=== PATIENT | female | born 1955 | race Caucasian/White ===

== ENCOUNTER → 2017-08-15 08:53 | Outpatient (CLI) | payer MEDICARE, MEDICAID, SELFPAY ==
[2017-08-15 09:27] LABS: Hematocrit 38.6 % (37-47); Hemoglobin 12.8 g/dl (12.0-15.0); Mean Corp Hgb Conc 33.2 g/gl (32-36); Mean Corpuscular Hgb 30.7 pg (27.0-32.0); Mean Corpuscular Volume 92.6 fL (81-99); Mean Platelet Vol. 11.9 fl (6.2-12.0); Platelet Count 80 K/mm3 (150-450); RBC Distribution Width CV 14.9 % (11.6-14.6); RBC Distribution Width SD 48.8 fl (35.1-43.9); Red Blood Count 4.17 M/mm3 (4.2-5.4); Scan Indicated on CBC? Y/N NO; White Blood Count 3.7 K/mm3 (4.4-11.0)
[2017-08-15 09:49] LABS: ALB/GLOB Ratio 0.7 RATIO (0.9-2.4); AST(SGOT) 38 U/L (15-37); Alanine Aminotransfer ALT/SGPT 33 U/L (13-56); Albumin, Serum 2.9 g/dL (3.2-5.0); Alkaline Phosphatase 96 U/L (45-117); Anion Gap 8 (5-15); BUN 15 mg/dL (7-18); BUN/Creat Ratio 18.4 RATIO (10-20); Calcium,Total 8.3 mg/dL (8.5-10.1); Chloride 112 mmol/L (98-107); Creatinine, Serum 0.82 mg/dL (0.55-1.02); EST Glomerular Filtration Rate 76 mL/min (>60); Est Glom Filt Rate - Afr Amer 92 mL/min (>60); Globulin 3.9 g/dL (2.2-4.2); Glucose 173 mg/dL (74-106); Potassium 3.6 mmol/L (3.5-5.1); Protein, Total 6.8 g/dL (6.4-8.2); Sodium Level 142 mmol/L (136-145)
== END ==
PROVIDERS: Family Provider Internal Medicine; PCP Internal Medicine; Visit Provider Internal Medicine
DX: E72.20 Disorder of urea cycle metabolism, unspecified (principal); R53.81 Other malaise; R53.82 Chronic fatigue, unspecified
CPT/HCPCS: 36415; 80053; 82140; 85027

== ENCOUNTER 2017-08-18 12:12 | Inpatient (IN) | payer MEDICARE, MEDICAID, SELFPAY ==
[2017-08-18] VITALS (10 sets, daily range): BP systolic 129–160; BP diastolic 59–91; PULSE 54–87; RESP 12–16; TEMP 36.2–36.8; O2SAT 97–99; BMI 24.7; BMI 25.0
--- NOTE | 2017-08-18 12:24 | CT_ITS ---
STUDY: CT BRAIN WITHOUT CONTRAST REASON FOR EXAM: Female, 62 years old. Confusion. Fall. RADIATION DOSAGE (If Supplied By Facility): CTDIvol = ( 44.99 ) mGy, DLP = ( 745.49 ) mGycm TECHNIQUE: Transaxial CT imaging of the brain was performed without administration of intravenous contrast material. Individualized dose optimization techniques were used for this CT. COMPARISON: Comparison is made with prior study dated 2017. FINDINGS: Normal soft tissue structures. Normal calvarium. There is mild cerebral atrophy with widening of the extra-axial spaces and ventricular dilatation. Normal white matter tracts of the cerebral hemispheres. Normal basal ganglia and thalami. Normal brainstem. Normal cerebellum. There is no intracranial hemorrhage. There are no findings of an acute ischemic infarction. Normal visualized paranasal sinuses. CT/Brain/Head without Contrast IMPRESSION: Chronic involutional changes of the brain. Electronically Signed: Delgado Garcia MD at 13:27 EDT Tel [phone], Service support ,
--- NOTE | 2017-08-18 12:29 | ED.DCSUM_ITS ---
- ER Visit Summary Date of Service: 08/18/17 Chief Complaint: Abnormal labs History of Present Illness: The patient is a 62 F who states that she had blood work drawn on Friday. She was called today and told that she had an elevated ammonia level. Reportedly this was 122. She states that she has been more confused lately. She feels weak and has been falling. She is on Plavix and does note that she hit the back of her head. She notes bruising to the right hip. She has a history of cirrhosis as well as polypharmacy resulting in altered mental status. Noted history of hepatitis C. Physical Examination: Afebrile vital signs are stable Gen: Well-nourished well-developed Head: Normocephalic atraumatic Eyes: Perrl EOMI ENT: TMs clear no rhinorrhea moist mucous membranes Neck: Supple no lymphadenopathy no JVD nontender CVS: Regular rate rhythm no murmurs normal S1-S2 Respiratory: No distress clear to auscultation bilaterally chest nontender Abdomen: Soft nontender nondistended normal bowel sounds no masses Back: Nontender Extremity: Nontender no edema Skin: Normal color no rash Neuro: alert orientated ?3 CN II-XII intact normal strength sensation reflexes gait cerebellar Psych: Flat affect Test Results: Ammonia level came back at 155. Toxicology positive for marijuana. No evidence of infection.CT of the brain was obtained given the fall on Plavix and was negative. Emergency Department Course and Treatment: Patient received oral lactulose. Plan is admission Impression: 1. Hepatic encephalopathy This note was generated with [employer] dictation software. It may contain incorrect words, spelling, and punctuation that were not noted in review of the chart prior to signing ED Disposition - Plan for ED Patient: Disposition: Acute Care Hospital [facility] Chief Complaint: Abn Labs
[2017-08-18 12:38] LABS: Red Blood Cells-Urine 0 SEEN /hpf (0-5)
[2017-08-18 12:42] LABS: Color, Urine Yellow (Yellow); Glucose, Dipstick Normal (Normal); Ketone-Dipstick Negative (Negative); Leukocyte Esterase-Dipstick 100 /ul (Negative); Nitrite-Dipstick Negative (Negative); Occult Blood-Urine Negative /ul (Negative); Protein-Dipstick Negative (Negative); Specific Gravity, Urine 1.015 (1.002-1.030); Urine Bilirubin Dipstick Negative (Negative); Urine Clarity Clear (Clear); Urine Urobilinogen 4 mg/dl (Normal)
[2017-08-18 12:49] LABS: White Blood Cells 0-5 SEEN /hpf (0-5)
[2017-08-18 12:50] LABS: Bacteria 1+ /hpf (None Seen); Mucous, Urine 1+ /hpf (<or=2+); Squamous Epithelial Cells - UA 10-25 SEEN /hpf (5-10)
[2017-08-18 12:54] LABS: Amphetamine Urine VISTA NEGATIVE (<1000 ng/mL); Barbiturate Urine VISTA NEGATIVE (< 200 ng/mL); Benzodiazepine Urine VISTA NEGATIVE (< 200 ng/mL); Cocaine Urine VISTA NEGATIVE (< 300 ng/mL); Ecstacy Urine VISTA NEGATIVE (< 500 ng/mL); Methadone Urine VISTA NEGATIVE (< 300 ng/mL); PCP Urine VISTA NEGATIVE (< 25 ng/mL); THC Urine VISTA POSITIVE (< 50 ng/mL); Vista UDS pH Range 6
[2017-08-18 13:10] LABS: Absolute Lymphocyte Count 1.07 X10^3/ul (0.83-4.51); Absolute Neutrophil Count 1.9 X10^3/uL (2.0-7.7); Basophil# 0.02 X10^3/uL; Basophil% 0.5 % (0-1); Eosinophil# 0.13 X10^3/uL; Eosinophils% 3.4 % (0-5); Hematocrit 38.2 % (37-47); Hemoglobin 12.6 g/dl (12.0-15.0); Lymphocyte # 1.07 X10^3/ul (4.0); Lymphocyte % 28.3 % (19-41); Mean Corpuscular Hgb 30.4 pg (27.0-32.0); Mean Corpuscular Volume 92.3 fL (81-99); Mean Platelet Vol. 12.3 fl (6.2-12.0); Monocyte# 0.65 X10^3/uL; Monocyte% 17.2 % (0-10); Neutrophil % 50.3 % (47-70); Platelet Count 87 K/mm3 (150-450); RBC Distribution Width SD 50.8 fl (35.1-43.9); Red Blood Count 4.14 M/mm3 (4.2-5.4); White Blood Count 3.8 K/mm3 (4.4-11.0)
[2017-08-18 13:11] LABS: POSITIVE COUNT NO; POSITIVE DIFFERENTIAL NO; POSITIVE MORPHOLOGY NO
[2017-08-18 13:20] LABS: International Normalized Ratio 1.3; Prothrombin Time (Protime)PT. 16.4 SECONDS (11.7-14.9)
[2017-08-18 13:21] LABS: Partial Thromboplast Time 34.3 Seconds (24.1-36.2)
[2017-08-18 13:26] LABS: ALB/GLOB Ratio 0.7 RATIO (0.9-2.4); AST(SGOT) 43 U/L (15-37); Alanine Aminotransfer ALT/SGPT 30 U/L (13-56); Alkaline Phosphatase 84 U/L (45-117); Anion Gap 6 (5-15); BUN 16 mg/dL (7-18); BUN/Creat Ratio 22.2 RATIO (10-20); Calcium,Total 8.6 mg/dL (8.5-10.1); Chloride 111 mmol/L (98-107); Creatinine, Serum 0.72 mg/dL (0.55-1.02); EST Glomerular Filtration Rate 87 mL/min (>60); Est Glom Filt Rate - Afr Amer 106 mL/min (>60); Estimated Creatinine Clearance 71.89 ml/min; Globulin 4.1 g/dL (2.2-4.2); Glucose 70 mg/dL (74-106); Lipase 264 U/L (73-393); Potassium 4.1 mmol/L (3.5-5.1); Protein, Total 7.1 g/dL (6.4-8.2); Sodium Level 143 mmol/L (136-145)
[2017-08-18] MEDS: Lactulose 20 GM/30 ML UDC PO ×3 (14:17→23:09)
--- NOTE | 2017-08-18 14:21 | PCM.HP.STD ---
Problem List (1) Cirrhosis Status: Chronic Qualifiers: Hepatic cirrhosis type: unspecified hepatic cirrhosis Ascites presence: without ascites Qualified Code(s): K74.60 - Unspecified cirrhosis of liver (2) Hepatitis C Status: Chronic Qualifiers: Viral hepatitis chronicity: unspecified Hepatic coma status: without hepatic coma Qualified Code(s): B19.20 - Unspecified viral hepatitis C without hepatic coma (3) CAD (coronary artery disease) Status: Chronic Qualifiers: Coronary Disease-Associated Artery/Lesion type: unspecified vessel or lesion type [place] vs. transplanted heart: unspecified whether [place] or transplanted heart Associated angina: angina presence unspecified Qualified Code(s): I25.10 - Atherosclerotic heart disease of [place] coronary artery without angina pectoris (4) History of non-ST elevation myocardial infarction (NSTEMI) Status: Chronic (5) HTN (hypertension) Status: Chronic Qualifiers: Hypertension type: essential hypertension Qualified Code(s): I10 - Essential (primary) hypertension (6) HLD (hyperlipidemia) Status: Chronic Qualifiers: Hyperlipidemia type: unspecified Qualified Code(s): E78.5 - Hyperlipidemia, unspecified (7) Tobacco use Status: Chronic (8) Chronic pain syndrome Status: Chronic (9) Anxiety and depression Status: Chronic (10) Hyperammonemia Status: Acute (11) Encephalopathy acute Status: Acute History of Present Illness Date of Admission: 08/18/17 Chief Complaint: Falls, Confusion, Abnormal Lab The patient is a 62 y/o F w/ PMHx: Hx [place], Chronic Pain Syndrome on chronic narcotic therapy, Anxiety and Depression, Hepatitis C w/ Cirrhosis, Chronic Thrombocytopenia, Tobacco use who presents to the [facility] ED on with history of increased more frequent falls, intermittent confusion, falling asleep easily during daytime hours over the last 4 weeks, progressively worsening w/ PCP evaluation 4 days prior secondary to patient resistant to evaluation per report with noted elevated ammonia level and referral to the ED. In the ED repeat ammonia level obtained more elevated above prior per PCP. Patient does not routinely take lactulose regimen. Patient admitted to recent fall, hitting her head in the past week as well. In the ED work-up included T 97.2, heart rate 66, BP 140/79, respiratory rate 15, 97% on room air, CBC with WBC 3.8, hemoglobin 12.6, platelet 87 with increased mono%, INR 1.3, PTT 34.3, PT 16.4, CMP w/ Chl 111, Glucose 70, AST/ALT 43/30, Ammonia 155, lipase 264, UA poor sample, UDS w/ + cannabis, CT head with chronic changes only. In the ED patient administered lactulose. Past Medical History Past Medical History (Chronic Problems): Chronic Problems (Last Reviewed 04/02/17 @ 11:17 by Navin Argueta MD) Cirrhosis (Chronic) Hepatitis C (Chronic) CAD (coronary artery disease) (Chronic) History of non-ST elevation myocardial infarction (NSTEMI) (Chronic) HTN (hypertension) (Chronic) HLD (hyperlipidemia) (Chronic) Tobacco use (Chronic) Chronic pain syndrome (Chronic) Anxiety and depression (Chronic) Abnormal electrocardiogram [ECG] [EKG] (Chronic) Non-ST elevation (NSTEMI) myocardial infarction (Chronic ~01/27/17) Allergies No Known Allergies Allergy (Verified 08/18/17 12:15) Home Medications: Ambulatory Orders Medication Instructions Recorded Aripiprazole [Abilify] 5 mg PO DAILY 02/05/13 Clonazepam [Klonopin] 0.5 mg PO QHS #0 02/05/13 Rifaximin [Xifaxan] 550 mg PO DAILY 01/24/17 Naproxen [Naprosyn] 500 mg PO BID PRN #20 tab 04/02/17 Atenolol [Atenolol] 50 mg PO DAILY 08/18/17 Atorvastatin Calcium [Lipitor] 20 mg PO QHS 08/18/17 Buprenorphine [Buprenorphine] 1 each TOPICAL DOWLING 08/18/17 Clopidogrel Bisulfate [Plavix] 75 mg PO DAILY 08/18/17 Fluoxetine [Prozac] 40 mg PO DAILY 08/18/17 Tizanidine HCl [Tizanidine HCl] 4 mg PO Q8H PRN 08/18/17 Topiramate [Topamax] 25 mg PO DAILY 08/18/17 Surgical History: - - Cervical neck surgery, oral surgery, tonsillectomy, cholecystectomy, hysterectomy, right salpingectomy secondary to tubal . 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 Tobacco Use: Non-smoker Alcohol: None Drugs: Marijuana, - - History of prior polysubstance abuse but notes only item currently used is occasional marijuana. - *Family History Maternal History Items: Heart Disease, Hypertension Paternal History Items: Heart Disease, Hypertension Review of Systems Constitutional: Reports: Malaise, Weakness, Fatigue. Denies: Chills, Fever, Weight Change HEENT: Denies: Head Aches, Sinus Congestion, Sinus Drainage Cardiovascular: Denies: Chest Pain, Palpitations Respiratory: Denies: Cough, Shortness of breath at rest, Sputum production Gastrointestinal: Denies: Abdominal Pain, Nausea, Vomiting Genitourinary: Denies: Dysuria Musculoskeletal: Reports: Back Pain, Neck Pain. Denies: Joint Pain, Joint Tenderness Skin: Denies: Rash, Wounds Neurological: Reports: Balance problems. Denies: Focal weakness, Numbness, Tingling Psychiatric: Reports: Anxiety, Depression. Denies: Homicidal Ideations, Suicidal Ideations Hematologic/ Lymphatic: Reports: Anemia, Easy Bruising, Easy Bleeding VTE Information - Inpt Only VTE Present on Admission: No VTE Mechan Device Prophylaxis: SCD's VTE Pharm Prophylaxis ordered?: Yes Patient Problems: Active and Suspected Problems (Last Reviewed 04/02/17 @ 11:17 by Navin Argueta MD) Hyperammonemia (Acute) Encephalopathy acute (Acute) Subjective: Seated upright in the ED bed, fatigued appearance, occasionally slurring her words. Objective: Physical Examination: General: awake, alert, oriented to self, place and recent events but per spouse has been intermittently confused, cooperative, seated upright in the ED bed in no apparent distress. Skin: normal color, turgor, no icterus, cyanosis. HEENT: AT/NC, EOMI, PERRLA, mildly dry MM, no carotid bruits or JVD noted. Lungs: CTA bilaterally, moderate effort, mild decrease BL bases, no rales, ronchi or wheezing. Heart: Regular rate and rhythm; no gallop, rub audible. Abdomen: soft, NTTP, ND, normal BS, + HM. Extremities: no cyanosis, clubbing, or edema. Neurological: patient awake, alert, oriented as noted; cognitive function not baseline intact; pupils equally reactive to light and accomodation; cranial nerves II-XII grossly normal, moving all 4 extremities, no focal deficits, strength mildly to moderately globally decreased, gait instability. Psychiatric: affect appears fatigued, no acute evidence of depressive or anxiety feelings. - Physical Exam Vital Signs Temp Pulse Resp BP Pulse Ox 97.2 F L 87 12 129/59 H 97 08/18/17 12:12 08/18/17 14:18 08/18/17 14:18 08/18/17 14:18 08/18/17 14:18 Oxygen Delivery Method Room Air Weight: 122 lb 5.705 oz Body Mass Index (BMI) 24.7 Finger Stick Blood Glucose 123 Laboratory Tests Past 24 Hrs 08/18/17 08/18/17 08/18/17 12:30 12:30 12:50 WBC 3.8 L RBC 4.14 L Hgb 12.6 Hct 38.2 MCV 92.3 MCH 30.4 MCHC 33.0 RDW 15.0 H RDW Differential 50.8 H Plt Count 87 L MPV 12.3 H Immature Gran % (Auto) 0.300 Neut % (Auto) 50.3 Lymph % (Auto) 28.3 Fisher % (Auto) 17.2 H Eos % (Auto) 3.4 Baso % (Auto) 0.5 Absolute Neuts (auto) 1.9 L Absolute Lymphs (auto) 1.07 Total Counted Not Reportable PT INR APTT Sodium Potassium Chloride Carbon Dioxide Anion Gap BUN Creatinine Estim Creat Clear Calc Est GFR (MDRD) Af Amer Est GFR (MDRD) Non-Af BUN/Creatinine Ratio Glucose Calcium Total Bilirubin AST ALT Alkaline Phosphatase Ammonia Total Protein Albumin Globulin Albumin/Globulin Ratio Lipase Urine Color Yellow Urine Clarity Clear Urine pH 6.0 Ur Specific [place] 1.015 Urine Protein Negative Urine Glucose (UA) Normal Urine Ketones Negative Urine Occult Blood Negative Urine Nitrite Negative Urine Bilirubin Negative Urine Urobilinogen 4 H Ur Leukocyte Esterase 100 H Urine RBC 0 SEEN Urine WBC 0-5 SEEN Ur Squamous Epith Cells 10-25 SEEN Urine Bacteria 1+ Urine Mucus 1+ Urine Opiates Screen NEGATIVE Urine Methadone Screen NEGATIVE Ur Barbiturates Screen NEGATIVE Ur Phencyclidine Scrn NEGATIVE Ur Amphetamines Screen NEGATIVE U Methamphetamin-MDMA NEGATIVE U Benzodiazepines Scrn NEGATIVE Urine Cocaine Screen NEGATIVE U Cannabinoids Screen POSITIVE H Ur Drug Screen Comment Ethyl Alcohol 08/18/17 08/18/17 08/18/17 12:50 12:50 12:50 WBC RBC Hgb Hct MCV MCH MCHC RDW RDW Differential Plt Count MPV Immature Gran % (Auto) Neut % (Auto) Lymph % (Auto) Fisher % (Auto) Eos % (Auto) Baso % (Auto) Absolute Neuts (auto) Absolute Lymphs (auto) Total Counted PT 16.4 H INR 1.3 APTT 34.3 Sodium 143 Potassium 4.1 Chloride 111 H Carbon Dioxide 26.0 Anion Gap 6 BUN 16 Creatinine 0.72 Estim Creat Clear Calc 71.89 Est GFR (MDRD) Af Amer 106 Est GFR (MDRD) Non-Af 87 BUN/Creatinine Ratio 22.2 H Glucose 70 L Calcium 8.6 Total Bilirubin 0.60 AST 43 H ALT 30 Alkaline Phosphatase 84 Ammonia Total Protein 7.1 Albumin 3.0 L Globulin 4.1 Albumin/Globulin Ratio 0.7 L Lipase 264 Urine Color Urine Clarity Urine pH Ur Specific [place] Urine Protein Urine Glucose (UA) Urine Ketones Urine Occult Blood Urine Nitrite Urine Bilirubin Urine Urobilinogen Ur Leukocyte Esterase Urine RBC Urine WBC Ur Squamous Epith Cells Urine Bacteria Urine Mucus Urine Opiates Screen Urine Methadone Screen Ur Barbiturates Screen Ur Phencyclidine Scrn Ur Amphetamines Screen U Methamphetamin-MDMA U Benzodiazepines Scrn Urine Cocaine Screen U Cannabinoids Screen Ur Drug Screen Comment Ethyl Alcohol 10.0 08/18/17 12:50 WBC RBC Hgb Hct MCV MCH MCHC RDW RDW Differential Plt Count MPV Immature Gran % (Auto) Neut % (Auto) Lymph % (Auto) Fisher % (Auto) Eos % (Auto) Baso % (Auto) Absolute Neuts (auto) Absolute Lymphs (auto) Total Counted PT INR APTT Sodium Potassium Chloride Carbon Dioxide Anion Gap BUN Creatinine Estim Creat Clear Calc Est GFR (MDRD) Af Amer Est GFR (MDRD) Non-Af BUN/Creatinine Ratio Glucose Calcium Total Bilirubin AST ALT Alkaline Phosphatase Ammonia 155.0 H Total Protein Albumin Globulin Albumin/Globulin Ratio Lipase Urine Color Urine Clarity Urine pH Ur Specific [place] Urine Protein Urine Glucose (UA) Urine Ketones Urine Occult Blood Urine Nitrite Urine Bilirubin Urine Urobilinogen Ur Leukocyte Esterase Urine RBC Urine WBC Ur Squamous Epith Cells Urine Bacteria Urine Mucus Urine Opiates Screen Urine Methadone Screen Ur Barbiturates Screen Ur Phencyclidine Scrn Ur Amphetamines Screen U Methamphetamin-MDMA U Benzodiazepines Scrn Urine Cocaine Screen U Cannabinoids Screen Ur Drug Screen Comment Ethyl Alcohol Assessment/Plan Active and Suspected Problems (Last Reviewed 04/02/17 @ 11:17 by Navin Argueta MD) Hyperammonemia (Acute) Encephalopathy acute (Acute) The patient is a 62 y/o F w/ PMHx: Hx [place], Chronic Pain Syndrome on chronic narcotic therapy, Anxiety and Depression, Hepatitis C w/ Cirrhosis, Chronic Thrombocytopenia, Tobacco use who presents to the [facility] ED on with history of increased more frequent falls, intermittent confusion, falling asleep easily during daytime hours w/ PCP evaluation 4 days prior with noted elevated ammonia level and referral to the ED. (1) Acute Encephalopathy secondary to Hyperammonia w/ Cirrhosis w/ Hepatitis C with chronic thrombocytopenia: CT head without acute findings given fall on plavix. Will admit to [facility] w/ telemetry, maintain on low Na diet, defer water restriction unless intake notable, given no marked ascites defer IV lasix diuresis, initiate aggressive lactulose regimen and will likely need to be maintained upon discharge, continue home regimen atenolol, rifaximin, consider addition of spironolactone if appropriate, repeat ammonia and CMP in AM. Nutrition consulted for education and teaching. Repeat CBC in a.m., closely monitor platelets and if further decreased to discontinue chemoprophylaxis. (2) CAD: Hx NSTEMI, maintain on asa, plavix, statin, BB. NSTEMI 12/2016 w/ cardiac catheterization w/ normal left main, normal LAD, normal left circumflex, dominant RCA with small vessel with thrombus filled vessel in the side branch of the PDA, normal EF, medical recommendation at that time with continuation of aspirin, Plavix therapy. (3) Hypertension: Continue home regimen including metoprolol, PRN hydralazine. (4) Hyperlipidemia: Continue home statin regimen. (5) Anxiety and Depression: Maintain on home regimen abilify, prozac and klonopin. UDS upon ED presentation with negative BZD. (6) Chronic Pain Syndrome: Maintained on home buprenorphine and tizanidine regimen. UDS with noted cannabis in addition to lack of benzodiazepines with history of polysubstance abuse in the past. (7) History of former tobacco Abuse: Encouraged continued cessation, inpatient consultation per RT. (8) History of polysubstance abuse: Encouraged continued clean status, encouraged avoidance of cannabis usage with noted UDS positive for cannabis and also lacking benzodiazepine with usage of chronic Klonopin on chronic therapy with pain management. (9) DVT Prophylaxis: SCDs, lovenox with close monitoring of platelet count and hold if appropriate. Code Visit Inpatient E&M: 79306 Init Hosp L3
--- NOTE | 2017-08-18 14:32 | HP.PCM_ITS ---
Problem List (1) Cirrhosis Status: Chronic Qualifiers: Hepatic cirrhosis type: unspecified hepatic cirrhosis Ascites presence: without ascites Qualified Code(s): K74.60 - Unspecified cirrhosis of liver (2) Hepatitis C Status: Chronic Qualifiers: Viral hepatitis chronicity: unspecified Hepatic coma status: without hepatic coma Qualified Code(s): B19.20 - Unspecified viral hepatitis C without hepatic coma (3) CAD (coronary artery disease) Status: Chronic Qualifiers: Coronary Disease-Associated Artery/Lesion type: unspecified vessel or lesion type [place] vs. transplanted heart: unspecified whether [place] or transplanted heart Associated angina: angina presence unspecified Qualified Code(s): I25.10 - Atherosclerotic heart disease of [place] coronary artery without angina pectoris (4) History of non-ST elevation myocardial infarction (NSTEMI) Status: Chronic (5) HTN (hypertension) Status: Chronic Qualifiers: Hypertension type: essential hypertension Qualified Code(s): I10 - Essential (primary) hypertension (6) HLD (hyperlipidemia) Status: Chronic Qualifiers: Hyperlipidemia type: unspecified Qualified Code(s): E78.5 - Hyperlipidemia , unspecified (7) Tobacco use Status: Chronic (8) Chronic pain syndrome Status: Chronic (9) Anxiety and depression Status: Chronic (10) Hyperammonemia Status: Acute (11) Encephalopathy acute Status: Acute History of Present Illness Date of Admission: 08/18/17 Chief Complaint: Falls, Confusion, Abnormal Lab The patient is a 62 y/o F w/ PMHx: Hx UT, Chronic Pain Syndrome on chronic narcotic therapy, Anxiety and Depression, Hepatitis C w/ Cirrhosis, Chronic Thrombocytopenia, Tobacco use who presents to the [facility] ED on with history of increased more frequent falls, intermittent confusion, falling asleep easily during daytime hours over the last 4 weeks, progressively worsening w/ PCP evaluation 4 days prior secondary to patient resistant to evaluation per report with noted elevated ammonia level and referral to the ED. In the ED repeat ammonia level obtained more elevated above prior per PCP. Patient does not routinely take lactulose regimen. Patient admitted to recent fall, hitting her head in the past week as well. In the ED work-up included T 97.2, heart rate 66, BP 140/79, respiratory rate 15, 97% on room air , CBC with WBC 3.8, hemoglobin 12.6, platelet 87 with increased mono%, INR 1.3, PTT 34.3, PT 16.4, CMP w/ Chl 111, Glucose 70, AST/ALT 43/30, Ammonia 155, lipase 264, UA poor sample, UDS w/ + cannabis, CT head with chronic changes only. In the ED patient administered lactulose. Past Medical History Past Medical History (Chronic Problems): Chronic Problems (Last Reviewed 04/02/17 @ 11:17 by Navin Argueta MD) Cirrhosis (Chronic) Hepatitis C (Chronic) CAD (coronary artery disease) (Chronic) History of non-ST elevation myocardial infarction (NSTEMI) (Chronic) HTN (hypertension) (Chronic) HLD (hyperlipidemia) (Chronic) Tobacco use (Chronic) Chronic pain syndrome (Chronic) Anxiety and depression (Chronic) Abnormal electrocardiogram [ECG] [EKG] (Chronic) Non-ST elevation (NSTEMI) myocardial infarction (Chronic ~01/27/17) Allergies No Known Allergies Allergy (Verified 08/18/17 12:15) Home Medications: Ambulatory Orders Medication Instructions Recorded Aripiprazole [Abilify] 5 mg PO DAILY 02/05/13 Clonazepam [Klonopin] 0.5 mg PO QHS #0 02/05/13 Rifaximin [Xifaxan] 550 mg PO DAILY 01/24/17 Naproxen [Naprosyn] 500 mg PO BID PRN #20 tab 04/02/17 Atenolol [Atenolol] 50 mg PO DAILY 08/18/17 Atorvastatin Calcium [Lipitor] 20 mg PO QHS 08/18/17 Buprenorphine [Buprenorphine] 1 each TOPICAL DOWLING 08/18/17 Clopidogrel Bisulfate [Plavix] 75 mg PO DAILY 08/18/17 Fluoxetine [Prozac] 40 mg PO DAILY 08/18/17 Tizanidine HCl [Tizanidine HCl] 4 mg PO Q8H PRN 08/18/17 Topiramate [Topamax] 25 mg PO DAILY 08/18/17 Surgical History: - - Cervical neck surgery, oral surgery, tonsillectomy, cholecystectomy, hysterectomy, right salpingectomy secondary to tubal . Psychiatric History: Anxiety, Depression COMPUTER SUPPORT SPECIALIST History: No pertinent COMPUTER SUPPORT SPECIALIST history Lives: Spouse/ Significant Other Smoking Status: Former smoker - Patient notes quitting tobacco usage approximately 5 years prior, smoked 1 pack per day prior to this since youth. Tobacco Use: Non-smoker Alcohol: None Drugs: Marijuana, - - History of prior polysubstance abuse but notes only item currently used is occasional marijuana. - *Family History Maternal History Items: Heart Disease, Hypertension Paternal History Items: Heart Disease, Hypertension Review of Systems Constitutional: Reports: Malaise, Weakness, Fatigue. Denies: Chills, Fever, Weight Change HEENT: Denies: Head Aches, Sinus Congestion, Sinus Drainage Cardiovascular: Denies: Chest Pain, Palpitations Respiratory: Denies: Cough, Shortness of breath at rest, Sputum production Gastrointestinal: Denies: Abdominal Pain, Nausea, Vomiting Genitourinary: Denies: Dysuria Musculoskeletal: Reports: Back Pain, Neck Pain. Denies: Joint Pain, Joint Tenderness Skin: Denies: Rash, Wounds Neurological: Reports: Balance problems. Denies: Focal weakness, Numbness, Tingling Psychiatric: Reports: Anxiety, Depression. Denies: Homicidal Ideations, Suicidal Ideations Hematologic/ Lymphatic: Reports: Anemia, Easy Bruising, Easy Bleeding VTE Information - Inpt Only VTE Present on Admission: No VTE Mechan Device Prophylaxis: SCD's VTE Pharm Prophylaxis ordered?: Yes Patient Problems: Active and Suspected Problems (Last Reviewed 04/02/17 @ 11:17 by Navin Argueta MD ) Hyperammonemia (Acute) Encephalopathy acute (Acute) Subjective: Seated upright in the ED bed, fatigued appearance, occasionally slurring her words. Objective: Physical Examination: General: awake, alert, oriented to self, place and recent events but per spouse has been intermittently confused, cooperative, seated upright in the ED bed in no apparent distress. Skin: normal color, turgor, no icterus, cyanosis. HEENT: AT/NC, EOMI, PERRLA, mildly dry MM, no carotid bruits or JVD noted. Lungs: CTA bilaterally, moderate effort, mild decrease BL bases, no rales, ronchi or wheezing. Heart: Regular rate and rhythm; no gallop, rub audible. Abdomen: soft, NTTP, ND, normal BS, + HM. Extremities: no cyanosis, clubbing, or edema. Neurological: patient awake, alert, oriented as noted; cognitive function not baseline intact; pupils equally reactive to light and accomodation; cranial nerves II-XII grossly normal, moving all 4 extremities, no focal deficits, strength mildly to moderately globally decreased, gait instability. Psychiatric: affect appears fatigued, no acute evidence of depressive or anxiety feelings. - Physical Exam Vital Signs Temp Pulse Resp BP Pulse Ox 97.2 F L 87 12 129/59 H 97 08/18/17 12:12 08/18/17 14:18 08/18/17 14:18 08/18/17 14:18 08/18/17 14:18 Oxygen Delivery Method Room Air Weight: 122 lb 5.705 oz Body Mass Index (BMI) 24.7 Finger Stick Blood Glucose 123 Laboratory Tests Past 24 Hrs 08/18/17 08/18/17 08/18/17 12:30 12:30 12:50 WBC 3.8 L RBC 4.14 L Hgb 12.6 Hct 38.2 MCV 92.3 MCH 30.4 MCHC 33.0 RDW 15.0 H RDW Differential 50.8 H Plt Count 87 L MPV 12.3 H Immature Gran % (Auto) 0.300 Neut % (Auto) 50.3 Lymph % (Auto) 28.3 [place] % (Auto) 17.2 H Eos % (Auto) 3.4 Baso % (Auto) 0.5 Absolute Neuts (auto) 1.9 L Absolute Lymphs (auto) 1.07 Total Counted Not Reportable PT INR APTT Sodium Potassium Chloride Carbon Dioxide Anion Gap BUN Creatinine Estim Creat Clear Calc Est GFR (MDRD) Af Amer Est GFR (MDRD) Non-Af BUN/Creatinine Ratio Glucose Calcium Total Bilirubin AST ALT Alkaline Phosphatase Ammonia Total Protein Albumin Globulin Albumin/Globulin Ratio Lipase Urine Color Yellow Urine Clarity Clear Urine pH 6.0 Ur Specific [place] 1.015 Urine Protein Negative Urine Glucose (UA) Normal Urine Ketones Negative Urine Occult Blood Negative Urine Nitrite Negative Urine Bilirubin Negative Urine Urobilinogen 4 H Ur Leukocyte Esterase 100 H Urine RBC 0 SEEN Urine WBC 0-5 SEEN Ur Squamous Epith Cells 10-25 SEEN Urine Bacteria 1+ Urine Mucus 1+ Urine Opiates Screen NEGATIVE Urine Methadone Screen NEGATIVE Ur Barbiturates Screen NEGATIVE Ur Phencyclidine Scrn NEGATIVE Ur Amphetamines Screen NEGATIVE U Methamphetamin-MDMA NEGATIVE U Benzodiazepines Scrn NEGATIVE Urine Cocaine Screen NEGATIVE U Cannabinoids Screen POSITIVE H Ur Drug Screen Comment Ethyl Alcohol 08/18/17 08/18/17 08/18/17 12:50 12:50 12:50 WBC RBC Hgb Hct MCV MCH MCHC RDW RDW Differential Plt Count MPV Immature Gran % (Auto) Neut % (Auto) Lymph % (Auto) [place] % (Auto) Eos % (Auto) Baso % (Auto) Absolute Neuts (auto) Absolute Lymphs (auto) Total Counted PT 16.4 H INR 1.3 APTT 34.3 Sodium 143 Potassium 4.1 Chloride 111 H Carbon Dioxide 26.0 Anion Gap 6 BUN 16 Creatinine 0.72 Estim Creat Clear Calc 71.89 Est GFR (MDRD) Af Amer 106 Est GFR (MDRD) Non-Af 87 BUN/Creatinine Ratio 22.2 H Glucose 70 L Calcium 8.6 Total Bilirubin 0.60 AST 43 H ALT 30 Alkaline Phosphatase 84 Ammonia Total Protein 7.1 Albumin 3.0 L Globulin 4.1 Albumin/Globulin Ratio 0.7 L Lipase 264 Urine Color Urine Clarity Urine pH Ur Specific [place] Urine Protein Urine Glucose (UA) Urine Ketones Urine Occult Blood Urine Nitrite Urine Bilirubin Urine Urobilinogen Ur Leukocyte Esterase Urine RBC Urine WBC Ur Squamous Epith Cells Urine Bacteria Urine Mucus Urine Opiates Screen Urine Methadone Screen Ur Barbiturates Screen Ur Phencyclidine Scrn Ur Amphetamines Screen U Methamphetamin-MDMA U Benzodiazepines Scrn Urine Cocaine Screen U Cannabinoids Screen Ur Drug Screen Comment Ethyl Alcohol 10.0 08/18/17 12:50 WBC RBC Hgb Hct MCV MCH MCHC RDW RDW Differential Plt Count MPV Immature Gran % (Auto) Neut % (Auto) Lymph % (Auto) [place] % (Auto) Eos % (Auto) Baso % (Auto) Absolute Neuts (auto) Absolute Lymphs (auto) Total Counted PT INR APTT Sodium Potassium Chloride Carbon Dioxide Anion Gap BUN Creatinine Estim Creat Clear Calc Est GFR (MDRD) Af Amer Est GFR (MDRD) Non-Af BUN/Creatinine Ratio Glucose Calcium Total Bilirubin AST ALT Alkaline Phosphatase Ammonia 155.0 H Total Protein Albumin Globulin Albumin/Globulin Ratio Lipase Urine Color Urine Clarity Urine pH Ur Specific [place] Urine Protein Urine Glucose (UA) Urine Ketones Urine Occult Blood Urine Nitrite Urine Bilirubin Urine Urobilinogen Ur Leukocyte Esterase Urine RBC Urine WBC Ur Squamous Epith Cells Urine Bacteria Urine Mucus Urine Opiates Screen Urine Methadone Screen Ur Barbiturates Screen Ur Phencyclidine Scrn Ur Amphetamines Screen U Methamphetamin-MDMA U Benzodiazepines Scrn Urine Cocaine Screen U Cannabinoids Screen Ur Drug Screen Comment Ethyl Alcohol Assessment/Plan Active and Suspected Problems (Last Reviewed 04/02/17 @ 11:17 by Navin Argueta MD ) Hyperammonemia (Acute) Encephalopathy acute (Acute) The patient is a 62 y/o F w/ PMHx: Hx UT, Chronic Pain Syndrome on chronic narcotic therapy, Anxiety and Depression, Hepatitis C w/ Cirrhosis, Chronic Thrombocytopenia, Tobacco use who presents to the [facility] ED on with history of increased more frequent falls, intermittent confusion, falling asleep easily during daytime hours w/ PCP evaluation 4 days prior with noted elevated ammonia level and referral to the ED. (1) Acute Encephalopathy secondary to Hyperammonia w/ Cirrhosis w/ Hepatitis C with chronic thrombocytopenia: CT head without acute findings given fall on plavix. Will admit to [facility] w/ telemetry, maintain on low Na diet, defer water restriction unless intake notable, given no marked ascites defer IV lasix diuresis, initiate aggressive lactulose regimen and will likely need to be maintained upon discharge, continue home regimen atenolol, rifaximin, consider addition of spironolactone if appropriate, repeat ammonia and CMP in AM. Nutrition consulted for education and teaching. Repeat CBC in a.m., closely monitor platelets and if further decreased to discontinue chemoprophylaxis. (2) CAD: Hx NSTEMI, maintain on asa, plavix, statin, BB. NSTEMI 12/2016 w/ cardiac catheterization w/ normal left main, normal LAD, normal left circumflex , dominant RCA with small vessel with thrombus filled vessel in the side branch of the PDA, normal EF, medical recommendation at that time with continuation of aspirin, Plavix therapy. (3) Hypertension: Continue home regimen including metoprolol, PRN hydralazine. (4) Hyperlipidemia: Continue home statin regimen. (5) Anxiety and Depression: Maintain on home regimen abilify, prozac and klonopin. UDS upon ED presentation with negative BZD. (6) Chronic Pain Syndrome: Maintained on home buprenorphine and tizanidine regimen. UDS with noted cannabis in addition to lack of benzodiazepines with history of polysubstance abuse in the past. (7) History of former tobacco Abuse: Encouraged continued cessation, inpatient consultation per RT. (8) History of polysubstance abuse: Encouraged continued clean status, encouraged avoidance of cannabis usage with noted UDS positive for cannabis and also lacking benzodiazepine with usage of chronic Klonopin on chronic therapy with pain management. (9) DVT Prophylaxis: SCDs, lovenox with close monitoring of platelet count and hold if appropriate. Code Visit Inpatient E&M: 02525 Init Hosp L3
[2017-08-18 16:11] LABS: Magnesium 1.6 mg/dL (1.6-2.6)
[2017-08-18 17:05] LABS: Bedside Glucose 102 mg/dL (70-110)
[2017-08-18] MEDS: Atorvastatin Calcium 20 MG Tablet PO (21:11)
[2017-08-18] MEDS: rifAXIMin 550 MG Tablet PO (21:11)
[2017-08-18] MEDS: Famotidine 20 MG Tablet PO (21:11)
[2017-08-19 02:29] VITALS: PULSE 76
[2017-08-19] MEDS: tiZANidine HCl 2 MG Tablet 4 MG PO (04:29)
[2017-08-19 04:35] VITALS: BP 166/75; PULSE 58; RESP 16; TEMP 36.3; O2SAT 98
[2017-08-19 05:57] LABS: Absolute Lymphocyte Count 0.73 X10^3/ul (0.83-4.51); Absolute Neutrophil Count 1.7 X10^3/uL (2.0-7.7); Basophil# 0.02 X10^3/uL; Basophil% 0.7 % (0-1); Eosinophil# 0.09 X10^3/uL; Eosinophils% 3.1 % (0-5); Hematocrit 34.7 % (37-47); Hemoglobin 11.4 g/dl (12.0-15.0); Lymphocyte # 0.73 X10^3/ul (4.0); Lymphocyte % 25.3 % (19-41); Mean Corp Hgb Conc 32.9 g/gl (32-36); Mean Corpuscular Hgb 30.1 pg (27.0-32.0); Mean Corpuscular Volume 91.6 fL (81-99); Mean Platelet Vol. 12.2 fl (6.2-12.0); Monocyte# 0.39 X10^3/uL; Monocyte% 13.5 % (0-10); Neutrophil # 1.65 X10^3/uL (2.7-7.7); Neutrophil % 57.4 % (47-70); Platelet Count 62 K/mm3 (150-450); RBC Distribution Width CV 14.8 % (11.6-14.6); RBC Distribution Width SD 49.8 fl (35.1-43.9); Red Blood Count 3.79 M/mm3 (4.2-5.4); White Blood Count 2.9 K/mm3 (4.4-11.0)
[2017-08-19] MEDS: Lactulose 20 GM/30 ML UDC PO (06:00)
[2017-08-19 06:01] LABS: POSITIVE COUNT NO; POSITIVE DIFFERENTIAL NO; POSITIVE MORPHOLOGY NO
[2017-08-19 06:16] LABS: ALB/GLOB Ratio 0.7 RATIO (0.9-2.4); AST(SGOT) 42 U/L (15-37); Alanine Aminotransfer ALT/SGPT 28 U/L (13-56); Albumin, Serum 2.6 g/dL (3.2-5.0); Alkaline Phosphatase 73 U/L (45-117); Anion Gap 8 (5-15); BUN 14 mg/dL (7-18); BUN/Creat Ratio 21.3 RATIO (10-20); Calcium,Total 8.1 mg/dL (8.5-10.1); Chloride 114 mmol/L (98-107); Creatinine, Serum 0.66 mg/dL (0.55-1.02); EST Glomerular Filtration Rate 97 mL/min (>60); Est Glom Filt Rate - Afr Amer 117 mL/min (>60); Estimated Creatinine Clearance 79.42 ml/min; Globulin 3.6 g/dL (2.2-4.2); Glucose 115 mg/dL (74-106); Potassium 3.5 mmol/L (3.5-5.1); Protein, Total 6.2 g/dL (6.4-8.2); Sodium Level 144 mmol/L (136-145)
[2017-08-19 08:00] VITALS: RESP 18
[2017-08-19 08:46] VITALS: BP 113/62; PULSE 62; RESP 18; TEMP 36.7; O2SAT 98
[2017-08-19] MEDS: Enoxaparin 40 MG/0.4 ML Syringe SC (09:41)
[2017-08-19] MEDS: Clopidogrel Bisulfate 75 MG Tablet PO (09:41)
[2017-08-19] MEDS: FLUoxetine 20 MG Capsule 40 MG PO (09:41)
[2017-08-19] MEDS: Atenolol 50 MG Tablet PO (09:41)
[2017-08-19] MEDS: Topiramate 25 MG Tablet PO (09:42)
[2017-08-19] MEDS: rifAXIMin 550 MG Tablet PO (09:42)
[2017-08-19] MEDS: Famotidine 20 MG Tablet PO (09:42)
[2017-08-19] MEDS: ARIPiprazole 5 MG Tablet PO (09:43)
[2017-08-19 10:00] VITALS: PULSE 55
--- NOTE | 2017-08-19 10:54 | PCM.DC ---
- Discharge Diagnoses Current Active Problems: Current Active and Chronic Problems (Last Reviewed 04/02/17 @ 11:17 by Navin Argueta MD) Cirrhosis (Chronic) Hepatitis C (Chronic) CAD (coronary artery disease) (Chronic) History of non-ST elevation myocardial infarction (NSTEMI) (Chronic) HTN (hypertension) (Chronic) HLD (hyperlipidemia) (Chronic) Tobacco use (Chronic) Chronic pain syndrome (Chronic) Anxiety and depression (Chronic) Hyperammonemia (Acute) Encephalopathy acute (Acute) You will use the following diet at home:: No restrictions Your food should be the consistency of: Regular Your liquids should be the consistency of: Regular/Thin Discharge Activity: Return to Normal Activity Additional Instructions: do not fail to take your Lactulose and Xifaxan Allergies/Adverse Reactions: Allergies No Known Allergies Allergy (Verified 08/18/17 12:15) Medications to take at Discharge Aripiprazole [Abilify] 5 mg PO DAILY 02/05/13 Clonazepam [Klonopin] 0.5 mg PO DAILY PRN PRN #0 02/05/13 Rifaximin [Xifaxan] 550 mg PO BID 01/24/17 Atenolol 50 mg PO DAILY 08/18/17 Atorvastatin Calcium [Lipitor] 20 mg PO QHS 08/18/17 Buprenorphine 1 each TOPICAL DOWLING 08/18/17 Clopidogrel Bisulfate [Plavix] 75 mg PO DAILY 08/18/17 Fluoxetine [Prozac] 40 mg PO DAILY 08/18/17 Topiramate [Topamax] 25 mg PO DAILY 08/18/17 Lactulose [Chronulac] 20 gm PO BID #32 oz 08/19/17 The following prescriptions were given: Lactulose [Chronulac] 20 gm PO BID #32 oz Primary Care Physician: Kwabena Bach Jr., MD [Primary Care Provider] - Please follow up with your Primary Care Physician in: next week
--- NOTE | 2017-08-19 11:07 | CASEMGMT ---
LUX CLAY NOTE: pt is to be dc'd today. No dc needs identified @ this time. Per Dr. Curtis, he discussed @ length re: pt's medication regimen. LUX CLAY discussed CCN with pt. She states she is not interested. Pt will f/u with PCP. Pt is calling to secure ride home at this time. Johnna AUSTIN RN ACM
[2017-08-19 11:44] VITALS: BP 114/70; PULSE 55; RESP 18; TEMP 36.9; O2SAT 98
--- NOTE | 2017-08-19 19:46 | PCM.DC.SUM ---
Discharge Date and Diagnosis Date of Admission: 08/18/17 Date of Discharge: 08/19/17 - Primary Discharge Diagnosis #1 recurrent hepatic encephalopathy secondary to liver cirrhosis and noncompliance with medications #2 liver cirrhosis secondary to hepatitis C #3 chronic pain syndrome #4 coronary artery disease #5 hyperlipidemia #6 history of polysubstance abuse #7 anxiety and depression - Secondary Discharge Diagnosis Chronic Problems (Last Reviewed 04/02/17 @ 11:17 by Navin Argueta MD) Cirrhosis (Chronic) Hepatitis C (Chronic) CAD (coronary artery disease) (Chronic) History of non-ST elevation myocardial infarction (NSTEMI) (Chronic) HTN (hypertension) (Chronic) HLD (hyperlipidemia) (Chronic) Tobacco use (Chronic) Chronic pain syndrome (Chronic) Anxiety and depression (Chronic) Abnormal electrocardiogram [ECG] [EKG] (Chronic) Non-ST elevation (NSTEMI) myocardial infarction (Chronic ~01/27/17) Hospital Course and Treatment Operations: None Procedures: None Summary of Care Provided: The patient is a 62 year old F seen in the emergency room at [facility] with a history of increased frequent falls, increased confusion, and an outpatient serum ammonia level that was elevated. This ammonia level was done several days prior to her being seen in the emergency room, according to her PCP, they tried to reach the patient by telephone several times without success. Lab obtained in the emergency room was remarkable for a slightly low white blood cell count of 3.8, and an ammonia level of 155. Patient's tox screen was positive for cannabinoids. Urinalysis showed small amounts of bacteria but no significant red cells or white cells. Patient was admitted to [facility], placed on lactulose, her home medications were continued, and her ammonia level was repeated and found to have decreased to 85. I called the patient's pharmacy to discover the patient had not been taking her Xifaxan for approximately 10 days. She had also been refilling it intermittently late several times. On 08/19/17, patient was seen and examined, she was oriented ?3 and alert, it was felt she was safe for discharge home, it was emphasized that the patient should take her medications as directed and she was placed on lactulose in addition to her other medications at the time of discharge. I also talked with her PCP who confirmed that the patient was taken off Zanaflex, it had been noted that the patient was taking it at home but this may have been an error on her admission paperwork. Patient was instructed to stop this medication anyway. I called the patient's PCP and made him aware that the patient was not compliant with medical advice. Discharge Activity: Return to Normal Activity Home Medications: Medications to take at Discharge Aripiprazole [Abilify] 5 mg PO DAILY 02/05/13 Clonazepam [Klonopin] 0.5 mg PO DAILY PRN PRN #0 02/05/13 Rifaximin [Xifaxan] 550 mg PO BID 01/24/17 Atenolol 50 mg PO DAILY 08/18/17 Atorvastatin Calcium [Lipitor] 20 mg PO QHS 08/18/17 Buprenorphine 1 each TOPICAL DOWLING 08/18/17 Clopidogrel Bisulfate [Plavix] 75 mg PO DAILY 08/18/17 Fluoxetine [Prozac] 40 mg PO DAILY 08/18/17 Topiramate [Topamax] 25 mg PO DAILY 08/18/17 Lactulose [Chronulac] 20 gm PO BID #32 oz 08/19/17 Following Prescrptions Were Given to Patient: Lactulose [Chronulac] 20 gm PO BID #32 oz Primary Care Physician: Kwabena Bach Jr., MD [Primary Care Provider] - Please follow up with your Primary Care Physician in: next week Disposition: Home Minutes spent on discharge:: 31 Patient Condition:: Stable Medical Necessity - Tobacco Use Smoking Status: Former smoker Tobacco Use: Non-smoker Meaningful Use Info Meaningful Use Diagnoses (Choose all that apply): None applicable Code Visit Inpatient E&M: 73783 Disch Hosp
--- NOTE | 2017-08-20 12:52 | CASEMGMT ---
RN CM DC call. Message left with pt's phone stating purpose of call and call back information if pt has questions re: dc instructions, medications or needs assist with f/u appointments. Johnna TODDN RN ACM
== END 2017-08-19 11:50 | disposition home or self-care (01) | DRG 432 ==
LOC: ED 12:37 → MS2 14:59
PROVIDERS: Admitting Provider Family Medicine; Emergency Provider Emergency Medicine; Family Provider Internal Medicine; PCP Internal Medicine; Visit Provider Internal Medicine
DX: K74.60 Unspecified cirrhosis of liver (principal); K72.00 Acute and subacute hepatic failure without coma; E72.20 Disorder of urea cycle metabolism, unspecified; B18.2 Chronic viral hepatitis C; G89.4 Chronic pain syndrome; I25.10 Atherosclerotic heart disease of native coronary artery without angina pectoris; I25.2 Old myocardial infarction; I10 Essential (primary) hypertension; E78.5 Hyperlipidemia, unspecified; F32.9 Major depressive disorder, single episode, unspecified; F41.9 Anxiety disorder, unspecified; R29.6 Repeated falls; D69.6 Thrombocytopenia, unspecified; F12.10 Cannabis abuse, uncomplicated; R94.31 Abnormal electrocardiogram [ECG] [EKG]; Z87.891 Personal history of nicotine dependence; Z79.01 Long term (current) use of anticoagulants; Z79.891 Long term (current) use of opiate analgesic; Z79.899 Other long term (current) drug therapy; Z91.14 Patient's other noncompliance with medication regimen
CPT/HCPCS: 36415; 70450; 80053; 80307; 80320; 81001; 82140; 82962; 83690; 83735; 85025; 85027; 85610; 85730; 99285; G0480

== ENCOUNTER → 2017-10-07 13:40 | Outpatient (CLI) | payer MEDICARE, MEDICAID, SELFPAY | PROVIDERS: Family Provider Internal Medicine; PCP Internal Medicine; Visit Provider Internal Medicine | DX: E72.20 Disorder of urea cycle metabolism, unspecified (principal) | CPT/HCPCS: 36415; 82140 ==

== ENCOUNTER 2017-10-07 17:36 | Inpatient (IN) | payer MEDICARE, MEDICAID, SELFPAY ==
[2017-10-07] VITALS (7 sets, daily range): BP systolic 134–146; BP diastolic 67–85; PULSE 66–72; RESP 12–18; TEMP 36.6; O2SAT 97–99; BMI 24.6; BMI 25.4
[2017-10-07] MEDS: 0.9% Normal Saline 1,000 ML 1000 ML IV (19:37)
[2017-10-07 19:53] LABS: Absolute Lymphocyte Count 1.03 X10^3/ul (0.83-4.51); Absolute Neutrophil Count 1.9 X10^3/uL (2.0-7.7); Basophil# 0.02 X10^3/uL; Basophil% 0.6 % (0-1); Eosinophil# 0.12 X10^3/uL; Eosinophils% 3.3 % (0-5); Hematocrit 40.8 % (37-47); Hemoglobin 13.1 g/dl (12.0-15.0); Lymphocyte # 1.03 X10^3/ul (4.0); Lymphocyte % 28.7 % (19-41); Mean Corp Hgb Conc 32.1 g/gl (32-36); Mean Corpuscular Hgb 29.8 pg (27.0-32.0); Mean Corpuscular Volume 92.9 fL (81-99); Mean Platelet Vol. 11.9 fl (6.2-12.0); Monocyte# 0.49 X10^3/uL; Monocyte% 13.6 % (0-10); Neutrophil # 1.93 X10^3/uL (2.7-7.7); Neutrophil % 53.8 % (47-70); POSITIVE COUNT NO; POSITIVE DIFFERENTIAL NO; POSITIVE MORPHOLOGY NO; Platelet Count 90 K/mm3 (150-450); RBC Distribution Width SD 47.5 fl (35.1-43.9); Red Blood Count 4.39 M/mm3 (4.2-5.4); White Blood Count 3.6 K/mm3 (4.4-11.0)
[2017-10-07] MEDS: Lactulose 20 GM/30 ML UDC 30 GM PO (19:57)
[2017-10-07 20:05] LABS: ALB/GLOB Ratio 0.7 RATIO (0.9-2.4); AST(SGOT) 51 U/L (15-37); Alanine Aminotransfer ALT/SGPT 35 U/L (13-56); Albumin, Serum 3.2 g/dL (3.2-5.0); Alkaline Phosphatase 107 U/L (45-117); Anion Gap 7 (5-15); BUN 15 mg/dL (7-18); BUN/Creat Ratio 14.7 RATIO (10-20); Calcium,Total 8.8 mg/dL (8.5-10.1); Chloride 109 mmol/L (98-107); Creatinine, Serum 1.02 mg/dL (0.55-1.02); EST Glomerular Filtration Rate 58 mL/min (>60); Est Glom Filt Rate - Afr Amer 71 mL/min (>60); Globulin 4.4 g/dL (2.2-4.2); Glucose 89 mg/dL (74-106); Protein, Total 7.6 g/dL (6.4-8.2); Sodium Level 143 mmol/L (136-145)
[2017-10-07] MEDS: Morphine 4 MG/ML Syringe IV (20:30)
[2017-10-07] MEDS: Ondansetron 4 MG/2 ML Vial IV (20:30)
[2017-10-07] MEDS: 0.9% Normal Saline 1,000 ML 150 ML IV (20:33)
--- NOTE | 2017-10-07 22:24 | ED.DCSUM_ITS ---
- ER Visit Summary Date of Service: 10/07/17 Chief Complaint: [Abnormal labs] History of Present Illness: The patient is a 62 F [presents the emergency department complaint of abnormal labs. Patient has a history of cirrhosis of the liver. Patient has had elevated ammonia levels. Over the last 3 days or so patient's been having more trouble walking and has had increased confusion and trouble concentrating. Patient denies any fevers. She denies any vomiting. Patient has been taking her medications regularly.] Physical Examination: [HEENT-PERRLA, EOMI. Cranial nerves II through XII grossly intact. TMs clear. Mucous membranes moist. No adenopathy. Speech slightly slurred and thick. Cardiovascular-regular rate and rhythm without murmur or ectopy Lungs-clear to auscultation, chest wall stable without crepitus or subcu emphysema Abdomen-normoactive bowel sounds, soft, nontender, no rebound or rigidity, no peritoneal signs. Neuro exam-patient with slight ataxia with finger to nose and heel hernandez testing bilaterally. Patient a and O ?3. Answers questions appropriately. No focal weakness. Extremities-intact ?4, normal range of motion, normal pulses, atraumatic] Test Results: [CBC with differential obtained showed a white count of 3.6, hemoglobin 13, hematocrit 41, platelets 90. Chemistries unremarkable. Liver enzymes unremarkable. Ammonia level earlier in the day was 143 and on repeat today it is 96.] Emergency Department Course and Treatment: [Patient was given lactulose 30 g p.o.] Treatment Plan: [Admit] Disposition: [Admit] Impression: [Hepatic encephalopathy] This note was generated with [employer] dictation software. It may contain incorrect words, spelling, and punctuation that were not noted in review of the chart prior to signing ED Disposition - Plan for ED Patient: Chief Complaint: Abn Labs Referrals: Kwabena Bach Jr., MD [Primary Care Provider] -
--- NOTE | 2017-10-07 22:44 | PCM.HP.STD ---
Problem List (1) Cirrhosis Status: Chronic Qualifiers: (2) Hepatitis C Status: Chronic Qualifiers: (3) CAD (coronary artery disease) Status: Chronic Qualifiers: (4) HTN (hypertension) Status: Chronic Qualifiers: (5) HLD (hyperlipidemia) Status: Chronic Qualifiers: (6) Chronic pain syndrome Status: Chronic (7) Anxiety and depression Status: Chronic (8) Encephalopathy acute Status: Acute History of Present Illness Date of Admission: 10/07/17 Chief Complaint: Abnormal labs. The patient is a 62 year old F with past medical history as mentioned above was referred to the emergency room by her PCP because of elevated ammonia level. At this time, patient is sleepy and lethargic but she is oriented ?3. She mentioned that she has been having trouble walking and difficulty staying alert and awake over the last 3 days as well as trouble concentrating. She is to take that she takes lactulose twice a day and she has been taking it every day. She denied fever or chills. She denies cough or sputum production. She denies urinary symptoms. She denied abdominal pain, nausea vomiting. She has history of liver cirrhosis and hepatitis C with recurrent admissions for hepatic encephalopathy been on rifaximin and lactulose. She has history of CAD and she has been on aspirin, Plavix, statin and beta blockers. She has history of hypertension and she has been on metoprolol and her blood pressure has been under control. 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 In the emergency department, her vital signs were stable. Her routine blood work was remarkable for leukopenia, thrombocytopenia and absolute neutrophil count of 1900 which is chronic and at his baseline. Her LFT was normal. Her ammonia level was 143 earlier today and it was 96 after she came to the emergency room. She is being admitted for acute hepatic encephalopathy due to hyperammonemia. Past Medical History Past Medical History (Chronic Problems): Chronic Problems (Last Reviewed 04/02/17 @ 11:17 by Navin Argueta MD) Cirrhosis (Chronic) Hepatitis C (Chronic) CAD (coronary artery disease) (Chronic) History of non-ST elevation myocardial infarction (NSTEMI) (Chronic) HTN (hypertension) (Chronic) HLD (hyperlipidemia) (Chronic) Tobacco use (Chronic) Chronic pain syndrome (Chronic) Anxiety and depression (Chronic) Abnormal electrocardiogram [ECG] [EKG] (Chronic) Non-ST elevation (NSTEMI) myocardial infarction (Chronic ~01/27/17) Medical History: Medical History (Last Reviewed 04/02/17 @ 11:17 by Navin Argueta MD) Non-ST elevation (NSTEMI) myocardial infarction (Chronic) Onset Date: ~01/27/17 I21.4 Cervical neck surgery Chronic back pain M54.9, G89.29 Chronic narcotic use F11.90 Depression F32.9 Toxic encephalopathy Onset Date: ~01/27/17 G92 Allergies No Known Allergies Allergy (Verified 10/07/17 17:39) Home Medications: Ambulatory Orders Medication Instructions Recorded Aripiprazole [Abilify] 5 mg PO DAILY 02/05/13 Clonazepam [Klonopin] 0.5 mg PO DAILY PRN PRN #0 02/05/13 Rifaximin [Xifaxan] 550 mg PO BID 01/24/17 Atenolol 50 mg PO DAILY 08/18/17 Atorvastatin Calcium [Lipitor] 20 mg PO QHS 08/18/17 Buprenorphine 1 each TOPICAL TU 08/18/17 Clopidogrel Bisulfate [Plavix] 75 mg PO DAILY 08/18/17 Fluoxetine [Prozac] 40 mg PO DAILY 08/18/17 Topiramate [Topamax] 25 mg PO DAILY 08/18/17 Lactulose [Chronulac] 30 ml PO BID 10/07/17 Melatonin/Pyridoxine HCl (B6) 1 tablet PO PRN PRN 10/07/17 [Melatonin 10 mg Tablet] Surgical History: Surgical History (Last Reviewed 04/02/17 @ 11:17 by Navin Argueta MD) History of left heart catheterization Z98.890 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 Denies: Chills, Fever Eyes: Denies: Blurred vision, Double vision, Drainage, Redness HEENT: Denies: Difficulty Hearing, Ear Pain, Eye Pain, Nasal Congestion, Sore Throat Cardiovascular: Denies: Chest Pain, Chest Pressure, Heaviness, Palpitations, Syncope Respiratory: Denies: Cough, Pleuritic Pain, Shortness of Breath, Sputum production, Wheezing Gastrointestinal: Denies: Abdominal Pain, Constipation, Diarrhea, Nausea, Vomiting Genitourinary: Denies: Dysuria, Frequency, Hematuria Musculoskeletal: Reports: Back Pain. Denies: Arm Pain Skin: Denies: Dryness, Rash Neurological: Denies: Balance problems, Double vision, Change in Speech, Slurred speech, Focal weakness, Headaches, Incoordination Psychiatric: Denies: Anxiety, Depression Endocrine: Denies: Change in Body Habitus, Polydipsia VTE Information - Inpt Only VTE Present on Admission: No VTE Mechan Device Prophylaxis: SCD's VTE Pharm Prophylaxis ordered?: No - Physical Exam General: Alert, Oriented x3, Cooperative, Lethargic - Sleepy, easily arousable., - - Positive asterixis, flapping tremor. HEENT: Atraumatic, PERRLA, EOMI Oral: No Gingival or Mucosal Lesions/ Ulcerations, Dry Mucosa Neck: Supple, No JVD, Negative Carotid Bruits, Trachea Midline, Thyroid Normal Size and Texture Lungs: Clear to auscultation, No rhonchi, No wheeze, No rales, Diminished Cardiovascular: Regular rate, Regular Rhythm, Normal S1, Normal S2, PMI Normal Abdomen: Bowel Sounds Present, Soft, Non Tender, Non-Distended, No Hepato-splenomegaly Extremities: No clubbing, No cyanosis, No edema Skin: No rashes, No breakdown Lymphatic: No Cervical, Supraclavicular, or Inguinal Adenopathy Neurological: Cranial nerves II-XII grossly intact, Motor Exam 5/5 strength throughout, - - Global weakness. Psych/Mental Status: Normal Affect, Appropriate, Alert and oriented to time, place, person, mood and affect Vital Signs Temp Pulse Resp BP Pulse Ox 98 F 66 14 134/67 H 97 10/07/17 17:37 10/07/17 21:05 10/07/17 21:05 10/07/17 21:05 10/07/17 21:05 Oxygen Delivery Method Room Air Weight: 122 lb Body Mass Index (BMI) 24.6 Finger Stick Blood Glucose 123 Laboratory Tests Past 24 Hrs 10/07/17 10/07/17 10/07/17 19:25 19:25 19:37 WBC 3.6 L RBC 4.39 Hgb 13.1 Hct 40.8 MCV 92.9 MCH 29.8 MCHC 32.1 RDW 14.0 RDW Differential 47.5 H Plt Count 90 L MPV 11.9 Immature Gran % (Auto) 0.000 Neut % (Auto) 53.8 Lymph % (Auto) 28.7 [place] % (Auto) 13.6 H Eos % (Auto) 3.3 Baso % (Auto) 0.6 Absolute Neuts (auto) 1.9 L Absolute Lymphs (auto) 1.03 Total Counted Not Reportable Sodium 143 Potassium 4.0 Chloride 109 H Carbon Dioxide 27.0 Anion Gap 7 BUN 15 Creatinine 1.02 Estim Creat Clear Calc 50.60 Est GFR (MDRD) Af Amer 71 Est GFR (MDRD) Non-Af 58 L BUN/Creatinine Ratio 14.7 Glucose 89 Calcium 8.8 Total Bilirubin 0.50 AST 51 H ALT 35 Alkaline Phosphatase 107 Ammonia 96.0 H Total Protein 7.6 Albumin 3.2 Globulin 4.4 H Albumin/Globulin Ratio 0.7 L Assessment/Plan All Active Problems (Last Reviewed 04/02/17 @ 11:17 by Navin Argueta MD) Hyperammonemia (Acute) Encephalopathy acute (Acute) This is a 62 years old female patient was referred to the ER by her PCP because of elevated ammonia level as well as sleepiness and lethargy, difficulty concentrating and she was found to have acute hepatic encephalopathy. #1 acute hepatic encephalopathy/hyperammonemia: In context of history of liver cirrhosis secondary to hepatitis C. Patient states that she takes her lactulose every day as well as rifaximin. Today, her ammonia level was 142 today morning and in the ER later, it was 96. She does have asterixis, flapping tremor. She is sleepy and lethargic but arousable, oriented ?3. She denied any symptoms suggestive of infection. Her vital signs are stable. Routine blood work reviewed and was stable at his baseline. Plan: Admit to [facility] floor, cardiac monitoring, fall precautions, aspiration precautions, IV fluids, IV antiemetics, increase lactulose to 30 mL 3 times daily, continue rifaximin, urinalysis, PT OT evaluation and treatment, repeat ammonia level tomorrow morning. #2 liver cirrhosis/hepatitis C: Patient has been on rifaximin and lactulose. Ammonia level is elevated as above. Plan as above. #3 CAD: Denies chest pain or shortness of breath. Continue Lipitor and atenolol as well as Plavix. #4 hypertension: Blood pressure stable, continue atenolol. #5 hyperlipidemia: Continue statins. #6 anxiety/depression: Continue Abilify and Prozac. #7 chronic leukopenia/thrombocytopenia: Secondary to chronic liver disease. No evidence of infection or bleeding. #8 DVT prophylaxis: SCDs. This note was generated with [employer] dictation software. It may contain incorrect words, spelling, and punctuation that were not noted in checking the note before signing. Code Visit Inpatient E&M: 00244 Init Hosp L3
--- NOTE | 2017-10-07 22:47 | HP.PCM_ITS ---
Problem List (1) Cirrhosis Status: Chronic Qualifiers: (2) Hepatitis C Status: Chronic Qualifiers: (3) CAD (coronary artery disease) Status: Chronic Qualifiers: (4) HTN (hypertension) Status: Chronic Qualifiers: (5) HLD (hyperlipidemia) Status: Chronic Qualifiers: (6) Chronic pain syndrome Status: Chronic (7) Anxiety and depression Status: Chronic (8) Encephalopathy acute Status: Acute History of Present Illness Date of Admission: 10/07/17 Chief Complaint: Abnormal labs. The patient is a 62 year old F with past medical history as mentioned above was referred to the emergency room by her PCP because of elevated ammonia level. At this time, patient is sleepy and lethargic but she is oriented ?3. She mentioned that she has been having trouble walking and difficulty staying alert and awake over the last 3 days as well as trouble concentrating. She is to take that she takes lactulose twice a day and she has been taking it every day. She denied fever or chills. She denies cough or sputum production. She denies urinary symptoms. She denied abdominal pain, nausea vomiting. She has history of liver cirrhosis and hepatitis C with recurrent admissions for hepatic encephalopathy been on rifaximin and lactulose. She has history of CAD and she has been on aspirin, Plavix, statin and beta blockers. She has history of hypertension and she has been on metoprolol and her blood pressure has been under control. 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 In the emergency department, her vital signs were stable. Her routine blood work was remarkable for leukopenia, thrombocytopenia and absolute neutrophil count of 1900 which is chronic and at his baseline. Her LFT was normal. Her ammonia level was 143 earlier today and it was 96 after she came to the emergency room. She is being admitted for acute hepatic encephalopathy due to hyperammonemia. Past Medical History Past Medical History (Chronic Problems): Chronic Problems (Last Reviewed 04/02/17 @ 11:17 by Navin Argueta MD) Cirrhosis (Chronic) Hepatitis C (Chronic) CAD (coronary artery disease) (Chronic) History of non-ST elevation myocardial infarction (NSTEMI) (Chronic) HTN (hypertension) (Chronic) HLD (hyperlipidemia) (Chronic) Tobacco use (Chronic) Chronic pain syndrome (Chronic) Anxiety and depression (Chronic) Abnormal electrocardiogram [ECG] [EKG] (Chronic) Non-ST elevation (NSTEMI) myocardial infarction (Chronic ~01/27/17) Medical History: Medical History (Last Reviewed 04/02/17 @ 11:17 by Navin Argueta MD) Non-ST elevation (NSTEMI) myocardial infarction (Chronic) Onset Date: ~ I21.4 Cervical neck surgery Chronic back pain M54.9, G89.29 Chronic narcotic use F11.90 Depression F32.9 Toxic encephalopathy Onset Date: ~01/27/17 G92 Allergies No Known Allergies Allergy (Verified 10/07/17 17:39) Home Medications: Ambulatory Orders Medication Instructions Recorded Aripiprazole [Abilify] 5 mg PO DAILY 02/05/13 Clonazepam [Klonopin] 0.5 mg PO DAILY PRN PRN #0 02/05/13 Rifaximin [Xifaxan] 550 mg PO BID 01/24/17 Atenolol 50 mg PO DAILY 08/18/17 Atorvastatin Calcium [Lipitor] 20 mg PO QHS 08/18/17 Buprenorphine 1 each TOPICAL TU 08/18/17 Clopidogrel Bisulfate [Plavix] 75 mg PO DAILY 08/18/17 Fluoxetine [Prozac] 40 mg PO DAILY 08/18/17 Topiramate [Topamax] 25 mg PO DAILY 08/18/17 Lactulose [Chronulac] 30 ml PO BID 10/07/17 Melatonin/Pyridoxine HCl (B6) 1 tablet PO PRN PRN 10/07/17 [Melatonin 10 mg Tablet] Surgical History: Surgical History (Last Reviewed 04/02/17 @ 11:17 by Navin Argueta MD) History of left heart catheterization Z98.890 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 Denies: Chills, Fever Eyes: Denies: Blurred vision, Double vision, Drainage, Redness HEENT: Denies: Difficulty Hearing, Ear Pain, Eye Pain, Nasal Congestion, Sore Throat Cardiovascular: Denies: Chest Pain, Chest Pressure, Heaviness, Palpitations, Syncope Respiratory: Denies: Cough, Pleuritic Pain, Shortness of Breath, Sputum production, Wheezing Gastrointestinal: Denies: Abdominal Pain, Constipation, Diarrhea, Nausea, Vomiting Genitourinary: Denies: Dysuria, Frequency, Hematuria Musculoskeletal: Reports: Back Pain. Denies: Arm Pain Skin: Denies: Dryness, Rash Neurological: Denies: Balance problems, Double vision, Change in Speech, Slurred speech, Focal weakness, Headaches, Incoordination Psychiatric: Denies: Anxiety, Depression Endocrine: Denies: Change in Body Habitus, Polydipsia VTE Information - Inpt Only VTE Present on Admission: No VTE Mechan Device Prophylaxis: SCD's VTE Pharm Prophylaxis ordered?: No - Physical Exam General: Alert, Oriented x3, Cooperative, Lethargic - Sleepy, easily arousable. , - - Positive asterixis, flapping tremor. HEENT: Atraumatic, PERRLA, EOMI Oral: No Gingival or Mucosal Lesions/ Ulcerations, Dry Mucosa Neck: Supple, No JVD, Negative Carotid Bruits, Trachea Midline, Thyroid Normal Size and Texture Lungs: Clear to auscultation, No rhonchi, No wheeze, No rales, Diminished Cardiovascular: Regular rate, Regular Rhythm, Normal S1, Normal S2, PMI Normal Abdomen: Bowel Sounds Present, Soft, Non Tender, Non-Distended, No Hepato- splenomegaly Extremities: No clubbing, No cyanosis, No edema Skin: No rashes, No breakdown Lymphatic: No Cervical, Supraclavicular, or Inguinal Adenopathy Neurological: Cranial nerves II-XII grossly intact, Motor Exam 5/5 strength throughout, - - Global weakness. Psych/Mental Status: Normal Affect, Appropriate, Alert and oriented to time, place, person, mood and affect Vital Signs Temp Pulse Resp BP Pulse Ox 98 F 66 14 134/67 H 97 10/07/17 17:37 10/07/17 21:05 10/07/17 21:05 10/07/17 21:05 10/07/17 21:05 Oxygen Delivery Method Room Air Weight: 122 lb Body Mass Index (BMI) 24.6 Finger Stick Blood Glucose 123 Laboratory Tests Past 24 Hrs 10/07/17 10/07/17 10/07/17 19:25 19:25 19:37 WBC 3.6 L RBC 4.39 Hgb 13.1 Hct 40.8 MCV 92.9 MCH 29.8 MCHC 32.1 RDW 14.0 RDW Differential 47.5 H Plt Count 90 L MPV 11.9 Immature Gran % (Auto) 0.000 Neut % (Auto) 53.8 Lymph % (Auto) 28.7 [place] % (Auto) 13.6 H Eos % (Auto) 3.3 Baso % (Auto) 0.6 Absolute Neuts (auto) 1.9 L Absolute Lymphs (auto) 1.03 Total Counted Not Reportable Sodium 143 Potassium 4.0 Chloride 109 H Carbon Dioxide 27.0 Anion Gap 7 BUN 15 Creatinine 1.02 Estim Creat Clear Calc 50.60 Est GFR (MDRD) Af Amer 71 Est GFR (MDRD) Non-Af 58 L BUN/Creatinine Ratio 14.7 Glucose 89 Calcium 8.8 Total Bilirubin 0.50 AST 51 H ALT 35 Alkaline Phosphatase 107 Ammonia 96.0 H Total Protein 7.6 Albumin 3.2 Globulin 4.4 H Albumin/Globulin Ratio 0.7 L Assessment/Plan All Active Problems (Last Reviewed 04/02/17 @ 11:17 by Navin Argueta MD) Hyperammonemia (Acute) Encephalopathy acute (Acute) This is a 62 years old female patient was referred to the ER by her PCP because of elevated ammonia level as well as sleepiness and lethargy, difficulty concentrating and she was found to have acute hepatic encephalopathy. #1 acute hepatic encephalopathy/hyperammonemia: In context of history of liver cirrhosis secondary to hepatitis C. Patient states that she takes her lactulose every day as well as rifaximin. Today, her ammonia level was 142 today morning and in the ER later, it was 96. She does have asterixis, flapping tremor. She is sleepy and lethargic but arousable, oriented ?3. She denied any symptoms suggestive of infection. Her vital signs are stable. Routine blood work reviewed and was stable at his baseline. Plan: Admit to [facility] floor, cardiac monitoring, fall precautions, aspiration precautions, IV fluids, IV antiemetics, increase lactulose to 30 mL 3 times daily, continue rifaximin, urinalysis, PT OT evaluation and treatment, repeat ammonia level tomorrow morning. #2 liver cirrhosis/hepatitis C: Patient has been on rifaximin and lactulose. Ammonia level is elevated as above. Plan as above. #3 CAD: Denies chest pain or shortness of breath. Continue Lipitor and atenolol as well as Plavix. #4 hypertension: Blood pressure stable, continue atenolol. #5 hyperlipidemia: Continue statins. #6 anxiety/depression: Continue Abilify and Prozac. #7 chronic leukopenia/thrombocytopenia: Secondary to chronic liver disease. No evidence of infection or bleeding. #8 DVT prophylaxis: SCDs. This note was generated with [employer] dictation software. It may contain incorrect words, spelling, and punctuation that were not noted in checking the note before signing. Code Visit Inpatient E&M: 17756 Init Hosp L3
[2017-10-08] VITALS (11 sets, daily range): BP systolic 125–151; BP diastolic 64–83; PULSE 59–103; RESP 16–18; TEMP 36.6–37.2; O2SAT 98–100
[2017-10-08] MEDS: 0.9% Normal Saline 1,000 ML 75 ML IV ×2 (00:13→12:40)
[2017-10-08 01:23] LABS: Bacteria 0 SEEN /hpf (None Seen); Mucous, Urine 0 SEEN /hpf (<or=2+); Red Blood Cells-Urine 0 SEEN /hpf (0-5); White Blood Cells 0 SEEN /hpf (0-5)
[2017-10-08 01:29] LABS: Color, Urine Straw (Yellow); Glucose, Dipstick Normal (Normal); Ketone-Dipstick Negative (Negative); Protein-Dipstick Negative (Negative); Urine Bilirubin Dipstick Negative (Negative); Urine Clarity Clear (Clear)
[2017-10-08 01:30] LABS: Leukocyte Esterase-Dipstick Negative /ul (Negative); Nitrite-Dipstick Negative (Negative); Occult Blood-Urine Negative /ul (Negative); Urine Urobilinogen Normal (Normal)
[2017-10-08 01:34] LABS: Squamous Epithelial Cells - UA 0-5 SEEN /hpf (5-10)
[2017-10-08] MEDS: Lactulose 20 GM/30 ML UDC 30 GM PO ×3 (06:29→21:27)
[2017-10-08 07:58] LABS: Absolute Lymphocyte Count 0.69 X10^3/ul (0.83-4.51); Absolute Neutrophil Count 1.5 X10^3/uL (2.0-7.7); Basophil# 0.03 X10^3/uL; Basophil% 1.1 % (0-1); Eosinophil# 0.07 X10^3/uL; Eosinophils% 2.6 % (0-5); Hematocrit 36.4 % (37-47); Hemoglobin 11.5 g/dl (12.0-15.0); Lymphocyte # 0.69 X10^3/ul (4.0); Lymphocyte % 25.9 % (19-41); Mean Corp Hgb Conc 31.6 g/gl (32-36); Mean Corpuscular Hgb 29.5 pg (27.0-32.0); Mean Corpuscular Volume 93.3 fL (81-99); Monocyte# 0.41 X10^3/uL; Monocyte% 15.4 % (0-10); Neutrophil # 1.46 X10^3/uL (2.7-7.7); Platelet Count 70 K/mm3 (150-450); RBC Distribution Width CV 14.4 % (11.6-14.6); RBC Distribution Width SD 48.6 fl (35.1-43.9); White Blood Count 2.7 K/mm3 (4.4-11.0)
[2017-10-08 08:00] LABS: POSITIVE COUNT NO; POSITIVE DIFFERENTIAL NO; POSITIVE MORPHOLOGY NO
[2017-10-08 08:04] LABS: ALB/GLOB Ratio 0.7 RATIO (0.9-2.4); AST(SGOT) 118 U/L (15-37); Alanine Aminotransfer ALT/SGPT 54 U/L (13-56); Albumin, Serum 2.6 g/dL (3.2-5.0); Alkaline Phosphatase 117 U/L (45-117); Anion Gap 6 (5-15); BUN 12 mg/dL (7-18); BUN/Creat Ratio 15.3 RATIO (10-20); Calcium,Total 7.9 mg/dL (8.5-10.1); Chloride 117 mmol/L (98-107); Creatinine, Serum 0.78 mg/dL (0.55-1.02); EST Glomerular Filtration Rate 79 mL/min (>60); Est Glom Filt Rate - Afr Amer 96 mL/min (>60); Estimated Creatinine Clearance 68.27 ml/min; Globulin 3.8 g/dL (2.2-4.2); Glucose 106 mg/dL (74-106); Potassium 3.7 mmol/L (3.5-5.1); Protein, Total 6.4 g/dL (6.4-8.2); Sodium Level 145 mmol/L (136-145)
[2017-10-08] MEDS: ARIPiprazole 5 MG Tablet PO (09:52)
[2017-10-08] MEDS: Topiramate 25 MG Tablet PO (09:52)
[2017-10-08] MEDS: rifAXIMin 550 MG Tablet PO ×2 (09:52→21:27)
[2017-10-08] MEDS: Atenolol 50 MG Tablet PO (09:52)
[2017-10-08] MEDS: Clopidogrel Bisulfate 75 MG Tablet PO (09:52)
[2017-10-08] MEDS: FLUoxetine 20 MG Capsule 40 MG PO (09:52)
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
[2017-10-08] MEDS: Ibuprofen 400 MG Tablet PO (11:38)
--- NOTE | 2017-10-08 14:27 | CASEMGMT ---
RN DANNA Face to Face with patient for initial transition planning/care coordination assessment. RN CM introduced self and role at [facility]. Patient lying in bed, alert and oriented. Patient willing to participate in assessment and is able to answer all questions appropriately. Care providers, pharmacy, and demographics verified. See link attached. Patient wishes to discharge home, denies need for home health at this time. Patient states she has no further needs or concerns at this time. CM to follow for discharge planning needs that may arise. Disposition Plan: Patient to discharge home with family support and follow-up plans in place.
[2017-10-08] MEDS: Atorvastatin Calcium 20 MG Tablet PO (21:27)
[2017-10-09] MEDS: 0.9% Normal Saline 1,000 ML 75 ML IV (01:43)
[2017-10-09 02:00] VITALS: BP 127/49; PULSE 59; RESP 16; TEMP 36.6; O2SAT 98
[2017-10-09 04:29] VITALS: PULSE 64
[2017-10-09] MEDS: Lactulose 20 GM/30 ML UDC 30 GM PO ×2 (05:15→10:27)
[2017-10-09 05:20] VITALS: BP 131/73; PULSE 61; RESP 15; TEMP 36.6; O2SAT 97
[2017-10-09 06:55] LABS: Absolute Lymphocyte Count 1.04 X10^3/ul (0.83-4.51); Basophil# 0.02 X10^3/uL; Basophil% 0.5 % (0-1); Eosinophil# 0.14 X10^3/uL; Eosinophils% 3.8 % (0-5); Hematocrit 36.5 % (37-47); Hemoglobin 11.6 g/dl (12.0-15.0); Lymphocyte # 1.04 X10^3/ul (4.0); Mean Corp Hgb Conc 31.8 g/gl (32-36); Mean Corpuscular Hgb 29.6 pg (27.0-32.0); Mean Corpuscular Volume 93.1 fL (81-99); Monocyte# 0.48 X10^3/uL; Monocyte% 12.9 % (0-10); Neutrophil # 2.04 X10^3/uL (2.7-7.7); Neutrophil % 54.8 % (47-70); Platelet Count 71 K/mm3 (150-450); RBC Distribution Width CV 14.1 % (11.6-14.6); Red Blood Count 3.92 M/mm3 (4.2-5.4); White Blood Count 3.7 K/mm3 (4.4-11.0)
[2017-10-09 07:12] LABS: POSITIVE COUNT NO; POSITIVE DIFFERENTIAL NO; POSITIVE MORPHOLOGY NO
[2017-10-09 07:32] LABS: ALB/GLOB Ratio 0.6 RATIO (0.9-2.4); AST(SGOT) 79 U/L (15-37); Alanine Aminotransfer ALT/SGPT 48 U/L (13-56); Albumin, Serum 2.3 g/dL (3.2-5.0); Alkaline Phosphatase 96 U/L (45-117); Anion Gap 9 (5-15); BUN 11 mg/dL (7-18); BUN/Creat Ratio 15.4 RATIO (10-20); Calcium,Total 7.3 mg/dL (8.5-10.1); Chloride 117 mmol/L (98-107); Creatinine, Serum 0.72 mg/dL (0.55-1.02); EST Glomerular Filtration Rate 88 mL/min (>60); Est Glom Filt Rate - Afr Amer 107 mL/min (>60); Estimated Creatinine Clearance 73.96 ml/min; Globulin 3.8 g/dL (2.2-4.2); Glucose 90 mg/dL (74-106); Potassium 3.3 mmol/L (3.5-5.1); Protein, Total 6.1 g/dL (6.4-8.2); Sodium Level 145 mmol/L (136-145)
[2017-10-09 07:36] VITALS: O2SAT 94
[2017-10-09 08:00] VITALS: PULSE 59
[2017-10-09] MEDS: Topiramate 25 MG Tablet PO (09:07)
[2017-10-09] MEDS: FLUoxetine 20 MG Capsule 40 MG PO (09:07)
[2017-10-09] MEDS: ARIPiprazole 5 MG Tablet PO (09:08)
[2017-10-09] MEDS: Clopidogrel Bisulfate 75 MG Tablet PO (09:08)
[2017-10-09] MEDS: rifAXIMin 550 MG Tablet PO (09:08)
[2017-10-09] MEDS: Atenolol 50 MG Tablet PO (09:08)
[2017-10-09 09:49] VITALS: BP 121/70; PULSE 58; RESP 16; TEMP 36.7; O2SAT 95
--- NOTE | 2017-10-09 09:52 | PCM.DC ---
- Discharge Diagnoses Current Active Problems: hepatic encephalopathy You will use the following diet at home:: Other - 2000mg low sodium diet Your food should be the consistency of: Regular Your liquids should be the consistency of: Regular/Thin Discharge Activity: Return to Normal Activity May resume sexual activity in: No Restrictions Weight Bearing Status: Weight bearing as tolerated Call your doctor if you observe: Inability to have a bowel movement, - - confusion, alterations in sleep-wake cycle Instructions: Lactulose Oral solution [Encephalopathy] Allergies/Adverse Reactions: Allergies No Known Allergies Allergy (Verified 10/07/17 17:39) Medications to take at Discharge Aripiprazole [Abilify] 5 mg PO DAILY 02/05/13 Clonazepam [Klonopin] 0.5 mg PO DAILY PRN PRN #0 02/05/13 Rifaximin [Xifaxan] 550 mg PO BID 01/24/17 Atenolol 50 mg PO DAILY 08/18/17 Atorvastatin Calcium [Lipitor] 20 mg PO QHS 08/18/17 Buprenorphine 1 each TOPICAL TU 08/18/17 Clopidogrel Bisulfate [Plavix] 75 mg PO DAILY 08/18/17 Fluoxetine [Prozac] 40 mg PO DAILY 08/18/17 Topiramate [Topamax] 25 mg PO DAILY 08/18/17 Melatonin/Pyridoxine HCl (B6) [Melatonin 10 mg Tablet] 1 tablet PO PRN PRN 10/07/17 Lactulose [Chronulac] 30 ml PO TID #90 udc 10/09/17 The following prescriptions were given: Lactulose [Chronulac] 30 ml PO TID #90 udc Primary Care Physician: Kwabena Bach Jr., MD [Primary Care Provider] - Please follow up with your Primary Care Physician in: one week Test Results: Test results from this visit will be discussed in further detail at your follow-up appointment, if applicable. Proposed Discharge Date: 10/09/17
--- NOTE | 2017-10-09 09:54 | PCM.DC.SUM ---
Discharge Date and Diagnosis Date of Admission: 10/07/17 Date of Discharge: 10/09/17 - Secondary Discharge Diagnosis Chronic Problems (Last Reviewed 04/02/17 @ 11:17 by Navin Argueta MD) Cirrhosis (Chronic) Hepatitis C (Chronic) CAD (coronary artery disease) (Chronic) History of non-ST elevation myocardial infarction (NSTEMI) (Chronic) HTN (hypertension) (Chronic) HLD (hyperlipidemia) (Chronic) Tobacco use (Chronic) Chronic pain syndrome (Chronic) Anxiety and depression (Chronic) Abnormal electrocardiogram [ECG] [EKG] (Chronic) Non-ST elevation (NSTEMI) myocardial infarction (Chronic ~01/27/17) Hospital Course and Treatment Imaging Results: Laboratory Tests 10/07/17 10/07/17 10/07/17 19:25 19:25 19:37 WBC 3.6 L RBC 4.39 Hgb 13.1 Hct 40.8 MCV 92.9 MCH 29.8 MCHC 32.1 RDW 14.0 RDW Differential 47.5 H Plt Count 90 L MPV 11.9 Immature Gran % (Auto) 0.000 Neut % (Auto) 53.8 Lymph % (Auto) 28.7 [place] % (Auto) 13.6 H Eos % (Auto) 3.3 Baso % (Auto) 0.6 Absolute Neuts (auto) 1.9 L Absolute Lymphs (auto) 1.03 Total Counted Not Reportable Sodium 143 Potassium 4.0 Chloride 109 H Carbon Dioxide 27.0 Anion Gap 7 BUN 15 Creatinine 1.02 Estim Creat Clear Calc 50.60 Est GFR (MDRD) Af Amer 71 Est GFR (MDRD) Non-Af 58 L BUN/Creatinine Ratio 14.7 Glucose 89 Calcium 8.8 Total Bilirubin 0.50 AST 51 H ALT 35 Alkaline Phosphatase 107 Ammonia 96.0 H Total Protein 7.6 Albumin 3.2 Globulin 4.4 H Albumin/Globulin Ratio 0.7 L Urine Color Urine Clarity Urine pH Ur Specific [place] Urine Protein Urine Glucose (UA) Urine Ketones Urine Occult Blood Urine Nitrite Urine Bilirubin Urine Urobilinogen Ur Leukocyte Esterase Urine RBC Urine WBC Ur Squamous Epith Cells Urine Bacteria Urine Mucus 10/08/17 10/08/17 10/08/17 01:15 07:08 07:08 WBC 2.7 L RBC 3.90 L Hgb 11.5 L Hct 36.4 L MCV 93.3 MCH 29.5 MCHC 31.6 L RDW 14.4 RDW Differential 48.6 H Plt Count 70 L MPV 11.0 Immature Gran % (Auto) 0.000 Neut % (Auto) 55.0 Lymph % (Auto) 25.9 [place] % (Auto) 15.4 H Eos % (Auto) 2.6 Baso % (Auto) 1.1 H Absolute Neuts (auto) 1.5 L Absolute Lymphs (auto) 0.69 L Total Counted Not Reportable Sodium Potassium Chloride Carbon Dioxide Anion Gap BUN Creatinine Estim Creat Clear Calc Est GFR (MDRD) Af Amer Est GFR (MDRD) Non-Af BUN/Creatinine Ratio Glucose Calcium Total Bilirubin AST ALT Alkaline Phosphatase Ammonia 81.0 H Total Protein Albumin Globulin Albumin/Globulin Ratio Urine Color Straw Urine Clarity Clear Urine pH 7.0 Ur Specific [place] 1.010 Urine Protein Negative Urine Glucose (UA) Normal Urine Ketones Negative Urine Occult Blood Negative Urine Nitrite Negative Urine Bilirubin Negative Urine Urobilinogen Normal Ur Leukocyte Esterase Negative Urine RBC 0 SEEN Urine WBC 0 SEEN Ur Squamous Epith Cells 0-5 SEEN Urine Bacteria 0 SEEN Urine Mucus 0 SEEN 10/08/17 10/09/17 10/09/17 07:08 06:44 06:44 WBC 3.7 L RBC 3.92 L Hgb 11.6 L Hct 36.5 L MCV 93.1 MCH 29.6 MCHC 31.8 L RDW 14.1 RDW Differential 48.0 H Plt Count 71 L MPV 11.0 Immature Gran % (Auto) 0.000 Neut % (Auto) 54.8 Lymph % (Auto) 28.0 [place] % (Auto) 12.9 H Eos % (Auto) 3.8 Baso % (Auto) 0.5 Absolute Neuts (auto) 2.0 Absolute Lymphs (auto) 1.04 Total Counted Not Reportable Sodium 145 145 Potassium 3.7 3.3 L Chloride 117 H 117 H Carbon Dioxide 22.0 19.0 L Anion Gap 6 9 BUN 12 11 Creatinine 0.78 0.72 Estim Creat Clear Calc 68.27 73.96 Est GFR (MDRD) Af Amer 96 107 Est GFR (MDRD) Non-Af 79 88 BUN/Creatinine Ratio 15.3 15.4 Glucose 106 90 Calcium 7.9 L 7.3 L Total Bilirubin 0.50 0.90 AST 118 H 79 H ALT 54 48 Alkaline Phosphatase 117 96 Ammonia Total Protein 6.4 6.1 L Albumin 2.6 L 2.3 L Globulin 3.8 3.8 Albumin/Globulin Ratio 0.7 L 0.6 L Urine Color Urine Clarity Urine pH Ur Specific [place] Urine Protein Urine Glucose (UA) Urine Ketones Urine Occult Blood Urine Nitrite Urine Bilirubin Urine Urobilinogen Ur Leukocyte Esterase Urine RBC Urine WBC Ur Squamous Epith Cells Urine Bacteria Urine Mucus 10/09/17 06:44 WBC RBC Hgb Hct MCV MCH MCHC RDW RDW Differential Plt Count MPV Immature Gran % (Auto) Neut % (Auto) Lymph % (Auto) [place] % (Auto) Eos % (Auto) Baso % (Auto) Absolute Neuts (auto) Absolute Lymphs (auto) Total Counted Sodium Potassium Chloride Carbon Dioxide Anion Gap BUN Creatinine Estim Creat Clear Calc Est GFR (MDRD) Af Amer Est GFR (MDRD) Non-Af BUN/Creatinine Ratio Glucose Calcium Total Bilirubin AST ALT Alkaline Phosphatase Ammonia 82.0 H Total Protein Albumin Globulin Albumin/Globulin Ratio Urine Color Urine Clarity Urine pH Ur Specific [place] Urine Protein Urine Glucose (UA) Urine Ketones Urine Occult Blood Urine Nitrite Urine Bilirubin Urine Urobilinogen Ur Leukocyte Esterase Urine RBC Urine WBC Ur Squamous Epith Cells Urine Bacteria Urine Mucus Operations: None Procedures: None Summary of Care Provided: 62-year-old female with past history of hypertension, hyperlipidemia, chronic liver disease and hepatitis C as well as history of hepatic encephalopathy. She was admitted on 10/07/2017 after being referred by her PCP because of elevated ammonia level. She also complained of sleepiness and lethargy. She was on rifaximin and lactulose and claimed compliance with medications. 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 Ammonia level was 143 prior to admission was 9 6 after she was seen in the ED. She was admitted and managed for acute hepatic encephalopathy due to hyperammonemia. On admission, she had a asterixis, which resolved with administration of lactulose. She was started on lactulose 30mls tid, to titrate to 2-3 loose bowel movements daily. Patient's confusion resolved and she remained stable. She was discharged on 10/09/17 on PO lactulose 30mls tid, to titrate to 2-3 loose stools daily. She is to follow up with her PCP in one week. Patient seen and examined prior to discharge. She had no complaints and felt well. Denies any fever or chills, any cough or chest pain, any shortness of breath, any abdominal pain, any diarrhea vomiting. Review of systems otherwise negative. o/e: General: Alert, Oriented x3, Cooperative, No apparent distress HEENT: Atraumatic, PERRLA, EOMI, Normocephalic Oral: Moist Mucosa Neck: Supple, No JVD, Negative Carotid Bruits, No Nodes Lungs: Clear to auscultation, Normal air movement, No rhonchi, No wheeze, No rales Cardiovascular: Regular rate, Regular Rhythm, Normal S1, Normal S2, No murmurs Abdomen: Bowel Sounds Present, Soft, Non Tender, Non-Distended, No Hepato-splenomegaly Extremities: No clubbing, No cyanosis, No edema, Capillary Refill Less than 3 Seconds Skin: No rashes, No breakdown Musculoskeletal: No Tenderness to Palpation of Joints or Extremities, No Muscle Wasting Lymphatic: No Cervical, Supraclavicular, or Inguinal Adenopathy Neurological: Cranial nerves II-XII grossly intact, Deep Tendon Reflexes 2+/4 and Symmetrical, Neuro grossly intact, asterixis of UEs has resolved. Psych/Mental Status: Normal Affect, Appropriate, Alert and oriented to time, place, person, mood and affect Plan as stated above. Ammonia level was 82 at time of discharge; review of past records shows this is the lower limit she has been at in the past year. SHe is to follow up with her PCP in one week. [] Discharge Diet: 2000 mg Sodium Diet Discharge Activity: Return to Normal Activity May resume sexual activity in: No Restrictions Weight Bearing Status: Weight bearing as tolerated Call your doctor if you observe: Inability to have a bowel movement, - - confusion, alterations in sleep-wake cycle Home Medications: Medications to take at Discharge Aripiprazole [Abilify] 5 mg PO DAILY 02/05/13 Clonazepam [Klonopin] 0.5 mg PO DAILY PRN PRN #0 02/05/13 Rifaximin [Xifaxan] 550 mg PO BID 01/24/17 Atenolol 50 mg PO DAILY 08/18/17 Atorvastatin Calcium [Lipitor] 20 mg PO QHS 08/18/17 Buprenorphine 1 each TOPICAL TU 08/18/17 Clopidogrel Bisulfate [Plavix] 75 mg PO DAILY 08/18/17 Fluoxetine [Prozac] 40 mg PO DAILY 08/18/17 Topiramate [Topamax] 25 mg PO DAILY 08/18/17 Melatonin/Pyridoxine HCl (B6) [Melatonin 10 mg Tablet] 1 tablet PO PRN PRN 10/07/17 Lactulose [Chronulac] 30 ml PO TID #90 udc 10/09/17 Following Prescrptions Were Given to Patient: Lactulose [Chronulac] 30 ml PO TID #90 udc Primary Care Physician: Kwabena Bach Jr., MD [Primary Care Provider] - Please follow up with your Primary Care Physician in: one week Patient Instructions: Lactulose Oral solution [Encephalopathy] Disposition: Home Minutes spent on discharge:: 40 Patient Condition:: Stable Medical Necessity - Tobacco Use Smoking Status: Former smoker Tobacco Use: Cigarettes, - Meaningful Use Info Meaningful Use Diagnoses (Choose all that apply): None applicable Code Visit Inpatient E&M: 67728 Disch Hosp
--- NOTE | 2017-10-10 14:30 | CASEMGMT ---
LUX CLAY DC Phone Call. Intro role of CM to patient via phone. Reviewed dc instructions, pt did not have questions at this time. Pt states she is able to make f/u appointment. Pt expressed gratitude for excellent care of the nurses and physicians. No further questions. LUX CLAY thanked her for using [facility]. Johnna TODDN LUX ACM
== END 2017-10-09 10:33 | disposition home or self-care (01) | DRG 442 ==
LOC: ED 19:40 → MS2 23:04
PROVIDERS: Admitting Provider Hospitalist; Emergency Provider Emergency Medicine; Family Provider Internal Medicine; PCP Internal Medicine; Visit Provider Student in an Organized Health Care Education/Training Program
DX: K72.10 Chronic hepatic failure without coma (principal); E72.20 Disorder of urea cycle metabolism, unspecified; K74.69 Other cirrhosis of liver; B19.20 Unspecified viral hepatitis C without hepatic coma; I25.10 Atherosclerotic heart disease of native coronary artery without angina pectoris; I10 Essential (primary) hypertension; E78.5 Hyperlipidemia, unspecified; D69.59 Other secondary thrombocytopenia; F41.9 Anxiety disorder, unspecified; F32.9 Major depressive disorder, single episode, unspecified; I25.2 Old myocardial infarction; G89.4 Chronic pain syndrome; Z87.891 Personal history of nicotine dependence
CPT/HCPCS: 36415; 80053; 81001; 82140; 85025; 99284; J7030; A4216; J2405

== ENCOUNTER → 2018-02-23 13:50 | Outpatient (CLI) | payer MEDICARE, MEDICAID, SELFPAY ==
[2017-10-07 23:53] VITALS: BMI 25.4
--- OUTSIDE RECORDS SUMMARY | 2018-04-07 11:11 | XMS RPT_ITS ---
:1955 Author Organization [place] Support Name Relationship Address Phone D Unavailable Unavailable Unavailable LETIZIO, NEFTALY Unavailable [address] + [place] [address] D Unavailable Unavailable Unavailable LETIZIO, NEFTALY Unavailable [address] + [place] [address] D Unavailable Unavailable Unavailable LETIZIO, NEFTALY Unavailable [address] + [place] [address] D Unavailable Unavailable Unavailable LETIZIO, NEFTALY Unavailable [address] + [place] [address] D Unavailable Unavailable Unavailable LETIZIO, NEFTALY Unavailable [address] + [place] [address] D Unavailable Unavailable Unavailable LETIZIO, NEFTALY Unavailable [address] + [place] [address] D Unavailable Unavailable Unavailable LETIZIO, NEFTALY Unavailable [address] + [place] [address] D Unavailable Unavailable Unavailable LETIZIO, NEFTALY Unavailable [address] + [place] [address] D Unavailable Unavailable Unavailable LETIZIO, NEFTALY Unavailable [address] + [place] [address] D Unavailable Unavailable Unavailable LETIZIO, NEFTALY Unavailable [address] + [place] [address] D Unavailable Unavailable Unavailable LETIZIO, NEFTALY Unavailable [address] + [place] [address] D Unavailable Unavailable Unavailable LETIZIO, NEFTALY Unavailable [address] + [place] [address] D Unavailable Unavailable Unavailable LETIZIO, NEFTALY Unavailable [address] + [place] [address] D Unavailable Unavailable Unavailable LETIZIO, NEFTALY Unavailable [address] + [place] [address] D Unavailable Unavailable Unavailable D Unavailable Unavailable Unavailable LETIZIO, NEFTALY Unavailable [address] + [place] [address] D Unavailable Unavailable Unavailable LETIZIO, NEFTALY Unavailable [address] + [place] [address] ISAURA AU Unavailable * +NO NUMBER *, [place] * Care Team Providers Name Role Phone Navin Argueta Attending Unavailable DOCTOR, OUT OF TOWN Referring Unavailable SEVEN TIM Primary Care Unavailable Isreal JrJun, Kwabena Attending Unavailable Isreal Jr., Kwabena Referring Unavailable Isreal Jr., Kwabena Primary Care Unavailable Isreal Jr., Kwabena Primary Care Unavailable Amira Kapadia Admitting Unavailable Roc Curtis Attending Unavailable Isreal Weathers, Kwabena Attending Unavailable SEVEN TIM Referring Unavailable Isreal Jr., Kwabena Primary Care Unavailable Kotsonis, Sancho F Admitting Unavailable Kotsonis, Sancho F Attending Unavailable Isreal Weathers, Kwabena Primary Care Unavailable Kotsonis, Sancho F Consulting Unavailable Kotsonis, Sancho F Admitting Unavailable Kotsonis, Sancho F Attending Unavailable Isreal Jr., Kwabena Primary Care Unavailable Kotsonis, Sancho F Consulting Unavailable Kotsonis, Snacho F Admitting Unavailable Kotsonis, Sancho F Attending Unavailable Isreal Jr., Kwabena Primary Care Unavailable Kotsonis, Sancho F Consulting Unavailable Isreal Jr., Kwabena Primary Care Unavailable Kotsonis, Sancho F Admitting Unavailable Kotsonis, Sancho F Attending Unavailable Ashelfah, Ghasem Admitting Unavailable Koram, Teresa Angeli Attending Unavailable Isreal Jr., Kwabena Primary Care Unavailable Koram, Teresa Angeli Consulting Unavailable Ashelfah, Ghasem Admitting Unavailable Ashelfah, Ghasem Attending Unavailable Isreal Ceja., Kwabena Primary Care Unavailable Ashelfah, Ghasem Consulting Unavailable Isreal Jr., Kwabena Primary Care Unavailable Ashelfah, Ghasem Admitting Unavailable Koram, Teresa Angeli Attending Unavailable Isreal Jr., Kwabena Attending Unavailable Isreal Ceja., Kwabena Primary Care Unavailable Isreal Weathers, Kwabena Referring Unavailable White, Amira Admitting Unavailable Roc Curtis Attending Unavailable Isreal Ceja., Kwabena Primary Care Unavailable Roc Curtis Consulting Unavailable White, Amira Admitting Unavailable White, Amira Attending Unavailable Kwabena Bach Jr. 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, Active [place] 8 cycle metabolism, [facility] unspecified / Hospital E72.20(ICD-10) Repository Unknown K72.10 - Chronic hepatic Koram, Teresa Active [place] 8 failure without coma / [facility] K72.10(ICD-10) Hospital Repository Unknown S09.90XA - Unspecified Ok Bergeron Active [place] 8 injury of head, initial Community encounter / Hospital S09.90XA(ICD-10) Repository Unknown I21.4 - Non-ST elevation Ell[place], [place] Active [place] 8 (NSTEMI) myocardial Community infarction / Hospital I21.4(ICD-10) Repository Unknown E78.00 - Pure Ellie, Navin Active [facility] 8 hypercholesterolemia, Community unspecified / Hospital E78.00(ICD-10) Repository Unknown E78.0 - Pure Ellie, [place] Active [place] [facility] hypercholesterolemia / Community E78.0(ICD-10) Hospital Repository PROCEDURES PROCEDURES No Procedure Records FoundRESULTS RESULTS DISCHARGE SUMMARY Observed: 02/26/2018 Status: F Source: [facility] 12:24 PM [facility] Medical Records Department [address] [place] [address] Discharge Summary 02/26/18 1216 MR#: [id number] Acct: [id number] Name: ANISHA SCHULTZ Rep #: [id number] : 1955 62 From: Sancho Arana MD PCP: Kwabena Bach Jr., MD Status: DIS IN Y Location: [facility] MC038-4 Discharge Date and Diagnosis Date of Admission: 02/24/18 Date of Discharge: 02/26/18 - Secondary Discharge Diagnosis Chronic Problems (Last Reviewed 04/02/17 @ 11:17 by Navin Argueta MD) Cirrhosis (Chronic) Hepatitis C (Chronic) CAD (coronary artery disease) (Chronic) History of non-ST elevation myocardial infarction (NSTEMI) (Chronic) HTN (hypertension) (Chronic) HLD (hyperlipidemia) (Chronic) Tobacco use (Chronic) Chronic pain syndrome (Chronic) Anxiety and depression (Chronic) Abnormal electrocardiogram [ECG] [EKG] (Chronic) Non-ST elevation (NSTEMI) myocardial infarction (Chronic 01/27/17) Hospital Course and Treatment Imaging Results: None Consults: None Operations: None Procedures: None Summary of Care Provided: HPI: The patient is a 62 year old F with a pmh as below who presents from home with confusion for the last 24 hours. She had called her PCP yesterday who ordered an ammonia level which was 94. She continued to be confused this morning, so her dropped her of at the hospital. Her ammonia was elevated to the 120's, her baseline is around 80. She states that she took her lactulose this morning per the ED record but then tells me that she is unsure of her medications. In the ED she was given lactulose and the rest of her labs were unremarkable. Vital Signs - 24 hr 02/26/18 10:12 97.7 F L 64 18 144/68 H 98 02/26/18 09:31 64 02/26/18 08:00 97.7 F L 64 18 145/68 H 97 General: Alert, Cooperative, No apparent distress, Confused HEENT: Atraumatic, PERRLA, EOMI, Normocephalic Oral: Dry Mucosa Neck: Supple, No JVD Lungs: Clear to auscultation, Normal air movement, No rhonchi, No wheeze, No rales Cardiovascular: Regular rate, Regular Rhythm, Normal S1, Normal S2, No murmurs Abdomen: Soft, Non Tender, Non-Distended, No Hepato-splenomegaly Extremities: No edema, Capillary Refill Less than 3 Seconds Skin: No rashes, No breakdown Neurological: Neuro grossly intact, Sensory exam intact to light touch and pain Psych/Mental Status: Normal Affect, Appropriate Hospital Course: 1. Acute hepatic encephalopathy/Cirrhosis/H/o hep C - She presented with worsening confusion and on admission her ammonia level was elevated to 124. The rest of her labs were normal. She takes lactuloas and xifaxan at home which were continued here. She had multiple subsequent bowel movement and on the day of discharge she appeared to be at her baseline. She was not confused or lethargic and she was adamant about going home. We discussed the necessity of continuing her lactulose and xifaxan as prescribed. She will need to follow-up with her PCP in 3-5 days 2. Her other medical diagnoses were evaluated and she was continued on her home medications where appropriate. Pharmacy discovered that her PCP had changed her to Metoprolol from atenolol but she was taking both. Her Atenolol was discontinued on discharge. - Physical Exam Vital Signs Temp Pulse Resp BP Pulse Ox 97.7 F L 64 18 144/68 H 98 02/26/18 10:12 02/26/18 10:12 02/26/18 10:12 02/26/18 10:12 02/26/18 10:12 Oxygen Delivery Method Room Air Weight: 129 lb 3.054 oz Body Mass Index (BMI) 26.1 Finger Stick Blood Glucose 123 Intake and Output for Last 24 Hours Intake Total 775 / 775 4226 / 4226 598 / 598 Output Total 300 / 300 500 / 500 Balance 475 / 475 3726 / 3726 598 / 598 Laboratory Tests Past 24 Hrs Discharge Activity: No Restrictions Call your doctor if you observe: Fever of 101 or Higher, Dizziness, Fainting spells, - - Increased congusion Home Medications: Medications to take at Discharge Aripiprazole [Abilify] 5 mg PO DAILY 02/05/13 Rifaximin [Xifaxan] 550 mg PO BID 01/24/17 Atorvastatin Calcium [Lipitor] 20 mg PO QHS 08/18/17 Buprenorphine 1 each TOPICAL TU 08/18/17 Clopidogrel Bisulfate [Plavix] 75 mg PO DAILY 08/18/17 Fluoxetine [Prozac] 40 mg PO DAILY 08/18/17 Topiramate [Topamax] 25 mg PO DAILY 08/18/17 Melatonin/Pyridoxine HCl (B6) [Melatonin 10 mg Tablet] 1 tablet PO PRN PRN 10/07/17 Lactulose [Chronulac] 30 ml PO TID #90 udc 10/09/17 Metoprolol Tartrate [Lopressor (beta marielle)] 50 mg PO DAILY 02/24/18 Primary Care Physician: Kwabena Bach Jr., MD [Primary Care Provider] - Please follow up with your Primary Care Physician in: In 3- 5 days Disposition: Home Minutes spent on discharge:: 35 Patient Condition:: Good Medical Necessity - Tobacco Use Smoking Status: Former smoker Meaningful Use Info Meaningful Use Diagnoses (Choose all that apply): None applicable Code Visit Inpatient Jazzy CARDOZA M: [id number] Disch Hosp 02/26/18 1224 <Electronically signed by Sancho Arana MD> Date Sancho Arana MD Cosigner Signature (if applicable): Date CC: Kwabena Bach Jr., MD; Sancho Arana MD Signed DISCHARGE INSTRUCTION Observed: 02/26/2018 Status: F Source: [place] 10:13 AM [facility] REPOSITORY [facility] Medical Records Department [address] [place] [address] Instructions for Home/Discharge Instructions 02/26/18 1012 MR#: [id number] Acct: [id number] Name: ANISHA SCHULTZ Rep #: [id number] : 1955 62 From: Sancho Arana MD PCP: Kwabena Bach Jr., MD Status: ADM IN You will use the following diet at home:: Regular Your food should be the consistency of: Regular Your liquids should be the consistency of: Regular/Thin Discharge Activity: No Restrictions Call your doctor if you observe: Fever of 101 or Higher, Dizziness, Fainting spells, - - Increased congusion Allergies/Adverse Reactions: Allergies No Known Allergies Allergy (Verified 02/24/18 09:49) Medications to take at Discharge Aripiprazole [Abilify] 5 mg PO DAILY 02/05/13 Rifaximin [Xifaxan] 550 mg PO BID 01/24/17 Atorvastatin Calcium [Lipitor] 20 mg PO QHS 08/18/17 Buprenorphine 1 each TOPICAL TU 08/18/17 Clopidogrel Bisulfate [Plavix] 75 mg PO DAILY 08/18/17 Fluoxetine [Prozac] 40 mg PO DAILY 08/18/17 Topiramate [Topamax] 25 mg PO DAILY 08/18/17 Melatonin/Pyridoxine HCl (B6) [Melatonin 10 mg Tablet] 1 tablet PO PRN PRN 10/07/17 Lactulose [Chronulac] 30 ml PO TID #90 udc 10/09/17 Metoprolol Tartrate [Lopressor (beta marielle)] 50 mg PO DAILY 02/24/18 Primary Care Physician: Kwabena Bach Jr., MD [Primary Care Provider] - Please follow up with your Primary Care Physician in: In 3- 5 days Test Results: Test results from this visit will be discussed in further detail at your follow-up appointment, if applicable. 02/26/18 1013 <Electronically signed by Sancho Arana MD> Date Sancho Arana MD CC: Kwabena Bach Jr., MD AMMONIA Collected: 02/26/2018 Status: F Source: [place] 5:45 AM [facility] REPOSITORY TYPE CODE TESTS RESULT OUT OF REFERENCE UNITS RANGE LAB L503.5510 11-32 umol/L High AMMONIA 92.0 Performed By: #### L503.5510 #### [facility] [address] [place], [address] BASIC METABOLIC Collected: 02/26/2018 Status: F Source: [place] PROFILE (BMP) 5:45 AM [facility] REPOSITORY TYPE CODE TESTS RESULT OUT OF RANGE REFERENCE UNITS LAB L501.0100 74-106 mg/dL Normal GLU 89 Result Comment: Please note revised GLUCOSE reference range effective 2017. LAB L501.1000 7-18 mg/dL Normal BUN 16 LAB L501.1100 0.55-1.02 mg/dL Normal CREAT,SERUM 0.58 Result Comment: The validity of the calculated GFR AND GFRAA in patients over 70 years has not been determined. Clinical correlation is essential. LAB L501.1110 >60 mL/min Normal EST GFR 111 Result Comment: Non- GFR Calc LAB L501.1115 >60 mL/min Normal EST GFR - AA 134 Result Comment: GFR Calc LAB L501.1255 ml/min Normal Estimated CRCL 94.23 LAB L501.1300 10-20 RATIO High BUN/CRE 27.4 LAB L501.2200 8.5-10 mg/dL Low .1 CA 7.6 LAB L501.5300 136-14 mmol/L Normal 5 NA 144 LAB L501.5600 3.5-5. mmol/L Normal 1 K 3.6 LAB L501.5900 98-107 mmol/L High CL 117 LAB L501.6100 21.0-3 mmol/L Normal 2.0 CO2 22.0 LAB L501.6200 5-15 Normal GAP 5 Performed By: #### L500.2500 #### [facility] [address], [address] CBC W/DIFF, AUTOMATED Collected: 02/26/2018 Status: F Source: [place] 5:45 AM [facility] REPOSITORY TYPE CODE TESTS RESULT OUT OF RANGE REFERENCE UNITS LAB L100.1000 4.4-11.0 K/mm3 Low WBC 2.0 LAB L100.1200 4.2-5.4 M/mm3 Low RBC 3.85 LAB L100.1300 12.0-15.0 g/dl Low HGB 11.4 LAB L100.1400 37-47 % Low HCT 35.1 LAB L100.1500 81-99 fL Normal MCV 91.2 LAB L100.1600 27.0-32.0 pg Normal MCH 29.6 LAB L100.1700 32-36 g/gl Normal MCHC 32.5 LAB L100.1810 11.6-14.6 % Normal RDW CV 13.7 LAB L100.1820 35.1-43.9 fl High RDW SD 44.9 LAB L100.1900 150-450 K/mm3 Low PLT 52 LAB L100.2000 6.2-12.0 fl High MPV 12.2 LAB L100.2100 47-70 % Low NEUT% 45.1 LAB L100.2200 19-41 % Normal LY% 31.9 LAB L100.2300 0-10 % High MONO% 18.6 LAB L100.2400 0-5 % Normal EO% 3.9 LAB L100.2500 0-1 % Normal BASO% 0.5 LAB L100.2550 0.0-0.9 % Normal IM GRAN % 0.000 Result Comment: IG% - Immature Granulocytes (promyelocytes, myelocytes and metamyelocytes) > 1% indicates that a LEFT SHIFT is Present. LAB L100.2620 2.0-7.7 X10 3/uL Low Absolute Neut 0.9 LAB L100.2720 0.83-4.51 X10 3/ul Low Absolute Lymph 0.65 Performed By: #### L100.0100 #### [facility] [place], [address] CBC W/DIFF, AUTOMATED Collected: 02/25/2018 Status: F Source: [place] 5:46 AM [facility] REPOSITORY TYPE CODE TESTS RESULT OUT OF RANGE REFERENCE UNITS LAB L100.1000 4.4-11.0 K/mm3 Low WBC 2.8 LAB L100.1200 4.2-5.4 M/mm3 Low RBC 3.96 LAB L100.1300 12.0-15.0 g/dl Low HGB 11.8 LAB L100.1400 37-47 % Low HCT 36.4 LAB L100.1500 81-99 fL Normal MCV 91.9 LAB L100.1600 27.0-32.0 pg Normal MCH 29.8 LAB L100.1700 32-36 g/gl Normal MCHC 32.4 LAB L100.1810 11.6-14.6 % Normal RDW CV 14.1 LAB L100.1820 35.1-43.9 fl High RDW SD 46.5 LAB L100.1900 150-450 K/mm3 Low PLT 73 LAB L100.2000 6.2-12.0 fl High MPV 12.8 LAB L100.2100 47-70 % Low NEUT% 42.8 LAB L100.2200 19-41 % Normal LY% 34.8 LAB L100.2300 0-10 % High MONO% 18.8 LAB L100.2400 0-5 % Normal EO% 2.5 LAB L100.2500 0-1 % Normal BASO% 0.7 LAB L100.2550 0.0-0.9 % Normal IM GRAN % 0.400 Result Comment: IG% - Immature Granulocytes (promyelocytes, myelocytes and metamyelocytes) > 1% indicates that a LEFT SHIFT is Present. LAB L100.2620 2.0-7.7 X10 3/uL Low Absolute Neut 1.2 LAB L100.2720 0.83-4.51 X10 3/ul Normal Absolute Lymph 0.98 Performed By: #### L100.0100 #### [facility] [place], [address] COMPREHENSIVE METABOLIC Collected: 02/25/2018 Status: F Source: [place] [facility] 5:46 AM [facility] REPOSITORY TYPE CODE TESTS RESULT OUT OF RANGE REFERENCE UNITS LAB L501.0100 74-106 mg/dL Normal GLU 90 Result Comment: Please note revised GLUCOSE reference range effective 2017. LAB L501.1000 7-18 mg/dL High BUN 19 LAB L501.1100 0.55-1.02 mg/dL Normal CREAT,SERUM 0.79 Result Comment: The validity of the calculated GFR AND GFRAA in patients over 70 years has not been determined. Clinical correlation is essential. LAB L501.1110 >60 mL/min Normal EST GFR 78 Result Comment: Non- GFR Calc LAB L501.1115 >60 mL/min Normal EST GFR - AA 94 Result Comment: GFR Calc LAB L501.1255 ml/min Normal Estimated CRCL 69.18 LAB L501.1300 10-20 RATIO High BUN/CRE 24.0 LAB L501.1500 6.4-8. g/dL Low 2 T PROT 6.0 LAB L501.1800 3.2-5. g/dL Low 0 ALB 2.5 LAB L501.1950 2.2-4. g/dL Normal 2 GLOB 3.5 LAB L501.2000 0.9-2. RATIO Low 4 A/G 0.7 LAB L501.2200 8.5-10 mg/dL Low .1 CA 7.7 LAB L501.4100 15-37 U/L High AST 50 LAB L501.4305 45-117 U/L Normal ALK P 78 LAB L501.4405 13-56 U/L Normal ALT 34 LAB L501.4600 0.20-1 mg/dL Normal .00 T BILI 0.50 LAB L501.5300 136-14 mmol/L Normal 5 NA 145 LAB L501.5600 3.5-5. mmol/L Normal 1 K 3.9 LAB L501.5900 98-107 mmol/L High CL 116 LAB L501.6100 21.0-3 mmol/L Normal 2.0 CO2 22.0 LAB L501.6200 5-15 Normal GAP 7 Performed By: #### L500.4050 #### [facility] [address] [facility] [address] [place], [address] HISTORY AND PHYSICAL Observed: 02/24/2018 Status: F Source: [place] EXAM 4:16 PM [facility] REPOSITORY [facility] Medical Records Department [address] [facility] [place] [address] History and Physical 02/24/18 1603 MR#: [id number] Acct: [id number] Name: ANISHA SCHULTZ Rep #: [id number] : 1955 62 From: Sancho Arana MD PCP: Kwabena Bach Jr., MD Status: ADM IN Location: [facility] [id number] Problem List (1) Cirrhosis Status: Chronic Qualifiers: (2) HTN (hypertension) Status: Chronic Qualifiers: (3) HLD (hyperlipidemia) Status: Chronic Qualifiers: (4) Anxiety and depression Status: Chronic (5) Encephalopathy acute Status: Acute (6) Non-ST elevation (NSTEMI) myocardial infarction Status: Chronic History of Present Illness Date of Admission: 02/24/18 Chief Complaint: Confusion The patient is a 62 year old F with a pmh as below who presents from home with confusion for the last 24 hours. She had called her PCP yesterday who ordered an ammonia level which was 94. She continued to be confused this morning, so her dropped her of at the hospital. Her ammonia was elevated to the 120's, her baseline is around 80. She states that she took her lactulose this morning per the ED record but then tells me that she is unsure of her medications. In the ED she was given lactulose and the rest of her labs were unremarkable. Past Medical History Past Medical History (Chronic Problems): Chronic Problems (Last Reviewed 04/02/17 @ 11:17 by Navin Argueta MD) Cirrhosis (Chronic) Hepatitis C (Chronic) CAD (coronary artery disease) (Chronic) History of non-ST elevation myocardial infarction (NSTEMI) (Chronic) HTN (hypertension) (Chronic) HLD (hyperlipidemia) (Chronic) Tobacco use (Chronic) Chronic pain syndrome (Chronic) Anxiety and depression (Chronic) Abnormal electrocardiogram [ECG] [EKG] (Chronic) Non-ST elevation (NSTEMI) myocardial infarction (Chronic 01/27/17) Medical History: Medical History (Last Reviewed 04/02/17 @ 11:17 by Navin Argueta MD) Non-ST elevation (NSTEMI) myocardial infarction (Chronic) Onset Date: 01/27/17 I21.4 Cervical neck surgery Chronic back pain M54.9, G89.29 Chronic narcotic use F11.90 Depression F32.9 Toxic encephalopathy Onset Date: 01/27/17 G92 Allergies No Known Allergies Allergy (Verified 02/24/18 09:49) Home Medications: Ambulatory Orders Medication Instructions Recorded Surgical History: Surgical History (Last Reviewed 04/02/17 @ 11:17 by Navin Argueta MD) History of left heart catheterization Z98.890 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 Smoking Status: Former smoker - *Family History Maternal Family History: Family History (Last Reviewed 04/02/17 @ 11:17 by Navin Argueta MD) Father Heart disease History Items: Heart Disease, Hypertension Paternal Family History: Family History (Last Reviewed 04/02/17 @ 11:17 by Navin Argueta MD) Father Heart disease History Items: Heart Disease, Hypertension Review of Systems Constitutional: Denies: Chills, Fever, Weight Change HEENT: Denies: Head Aches, Sinus Congestion, Sinus Drainage Cardiovascular: Denies: Chest Pain, Palpitations Respiratory: Denies: Cough, Shortness of breath at rest, Sputum production Gastrointestinal: Denies: Abdominal Pain, Nausea, Vomiting Genitourinary: Denies: Dysuria Musculoskeletal: Denies: Joint Pain, Joint Tenderness Skin: Denies: Rash, Wounds Neurological: Reports: Confusion. Denies: Focal weakness, Numbness, Tingling Psychiatric: Denies: Anxiety, Depression Hematologic/ Lymphatic: Denies: Easy Bruising, Easy Bleeding VTE Information - Inpt Only VTE Present on Admission: No - Physical Exam General: Alert, Cooperative, No apparent distress, Confused HEENT: Atraumatic, PERRLA, EOMI, Normocephalic Oral: Dry Mucosa Neck: Supple, No JVD Lungs: Clear to auscultation, Normal air movement, No rhonchi, No wheeze, No rales Cardiovascular: Regular rate, Regular Rhythm, Normal S1, Normal S2, No murmurs Abdomen: Soft, Non Tender, Non-Distended, No Hepato-splenomegaly Extremities: No edema, Capillary Refill Less than 3 Seconds Skin: No rashes, No breakdown Neurological: Neuro grossly intact, Sensory exam intact to light touch and pain Psych/Mental Status: Normal Affect, Appropriate Vital Signs Temp Pulse Resp BP Pulse Ox 97.6 F L 52 L 16 136/81 H 99 02/24/18 13:02 02/24/18 13:02 02/24/18 13:02 02/24/18 13:02 02/24/18 13:02 Oxygen Delivery Method Room Air Weight: 129 lb 3.054 oz Body Mass Index (BMI) 26.1 Finger Stick Blood Glucose 123 Laboratory Tests Past 24 Hrs WBC 3.4 L RBC 4.27 Hgb 12.6 Hct 38.2 MCV 89.5 MCH 29.5 MCHC 33.0 RDW 13.9 WBC RBC Hgb Hct MCV MCH MCHC RDW RDW Differential Plt Count MPV Immature Gran % (Auto) Neut % (Auto) Assessment/Plan All Active Problems (Last Reviewed 04/02/17 @ 11:17 by Navin Argueta MD) Hyperammonemia (Acute) Encephalopathy acute (Acute) 1. Acute hepatic encephalopathy/Cirrhosis/H/o hep C - she is on lactulose and xifaxan at home, will continue here - IVF - States that she was treated and cured for the hep C - Ammonia is 124 2. CAD s/p cath/HLD/HTN - stable at the moment - Follow with cardiology - C/w lipitor, plavix, and metoprolol - Echo in 2017 was normal with PA pressure of 33 3. Anxiety/Depression/Chronic pain - C/w abilify and prozac - Topamax for chronic pain DVT: Lovenox Diet: Regular Code Visit Inpatient E AND M: 20004 Init Hosp L3 02/24/18 1616 <Electronically signed by Sancho Arana MD> Date Sancho Arana MD Cosigner Signature: Date (if applicable) CC: Kwabena Bach Jr., MD; Sancho Arana MD Signed EMERGENCY DEPARTMENT Observed: 02/24/2018 Status: F Source: [place] SUMMARY 11:[address] [facility] Medical Records Department [address] [place] [address] Emergency Department Summary 02/24/18 1121 MR#: [id number] Acct: [id number] Name: ANISHA SCHULTZ Rep #: [id number] : 1955 62 From: Camden Rodriguez MD PCP: Kwabena Bach Jr., MD Status: REG ER - ER Visit Summary Date of Service: 02/24/18 Chief Complaint: Abnormal lab History of Present Illness: The patient is a 62 F with history of hep C, cirrhosis and hepatic encephalopathy was sent to the emergency room because of elevated ammonia level. She was seen by her primary care physician yesterday for change in mental status. She is not alert but is oriented. Her only complaint is that her thinking is slow and she feels as if she is in a fog. She denies headache. She denies ocular, visual auditory symptoms. She denies neck pain. She denies cardiac respiratory symptoms. She denies nausea, vomiting or diarrhea. She denies black or maroon stool. She denies hematemesis. She denies dysuria, frequency, urgency or hematuria. She denies paresthesia, anesthesia motor weakness. Physical Examination: Vital signs noted and unremarkable. Head is atraumatic normocephalic. Pupils are equal round reactive. Extraocular muscles are intact. TMs are pearly white with landmarks noted. Nares patent with no drainage. Posterior pharynx without erythema or exudate. Uvula is midline. There is no dysphonia or dysphasia. Trachea is midline. There is no stridor with auscultation of the neck. Heart is regular without murmur, gallop or rub. S1 and S2 are normal. Lungs are clear to auscultation with good movement of air bilaterally. Abdomen soft nontender well-healed right upper quadrant scar noted secondary to cholecystectomy at the age of 19. Lower extremity exam is remarkable for stigmata of peripheral arterial disease. Pulses are diminished. She is not alert but is oriented x3. Motor sensory intact. DTRs are symmetric with no clonus or Babinski sign. She has asterixis. Test Results: White count is 3.4 thousand with 62 segs no bands. Hepatic profile is unremarkable. INR is 1.4. Urine is positive for leukoesterase 25. Ammonia is 125. Emergency Department Course and Treatment: Patient was treated with lactulose. She will need admission for hepatic encephalopathy Treatment Plan: Admission for hepatic encephalopathy Disposition: Medical surgical floor Impression: 1. Hepatic encephalopathy 2. History of hep C 3. History of cirrhosis This note was generated with Mem[employer] dictation software. It may contain incorrect words, spelling, and punctuation that were not noted in review of the chart prior to signing ED Disposition - Plan for ED Patient: Chief Complaint: Abn Labs Referrals: Kwabena Bach Jr., MD [Primary Care Provider] - What to do if you have Problems For any increased pain, shortness of breath, bleeding, nausea or vomiting, chest pain, or any unexpected problems, contact your Primary Care Provider. Call [employer] ([phone]) or report to the closest Emergency Room. Call 911 if necessary. 02/24/18 1124 <Electronically signed by Camden Rodriguez MD> Date Camden Rodriguez MD Cosigner Signature (If Indicated): Date CC: Kwabena Bach Jr., MD URINALYSIS, COMPLETE Collected: 02/24/2018 Status: F Source: [place] 10:50 AM [facility] REPOSITORY Order Comment: Order Date: 02/24/18 How was Urine Obtained? CLEAN CATCH TYPE CODE TESTS RESULT OUT OF RANGE REFERENCE UNITS LAB L400.3000 Yellow COLOR Normal Yellow LAB L400.3050 Clear Normal CLARITY Sl. Cloudy LAB L400.3200 Normal mg/dl Normal GLUCOSE, UR Normal LAB L400.3300 Negative mg/dL Normal BILIRUBIN URINE Negative LAB L400.3400 Negative mg/dl Normal KETONE UR Negative LAB L400.3465 1.002-1.030 Normal SP.GR. DIPSTX 1.010 LAB L400.3550 5.0 - 8.0 pH UR Normal 8.0 LAB L400.3600 Negative mg/dl PROT Normal DIPSTX Negative LAB L400.3700 Normal mg/dl High 4 UROBILI LAB L400.3750 Negative Normal NITRITE UR Negative LAB L400.3780 Negative /ul Normal OCCULT BLOOD-UR Negative LAB L400.3800 Negative /ul High LEUK 25 ESTERASE LAB L400.4050 0-5 /hpf WBC Normal 0-5 SEEN LAB L400.4100 0-5 /hpf 0 Normal RBC-UA SEEN LAB L400.4150 5-10 /hpf SQUAM Normal EPI 0-5 SEEN LAB L400.4300 None Seen /hpf 1+ Normal BACTERIA LAB L400.4350 <or=2+ /hpf 0 Normal MUCUS, URINE SEEN Performed By: #### L400.0001 #### [facility] [address] [place], [place], [address] CBC W/DIFF, AUTOMATED Collected: 02/24/2018 Status: F Source: [place] 10:28 AM [facility] REPOSITORY TYPE CODE TESTS RESULT OUT OF RANGE REFERENCE UNITS LAB L100.1000 4.4-11.0 K/mm3 Low WBC 3.4 LAB L100.1200 4.2-5.4 M/mm3 Normal RBC 4.27 LAB L100.1300 12.0-15.0 g/dl Normal HGB 12.6 LAB L100.1400 37-47 % Normal HCT 38.2 LAB L100.1500 81-99 fL Normal MCV 89.5 LAB L100.1600 27.0-32.0 pg Normal MCH 29.5 LAB L100.1700 32-36 g/gl Normal MCHC 33.0 LAB L100.1810 11.6-14.6 % Normal RDW CV 13.9 LAB L100.1820 35.1-43.9 fl High RDW SD 45.4 LAB L100.1900 150-450 K/mm3 Low PLT 80 LAB L100.2000 6.2-12.0 fl Normal MPV 11.4 LAB L100.2100 47-70 % Normal NEUT% 62.6 LAB L100.2200 19-41 % Low LY% 18.7 LAB L100.2300 0-10 % High MONO% 14.6 LAB L100.2400 0-5 % Normal EO% 2.9 LAB L100.2500 0-1 % Normal BASO% 0.9 LAB L100.2550 0.0-0.9 % Normal IM GRAN % 0.300 Result Comment: IG% - Immature Granulocytes (promyelocytes, myelocytes and metamyelocytes) > 1% indicates that a LEFT SHIFT is Present. LAB L100.2620 2.0-7.7 X10 3/uL Normal Absolute Neut 2.2 LAB L100.2720 0.83-4.51 X10 3/ul Low Absolute Lymph 0.64 Performed By: #### L100.0100 #### [facility] [address] [place], [place], [address] AMMONIA Collected: 02/24/2018 Status: F Source: [place] 10:28 AM [facility] REPOSITORY TYPE CODE TESTS RESULT OUT OF REFERENCE UNITS RANGE LAB L503.5510 11-32 umol/L High AMMONIA 124.0 Performed By: #### L503.5510 #### [facility] [address] [place], [address] COMPREHENSIVE METABOLIC Collected: 02/24/2018 Status: F Source: [facility] 10:28 AM [facility] REPOSITORY TYPE CODE TESTS RESULT OUT OF RANGE REFERENCE UNITS LAB L501.0100 74-106 mg/dL Normal GLU 96 Result Comment: Please note revised GLUCOSE reference range effective 2017. LAB L501.1000 7-18 mg/dL Normal BUN 15 LAB L501.1100 0.55-1.02 mg/dL Normal CREAT,SERUM 0.77 Result Comment: The validity of the calculated GFR AND GFRAA in patients over 70 years has not been determined. Clinical correlation is essential. LAB L501.1110 >60 mL/min Normal EST GFR 81 Result Comment: Non- GFR Calc LAB L501.1115 >60 mL/min Normal EST GFR - AA 98 Result Comment: GFR Calc LAB L501.1255 ml/min Normal Estimated CRCL 55.11 LAB L501.1300 10-20 RATIO Normal BUN/CRE 19.5 LAB L501.1500 6.4-8. g/dL Normal 2 T PROT 7.3 LAB L501.1800 3.2-5. g/dL Low 0 ALB 3.0 LAB L501.1950 2.2-4. g/dL High 2 GLOB 4.3 LAB L501.2000 0.9-2. RATIO Low 4 A/G 0.7 LAB L501.2200 8.5-10 mg/dL Low .1 CA 8.4 LAB L501.4100 15-37 U/L High AST 67 LAB L501.4305 45-117 U/L Normal ALK P 88 LAB L501.4405 13-56 U/L Normal ALT 42 LAB L501.4600 0.20-1 mg/dL High .00 T BILI 1.10 LAB L501.5300 136-14 mmol/L Normal 5 NA 139 LAB L501.5600 3.5-5. mmol/L Normal 1 K 4.0 LAB L501.5900 98-107 mmol/L High CL 109 LAB L501.6100 21.0-3 mmol/L Normal 2.0 CO2 24.0 LAB L501.6200 5-15 Normal GAP 6 Performed By: #### L500.4050, L501.2450 #### [facility] [address] [place], [address] LIPASE Collected: 02/24/2018 Status: F Source: [place] 10:28 AM [facility] REPOSITORY TYPE CODE TESTS RESULT OUT OF RANGE REFERENCE UNITS LAB L501.2450 73-393 U/L Normal LIPASE 175 Performed By: #### L500.4050, L501.2450 #### [facility] [address] [place], [address] PROTHROMBIN TIME W/INR Collected: 02/24/2018 Status: F Source: [place] 10:28 AM [facility] REPOSITORY TYPE CODE TESTS RESULT OUT OF RANGE REFERENCE UNITS LAB L300.4150 11.7-14.9 SECONDS High PROTIME 17.1 LAB L300.4200 Normal INR 1.4 Performed By: #### L300.3900 #### [facility] [address] [place], [address] AMMONIA Collected: 02/23/2018 Status: F Source: [place] 1:55 PM [facility] REPOSITORY TYPE CODE TESTS RESULT OUT OF REFERENCE UNITS RANGE LAB L503.5510 11-32 umol/L High AMMONIA 94.0 Performed By: #### L503.5510 #### [facility] [address] [place], [address] DISCHARGE SUMMARY Observed: 10/09/2017 Status: F Source: [place] 4:13 PM [facility] REPOSITORY [facility] Medical Records Department [address] [place] [address] Discharge Summary 10/09/17 0954 MR#: [id number] Acct: [id number] Name: ANISHA SCHULTZ Rep #: [id number] : 1955 62 From: Teresa Forde MD PCP: Kwabena Bach Jr., MD Status: DIS IN Y Location[place] [facility] [place] [facility] [place] TW400-0 Discharge Date and Diagnosis Date of Admission: 10/07/17 Date of Discharge: 10/09/17 - Secondary Discharge Diagnosis Chronic Problems (Last Reviewed 04/02/17 @ 11:17 by Navin Argueta MD) Cirrhosis (Chronic) Hepatitis C (Chronic) CAD (coronary artery disease) (Chronic) History of non-ST elevation myocardial infarction (NSTEMI) (Chronic) HTN (hypertension) (Chronic) HLD (hyperlipidemia) (Chronic) Tobacco use (Chronic) Chronic pain syndrome (Chronic) Anxiety and depression (Chronic) Abnormal electrocardiogram [ECG] [EKG] (Chronic) Non-ST elevation (NSTEMI) myocardial infarction (Chronic 01/27/17) Hospital Course and Treatment Imaging Results: Laboratory Tests WBC 3.6 L RBC 4.39 Hgb 13.1 Hct 40.8 MCV 92.9 WBC 2.7 L RBC 3.90 L Hgb 11.5 L Hct 36.4 L MCV 93.3 MCH 29.5 MCHC 31.6 L RDW 14.4 WBC RBC Hgb Hct MCV MCH MCHC RDW RDW Differential Plt Count MPV Immature Gran % (Auto) Neut % (Auto) Lymph % (Auto) Operations: None Procedures: None Summary of Care Provided: 62-year-old female with past history of hypertension, hyperlipidemia, chronic liver disease and hepatitis C as well as history of hepatic encephalopathy. She was admitted on 10/07/2017 after being referred by her PCP because of elevated ammonia level. She also complained of sleepiness and lethargy. She was on rifaximin and lactulose and claimed compliance with medications. 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 Ammonia level was 143 prior to admission was 9 6 after she was seen in the ED. She was admitted and managed for acute hepatic encephalopathy due to hyperammonemia. On admission, she had a asterixis, which resolved with administration of lactulose. She was started on lactulose 30mls tid, to titrate to 2-3 loose bowel movements daily. Patient's confusion resolved and she remained stable. She was discharged on 10/09/17 on PO lactulose 30mls tid, to titrate to 2-3 loose stools daily. She is to follow up with her PCP in one week. Patient seen and examined prior to discharge. She had no complaints and felt well. Denies any fever or chills, any cough or chest pain, any shortness of breath, any abdominal pain, any diarrhea vomiting. Review of systems otherwise negative. o/e: General: Alert, Oriented x3, Cooperative, No apparent distress HEENT: Atraumatic, PERRLA, EOMI, Normocephalic Oral: Moist Mucosa Neck: Supple, No JVD, Negative Carotid Bruits, No Nodes Lungs: Clear to auscultation, Normal air movement, No rhonchi, No wheeze, No rales Cardiovascular: Regular rate, Regular Rhythm, Normal S1, Normal S2, No murmurs Abdomen: Bowel Sounds Present, Soft, Non Tender, Non-Distended, No Hepato-splenomegaly Extremities: No clubbing, No cyanosis, No edema, Capillary Refill Less than 3 Seconds Skin: No rashes, No breakdown Musculoskeletal: No Tenderness to Palpation of Joints or Extremities, No Muscle Wasting Lymphatic: No Cervical, Supraclavicular, or Inguinal Adenopathy Neurological: Cranial nerves II-XII grossly intact, Deep Tendon Reflexes 2+/4 and Symmetrical, Neuro grossly intact, asterixis of UEs has resolved. Psych/Mental Status: Normal Affect, Appropriate, Alert and oriented to time, place, person, mood and affect Plan as stated above. Ammonia level was 82 at time of discharge; review of past records shows this is the lower limit she has been at in the past year. SHe is to follow up with her PCP in one week. [] Discharge Diet: 2000 mg Sodium Diet Discharge Activity: Return to Normal Activity May resume sexual activity in: No Restrictions Weight Bearing Status: Weight bearing as tolerated Call your doctor if you observe: Inability to have a bowel movement, - - confusion, alterations in sleep-wake cycle Home Medications: Medications to take at Discharge Aripiprazole [Abilify] 5 mg PO DAILY 02/05/13 Clonazepam [Klonopin] 0.5 mg PO DAILY PRN PRN #0 02/05/13 Rifaximin [Xifaxan] 550 mg PO BID 01/24/17 Atenolol 50 mg PO DAILY 08/18/17 Atorvastatin Calcium [Lipitor] 20 mg PO QHS 08/18/17 Buprenorphine 1 each TOPICAL TU 08/18/17 Clopidogrel Bisulfate [Plavix] 75 mg PO DAILY 08/18/17 Fluoxetine [Prozac] 40 mg PO DAILY 08/18/17 Topiramate [Topamax] 25 mg PO DAILY 08/18/17 Melatonin/Pyridoxine HCl (B6) [Melatonin 10 mg Tablet] 1 tablet PO PRN PRN 10/07/17 Lactulose [Chronulac] 30 ml PO TID #90 udc 10/09/17 Following Prescrptions Were Given to Patient: Lactulose [Chronulac] 30 ml PO TID #90 udc Primary Care Physician: Kwabena Bach Jr., MD [Primary Care Provider] - Please follow up with your Primary Care Physician in: one week Patient Instructions: Lactulose Oral solution [Encephalopathy] Disposition: Home Minutes spent on discharge:: 40 Patient Condition:: Stable Medical Necessity - Tobacco Use Smoking Status: Former smoker Tobacco Use: Cigarettes, - Meaningful Use Info Meaningful Use Diagnoses (Choose all that apply): None applicable Code Visit Inpatient E AND M: 34198 Disch Hosp 10/09/17 1613 <Electronically signed by Teresa Forde MD> Date Teresa Forde MD Cosigner Signature (if applicable): Date CC: Kwabena Bach Jr., MD; Teresa Forde MD Signed DISCHARGE INSTRUCTION Observed: 10/09/2017 Status: F Source: [place] 9:54 AM [facility] REPOSITORY [facility] Medical Records Department [address] [place] [address] Instructions for Home/Discharge Instructions 10/09/17 0952 MR#: [id number] Acct: [id number] Name: ANISHA SCHULTZ Rep #: [id number] : 1955 62 From: Teresa Forde MD PCP: Kwabena Bach Jr., MD Status: ADM IN - Discharge Diagnoses Current Active Problems: hepatic encephalopathy You will use the following diet at home:: Other - 2000mg low sodium diet Your food should be the consistency of: Regular Your liquids should be the consistency of: Regular/Thin Discharge Activity: Return to Normal Activity May resume sexual activity in: No Restrictions Weight Bearing Status: Weight bearing as tolerated Call your doctor if you observe: Inability to have a bowel movement, - - confusion, alterations in sleep-wake cycle Instructions: Lactulose Oral solution [Encephalopathy] Allergies/Adverse Reactions: Allergies No Known Allergies Allergy (Verified 10/07/17 17:39) Medications to take at Discharge Aripiprazole [Abilify] 5 mg PO DAILY 02/05/13 Clonazepam [Klonopin] 0.5 mg PO DAILY PRN PRN #0 02/05/13 Rifaximin [Xifaxan] 550 mg PO BID 01/24/17 Atenolol 50 mg PO DAILY 08/18/17 Atorvastatin Calcium [Lipitor] 20 mg PO QHS 08/18/17 Buprenorphine 1 each TOPICAL TU 08/18/17 Clopidogrel Bisulfate [Plavix] 75 mg PO DAILY 08/18/17 Fluoxetine [Prozac] 40 mg PO DAILY 08/18/17 Topiramate [Topamax] 25 mg PO DAILY 08/18/17 Melatonin/Pyridoxine HCl (B6) [Melatonin 10 mg Tablet] 1 tablet PO PRN PRN 10/07/17 Lactulose [Chronulac] 30 ml PO TID #90 udc 10/09/17 The following prescriptions were given: Lactulose [Chronulac] 30 ml PO TID #90 udc Primary Care Physician: Kwabena Bach Jr., MD [Primary Care Provider] - Please follow up with your Primary Care Physician in: one week Test Results: Test results from this visit will be discussed in further detail at your follow-up appointment, if applicable. Proposed Discharge Date: 10/09/17 10/09/17 0954 <Electronically signed by Teresa Forde MD> Date Teresa Forde MD CC: Kwabena Bach Jr., MD CBC W/DIFF, AUTOMATED Collected: 10/09/2017 Status: F Source: [place] 6:44 AM [facility] REPOSITORY TYPE CODE TESTS RESULT OUT OF RANGE REFERENCE UNITS LAB L100.1000 4.4-11.0 K/mm3 Low WBC 3.7 LAB L100.1200 4.2-5.4 M/mm3 Low RBC 3.92 LAB L100.1300 12.0-15.0 g/dl Low HGB 11.6 LAB L100.1400 37-47 % Low HCT 36.5 LAB L100.1500 81-99 fL Normal MCV 93.1 LAB L100.1600 27.0-32.0 pg Normal MCH 29.6 LAB L100.1700 32-36 g/gl Low MCHC 31.8 LAB L100.1810 11.6-14.6 % Normal RDW CV 14.1 LAB L100.1820 35.1-43.9 fl High RDW SD 48.0 LAB L100.1900 150-450 K/mm3 Low PLT 71 LAB L100.2000 6.2-12.0 fl Normal MPV 11.0 LAB L100.2100 47-70 % Normal NEUT% 54.8 LAB L100.2200 19-41 % Normal LY% 28.0 LAB L100.2300 0-10 % High MONO% 12.9 LAB L100.2400 0-5 % Normal EO% 3.8 LAB L100.2500 0-1 % Normal BASO% 0.5 LAB L100.2550 0.0-0.9 % Normal IM GRAN % 0.000 Result Comment: IG% - Immature Granulocytes (promyelocytes, myelocytes and metamyelocytes) > 1% indicates that a LEFT SHIFT is Present. LAB L100.2620 2.0-7.7 X10 3/uL Normal Absolute Neut 2.0 LAB L100.2720 0.83-4.51 X10 3/ul Normal Absolute Lymph 1.04 Performed By: #### L100.0100 #### [facility] [address] [place], [address] AMMONIA Collected: 10/09/2017 Status: F Source: [place] 6:44 AM [facility] REPOSITORY TYPE CODE TESTS RESULT OUT OF REFERENCE UNITS RANGE LAB L503.5510 11-32 umol/L High AMMONIA 82.0 Performed By: #### L503.5510 #### [facility] [address] [place], [address] COMPREHENSIVE METABOLIC Collected: 10/09/2017 Status: F Source: [facility] 6:44 AM [facility] REPOSITORY TYPE CODE TESTS RESULT OUT OF RANGE REFERENCE UNITS LAB L501.0100 74-106 mg/dL Normal GLU 90 Result Comment: Please note revised GLUCOSE reference range effective 2017. LAB L501.1000 7-18 mg/dL Normal BUN 11 LAB L501.1100 0.55-1.02 mg/dL Normal CREAT,SERUM 0.72 Result Comment: The validity of the calculated GFR AND GFRAA in patients over 70 years has not been determined. Clinical correlation is essential. LAB L501.1110 >60 mL/min Normal EST GFR 88 Result Comment: Non- GFR Calc LAB L501.1115 >60 mL/min Normal EST GFR - AA 107 Result Comment: GFR Calc LAB L501.1255 ml/min Normal Estimated CRCL 73.96 LAB L501.1300 10-20 RATIO Normal BUN/CRE 15.4 LAB L501.1500 6.4-8. g/dL Low 2 T PROT 6.1 LAB L501.1800 3.2-5. g/dL Low 0 ALB 2.3 LAB L501.1950 2.2-4. g/dL Normal 2 GLOB 3.8 LAB L501.2000 0.9-2. RATIO Low 4 A/G 0.6 LAB L501.2200 8.5-10 mg/dL Low .1 CA 7.3 LAB L501.4100 15-37 U/L High AST 79 LAB L501.4305 45-117 U/L Normal ALK P 96 LAB L501.4405 13-56 U/L Normal ALT 48 LAB L501.4600 0.20-1 mg/dL Normal .00 T BILI 0.90 LAB L501.5300 136-14 mmol/L Normal 5 NA 145 LAB L501.5600 3.5-5. mmol/L Low 1 K 3.3 LAB L501.5900 98-107 mmol/L High CL 117 LAB L501.6100 21.0-3 mmol/L Low 2.0 CO2 19.0 LAB L501.6200 5-15 Normal GAP 9 Performed By: #### L500.4050 #### [facility] [address] [place], [address] CBC W/DIFF, AUTOMATED Collected: 10/08/2017 Status: F Source: [place] 7:08 AM [facility] REPOSITORY TYPE CODE TESTS RESULT OUT OF RANGE REFERENCE UNITS LAB L100.1000 4.4-11.0 K/mm3 Low WBC 2.7 LAB L100.1200 4.2-5.4 M/mm3 Low RBC 3.90 LAB L100.1300 12.0-15.0 g/dl Low HGB 11.5 LAB L100.1400 37-47 % Low HCT 36.4 LAB L100.1500 81-99 fL Normal MCV 93.3 LAB L100.1600 27.0-32.0 pg Normal MCH 29.5 LAB L100.1700 32-36 g/gl Low MCHC 31.6 LAB L100.1810 11.6-14.6 % Normal RDW CV 14.4 LAB L100.1820 35.1-43.9 fl High RDW SD 48.6 LAB L100.1900 150-450 K/mm3 Low PLT 70 LAB L100.2000 6.2-12.0 fl Normal MPV 11.0 LAB L100.2100 47-70 % Normal NEUT% 55.0 LAB L100.2200 19-41 % Normal LY% 25.9 LAB L100.2300 0-10 % High MONO% 15.4 LAB L100.2400 0-5 % Normal EO% 2.6 LAB L100.2500 0-1 % High BASO% 1.1 LAB L100.2550 0.0-0.9 % Normal IM GRAN % 0.000 Result Comment: IG% - Immature Granulocytes (promyelocytes, myelocytes and metamyelocytes) > 1% indicates that a LEFT SHIFT is Present. LAB L100.2620 2.0-7.7 X10 3/uL Low Absolute Neut 1.5 LAB L100.2720 0.83-4.51 X10 3/ul Low Absolute Lymph 0.69 Performed By: #### L100.0100 #### [facility] [address] [place], [address] AMMONIA Collected: 10/08/2017 Status: F Source: [place] 7:08 AM [facility] REPOSITORY TYPE CODE TESTS RESULT OUT OF REFERENCE UNITS RANGE LAB L503.5510 11-32 umol/L High AMMONIA 81.0 Performed By: #### L503.5510 #### [facility] [address] [place], [address] COMPREHENSIVE METABOLIC Collected: 10/08/2017 Status: F Source: [facility] 7:08 AM [facility] REPOSITORY TYPE CODE TESTS RESULT OUT OF RANGE REFERENCE UNITS LAB L501.0100 74-106 mg/dL Normal GLU 106 Result Comment: Fasting Glucose result from 100 to 125 mg/dL suggests IMPAIRED HOMEOSTASIS per A.D.A. criteria. Please note revised GLUCOSE reference range effective 2017. LAB L501.1000 7-18 mg/dL Normal BUN 12 LAB L501.1100 0.55-1.02 mg/dL Normal CREAT,SERUM 0.78 Result Comment: The validity of the calculated GFR AND GFRAA in patients over 70 years has not been determined. Clinical correlation is essential. LAB L501.1110 >60 mL/min Normal EST GFR 79 Result Comment: Non- GFR Calc LAB L501.1115 >60 mL/min Normal EST GFR - AA 96 Result Comment: GFR Calc LAB L501.1255 ml/min Normal Estimated CRCL 68.27 LAB L501.1300 10-20 RATIO Normal BUN/CRE 15.3 LAB L501.1500 6.4-8. g/dL Normal 2 T PROT 6.4 LAB L501.1800 3.2-5. g/dL Low 0 ALB 2.6 LAB L501.1950 2.2-4. g/dL Normal 2 GLOB 3.8 LAB L501.2000 0.9-2. RATIO Low 4 A/G 0.7 LAB L501.2200 8.5-10 mg/dL Low .1 CA 7.9 LAB L501.4100 15-37 U/L High AST 118 LAB L501.4305 45-117 U/L Normal ALK P 117 LAB L501.4405 13-56 U/L Normal ALT 54 LAB L501.4600 0.20-1 mg/dL Normal .00 T BILI 0.50 LAB L501.5300 136-14 mmol/L Normal 5 NA 145 LAB L501.5600 3.5-5. mmol/L Normal 1 K 3.7 LAB L501.5900 98-107 mmol/L High CL 117 LAB L501.6100 21.0-3 mmol/L Normal 2.0 CO2 22.0 LAB L501.6200 5-15 Normal GAP 6 Performed By: #### L500.4050 #### [facility] [address], [address] URINALYSIS, COMPLETE Collected: 10/08/2017 Status: F Source: [place] 1:15 AM [facility] REPOSITORY Order Comment: How was Urine Obtained? INTERNAL AUDIT DIRECTOR TO SPECIFY TYPE CODE TESTS RESULT OUT OF RANGE REFERENCE UNITS LAB L400.3000 Yellow COLOR Normal Straw LAB L400.3050 Clear Normal CLARITY Clear LAB L400.3200 Normal mg/dl Normal GLUCOSE, UR Normal LAB L400.3300 Negative mg/dL Normal BILIRUBIN URINE Negative LAB L400.3400 Negative mg/dl Normal KETONE UR Negative LAB L400.3465 1.002-1.030 Normal SP.GR. DIPSTX 1.010 LAB L400.3550 5.0 - 8.0 pH UR Normal 7.0 LAB L400.3600 Negative mg/dl PROT Normal DIPSTX Negative LAB L400.3700 Normal mg/dl Normal UROBILI Normal LAB L400.3750 Negative Normal NITRITE UR Negative LAB L400.3780 Negative /ul Normal OCCULT BLOOD-UR Negative LAB L400.3800 Negative /ul LEUK Normal ESTERASE Negative LAB L400.4050 0-5 /hpf WBC 0 Normal SEEN LAB L400.4100 0-5 /hpf 0 Normal RBC-UA SEEN LAB L400.4150 5-10 /hpf SQUAM Normal EPI 0-5 SEEN LAB L400.4300 None Seen /hpf 0 Normal BACTERIA SEEN LAB L400.4350 <or=2+ /hpf 0 Normal MUCUS, URINE SEEN Performed By: #### L400.0001 #### [facility] [address] [place], [address] HISTORY AND PHYSICAL Observed: 10/07/2017 Status: F Source: [place] EXAM 11:46 PM [facility] REPOSITORY [facility] Medical Records Department [address] [place] [address] History and Physical 10/07/17 2244 MR#: [id number] Acct: [id number] Name: ANISHA SCHULTZ Nazia Rep #: [id number] : 1955 62 From: Uzma Mccarthy MD PCP: Kwabena Bach Jr., MD Status: ADM IN Location[place] [facility] [place] [facility] [place] HW155-8 Problem List (1) Cirrhosis Status: Chronic Qualifiers: (2) Hepatitis C Status: Chronic Qualifiers: (3) CAD (coronary artery disease) Status: Chronic Qualifiers: (4) HTN (hypertension) Status: Chronic Qualifiers: (5) HLD (hyperlipidemia) Status: Chronic Qualifiers: (6) Chronic pain syndrome Status: Chronic (7) Anxiety and depression Status: Chronic (8) Encephalopathy acute Status: Acute History of Present Illness Date of Admission: 10/07/17 Chief Complaint: Abnormal labs. The patient is a 62 year old F with past medical history as mentioned above was referred to the emergency room by her PCP because of elevated ammonia level. At this time, patient is sleepy and lethargic but she is oriented 3. She mentioned that she has been having trouble walking and difficulty staying alert and awake over the last 3 days as well as trouble concentrating. She is to take that she takes lactulose twice a day and she has been taking it every day. She denied fever or chills. She denies cough or sputum production. She denies urinary symptoms. She denied abdominal pain, nausea vomiting. She has history of liver cirrhosis and hepatitis C with recurrent admissions for hepatic encephalopathy been on rifaximin and lactulose. She has history of CAD and she has been on aspirin, Plavix, statin and beta blockers. She has history of hypertension and she has been on metoprolol and her blood pressure has been under control. 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 In the emergency department, her vital signs were stable. Her routine blood work was remarkable for leukopenia, thrombocytopenia and absolute neutrophil count of 1900 which is chronic and at his baseline. Her LFT was normal. Her ammonia level was 143 earlier today and it was 96 after she came to the emergency room. She is being admitted for acute hepatic encephalopathy due to hyperammonemia. Past Medical History Past Medical History (Chronic Problems): Chronic Problems (Last Reviewed 04/02/17 @ 11:17 by Navin Argueta MD) Cirrhosis (Chronic) Hepatitis C (Chronic) CAD (coronary artery disease) (Chronic) History of non-ST elevation myocardial infarction (NSTEMI) (Chronic) HTN (hypertension) (Chronic) HLD (hyperlipidemia) (Chronic) Tobacco use (Chronic) Chronic pain syndrome (Chronic) Anxiety and depression (Chronic) Abnormal electrocardiogram [ECG] [EKG] (Chronic) Non-ST elevation (NSTEMI) myocardial infarction (Chronic 01/27/17) Medical History: Medical History (Last Reviewed 04/02/17 @ 11:17 by Navin Argueta MD) Non-ST elevation (NSTEMI) myocardial infarction (Chronic) Onset Date: 01/27/17 I21.4 Cervical neck surgery Chronic back pain M54.9, G89.29 Chronic narcotic use F11.90 Depression F32.9 Toxic encephalopathy Onset Date: 01/27/17 G92 Allergies No Known Allergies Allergy (Verified 10/07/17 17:39) Home Medications: Ambulatory Orders Medication Instructions Recorded Surgical History: Surgical History (Last Reviewed 04/02/17 @ 11:17 by Navin Argueta MD) History of left heart catheterization Z98.890 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 Denies: Chills, Fever Eyes: Denies: Blurred vision, Double vision, Drainage, Redness HEENT: Denies: Difficulty Hearing, Ear Pain, Eye Pain, Nasal Congestion, Sore Throat Cardiovascular: Denies: Chest Pain, Chest Pressure, Heaviness, Palpitations, Syncope Respiratory: Denies: Cough, Pleuritic Pain, Shortness of Breath, Sputum production, Wheezing Gastrointestinal: Denies: Abdominal Pain, Constipation, Diarrhea, Nausea, Vomiting Genitourinary: Denies: Dysuria, Frequency, Hematuria Musculoskeletal: Reports: Back Pain. Denies: Arm Pain Skin: Denies: Dryness, Rash Neurological: Denies: Balance problems, Double vision, Change in Speech, Slurred speech, Focal weakness, Headaches, Incoordination Psychiatric: Denies: Anxiety, Depression Endocrine: Denies: Change in Body Habitus, Polydipsia VTE Information - Inpt Only VTE Present on Admission: No VTE Mechan Device Prophylaxis: SCD's VTE Pharm Prophylaxis ordered?: No - Physical Exam General: Alert, Oriented x3, Cooperative, Lethargic - Sleepy, easily arousable., - - Positive asterixis, flapping tremor. HEENT: Atraumatic, PERRLA, EOMI Oral: No Gingival or Mucosal Lesions/ Ulcerations, Dry Mucosa Neck: Supple, No JVD, Negative Carotid Bruits, Trachea Midline, Thyroid Normal Size and Texture Lungs: Clear to auscultation, No rhonchi, No wheeze, No rales, Diminished Cardiovascular: Regular rate, Regular Rhythm, Normal S1, Normal S2, PMI Normal Abdomen: Bowel Sounds Present, Soft, Non Tender, Non-Distended, No Hepato-splenomegaly Extremities: No clubbing, No cyanosis, No edema Skin: No rashes, No breakdown Lymphatic: No Cervical, Supraclavicular, or Inguinal Adenopathy Neurological: Cranial nerves II-XII grossly intact, Motor Exam 5/5 strength throughout, - - Global weakness. Psych/Mental Status: Normal Affect, Appropriate, Alert and oriented to time, place, person, mood and affect Vital Signs Temp Pulse Resp BP Pulse Ox 98 F 66 14 134/67 H 97 10/07/17 17:37 10/07/17 21:05 10/07/17 21:05 10/07/17 21:05 10/07/17 21:05 Oxygen Delivery Method Room Air Weight: 122 lb Body Mass Index (BMI) 24.6 Finger Stick Blood Glucose 123 Laboratory Tests Past 24 Hrs WBC 3.6 L RBC 4.39 Hgb 13.1 Hct 40.8 MCV 92.9 MCH 29.8 MCHC 32.1 RDW 14.0 RDW Differential 47.5 H Assessment/Plan All Active Problems (Last Reviewed 04/02/17 @ 11:17 by Navin Argueta MD) Hyperammonemia (Acute) Encephalopathy acute (Acute) This is a 62 years old female patient was referred to the ER by her PCP because of elevated ammonia level as well as sleepiness and lethargy, difficulty concentrating and she was found to have acute hepatic encephalopathy. #1 acute hepatic encephalopathy/hyperammonemia: In context of history of liver cirrhosis secondary to hepatitis C. Patient states that she takes her lactulose every day as well as rifaximin. Today, her ammonia level was 142 today morning and in the ER later, it was 96. She does have asterixis, flapping tremor. She is sleepy and lethargic but arousable, oriented 3. She denied any symptoms suggestive of infection. Her vital signs are stable. Routine blood work reviewed and was stable at his baseline. Plan: Admit to [facility] floor, cardiac monitoring, fall precautions, aspiration precautions, IV fluids, IV antiemetics, increase lactulose to 30 mL 3 times daily, continue rifaximin, urinalysis, PT OT evaluation and treatment, repeat ammonia level tomorrow morning. #2 liver cirrhosis/hepatitis C: Patient has been on rifaximin and lactulose. Ammonia level is elevated as above. Plan as above. #3 CAD: Denies chest pain or shortness of breath. Continue Lipitor and atenolol as well as Plavix. #4 hypertension: Blood pressure stable, continue atenolol. #5 hyperlipidemia: Continue statins. #6 anxiety/depression: Continue Abilify and Prozac. #7 chronic leukopenia/thrombocytopenia: Secondary to chronic liver disease. No evidence of infection or bleeding. #8 DVT prophylaxis: SCDs. This note was generated with MemSQL dictation software. It may contain incorrect words, spelling, and punctuation that were not noted in checking the note before signing. Code Visit Inpatient E AND M: 68121 Init Hosp L3 10/07/17 2346 <Electronically signed by Uzam Mccarthy MD> Date Uzma Mccarthy MD Cosigner Signature: Date (if applicable) CC: Kwabena Bach Jr., MD; Uzma Mccarthy Signed EMERGENCY DEPARTMENT Observed: 10/07/2017 Status: F Source: [place] SUMMARY 10:24 PM [facility] REPOSITORY [facility] Medical Records Department [address] [place] [address] Emergency Department Summary 10/07/17 2221 MR#: [id number] Acct: [id number] Name: ANISHA SCHULTZ Rep #: [id number] : 1955 62 From: Ky Herrera DO PCP: Kwabena Bach Jr., MD Status: REG ER - ER Visit Summary Date of Service: 10/07/17 Chief Complaint: [Abnormal labs] History of Present Illness: The patient is a 62 F [presents the emergency department complaint of abnormal labs. Patient has a history of cirrhosis of the liver. Patient has had elevated ammonia levels. Over the last 3 days or so patient's been having more trouble walking and has had increased confusion and trouble concentrating. Patient denies any fevers. She denies any vomiting. Patient has been taking her medications regularly.] Physical Examination: [HEENT-PERRLA, EOMI. Cranial nerves II through XII grossly intact. TMs clear. Mucous membranes moist. No adenopathy. Speech slightly slurred and thick. Cardiovascular-regular rate and rhythm without murmur or ectopy Lungs-clear to auscultation, chest wall stable without crepitus or subcu emphysema Abdomen-normoactive bowel sounds, soft, nontender, no rebound or rigidity, no peritoneal signs. Neuro exam-patient with slight ataxia with finger to nose and heel hernandez testing bilaterally. Patient a and O 3. Answers questions appropriately. No focal weakness. Extremities-intact 4, normal range of motion, normal pulses, atraumatic] Test Results: [CBC with differential obtained showed a white count of 3.6, hemoglobin 13, hematocrit 41, platelets 90. Chemistries unremarkable. Liver enzymes unremarkable. Ammonia level earlier in the day was 143 and on repeat today it is 96.] Emergency Department Course and Treatment: [Patient was given lactulose 30 g p.o.] Treatment Plan: [Admit] Disposition: [Admit] Impression: [Hepatic encephalopathy] This note was generated with Jackrabbitation software. It may contain incorrect words, spelling, and punctuation that were not noted in review of the chart prior to signing ED Disposition - Plan for ED Patient: Chief Complaint: Abn Labs Referrals: Kwabena Bach Jr., MD [Primary Care Provider] - What to do if you have Problems For any increased pain, shortness of breath, bleeding, nausea or vomiting, chest pain, or any unexpected problems, contact your Primary Care Provider. Call [facility] ([phone]) or report to the closest Emergency Room. Call 911 if necessary. 10/07/174 <Electronically signed by Ky Herrera DO> Date Ky Herrera DO Cosigner Signature (If Indicated): Date CC: Kwabena Bach Jr., MD AMMONIA Collected: 10/07/2017 Status: F Source: [place] 7:37 PM [facility] REPOSITORY TYPE CODE TESTS RESULT OUT OF REFERENCE UNITS RANGE LAB L503.5510 11-32 umol/L High AMMONIA 96.0 Performed By: #### L503.5510 #### [facility] [address] [place], [place], [address] CBC W/DIFF, AUTOMATED Collected: 10/07/2017 Status: F Source: [place] 7:25 PM [facility] REPOSITORY TYPE CODE TESTS RESULT OUT OF RANGE REFERENCE UNITS LAB L100.1000 4.4-11.0 K/mm3 Low WBC 3.6 LAB L100.1200 4.2-5.4 M/mm3 Normal RBC 4.39 LAB L100.1300 12.0-15.0 g/dl Normal HGB 13.1 LAB L100.1400 37-47 % Normal HCT 40.8 LAB L100.1500 81-99 fL Normal MCV 92.9 LAB L100.1600 27.0-32.0 pg Normal MCH 29.8 LAB L100.1700 32-36 g/gl Normal MCHC 32.1 LAB L100.1810 11.6-14.6 % Normal RDW CV 14.0 LAB L100.1820 35.1-43.9 fl High RDW SD 47.5 LAB L100.1900 150-450 K/mm3 Low PLT 90 LAB L100.2000 6.2-12.0 fl Normal MPV 11.9 LAB L100.2100 47-70 % Normal NEUT% 53.8 LAB L100.2200 19-41 % Normal LY% 28.7 LAB L100.2300 0-10 % High MONO% 13.6 LAB L100.2400 0-5 % Normal EO% 3.3 LAB L100.2500 0-1 % Normal BASO% 0.6 LAB L100.2550 0.0-0.9 % Normal IM GRAN % 0.000 Result Comment: IG% - Immature Granulocytes (promyelocytes, myelocytes and metamyelocytes) > 1% indicates that a LEFT SHIFT is Present. LAB L100.2620 2.0-7.7 X10 3/uL Low Absolute Neut 1.9 LAB L100.2720 0.83-4.51 X10 3/ul Normal Absolute Lymph 1.03 Performed By: #### L100.0100 #### [facility] [address] [place], [address] COMPREHENSIVE METABOLIC Collected: 10/07/2017 Status: F Source: [facility] 7:25 PM [facility] REPOSITORY TYPE CODE TESTS RESULT OUT OF RANGE REFERENCE UNITS LAB L501.0100 74-106 mg/dL Normal GLU 89 Result Comment: Please note revised GLUCOSE reference range effective 2017. LAB L501.1000 7-18 mg/dL Normal BUN 15 LAB L501.1100 0.55-1.02 mg/dL Normal CREAT,SERUM 1.02 Result Comment: The validity of the calculated GFR AND GFRAA in patients over 70 years has not been determined. Clinical correlation is essential. LAB L501.1110 >60 mL/min Low EST GFR 58 Result Comment: Non- GFR Calc LAB L501.1115 >60 mL/min Normal EST GFR - AA 71 Result Comment: GFR Calc LAB L501.1255 ml/min Normal Estimated CRCL 50.60 LAB L501.1300 10-20 RATIO Normal BUN/CRE 14.7 LAB L501.1500 6.4-8. g/dL Normal 2 T PROT 7.6 LAB L501.1800 3.2-5. g/dL Normal 0 ALB 3.2 LAB L501.1950 2.2-4. g/dL High 2 GLOB 4.4 LAB L501.2000 0.9-2. RATIO Low 4 A/G 0.7 LAB L501.2200 8.5-10 mg/dL Normal .1 CA 8.8 LAB L501.4100 15-37 U/L High AST 51 Result Comment: Moderate Hemolysis, Result may be falsely increased. LAB L501.4305 45-117 U/L Normal ALK P 107 LAB L501.4405 13-56 U/L Normal ALT 35 LAB L501.4600 0.20-1.00 mg/dL Normal T BILI 0.50 LAB L501.5300 136-145 mmol/L Normal NA 143 LAB L501.5600 3.5-5.1 mmol/L Normal K 4.0 Result Comment: Moderate Hemolysis, Result may be falsely increased. LAB L501.5900 98-107 mmol/L High CL 109 LAB L501.6100 21.0-32.0 mmol/L Normal CO2 27.0 LAB L501.6200 5-15 Normal 7 GAP Performed By: #### L500.4050 #### [facility] [address] [place], [address] AMMONIA Collected: 10/07/2017 Status: F Source: [place] 1:44 PM [facility] REPOSITORY TYPE CODE TESTS RESULT OUT OF REFERENCE UNITS RANGE LAB L503.5510 11-32 umol/L High AMMONIA 143.0 Performed By: #### L503.5510 #### [facility] [address] [place], [address] EMERGENCY DEPARTMENT Observed: 08/20/2017 Status: F Source: [place] SUMMARY 8:27 AM [facility] REPOSITORY [facility] Medical Records Department [address] [place] [address] Emergency Department Summary 08/18/17 1227 MR#: [id number] Acct: [id number] Name: ANISHA SCHULTZ Rep #: [id number] : 1955 62 From: Ziggy Eng DO PCP: Kwabena Bach Jr., MD Status: DIS IN - ER Visit Summary Date of Service: 08/18/17 Chief Complaint: Abnormal labs History of Present Illness: The patient is a 62 F who states that she had blood work drawn on Friday. She was called today and told that she had an elevated ammonia level. Reportedly this was 122. She states that she has been more confused lately. She feels weak and has been falling. She is on Plavix and does note that she hit the back of her head. She notes bruising to the right hip. She has a history of cirrhosis as well as polypharmacy resulting in altered mental status. Noted history of hepatitis C. Physical Examination: Afebrile vital signs are stable Gen: Well-nourished well-developed Head: Normocephalic atraumatic Eyes: Perrl EOMI ENT: TMs clear no rhinorrhea moist mucous membranes Neck: Supple no lymphadenopathy no JVD nontender CVS: Regular rate rhythm no murmurs normal S1-S2 Respiratory: No distress clear to auscultation bilaterally chest nontender Abdomen: Soft nontender nondistended normal bowel sounds no masses Back: Nontender Extremity: Nontender no edema Skin: Normal color no rash Neuro: alert orientated 3 CN II-XII intact normal strength sensation reflexes gait cerebellar Psych: Flat affect Test Results: Ammonia level came back at 155. Toxicology positive for marijuana. No evidence of infection.CT of the brain was obtained given the fall on Plavix and was negative. Emergency Department Course and Treatment: Patient received oral lactulose. Plan is admission Impression: 1. Hepatic encephalopathy This note was generated with MemSQL dictation software. It may contain incorrect words, spelling, and punctuation that were not noted in review of the chart prior to signing ED Disposition - Plan for ED Patient: Disposition: Acute Care Hospital [facility] Chief Complaint: Abn Labs What to do if you have Problems For any increased pain, shortness of breath, bleeding, nausea or vomiting, chest pain, or any unexpected problems, contact your Primary Care Provider. Call [facility] ([phone]) or report to the closest Emergency Room. Call 911 if necessary. 08/20/17 0827 <Electronically signed by Ziggy Eng DO> Date Ziggy Eng DO Cosigner Signature (If Indicated): Date CC: Kwabena Bach Jr., MD DISCHARGE SUMMARY Observed: 08/19/2017 Status: F Source: [place] 7:52 PM [facility] REPOSITORY [facility] Medical Records Department [address] [place] [address] Discharge Summary 08/19/171945 MR#: [id number] Acct: [id number] Name: ANISHA SCHULTZ Rep #: [id number] : 1955 62 From: Roc Curtis DO PCP: Kwabena Bach Jr., MD Status: DIS IN Y Location: [facility] [place] PD241-0 Discharge Date and Diagnosis Date of Admission: 08/18/17 Date of Discharge: 08/19/17 - Primary Discharge Diagnosis #1 recurrent hepatic encephalopathy secondary to liver cirrhosis and noncompliance with medications #2 liver cirrhosis secondary to hepatitis C #3 chronic pain syndrome #4 coronary artery disease #5 hyperlipidemia #6 history of polysubstance abuse #7 anxiety and depression - Secondary Discharge Diagnosis Chronic Problems (Last Reviewed 04/02/17 @ 11:17 by Navin Argueta MD) Cirrhosis (Chronic) Hepatitis C (Chronic) CAD (coronary artery disease) (Chronic) History of non-ST elevation myocardial infarction (NSTEMI) (Chronic) HTN (hypertension) (Chronic) HLD (hyperlipidemia) (Chronic) Tobacco use (Chronic) Chronic pain syndrome (Chronic) Anxiety and depression (Chronic) Abnormal electrocardiogram [ECG] [EKG] (Chronic) Non-ST elevation (NSTEMI) myocardial infarction (Chronic 01/27/17) Hospital Course and Treatment Operations: None Procedures: None Summary of Care Provided: The patient is a 62 year old F seen in the emergency room at [facility] with a history of increased frequent falls, increased confusion, and an outpatient serum ammonia level that was elevated. This ammonia level was done several days prior to her being seen in the emergency room, according to her PCP, they tried to reach the patient by telephone several times without success. Lab obtained in the emergency room was remarkable for a slightly low white blood cell count of 3.8, and an ammonia level of 155. Patient's tox screen was positive for cannabinoids. Urinalysis showed small amounts of bacteria but no significant red cells or white cells. Patient was admitted to [facility] 2, placed on lactulose, her home medications were continued, and her ammonia level was repeated and found to have decreased to 85. I called the patient's pharmacy to discover the patient had not been taking her Xifaxan for approximately 10 days. She had also been refilling it intermittently late several times. On 08/19/17, patient was seen and examined, she was oriented 3 and alert, it was felt she was safe for discharge home, it was emphasized that the patient should take her medications as directed and she was placed on lactulose in addition to her other medications at the time of discharge. I also talked with her PCP who confirmed that the patient was taken off Zanaflex, it had been noted that the patient was taking it at home but this may have been an error on her admission paperwork. Patient was instructed to stop this medication anyway. I called the patient's PCP and made him aware that the patient was not compliant with medical advice. Discharge Activity: Return to Normal Activity Home Medications: Medications to take at Discharge Aripiprazole [Abilify] 5 mg PO DAILY 02/05/13 Clonazepam [Klonopin] 0.5 mg PO DAILY PRN PRN #0 02/05/13 Rifaximin [Xifaxan] 550 mg PO BID 01/24/17 Atenolol 50 mg PO DAILY 08/18/17 Atorvastatin Calcium [Lipitor] 20 mg PO QHS 08/18/17 Buprenorphine 1 each TOPICAL DOWLING 08/18/17 Clopidogrel Bisulfate [Plavix] 75 mg PO DAILY 08/18/17 Fluoxetine [Prozac] 40 mg PO DAILY 08/18/17 Topiramate [Topamax] 25 mg PO DAILY 08/18/17 Lactulose [Chronulac] 20 gm PO BID #32 oz 08/19/17 Following Prescrptions Were Given to Patient: Lactulose [Chronulac] 20 gm PO BID #32 oz Primary Care Physician: Kwabena Bach Jr., MD [Primary Care Provider] - Please follow up with your Primary Care Physician in: next week Disposition: Home Minutes spent on discharge:: 31 Patient Condition:: Stable Medical Necessity - Tobacco Use Smoking Status: Former smoker Tobacco Use: Non-smoker Meaningful Use Info Meaningful Use Diagnoses (Choose all that apply): None applicable Code Visit Inpatient E AND M: 98495 Disch Hosp 08/19/171951 <Electronically signed by Roc Curtis DO> Date Roc Curtis DO Cosigner Signature (if applicable): Date CC: Kwabena Bach Jr., MD; Roc Curtis DO Signed DISCHARGE INSTRUCTION Observed: 08/19/2017 Status: F Source: [place] 10:56 AM [facility] REPOSITORY [facility] Medical Records Department [address] [place] [address] Instructions for Home/Discharge Instructions 08/19/17 1054 MR#: [id number] Acct: [id number] Name: ANISHA SCHULTZ Rep #: [id number] : 1955 62 From: Roc Curtis DO PCP: Kwabena Bach Jr., MD Status: ADM IN - Discharge Diagnoses Current Active Problems: Current Active and Chronic Problems (Last Reviewed 04/02/17 @ 11:17 by Navin Argueta MD) Cirrhosis (Chronic) Hepatitis C (Chronic) CAD (coronary artery disease) (Chronic) History of non-ST elevation myocardial infarction (NSTEMI) (Chronic) HTN (hypertension) (Chronic) HLD (hyperlipidemia) (Chronic) Tobacco use (Chronic) Chronic pain syndrome (Chronic) Anxiety and depression (Chronic) Hyperammonemia (Acute) Encephalopathy acute (Acute) You will use the following diet at home:: No restrictions Your food should be the consistency of: Regular Your liquids should be the consistency of: Regular/Thin Discharge Activity: Return to Normal Activity Additional Instructions: do not fail to take your Lactulose and Xifaxan Allergies/Adverse Reactions: Allergies No Known Allergies Allergy (Verified 08/18/17 12:15) Medications to take at Discharge Aripiprazole [Abilify] 5 mg PO DAILY 02/05/13 Clonazepam [Klonopin] 0.5 mg PO DAILY PRN PRN #0 02/05/13 Rifaximin [Xifaxan] 550 mg PO BID 01/24/17 Atenolol 50 mg PO DAILY 08/18/17 Atorvastatin Calcium [Lipitor] 20 mg PO QHS 08/18/17 Buprenorphine 1 each TOPICAL DOWLING 08/18/17 Clopidogrel Bisulfate [Plavix] 75 mg PO DAILY 08/18/17 Fluoxetine [Prozac] 40 mg PO DAILY 08/18/17 Topiramate [Topamax] 25 mg PO DAILY 08/18/17 Lactulose [Chronulac] 20 gm PO BID #32 oz 08/19/17 The following prescriptions were given: Lactulose [Chronulac] 20 gm PO BID #32 oz Primary Care Physician: Kwabena Bach Jr., MD [Primary Care Provider] - Please follow up with your Primary Care Physician in: next week 08/19/17 1056 <Electronically signed by Roc Curtis DO> Date Roc Curtis DO CC: Kwabena Bach Jr., MD CBC W/DIFF, AUTOMATED Collected: 08/19/2017 Status: F Source: [place] 5:35 AM [facility] REPOSITORY TYPE CODE TESTS RESULT OUT OF RANGE REFERENCE UNITS LAB L100.1000 4.4-11.0 K/mm3 Low WBC 2.9 LAB L100.1200 4.2-5.4 M/mm3 Low RBC 3.79 LAB L100.1300 12.0-15.0 g/dl Low HGB 11.4 LAB L100.1400 37-47 % Low HCT 34.7 LAB L100.1500 81-99 fL Normal MCV 91.6 LAB L100.1600 27.0-32.0 pg Normal MCH 30.1 LAB L100.1700 32-36 g/gl Normal MCHC 32.9 LAB L100.1810 11.6-14.6 % High RDW CV 14.8 LAB L100.1820 35.1-43.9 fl High RDW SD 49.8 LAB L100.1900 150-450 K/mm3 Low PLT 62 LAB L100.2000 6.2-12.0 fl High MPV 12.2 LAB L100.2100 47-70 % Normal NEUT% 57.4 LAB L100.2200 19-41 % Normal LY% 25.3 LAB L100.2300 0-10 % High MONO% 13.5 LAB L100.2400 0-5 % Normal EO% 3.1 LAB L100.2500 0-1 % Normal BASO% 0.7 LAB L100.2550 0.0-0.9 % Normal IM GRAN % 0.000 Result Comment: IG% - Immature Granulocytes (promyelocytes, myelocytes and metamyelocytes) > 1% indicates that a LEFT SHIFT is Present. LAB L100.2620 2.0-7.7 X10 3/uL Low Absolute Neut 1.7 LAB L100.2720 0.83-4.51 X10 3/ul Low Absolute Lymph 0.73 Performed By: #### L100.0100 #### [facility] [address] [place], [address] AMMONIA Collected: 08/19/2017 Status: F Source: [place] 5:35 AM [facility] REPOSITORY TYPE CODE TESTS RESULT OUT OF REFERENCE UNITS RANGE LAB L503.5510 11-32 umol/L High AMMONIA 85.0 Performed By: #### L503.5510 #### [facility] [address] [place], [address] COMPREHENSIVE METABOLIC Collected: 08/19/2017 Status: F Source: [facility] 5:35 AM [facility] REPOSITORY TYPE CODE TESTS RESULT OUT OF RANGE REFERENCE UNITS LAB L501.0100 74-106 mg/dL High GLU 115 Result Comment: Fasting Glucose result from 100 to 125 mg/dL suggests IMPAIRED HOMEOSTASIS per A.D.A. criteria. Please note revised GLUCOSE reference range effective 2017. LAB L501.1000 7-18 mg/dL Normal BUN 14 LAB L501.1100 0.55-1.02 mg/dL Normal CREAT,SERUM 0.66 Result Comment: The validity of the calculated GFR AND GFRAA in patients over 70 years has not been determined. Clinical correlation is essential. LAB L501.1110 >60 mL/min Normal EST GFR 97 Result Comment: Non- GFR Calc LAB L501.1115 >60 mL/min Normal EST GFR - AA 117 Result Comment: GFR Calc LAB L501.1255 ml/min Normal Estimated CRCL 79.42 LAB L501.1300 10-20 RATIO High BUN/CRE 21.3 LAB L501.1500 6.4-8. g/dL Low 2 T PROT 6.2 LAB L501.1800 3.2-5. g/dL Low 0 ALB 2.6 LAB L501.1950 2.2-4. g/dL Normal 2 GLOB 3.6 LAB L501.2000 0.9-2. RATIO Low 4 A/G 0.7 LAB L501.2200 8.5-10 mg/dL Low .1 CA 8.1 LAB L501.4100 15-37 U/L High AST 42 LAB L501.4305 45-117 U/L Normal ALK P 73 LAB L501.4405 13-56 U/L Normal ALT 28 LAB L501.4600 0.20-1 mg/dL Normal .00 T BILI 0.90 LAB L501.5300 136-14 mmol/L Normal 5 NA 144 LAB L501.5600 3.5-5. mmol/L Normal 1 K 3.5 LAB L501.5900 98-107 mmol/L High CL 114 LAB L501.6100 21.0-3 mmol/L Normal 2.0 CO2 22.0 LAB L501.6200 5-15 Normal GAP 8 Performed By: #### L500.4050 #### [facility] [address] [place], [address] BEDSIDE GLUCOSE Collected: 08/18/2017 Status: F Source: [place] 5:00 PM [facility] REPOSITORY TYPE CODE TESTS RESULT OUT OF RANGE REFERENCE UNITS LAB L501.080 70-110 mg/dL Normal BEDSIDE GLU 102 Result Comment: MANAGEMENT OF PATIENT CARE PER NURSING PROTOCOL Performed By: #### L501.080 #### [facility] Point of Care [address] [place] [address] HISTORY AND PHYSICAL Observed: 08/18/2017 Status: F Source: [place] EXAM 2:59 PM [facility] REPOSITORY [facility] Medical Records Department [address] [place] [address] History and Physical 08/18/17 1421 MR#: [id number] Acct: [id number] Name: ANISHA SCHULTZ Rep #: [id number] : 1955 62 From: Amira Kapadia PCP: Kwabena Bach Jr., MD Status: ADM IN Y Location: [place] [address] Problem List (1) Cirrhosis Status: Chronic Qualifiers: Hepatic cirrhosis type: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
== END ==
PROVIDERS: Family Provider Internal Medicine; PCP Internal Medicine; Visit Provider Internal Medicine
DX: E72.20 Disorder of urea cycle metabolism, unspecified (principal)
CPT/HCPCS: 36415; 82140

== ENCOUNTER 2018-02-24 09:47 | Inpatient (IN) | payer MEDICARE, MEDICAID, SELFPAY ==
[2018-02-24 09:48] VITALS: BP 122/89; PULSE 60; RESP 16; TEMP 37.1; O2SAT 95; BMI 24.4
[2018-02-24 10:40] LABS: Absolute Lymphocyte Count 0.64 X10^3/ul (0.83-4.51); Absolute Neutrophil Count 2.2 X10^3/uL (2.0-7.7); Basophil# 0.03 X10^3/uL; Basophil% 0.9 % (0-1); Eosinophils% 2.9 % (0-5); Hematocrit 38.2 % (37-47); Hemoglobin 12.6 g/dl (12.0-15.0); Lymphocyte # 0.64 X10^3/ul (4.0); Lymphocyte % 18.7 % (19-41); Mean Corpuscular Hgb 29.5 pg (27.0-32.0); Mean Corpuscular Volume 89.5 fL (81-99); Mean Platelet Vol. 11.4 fl (6.2-12.0); Monocyte% 14.6 % (0-10); Neutrophil # 2.15 X10^3/uL (2.7-7.7); Neutrophil % 62.6 % (47-70); Platelet Count 80 K/mm3 (150-450); RBC Distribution Width CV 13.9 % (11.6-14.6); RBC Distribution Width SD 45.4 fl (35.1-43.9); Red Blood Count 4.27 M/mm3 (4.2-5.4); White Blood Count 3.4 K/mm3 (4.4-11.0)
[2018-02-24 10:43] LABS: POSITIVE COUNT NO; POSITIVE DIFFERENTIAL NO; POSITIVE MORPHOLOGY NO
[2018-02-24] MEDS: 0.9% Normal Saline 1,000 ML 250 ML IV (10:50)
[2018-02-24 10:51] VITALS: BP 145/65; PULSE 58; RESP 16; TEMP 36.3; O2SAT 98
[2018-02-24 10:51] LABS: International Normalized Ratio 1.4; Prothrombin Time (Protime)PT. 17.1 SECONDS (11.7-14.9)
[2018-02-24] MEDS: Lactulose 20 GM/30 ML UDC PO ×2 (10:51→22:04)
[2018-02-24 10:55] LABS: ALB/GLOB Ratio 0.7 RATIO (0.9-2.4); AST(SGOT) 67 U/L (15-37); Alanine Aminotransfer ALT/SGPT 42 U/L (13-56); Alkaline Phosphatase 88 U/L (45-117); Anion Gap 6 (5-15); BUN 15 mg/dL (7-18); BUN/Creat Ratio 19.5 RATIO (10-20); Calcium,Total 8.4 mg/dL (8.5-10.1); Chloride 109 mmol/L (98-107); Creatinine, Serum 0.77 mg/dL (0.55-1.02); EST Glomerular Filtration Rate 81 mL/min (>60); Est Glom Filt Rate - Afr Amer 98 mL/min (>60); Estimated Creatinine Clearance 55.11 ml/min; Globulin 4.3 g/dL (2.2-4.2); Glucose 96 mg/dL (74-106); Lipase 175 U/L (73-393); Protein, Total 7.3 g/dL (6.4-8.2); Sodium Level 139 mmol/L (136-145)
[2018-02-24 11:07] LABS: Mucous, Urine 0 SEEN /hpf (<or=2+); Red Blood Cells-Urine 0 SEEN /hpf (0-5)
[2018-02-24 11:13] LABS: Color, Urine Yellow (Yellow); Glucose, Dipstick Normal (Normal); Ketone-Dipstick Negative (Negative); Leukocyte Esterase-Dipstick 25 /ul (Negative); Nitrite-Dipstick Negative (Negative); Occult Blood-Urine Negative /ul (Negative); Protein-Dipstick Negative (Negative); Urine Bilirubin Dipstick Negative (Negative); Urine Clarity Sl. Cloudy (Clear); Urine Urobilinogen 4 mg/dl (Normal)
[2018-02-24 11:21] LABS: Bacteria 1+ /hpf (None Seen); Squamous Epithelial Cells - UA 0-5 SEEN /hpf (5-10); White Blood Cells 0-5 SEEN /hpf (0-5)
--- NOTE | 2018-02-24 11:24 | ED.DCSUM_ITS ---
- ER Visit Summary Date of Service: 02/24/18 Chief Complaint: Abnormal lab History of Present Illness: The patient is a 62 F with history of hep C, cirrhosis and hepatic encephalopathy was sent to the emergency room because of elevated ammonia level. She was seen by her primary care physician yesterday for change in mental status. She is not alert but is oriented. Her only complaint is that her thinking is slow and she feels as if she is in a fog. She denies headache. She denies ocular, visual auditory symptoms. She denies neck pain. She denies cardiac respiratory symptoms. She denies nausea, vomiting or diarrhea. She denies black or maroon stool. She denies hematemesis. She denies dysuria, frequency, urgency or hematuria. She denies paresthesia, anesthesia motor weakness. Physical Examination: Vital signs noted and unremarkable. Head is atraumatic normocephalic. Pupils are equal round reactive. Extraocular muscles are intact. TMs are pearly white with landmarks noted. Nares patent with no drainage. Posterior pharynx without erythema or exudate. Uvula is midline. There is no dysphonia or dysphasia. Trachea is midline. There is no stridor with auscultation of the neck. Heart is regular without murmur, gallop or rub. S1 and S2 are normal. Lungs are clear to auscultation with good movement of air bilaterally. Abdomen soft nontender well-healed right upper quadrant scar noted secondary to cholecystectomy at the age of 19. Lower extremity exam is remarkable for stigmata of peripheral arterial disease. Pulses are diminished. She is not alert but is oriented x3. Motor sensory intact. DTRs are symmetric with no clonus or Babinski sign. She has asterixis. Test Results: White count is 3.4 thousand with 62 segs no bands. Hepatic profile is unremarkable. INR is 1.4. Urine is positive for leukoesterase 25. Ammonia is 125. Emergency Department Course and Treatment: Patient was treated with lactulose. She will need admission for hepatic encephalopathy Treatment Plan: Admission for hepatic encephalopathy Disposition: Medical surgical floor Impression: 1. Hepatic encephalopathy 2. History of hep C 3. History of cirrhosis This note was generated with [employer] software. It may contain incorrect words, spelling, and punctuation that were not noted in review of the chart prior to signing ED Disposition - Plan for ED Patient: Chief Complaint: Abn Labs Referrals: Kwabena Bach Jr., MD [Primary Care Provider] -
[2018-02-24 12:18] VITALS: BP 144/81; PULSE 53; RESP 16; O2SAT 98
[2018-02-24 12:46] VITALS: BMI 26.1
[2018-02-24 13:02] VITALS: BP 136/81; PULSE 52; RESP 16; TEMP 36.4; O2SAT 99
[2018-02-24] MEDS: 0.9% Normal Saline 1,000 ML 100 ML IV (14:59)
--- NOTE | 2018-02-24 16:09 | HP.PCM_ITS ---
Problem List (1) Cirrhosis Status: Chronic Qualifiers: (2) HTN (hypertension) Status: Chronic Qualifiers: (3) HLD (hyperlipidemia) Status: Chronic Qualifiers: (4) Anxiety and depression Status: Chronic (5) Encephalopathy acute Status: Acute (6) Non-ST elevation (NSTEMI) myocardial infarction Status: Chronic History of Present Illness Date of Admission: 02/24/18 Chief Complaint: Confusion The patient is a 62 year old F with a pmh as below who presents from home with confusion for the last 24 hours. She had called her PCP yesterday who ordered an ammonia level which was 94. She continued to be confused this morning, so her dropped her of at the hospital. Her ammonia was elevated to the 120's, her baseline is around 80. She states that she took her lactulose this morning per the ED record but then tells me that she is unsure of her medications. In the ED she was given lactulose and the rest of her labs were unremarkable. Past Medical History Past Medical History (Chronic Problems): Chronic Problems (Last Reviewed 04/02/17 @ 11:17 by Navin Argueta MD) Cirrhosis (Chronic) Hepatitis C (Chronic) CAD (coronary artery disease) (Chronic) History of non-ST elevation myocardial infarction (NSTEMI) (Chronic) HTN (hypertension) (Chronic) HLD (hyperlipidemia) (Chronic) Tobacco use (Chronic) Chronic pain syndrome (Chronic) Anxiety and depression (Chronic) Abnormal electrocardiogram [ECG] [EKG] (Chronic) Non-ST elevation (NSTEMI) myocardial infarction (Chronic ~01/27/17) Medical History: Medical History (Last Reviewed 04/02/17 @ 11:17 by Navin Argueta MD) Non-ST elevation (NSTEMI) myocardial infarction (Chronic) Onset Date: ~01/27/17 I21.4 Cervical neck surgery Chronic back pain M54.9, G89.29 Chronic narcotic use F11.90 Depression F32.9 Toxic encephalopathy Onset Date: ~01/27/17 G92 Allergies No Known Allergies Allergy (Verified 02/24/18 09:49) Home Medications: Ambulatory Orders Medication Instructions Recorded Aripiprazole [Abilify] 5 mg PO DAILY 02/05/13 Rifaximin [Xifaxan] 550 mg PO BID 01/24/17 Atenolol 50 mg PO DAILY 08/18/17 Atorvastatin Calcium [Lipitor] 20 mg PO QHS 08/18/17 Buprenorphine 1 each TOPICAL TU 08/18/17 Clopidogrel Bisulfate [Plavix] 75 mg PO DAILY 08/18/17 Fluoxetine [Prozac] 40 mg PO DAILY 08/18/17 Topiramate [Topamax] 25 mg PO DAILY 08/18/17 Melatonin/Pyridoxine HCl (B6) 1 tablet PO PRN PRN 10/07/17 [Melatonin 10 mg Tablet] Lactulose [Chronulac] 30 ml PO TID #90 udc 10/09/17 Metoprolol Tartrate [Lopressor 50 mg PO DAILY 02/24/18 (beta marielle)] Surgical History: Surgical History (Last Reviewed 04/02/17 @ 11:17 by Navin Argueta MD) History of left heart catheterization Z98.890 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 Psychiatric History: Anxiety, Depression [employer]IV[employer] History: No pertinent [employer]SP[employer]ER [employer]IVERY [employer] history Smoking Status: Former smoker - *Family History Maternal Family History: Family History (Last Reviewed 04/02/17 @ 11:17 by Navin Argueta MD) Father Heart disease History Items: Heart Disease, Hypertension Paternal Family History: Family History (Last Reviewed 04/02/17 @ 11:17 by Navin Argueta MD) Father Heart disease History Items: Heart Disease, Hypertension Review of Systems Constitutional: Denies: Chills, Fever, Weight Change HEENT: Denies: Head Aches, Sinus Congestion, Sinus Drainage Cardiovascular: Denies: Chest Pain, Palpitations Respiratory: Denies: Cough, Shortness of breath at rest, Sputum production Gastrointestinal: Denies: Abdominal Pain, Nausea, Vomiting Genitourinary: Denies: Dysuria Musculoskeletal: Denies: Joint Pain, Joint Tenderness Skin: Denies: Rash, Wounds Neurological: Reports: Confusion. Denies: Focal weakness, Numbness, Tingling Psychiatric: Denies: Anxiety, Depression Hematologic/ Lymphatic: Denies: Easy Bruising, Easy Bleeding VTE Information - Inpt Only VTE Present on Admission: No - Physical Exam General: Alert, Cooperative, No apparent distress, Confused HEENT: Atraumatic, PERRLA, EOMI, Normocephalic Oral: Dry Mucosa Neck: Supple, No JVD Lungs: Clear to auscultation, Normal air movement, No rhonchi, No wheeze, No rales Cardiovascular: Regular rate, Regular Rhythm, Normal S1, Normal S2, No murmurs Abdomen: Soft, Non Tender, Non-Distended, No Hepato-splenomegaly Extremities: No edema, Capillary Refill Less than 3 Seconds Skin: No rashes, No breakdown Neurological: Neuro grossly intact, Sensory exam intact to light touch and pain Psych/Mental Status: Normal Affect, Appropriate Vital Signs Temp Pulse Resp BP Pulse Ox 97.6 F L 52 L 16 136/81 H 99 02/24/18 13:02 02/24/18 13:02 02/24/18 13:02 02/24/18 13:02 02/24/18 13:02 Oxygen Delivery Method Room Air Weight: 129 lb 3.054 oz Body Mass Index (BMI) 26.1 Finger Stick Blood Glucose 123 Laboratory Tests Past 24 Hrs 02/24/18 02/24/18 02/24/18 10:28 10:28 10:28 WBC 3.4 L RBC 4.27 Hgb 12.6 Hct 38.2 MCV 89.5 MCH 29.5 MCHC 33.0 RDW 13.9 RDW Differential 45.4 H Plt Count 80 L MPV 11.4 Immature Gran % (Auto) 0.300 Neut % (Auto) 62.6 Lymph % (Auto) 18.7 L [place] % (Auto) 14.6 H Eos % (Auto) 2.9 Baso % (Auto) 0.9 Absolute Neuts (auto) 2.2 Absolute Lymphs (auto) 0.64 L Total Counted Not Reportable PT 17.1 H INR 1.4 Sodium 139 Potassium 4.0 Chloride 109 H Carbon Dioxide 24.0 Anion Gap 6 BUN 15 Creatinine 0.77 Estim Creat Clear Calc 55.11 Est GFR (MDRD) Af Amer 98 Est GFR (MDRD) Non-Af 81 BUN/Creatinine Ratio 19.5 Glucose 96 Calcium 8.4 L Total Bilirubin 1.10 H AST 67 H ALT 42 Alkaline Phosphatase 88 Ammonia Total Protein 7.3 Albumin 3.0 L Globulin 4.3 H Albumin/Globulin Ratio 0.7 L Lipase 175 Urine Color Urine Clarity Urine pH Ur Specific [place] Urine Protein Urine Glucose (UA) Urine Ketones Urine Occult Blood Urine Nitrite Urine Bilirubin Urine Urobilinogen Ur Leukocyte Esterase Urine RBC Urine WBC Ur Squamous Epith Cells Urine Bacteria Urine Mucus 02/24/18 02/24/18 10:28 10:50 WBC RBC Hgb Hct MCV MCH MCHC RDW RDW Differential Plt Count MPV Immature Gran % (Auto) Neut % (Auto) Lymph % (Auto) [place] % (Auto) Eos % (Auto) Baso % (Auto) Absolute Neuts (auto) Absolute Lymphs (auto) Total Counted PT INR Sodium Potassium Chloride Carbon Dioxide Anion Gap BUN Creatinine Estim Creat Clear Calc Est GFR (MDRD) Af Amer Est GFR (MDRD) Non-Af BUN/Creatinine Ratio Glucose Calcium Total Bilirubin AST ALT Alkaline Phosphatase Ammonia 124.0 H Total Protein Albumin Globulin Albumin/Globulin Ratio Lipase Urine Color Yellow Urine Clarity Sl. Cloudy Urine pH 8.0 Ur Specific [place] 1.010 Urine Protein Negative Urine Glucose (UA) Normal Urine Ketones Negative Urine Occult Blood Negative Urine Nitrite Negative Urine Bilirubin Negative Urine Urobilinogen 4 H Ur Leukocyte Esterase 25 H Urine RBC 0 SEEN Urine WBC 0-5 SEEN Ur Squamous Epith Cells 0-5 SEEN Urine Bacteria 1+ Urine Mucus 0 SEEN Assessment/Plan All Active Problems (Last Reviewed 04/02/17 @ 11:17 by Navin Argueta MD) Hyperammonemia (Acute) Encephalopathy acute (Acute) 1. Acute hepatic encephalopathy/Cirrhosis/H/o hep C - she is on lactulose and xifaxan at home, will continue here - IVF - States that she was treated and cured for the hep C - Ammonia is 124 2. CAD s/p cath/HLD/HTN - stable at the moment - Follow with cardiology - C/w lipitor, plavix, and metoprolol - Echo in 2017 was normal with PA pressure of 33 3. Anxiety/Depression/Chronic pain - C/w abilify and prozac - Topamax for chronic pain DVT: Lovenox Diet: Regular Code Visit Inpatient E&M: 84499 Init Hosp L3
[2018-02-24 18:40] VITALS: BP 106/57; PULSE 60; RESP 16; TEMP 37.1; O2SAT 95
[2018-02-24 19:51] VITALS: BP 103/52; PULSE 58; RESP 18; TEMP 36.7; O2SAT 95
[2018-02-24] MEDS: Atorvastatin Calcium 20 MG Tablet PO (22:04)
[2018-02-24] MEDS: Topiramate 25 MG Tablet PO (22:04)
[2018-02-24] MEDS: rifAXIMin 550 MG Tablet PO (22:14)
[2018-02-25] VITALS (8 sets, daily range): BP systolic 106–137; BP diastolic 58–82; PULSE 57–80; RESP 16–18; TEMP 36.6–37.1; O2SAT 95–96
[2018-02-25] MEDS: 0.9% Normal Saline 1,000 ML 100 ML IV ×3 (00:27→21:51)
[2018-02-25 06:30] LABS: Absolute Lymphocyte Count 0.98 X10^3/ul (0.83-4.51); Absolute Neutrophil Count 1.2 X10^3/uL (2.0-7.7); Basophil# 0.02 X10^3/uL; Basophil% 0.7 % (0-1); Eosinophil# 0.07 X10^3/uL; Eosinophils% 2.5 % (0-5); Hematocrit 36.4 % (37-47); Hemoglobin 11.8 g/dl (12.0-15.0); Lymphocyte # 0.98 X10^3/ul (4.0); Lymphocyte % 34.8 % (19-41); Mean Corp Hgb Conc 32.4 g/gl (32-36); Mean Corpuscular Hgb 29.8 pg (27.0-32.0); Mean Corpuscular Volume 91.9 fL (81-99); Mean Platelet Vol. 12.8 fl (6.2-12.0); Monocyte# 0.53 X10^3/uL; Monocyte% 18.8 % (0-10); Neutrophil # 1.21 X10^3/uL (2.7-7.7); Neutrophil % 42.8 % (47-70); Platelet Count 73 K/mm3 (150-450); RBC Distribution Width CV 14.1 % (11.6-14.6); RBC Distribution Width SD 46.5 fl (35.1-43.9); Red Blood Count 3.96 M/mm3 (4.2-5.4); White Blood Count 2.8 K/mm3 (4.4-11.0)
[2018-02-25 06:35] LABS: POSITIVE COUNT NO; POSITIVE DIFFERENTIAL NO; POSITIVE MORPHOLOGY NO
[2018-02-25 06:38] LABS: ALB/GLOB Ratio 0.7 RATIO (0.9-2.4); AST(SGOT) 50 U/L (15-37); Alanine Aminotransfer ALT/SGPT 34 U/L (13-56); Albumin, Serum 2.5 g/dL (3.2-5.0); Alkaline Phosphatase 78 U/L (45-117); Anion Gap 7 (5-15); BUN 19 mg/dL (7-18); Calcium,Total 7.7 mg/dL (8.5-10.1); Chloride 116 mmol/L (98-107); Creatinine, Serum 0.79 mg/dL (0.55-1.02); EST Glomerular Filtration Rate 78 mL/min (>60); Est Glom Filt Rate - Afr Amer 94 mL/min (>60); Estimated Creatinine Clearance 69.18 ml/min; Globulin 3.5 g/dL (2.2-4.2); Glucose 90 mg/dL (74-106); Potassium 3.9 mmol/L (3.5-5.1); Sodium Level 145 mmol/L (136-145)
[2018-02-25] MEDS: Lactulose 20 GM/30 ML UDC PO (08:00)
--- NOTE | 2018-02-25 08:54 | PCM.PN.HOSP ---
Subjective: Still appropriate responses to questions but seems a little slow. She has had 1 BM with the lactulose. She states that she is not confused any more Vitals/I&O's: Vital Signs Temp Pulse Resp BP Pulse Ox 97.9 F 57 L 16 137/82 H 95 02/25/18 07:56 02/25/18 07:56 02/25/18 07:56 02/25/18 07:56 02/25/18 07:56 Oxygen Delivery Method Room Air Weight: 129 lb 3.054 oz Body Mass Index (BMI) 26.1 Finger Stick Blood Glucose 123 Intake and Output for Last 24 Hours 02/23/18 02/24/18 02/25/18 23:59 23:59 23:59 Intake Total 775 / 775 1653 / 1653 Output Total 300 / 300 150 / 150 Balance 475 / 475 1503 / 1503 General: Alert, Cooperative, No apparent distress, Confused HEENT: Atraumatic, PERRLA, EOMI, Normocephalic Oral: Dry Mucosa Neck: Supple, No JVD Lungs: Clear to auscultation, Normal air movement, No rhonchi, No wheeze, No rales Cardiovascular: Regular rate, Regular Rhythm, Normal S1, Normal S2, No murmurs Abdomen: Soft, Non Tender, Non-Distended, No Hepato-splenomegaly Extremities: No edema, Capillary Refill Less than 3 Seconds Skin: No rashes, No breakdown Neurological: Neuro grossly intact, Sensory exam intact to light touch and pain Psych/Mental Status: Normal Affect, Appropriate Laboratory Results 02/24/18 10:28: WBC 3.4 L, RBC 4.27, Hgb 12.6, Hct 38.2, MCV 89.5, MCH 29.5, MCHC 33.0, RDW 13.9, RDW Differential 45.4 H, Plt Count 80 L, MPV 11.4, Immature Gran % (Auto) 0.300, Neut % (Auto) 62.6, Lymph % (Auto) 18.7 L, [place] % (Auto) 14.6 H, Eos % (Auto) 2.9, Baso % (Auto) 0.9, Absolute Neuts (auto) 2.2, Absolute Lymphs (auto) 0.64 L, Total Counted Not Reportable 02/24/18 10:28: PT 17.1 H, INR 1.4 02/24/18 10:28: Sodium 139, Potassium 4.0, Chloride 109 H, Carbon Dioxide 24.0, Anion Gap 6, BUN 15, Creatinine 0.77, Estim Creat Clear Calc 55.11, Est GFR (MDRD) Af Amer 98, Est GFR (MDRD) Non-Af 81, BUN/Creatinine Ratio 19.5, Glucose 96, Calcium 8.4 L, Total Bilirubin 1.10 H, AST 67 H, ALT 42, Alkaline Phosphatase 88, Total Protein 7.3, Albumin 3.0 L, Globulin 4.3 H, Albumin/Globulin Ratio 0.7 L, Lipase 175 02/24/18 10:28: Ammonia 124.0 H 02/24/18 10:50: Urine Color Yellow, Urine Clarity Sl. Cloudy, Urine pH 8.0, Ur Specific [place] 1.010, Urine Protein Negative, Urine Glucose (UA) Normal, Urine Ketones Negative, Urine Occult Blood Negative, Urine Nitrite Negative, Urine Bilirubin Negative, Urine Urobilinogen 4 H, Ur Leukocyte Esterase 25 H, Urine RBC 0 SEEN, Urine WBC 0-5 SEEN, Ur Squamous Epith Cells 0-5 SEEN, Urine Bacteria 1+, Urine Mucus 0 SEEN 02/25/18 05:46: WBC 2.8 L, RBC 3.96 L, Hgb 11.8 L, Hct 36.4 L, MCV 91.9, MCH 29.8, MCHC 32.4, RDW 14.1, RDW Differential 46.5 H, Plt Count 73 L, MPV 12.8 H, Immature Gran % (Auto) 0.400, Neut % (Auto) 42.8 L, Lymph % (Auto) 34.8, [place] % (Auto) 18.8 H, Eos % (Auto) 2.5, Baso % (Auto) 0.7, Absolute Neuts (auto) 1.2 L, Absolute Lymphs (auto) 0.98, Total Counted Not Reportable 02/25/18 05:46: Sodium 145, Potassium 3.9, Chloride 116 H, Carbon Dioxide 22.0, Anion Gap 7, BUN 19 H, Creatinine 0.79, Estim Creat Clear Calc 69.18, Est GFR (MDRD) Af Amer 94, Est GFR (MDRD) Non-Af 78, BUN/Creatinine Ratio 24.0 H, Glucose 90, Calcium 7.7 L, Total Bilirubin 0.50, AST 50 H, ALT 34, Alkaline Phosphatase 78, Total Protein 6.0 L, Albumin 2.5 L, Globulin 3.5, Albumin/Globulin Ratio 0.7 L Current Medications Aripiprazole (Abilify) 5 mg PO DAILY [facility] Atorvastatin Calcium (Lipitor) 20 mg PO QHS [facility] Last Admin: 02/24/18 22:04 Dose: 20 mg Clopidogrel Bisulfate (Plavix) 75 mg PO DAILY [facility] Enoxaparin Sodium (Lovenox) 40 mg SC DAILY@1000 [facility] Fluoxetine HCl (Prozac) 40 mg PO DAILY [facility] Sodium Chloride () 1,000 mls @ 100 mls/hr IV .Q10H [facility] Last Admin: 02/25/18 00:27 Dose: 100 mls/hr Ibuprofen (Motrin) 600 mg PO Q6H PRN PRN PRN Reason: MILD PAIN (-06/07) Influenza Virus Vaccine Quadrival (Fluarix/Fluzone) 0.5 ml IM .ONCE ONE Stop: 02/25/18 10:01 Lactulose (Chronulac, Cephulac) 20 gm PO BID [facility] Last Admin: 02/25/18 08:00 Dose: 20 gm Magnesium Hydroxide (Milk Of Magnesia) 30 ml PO DAILY PRN PRN PRN Reason: Constipation Melatonin (Melatonin) 10 mg PO QHS PRN PRN PRN Reason: SLEEP Metoprolol Tartrate (Lopressor (Beta Drea)) 50 mg PO DAILY [facility] Rifaximin (Xifaxan) 550 mg PO BID [facility] Last Admin: 02/24/18 22:14 Dose: 550 mg Sodium Chloride () 5 - 30 ml IV UD PRN PRN Reason: SALINE FLUSH Topiramate (Topamax) 25 mg PO DAILY@2200 [facility] Last Admin: 02/24/18 22:04 Dose: 25 mg Medical Necessity - Tobacco Use Smoking Status: Former smoker Assessment/Plan All Active Problems (Last Reviewed 04/02/17 @ 11:17 by Navin Argueta MD) Hyperammonemia (Acute) Encephalopathy acute (Acute) 1. Acute hepatic encephalopathy/Cirrhosis/H/o hep C - she is on lactulose and xifaxan at home, will continue here - Titrate the lactulose to 3 BM's per day, will give extra doses if necessary - IVF - States that she was treated and cured for the hep C - Ammonia is 124 on admission 2. CAD s/p cath/HLD/HTN - stable at the moment - Follow with cardiology - C/w lipitor, plavix, and metoprolol - Echo in 2017 was normal with PA pressure of 33 3. Anxiety/Depression/Chronic pain - C/w abilify and prozac - Topamax for chronic pain DVT: Lovenox Diet: Regular Code Visit Inpatient E&M: 47587 Subs Hosp L2
--- NOTE | 2018-02-25 08:57 | PN_ITS ---
Subjective: Still appropriate responses to questions but seems a little slow. She has had 1 BM with the lactulose. She states that she is not confused any more Vitals/I&O's: Vital Signs Temp Pulse Resp BP Pulse Ox 97.9 F 57 L 16 137/82 H 95 02/25/18 07:56 02/25/18 07:56 02/25/18 07:56 02/25/18 07:56 02/25/18 07:56 Oxygen Delivery Method Room Air Weight: 129 lb 3.054 oz Body Mass Index (BMI) 26.1 Finger Stick Blood Glucose 123 Intake and Output for Last 24 Hours 02/23/18 02/24/18 02/25/18 23:59 23:59 23:59 Intake Total 775 / 775 1653 / 1653 Output Total 300 / 300 150 / 150 Balance 475 / 475 1503 / 1503 General: Alert, Cooperative, No apparent distress, Confused HEENT: Atraumatic, PERRLA, EOMI, Normocephalic Oral: Dry Mucosa Neck: Supple, No JVD Lungs: Clear to auscultation, Normal air movement, No rhonchi, No wheeze, No rales Cardiovascular: Regular rate, Regular Rhythm, Normal S1, Normal S2, No murmurs Abdomen: Soft, Non Tender, Non-Distended, No Hepato-splenomegaly Extremities: No edema, Capillary Refill Less than 3 Seconds Skin: No rashes, No breakdown Neurological: Neuro grossly intact, Sensory exam intact to light touch and pain Psych/Mental Status: Normal Affect, Appropriate Laboratory Results 02/24/18 10:28: WBC 3.4 L, RBC 4.27, Hgb 12.6, Hct 38.2, MCV 89.5, MCH 29.5, MCHC 33.0, RDW 13.9, RDW Differential 45.4 H, Plt Count 80 L, MPV 11.4, Immature Gran % (Auto) 0.300, Neut % (Auto) 62.6, Lymph % (Auto) 18.7 L, [place] % (Auto) 14.6 H, Eos % (Auto) 2.9, Baso % (Auto) 0.9, Absolute Neuts (auto) 2.2, Absolute Lymphs (auto) 0.64 L, Total Counted Not Reportable 02/24/18 10:28: PT 17.1 H, INR 1.4 02/24/18 10:28: Sodium 139, Potassium 4.0, Chloride 109 H, Carbon Dioxide 24.0, Anion Gap 6, BUN 15, Creatinine 0.77, Estim Creat Clear Calc 55.11, Est GFR (MDRD) Af Amer 98, Est GFR (MDRD) Non-Af 81, BUN/Creatinine Ratio 19.5, Glucose 96, Calcium 8.4 L, Total Bilirubin 1.10 H, AST 67 H, ALT 42, Alkaline Phosphatase 88, Total Protein 7.3, Albumin 3.0 L, Globulin 4.3 H, Albumin/Globulin Ratio 0.7 L, Lipase 175 02/24/18 10:28: Ammonia 124.0 H 02/24/18 10:50: Urine Color Yellow, Urine Clarity Sl. Cloudy, Urine pH 8.0, Ur Specific [place] 1.010, Urine Protein Negative, Urine Glucose (UA) Normal, Urine Ketones Negative, Urine Occult Blood Negative, Urine Nitrite Negative, Urine Bilirubin Negative, Urine Urobilinogen 4 H, Ur Leukocyte Esterase 25 H, Urine RBC 0 SEEN, Urine WBC 0-5 SEEN, Ur Squamous Epith Cells 0-5 SEEN, Urine Bacteria 1+, Urine Mucus 0 SEEN 02/25/18 05:46: WBC 2.8 L, RBC 3.96 L, Hgb 11.8 L, Hct 36.4 L, MCV 91.9, MCH 29.8, MCHC 32.4, RDW 14.1, RDW Differential 46.5 H, Plt Count 73 L, MPV 12.8 H, Immature Gran % (Auto) 0.400, Neut % (Auto) 42.8 L, Lymph % (Auto) 34.8, [place] % (Auto) 18.8 H, Eos % (Auto) 2.5, Baso % (Auto) 0.7, Absolute Neuts (auto) 1.2 L, Absolute Lymphs (auto) 0.98, Total Counted Not Reportable 02/25/18 05:46: Sodium 145, Potassium 3.9, Chloride 116 H, Carbon Dioxide 22.0, Anion Gap 7, BUN 19 H, Creatinine 0.79, Estim Creat Clear Calc 69.18, Est GFR (MDRD) Af Amer 94, Est GFR (MDRD) Non-Af 78, BUN/Creatinine Ratio 24.0 H, Glucose 90, Calcium 7.7 L, Total Bilirubin 0.50, AST 50 H, ALT 34, Alkaline Phosphatase 78, Total Protein 6.0 L, Albumin 2.5 L, Globulin 3.5, Albumin/Globulin Ratio 0.7 L Current Medications Aripiprazole (Abilify) 5 mg PO DAILY [facility] Atorvastatin Calcium (Lipitor) 20 mg PO QHS [facility] Last Admin: 02/24/18 22:04 Dose: 20 mg Clopidogrel Bisulfate (Plavix) 75 mg PO DAILY [facility] Enoxaparin Sodium (Lovenox) 40 mg SC DAILY@1000 [facility] Fluoxetine HCl (Prozac) 40 mg PO DAILY [facility] Sodium Chloride () 1,000 mls @ 100 mls/hr IV .Q10H [facility] Last Admin: 02/25/18 00:27 Dose: 100 mls/hr Ibuprofen (Motrin) 600 mg PO Q6H PRN PRN PRN Reason: MILD PAIN (-06/07) Influenza Virus Vaccine Quadrival (Fluarix/Fluzone) 0.5 ml IM .ONCE ONE Stop: 02/25/18 10:01 Lactulose (Chronulac, Cephulac) 20 gm PO BID [facility] Last Admin: 02/25/18 08:00 Dose: 20 gm Magnesium Hydroxide (Milk Of Magnesia) 30 ml PO DAILY PRN PRN PRN Reason: Constipation Melatonin (Melatonin) 10 mg PO QHS PRN PRN PRN Reason: SLEEP Metoprolol Tartrate (Lopressor (Beta Drea)) 50 mg PO DAILY [facility] Rifaximin (Xifaxan) 550 mg PO BID [facility] Last Admin: 02/24/18 22:14 Dose: 550 mg Sodium Chloride () 5 - 30 ml IV UD PRN PRN Reason: SALINE FLUSH Topiramate (Topamax) 25 mg PO DAILY@2200 [facility] Last Admin: 02/24/18 22:04 Dose: 25 mg Medical Necessity - Tobacco Use Smoking Status: Former smoker Assessment/Plan All Active Problems (Last Reviewed 04/02/17 @ 11:17 by Navin Argueta MD) Hyperammonemia (Acute) Encephalopathy acute (Acute) 1. Acute hepatic encephalopathy/Cirrhosis/H/o hep C - she is on lactulose and xifaxan at home, will continue here - Titrate the lactulose to 3 BM's per day, will give extra doses if necessary - IVF - States that she was treated and cured for the hep C - Ammonia is 124 on admission 2. CAD s/p cath/HLD/HTN - stable at the moment - Follow with cardiology - C/w lipitor, plavix, and metoprolol - Echo in 2017 was normal with PA pressure of 33 3. Anxiety/Depression/Chronic pain - C/w abilify and prozac - Topamax for chronic pain DVT: Lovenox Diet: Regular Code Visit Inpatient E&M: 16992 Subs Hosp L2
[2018-02-25] MEDS: FLUoxetine 20 MG Capsule 40 MG PO (10:21)
[2018-02-25] MEDS: Ibuprofen 600 MG Tablet PO ×2 (10:21→18:08)
[2018-02-25] MEDS: Clopidogrel Bisulfate 75 MG Tablet PO (10:21)
[2018-02-25] MEDS: Enoxaparin 40 MG/0.4 ML Syringe SC (10:21)
[2018-02-25] MEDS: ARIPiprazole 5 MG Tablet PO (10:29)
[2018-02-25] MEDS: rifAXIMin 550 MG Tablet PO ×2 (10:30→21:52)
--- NOTE | 2018-02-25 12:55 | CASEMGMT ---
RN DANNA Face to Face with patient for initial transition planning/care coordination assessment. RN CM introduced self and role at [facility]. Patient lying in bed, alert and oriented. Patient willing to participate in assessment and is able to answer all questions appropriately. Care providers, pharmacy, and demographics verified. Patient wishes to discharge home, denies need for home health at this time. Patient states she has no further needs or concerns at this time. CM to follow for discharge planning needs that may arise. PCP: Kwabena Bach Specialists: None Preferred Pharmacy: [facility] Insurance: [facility], [facility] community plan Prescription Benefit: [facility] Living Will/HPOA: None LNOK: Brother Living Arrangements: Patient lives with brother in 1 story house with no steps to enter home. Patient independent at home. Transportation: self/brother DME/HHC: Patient has shower chair, BSC, cane, and walker at home. Disposition Plan: Patient to discharge home with family support and follow-up plans in place. Yvette AUSTIN, RN, CM
[2018-02-25] MEDS: MELATONIN 10 MG TABLET PO (21:51)
[2018-02-25] MEDS: Atorvastatin Calcium 20 MG Tablet PO (21:51)
[2018-02-25] MEDS: Topiramate 25 MG Tablet PO (21:52)
[2018-02-26 02:00] VITALS: BP 129/58; PULSE 63; RESP 18; TEMP 36.7; O2SAT 95
[2018-02-26] MEDS: 0.9% Normal Saline 1,000 ML 100 ML IV (05:57)
[2018-02-26 06:42] LABS: Absolute Lymphocyte Count 0.65 X10^3/ul (0.83-4.51); Absolute Neutrophil Count 0.9 X10^3/uL (2.0-7.7); Basophil# 0.01 X10^3/uL; Basophil% 0.5 % (0-1); Eosinophil# 0.08 X10^3/uL; Eosinophils% 3.9 % (0-5); Hematocrit 35.1 % (37-47); Hemoglobin 11.4 g/dl (12.0-15.0); Lymphocyte # 0.65 X10^3/ul (4.0); Lymphocyte % 31.9 % (19-41); Mean Corp Hgb Conc 32.5 g/gl (32-36); Mean Corpuscular Hgb 29.6 pg (27.0-32.0); Mean Corpuscular Volume 91.2 fL (81-99); Mean Platelet Vol. 12.2 fl (6.2-12.0); Monocyte# 0.38 X10^3/uL; Monocyte% 18.6 % (0-10); Neutrophil # 0.92 X10^3/uL (2.7-7.7); Neutrophil % 45.1 % (47-70); Platelet Count 52 K/mm3 (150-450); RBC Distribution Width CV 13.7 % (11.6-14.6); RBC Distribution Width SD 44.9 fl (35.1-43.9); Red Blood Count 3.85 M/mm3 (4.2-5.4)
[2018-02-26 06:43] LABS: Anion Gap 5 (5-15); BUN 16 mg/dL (7-18); BUN/Creat Ratio 27.4 RATIO (10-20); Calcium,Total 7.6 mg/dL (8.5-10.1); Chloride 117 mmol/L (98-107); Creatinine, Serum 0.58 mg/dL (0.55-1.02); EST Glomerular Filtration Rate 111 mL/min (>60); Est Glom Filt Rate - Afr Amer 134 mL/min (>60); Estimated Creatinine Clearance 94.23 ml/min; Glucose 89 mg/dL (74-106); Potassium 3.6 mmol/L (3.5-5.1); Sodium Level 144 mmol/L (136-145)
[2018-02-26 06:45] LABS: Differential Indicated SCAN CRITERIA MET; POSITIVE COUNT NO; POSITIVE DIFFERENTIAL YES; POSITIVE MORPHOLOGY NO
[2018-02-26 08:00] VITALS: BP 145/68; PULSE 64; RESP 18; TEMP 36.5; O2SAT 97
[2018-02-26 09:31] VITALS: PULSE 64
[2018-02-26] MEDS: Clopidogrel Bisulfate 75 MG Tablet PO (09:31)
[2018-02-26] MEDS: Metoprolol Tartrate 50 MG Tablet PO (09:31)
[2018-02-26] MEDS: FLUoxetine 20 MG Capsule 40 MG PO (09:31)
[2018-02-26] MEDS: ARIPiprazole 5 MG Tablet PO (09:31)
[2018-02-26] MEDS: rifAXIMin 550 MG Tablet PO (09:32)
[2018-02-26 10:12] VITALS: BP 144/68; PULSE 64; RESP 18; TEMP 36.5; O2SAT 98
--- NOTE | 2018-02-26 10:13 | DCINST_ITS ---
You will use the following diet at home:: Regular Your food should be the consistency of: Regular Your liquids should be the consistency of: Regular/Thin Discharge Activity: No Restrictions Call your doctor if you observe: Fever of 101 or Higher, Dizziness, Fainting spells, - - Increased congusion Allergies/Adverse Reactions: Allergies No Known Allergies Allergy (Verified 02/24/18 09:49) Medications to take at Discharge Aripiprazole [Abilify] 5 mg PO DAILY 02/05/13 Rifaximin [Xifaxan] 550 mg PO BID 01/24/17 Atorvastatin Calcium [Lipitor] 20 mg PO QHS 08/18/17 Buprenorphine 1 each TOPICAL TU 08/18/17 Clopidogrel Bisulfate [Plavix] 75 mg PO DAILY 08/18/17 Fluoxetine [Prozac] 40 mg PO DAILY 08/18/17 Topiramate [Topamax] 25 mg PO DAILY 08/18/17 Melatonin/Pyridoxine HCl (B6) [Melatonin 10 mg Tablet] 1 tablet PO PRN PRN 10/07/17 Lactulose [Chronulac] 30 ml PO TID #90 udc 10/09/17 Metoprolol Tartrate [Lopressor (beta marielle)] 50 mg PO DAILY 02/24/18 Primary Care Physician: Kwabena Bach Jr., MD [Primary Care Provider] - Please follow up with your Primary Care Physician in: In 3-5 days Test Results: Test results from this visit will be discussed in further detail at your follow- up appointment, if applicable.
--- NOTE | 2018-02-26 12:23 | DS.PCM_ITS ---
Discharge Date and Diagnosis Date of Admission: 02/24/18 Date of Discharge: 02/26/18 - Secondary Discharge Diagnosis Chronic Problems (Last Reviewed 04/02/17 @ 11:17 by Navin Argueta MD) Cirrhosis (Chronic) Hepatitis C (Chronic) CAD (coronary artery disease) (Chronic) History of non-ST elevation myocardial infarction (NSTEMI) (Chronic) HTN (hypertension) (Chronic) HLD (hyperlipidemia) (Chronic) Tobacco use (Chronic) Chronic pain syndrome (Chronic) Anxiety and depression (Chronic) Abnormal electrocardiogram [ECG] [EKG] (Chronic) Non-ST elevation (NSTEMI) myocardial infarction (Chronic ~01/27/17) Hospital Course and Treatment Imaging Results: None Consults: None Operations: None Procedures: None Summary of Care Provided: HPI: The patient is a 62 year old F with a pmh as below who presents from home with confusion for the last 24 hours. She had called her PCP yesterday who ordered an ammonia level which was 94. She continued to be confused this morning, so her dropped her of at the hospital. Her ammonia was elevated to the 120's, her baseline is around 80. She states that she took her lactulose this morning per the ED record but then tells me that she is unsure of her medications. In the ED she was given lactulose and the rest of her labs were unremarkable. Vital Signs - 24 hr Temp Pulse Resp BP Pulse Ox 02/26/18 10:12 97.7 F L 64 18 144/68 H 98 02/26/18 09:31 64 02/26/18 08:00 97.7 F L 64 18 145/68 H 97 02/26/18 02:00 98.0 F 63 18 129/58 H 95 02/25/18 20:00 98.8 F 64 18 128/71 H 95 02/25/18 15:42 80 02/25/18 13:49 58 L 02/25/18 13:48 97.8 F 58 L 16 136/76 H 96 General: Alert, Cooperative, No apparent distress, Confused HEENT: Atraumatic, PERRLA, EOMI, Normocephalic Oral: Dry Mucosa Neck: Supple, No JVD Lungs: Clear to auscultation, Normal air movement, No rhonchi, No wheeze, No rales Cardiovascular: Regular rate, Regular Rhythm, Normal S1, Normal S2, No murmurs Abdomen: Soft, Non Tender, Non-Distended, No Hepato-splenomegaly Extremities: No edema, Capillary Refill Less than 3 Seconds Skin: No rashes, No breakdown Neurological: Neuro grossly intact, Sensory exam intact to light touch and pain Psych/Mental Status: Normal Affect, Appropriate Hospital Course: 1. Acute hepatic encephalopathy/Cirrhosis/H/o hep C - She presented with worsening confusion and on admission her ammonia level was elevated to 124. The rest of her labs were normal. She takes lactuloas and xifaxan at home which were continued here. She had multiple subsequent bowel movement and on the day of discharge she appeared to be at her baseline. She was not confused or lethargic and she was adamant about going home. We discussed the necessity of continuing her lactulose and xifaxan as prescribed. She will need to follow-up with her PCP in 3-5 days 2. Her other medical diagnoses were evaluated and she was continued on her home medications where appropriate. Pharmacy discovered that her PCP had changed her to Metoprolol from atenolol but she was taking both. Her Atenolol was discontinued on discharge. - Physical Exam Vital Signs Temp Pulse Resp BP Pulse Ox 97.7 F L 64 18 144/68 H 98 02/26/18 10:12 02/26/18 10:12 02/26/18 10:12 02/26/18 10:12 02/26/18 10:12 Oxygen Delivery Method Room Air Weight: 129 lb 3.054 oz Body Mass Index (BMI) 26.1 Finger Stick Blood Glucose 123 Intake and Output for Last 24 Hours 02/24/18 02/25/18 02/26/18 23:59 23:59 23:59 Intake Total 775 / 775 4226 / 4226 598 / 598 Output Total 300 / 300 500 / 500 Balance 475 / 475 3726 / 3726 598 / 598 Laboratory Tests Past 24 Hrs 02/26/18 02/26/18 02/26/18 05:45 05:45 05:45 WBC 2.0 L RBC 3.85 L Hgb 11.4 L Hct 35.1 L MCV 91.2 MCH 29.6 MCHC 32.5 RDW 13.7 RDW Differential 44.9 H Plt Count 52 L MPV 12.2 H Immature Gran % (Auto) 0.000 Neut % (Auto) 45.1 L Lymph % (Auto) 31.9 [place] % (Auto) 18.6 H Eos % (Auto) 3.9 Baso % (Auto) 0.5 Absolute Neuts (auto) 0.9 L Absolute Lymphs (auto) 0.65 L Total Counted Not Reportable Sodium 144 Potassium 3.6 Chloride 117 H Carbon Dioxide 22.0 Anion Gap 5 BUN 16 Creatinine 0.58 Estim Creat Clear Calc 94.23 Est GFR (MDRD) Af Amer 134 Est GFR (MDRD) Non-Af 111 BUN/Creatinine Ratio 27.4 H Glucose 89 Calcium 7.6 L Ammonia 92.0 H Discharge Activity: No Restrictions Call your doctor if you observe: Fever of 101 or Higher, Dizziness, Fainting spells, - - Increased congusion Home Medications: Medications to take at Discharge Aripiprazole [Abilify] 5 mg PO DAILY 02/05/13 Rifaximin [Xifaxan] 550 mg PO BID 01/24/17 Atorvastatin Calcium [Lipitor] 20 mg PO QHS 08/18/17 Buprenorphine 1 each TOPICAL TU 08/18/17 Clopidogrel Bisulfate [Plavix] 75 mg PO DAILY 08/18/17 Fluoxetine [Prozac] 40 mg PO DAILY 08/18/17 Topiramate [Topamax] 25 mg PO DAILY 08/18/17 Melatonin/Pyridoxine HCl (B6) [Melatonin 10 mg Tablet] 1 tablet PO PRN PRN 10/07/17 Lactulose [Chronulac] 30 ml PO TID #90 udc 10/09/17 Metoprolol Tartrate [Lopressor (beta marilele)] 50 mg PO DAILY 02/24/18 Primary Care Physician: Kwabena Bach Jr., MD [Primary Care Provider] - Please follow up with your Primary Care Physician in: In 3-5 days Disposition: Home Minutes spent on discharge:: 35 Patient Condition:: Good Medical Necessity - Tobacco Use Smoking Status: Former smoker Meaningful Use Info Meaningful Use Diagnoses (Choose all that apply): None applicable Code Visit Inpatient E&M: 83258 Disch Hosp
--- NOTE | 2018-02-27 16:58 | CASEMGMT ---
[facility] Discharge Follow-up Phone Call: TADEO: Rodri Strata: 3 Call Date: 02/27/18 Discharge Date: 02/26/18 Time of Call: 1700 Duration:2 minutes ? Admitting Diagnosis: Hepatic encephalopathy This [facility] contacted pt via telephone for discharge follow-up. Pt states she has been doing well since discharge. Pt states she has been taking her medications and that she has a follow-up appointment with her PCP. Pt denied any question or concerns. Shani Kelly RN
--- OUTSIDE RECORDS SUMMARY | 2018-04-08 01:25 | XMS RPT_ITS ---
:1955 Author Organization [place] Support Name Relationship Address Phone D Unavailable Unavailable Unavailable LETIZIO, NEFTALY Unavailable [address] + [place] [address] D Unavailable Unavailable Unavailable LETIZIO, NEFTALY Unavailable [address] + [place] [address] D Unavailable Unavailable Unavailable LETIZIO, NEFTALY Unavailable [address] + [place] [address] D Unavailable Unavailable Unavailable LETIZIO, NEFTALY Unavailable [address] + [place] [address] D Unavailable Unavailable Unavailable LETIZIO, NEFTALY Unavailable [address] + [place] [address] D Unavailable Unavailable Unavailable LETIZIO, NEFTALY Unavailable [address] + [place] [address] D Unavailable Unavailable Unavailable LETIZIO, NEFTALY Unavailable [address] + [place] [address] D Unavailable Unavailable Unavailable LETIZIO, NEFTALY Unavailable [address] + [place] [address] D Unavailable Unavailable Unavailable LETIZIO, NEFTALY Unavailable [address] + [place] [address] D Unavailable Unavailable Unavailable LETIZIO, NEFTALY Unavailable [address] + [place] [address] D Unavailable Unavailable Unavailable LETIZIO, NEFTALY Unavailable [address] + [place] [address] D Unavailable Unavailable Unavailable LETIZIO, NEFTALY Unavailable [address] + [place] [address] D Unavailable Unavailable Unavailable LETIZIO, NEFTALY Unavailable [address] + [place] [address] D Unavailable Unavailable Unavailable LETIZIO, NEFTALY Unavailable [address] + [place] [address] D Unavailable Unavailable Unavailable D Unavailable Unavailable Unavailable LETIZIO, NEFTALY Unavailable [address] + [place] [address] D Unavailable Unavailable Unavailable LETIZIO, NEFTALY Unavailable [address] + [place] [address] ISAURA AU Unavailable * +NO NUMBER *, [place] * Care Team Providers Name Role Phone Johana Jenkins Attending Unavailable Navin Argueta Attending Unavailable DOCTOR, OUT OF TOWN Referring Unavailable SEVEN TIM Primary Care Unavailable SEVEN TIM Primary Care Unavailable Ok Bergeron Attending Unavailable Isreal Ceja., Kwabena Attending Unavailable Isreal Ceja., Kwabena Referring Unavailable Isreal Jr., Kwabena Primary Care Unavailable Isreal Jr., Kwabena Primary Care Unavailable White, Amira Admitting Unavailable Roc Curtis Attending Unavailable White, Amira Admitting Unavailable White, Amira Attending Unavailable Bach Jr., Kwabena Primary Care Unavailable White, Amira Consulting Unavailable White, Amira Admitting Unavailable Kirsten Roc Attending Unavailable Isreal Jr., Kwabena Primary Care Unavailable Cleoky, Roc Consulting Unavailable Isreal Jr., Kwabena Attending Unavailable Isreal Jr., Kwabena Primary Care Unavailable Isreal Jr., Kwabena Referring Unavailable Bach Jr., Kwabena Primary Care Unavailable Ashelfah, Ghasem Admitting Unavailable Koram, Teresa Angeli Attending Unavailable Ashelfah, Ghasem Admitting Unavailable Ashelfah, Ghasem Attending Unavailable Isreal Jr., Kwabena Primary Care Unavailable Ashelfah, Ghasem Consulting Unavailable Ashelfah, Ghasem Admitting Unavailable Koram, Teresa Angeli Attending Unavailable Isreal Jr., Kwabena Primary Care Unavailable Koram, Teresa Angeli Consulting Unavailable Isreal Ceja., Kwabena Attending Unavailable SEVEN TIM Referring Unavailable Isreal Jr., Kwabena Primary Care Unavailable Isreal Jr., Kwabena Primary Care Unavailable ArthuronisOluSancho F Admitting Unavailable Olu Aranaolas F Attending Unavailable Olu Aranaolas F Admitting Unavailable Sancho Arana F Attending Unavailable Isreal Jr., Kwabena Primary Care Unavailable Olu Aranaolas F Consulting Unavailable Kenneytsonis, Sancho F Admitting Unavailable Olu Aranaolas F Attending Unavailable Isreal Jr., Kwabena Primary Care Unavailable Olu Aranaolas F Consulting Unavailable Sancho Arana Admitting Unavailable Sancho Arana Attending Unavailable Kwabena Bach Jr. 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, Kwabena [facility] unspecified / Hospital E72.20(ICD-10) Repository Unknown K72.10 - Chronic hepatic Koram, Teresa Active [place] 8 failure without coma / [facility] K72.10(ICD-10) Hospital Repository Unknown S09.90XA - Unspecified LowOk purcell Active [place] 8 injury of head, initial Community encounter / Hospital S09.90XA(ICD-10) Repository Unknown I21.4 - Non-ST elevation Ellie, [place] Active [place] 8 (NSTEMI) myocardial Community infarction / Hospital I21.4(ICD-10) Repository Unknown E78.00 - Pure Ellie, Navin Active [place] 8 hypercholesterolemia, Community unspecified / Hospital E78.00(ICD-10) Repository Unknown E78.0 - Pure Ellie, [place] Active [place] 8 hypercholesterolemia / Community E78.0(ICD-10) Hospital Repository PROCEDURES PROCEDURES No Procedure Records FoundRESULTS RESULTS DISCHARGE SUMMARY Observed: 02/26/2018 Status: F Source: [place] 12:24 PM [facility] REPOSITORY [facility] Medical Records Department [address] [place] [address] Discharge Summary 02/26/18 1216 MR#: [id number] Acct: [id number] Name: ANISHA SCHULTZ Rep #: [id number] : 1955 62 From: Sancho Arana MD PCP: Kwabena Bach Jr., MD Status: DIS IN Y Location: [facility] [id number] Discharge Date and Diagnosis Date of Admission: [...] applicable Code Visit Inpatient Jazzy CARDOZA M: 75583 Disch Hosp 02/26/18 1224 <Electronically signed by Sancho Arana MD> Date Sancho Arana MD Cosigner Signature (if applicable): Date CC: Kwabena Bach Jr., MD; Sancho Arana MD Signed DISCHARGE INSTRUCTION Observed: 02/26/2018 Status: F Source: [place] 10:13 AM [facility] REPOSITORY [facility] Medical Records Department [address] [place] [address] Instructions for Home/Discharge Instructions 02/26/18 1012 MR#: [id number] Acct: [id number] Name: ANISHA SCHULTZ Rep #: [id number] : 1955 62 From: Sancho Arana MD [...] MD AMMONIA Collected: 02/26/2018 Status: F Source: [place] 5:45 AM [facility] REPOSITORY TYPE CODE TESTS RESULT OUT OF REFERENCE UNITS RANGE LAB L503.5510 11-32 umol/L High AMMONIA 92.0 Performed By: #### L503.5510 #### [facility] [address] [place], [address] BASIC METABOLIC Collected: 02/26/2018 Status: F Source: [place] PROFILE (BMP) 5:45 AM [facility] REPOSITORY TYPE CODE TESTS RESULT OUT OF [...] GAP 5 Performed By: #### L500.2500 #### [facility] [address] [place], [address] CBC W/DIFF, AUTOMATED Collected: 02/26/2018 Status: F Source: [place] 5:45 AM [facility] REPOSITORY TYPE CODE TESTS RESULT OUT OF [...] Lymph 0.65 Performed By: #### L100.0100 #### [facility] [place], [address] CBC W/DIFF, AUTOMATED Collected: 02/25/2018 Status: F Source: [place] 5:46 AM [facility] REPOSITORY TYPE CODE TESTS RESULT OUT OF [...] Lymph 0.98 Performed By: #### L100.0100 #### [facility] [place], [address] COMPREHENSIVE METABOLIC Collected: 02/25/2018 Status: F Source: [place] [facility] 5:46 AM [facility] REPOSITORY TYPE CODE TESTS RESULT OUT OF [...] GAP 7 Performed By: #### L500.4050 #### [facility] [address] [facility], [address] HISTORY AND PHYSICAL Observed: 02/24/2018 Status: F Source: [place] EXAM 4:16 PM [facility] REPOSITORY [facility] Medical Records Department [address] [facility] [place] [address] History and Physical 02/24/18 1603 MR#: [id number] Acct: [id number] Name: ANISHA SCHULTZ Rep #: [id number] : 1955 62 From: Sancho Arana MD PCP: Kwabena Bach Jr., MD Status: ADM IN Location: [facility] [id number] Problem List (1) Cirrhosis Status: Chronic Qualifiers: [...] to tubal . Psychiatric History: Anxiety, Depression MARINA PORTER History: No pertinent MARINA PORTER history Smoking Status: Former smoker - *Family [...] Regular Code Visit Inpatient E AND M: 98413 Init Hosp L3 02/24/18 1616 <Electronically signed by Sancho Arana MD> Date Sancho Arana MD Cosigner Signature: Date (if applicable) CC: Kwabena Bach Jr., MD; Sancho Arana MD Signed EMERGENCY DEPARTMENT Observed: 02/24/2018 Status: F Source: [place] SUMMARY 11:24 AM [facility] Medical Records Department [address] [place] [address] Emergency Department Summary 02/24/18 1121 MR#: [id number] Acct: [id number] Name: ANISHA SCHULTZ Rep #: [id number] : 1955 62 From: Camden Rodriguez MD [...] of cirrhosis This note was generated with [employer] dictation software. It may contain incorrect words, [...] problems, contact your Primary Care Provider. Call [facility] ([phone]) or report to the closest Emergency Room. Call 911 if necessary. 02/24/18 1124 <Electronically signed by Camden Rodriguez MD> Date Camden Rodriguez MD Cosigner Signature (If Indicated): Date CC: Kwabena Bach Jr., MD URINALYSIS, COMPLETE Collected: 02/24/2018 Status: F Source: [place] 10:50 AM [facility] REPOSITORY Order Comment: Order Date: 02/24/18 How [...] URINE SEEN Performed By: #### L400.0001 #### [facility] [address] [place], [place], [address] CBC W/DIFF, AUTOMATED Collected: 02/24/2018 Status: F Source: [place] 10:28 AM [facility] REPOSITORY TYPE CODE TESTS RESULT OUT OF [...] Lymph 0.64 Performed By: #### L100.0100 #### [facility] [address] [place], [place], [address] AMMONIA Collected: 02/24/2018 Status: F Source: [place] 10:28 AM [facility] REPOSITORY TYPE CODE TESTS RESULT OUT OF REFERENCE UNITS RANGE LAB L503.5510 11-32 umol/L High AMMONIA 124.0 Performed By: #### L503.5510 #### [facility] [address] [place], [address] COMPREHENSIVE METABOLIC Collected: 02/24/2018 Status: F Source: [facility] 10:28 AM [facility] REPOSITORY TYPE CODE TESTS RESULT OUT OF [...] 6 Performed By: #### L500.4050, L501.2450 #### [facility] [address] [place], [address] LIPASE Collected: 02/24/2018 Status: F Source: [place] 10:28 AM [facility] REPOSITORY TYPE CODE TESTS RESULT OUT OF RANGE REFERENCE UNITS LAB L501.2450 73-393 U/L Normal LIPASE 175 Performed By: #### L500.4050, L501.2450 #### [facility] [address] [place], [address] PROTHROMBIN TIME W/INR Collected: 02/24/2018 Status: F Source: [place] 10:28 AM [facility] REPOSITORY TYPE CODE TESTS RESULT OUT OF RANGE REFERENCE UNITS LAB L300.4150 11.7-14.9 SECONDS High PROTIME 17.1 LAB L300.4200 Normal INR 1.4 Performed By: #### L300.3900 #### [facility] [address] [place], [address] AMMONIA Collected: 02/23/2018 Status: F Source: [place] 1:55 PM [facility] REPOSITORY TYPE CODE TESTS RESULT OUT OF REFERENCE UNITS RANGE LAB L503.5510 11-32 umol/L High AMMONIA 94.0 Performed By: #### L503.5510 #### [facility] [address] [place], [address] DISCHARGE SUMMARY Observed: 10/09/2017 Status: F Source: [place] 4:13 PM [facility] REPOSITORY [facility] Medical Records Department [address] [place] [address] Discharge Summary 10/09/17 0954 MR#: [id number] Acct: [id number] Name: ANISHA SCHULTZ Rep #: [id number] : 1955 62 From: Teresa Forde MD PCP: Kwabena Bach Jr., MD Status: DIS IN Y Location: [facility] [id number] Discharge Date and Diagnosis Date of Admission: [...] applicable Code Visit Inpatient E AND M: 03640 Disch Hosp 10/09/17 1613 <Electronically signed by Teresa Forde MD> Date Teresa Forde MD Cosigner Signature (if applicable): Date CC: Kwabena Bach Jr., MD; Teresa Forde MD Signed DISCHARGE INSTRUCTION Observed: 10/09/2017 Status: F Source: [place] 9:54 AM [facility] REPOSITORY [facility] Medical Records Department [address] [place] [address] Instructions for Home/Discharge Instructions 10/09/17 0952 MR#: [id number] Acct: [id number] Name: ANISHA SCHULTZ Rep #: [id number] : 1955 62 From: Teresa Forde MD [...] 10/09/2017 Status: F Source: [place] 6:44 AM [facility] REPOSITORY TYPE CODE TESTS RESULT OUT OF [...] Lymph 1.04 Performed By: #### L100.0100 #### [facility] [address] [facility] [place], [address] AMMONIA Collected: 10/09/2017 Status: F Source: [place] 6:44 AM [facility] REPOSITORY TYPE CODE TESTS RESULT OUT OF REFERENCE UNITS RANGE LAB L503.5510 11-32 umol/L High AMMONIA 82.0 Performed By: #### L503.5510 #### [facility] [address] [facility] [place], [address] COMPREHENSIVE METABOLIC Collected: 10/09/2017 Status: F Source: [facility] 6:44 AM [facility] REPOSITORY TYPE CODE TESTS RESULT OUT OF [...] GAP 9 Performed By: #### L500.4050 #### [facility] [address] [place], [address] CBC W/DIFF, AUTOMATED Collected: 10/08/2017 Status: F Source: [place] 7:08 AM [facility] REPOSITORY TYPE CODE TESTS RESULT OUT OF [...] Lymph 0.69 Performed By: #### L100.0100 #### [facility] [address] [place], [address] AMMONIA Collected: 10/08/2017 Status: F Source: [place] 7:08 AM [facility] REPOSITORY TYPE CODE TESTS RESULT OUT OF REFERENCE UNITS RANGE LAB L503.5510 11-32 umol/L High AMMONIA 81.0 Performed By: #### L503.5510 #### [facility] [address] [place], [address] COMPREHENSIVE METABOLIC Collected: 10/08/2017 Status: F Source: [facility] 7:08 AM [facility] REPOSITORY TYPE CODE TESTS RESULT OUT OF [...] GAP 6 Performed By: #### L500.4050 #### [facility] [address] [place], [address] URINALYSIS, COMPLETE Collected: 10/08/2017 Status: F Source: [place] 1:15 AM [facility] REPOSITORY Order Comment: How was Urine Obtained? CARTRIDGE BELT PUNCHER TO SPECIFY TYPE CODE TESTS RESULT OUT [...] URINE SEEN Performed By: #### L400.0001 #### [facility] [address] [facility] [place], [address] HISTORY AND PHYSICAL Observed: 10/07/2017 Status: F Source: [place] EXAM 11:46 PM [facility] REPOSITORY [facility] Medical Records Department [address] [place] [address] History and Physical 10/07/17 2244 MR#: [id number] Acct: [id number] Name: ANISHA SCHULTZ Nazia Rep #: [id number] : 1955 62 From: Uzma Mccarthy MD PCP: Kwabena Bach Jr., MD Status: ADM IN Location: [facility] [id number] Problem List (1) Cirrhosis Status: Chronic Qualifiers: [...] to tubal . Psychiatric History: Anxiety, Depression MARINA PORTER History: No pertinent MARINA PORTER history Smoking Status: Former smoker Alcohol: None [...] stable at his baseline. Plan: Admit to [facility] floor, cardiac monitoring, fall precautions, aspiration precautions, [...] prophylaxis: SCDs. This note was generated with [employer] dictation software. It may contain incorrect words, spelling, and punctuation that were not noted in checking the note before signing. Code Visit Inpatient E AND M: 74749 Init Hosp L3 10/07/17 2346 <Electronically signed by Uzma Mccarthy MD> Date Uzma Mccarthy MD Cosigner Signature: Date (if applicable) CC: Kwabena Bach Jr., MD; Uzma Mccarthy Signed EMERGENCY DEPARTMENT Observed: 10/07/2017 Status: F Source: [place] SUMMARY 10:24 PM [facility] REPOSITORY [facility] Medical Records Department [address] [place] [address] Emergency Department Summary 10/07/17 2221 MR#: [id number] Acct: [id number] Name: ANISHA SCHULTZ Rep #: [id number] : 1955 62 From: Ky Herrera DO [...] [Hepatic encephalopathy] This note was generated with [employer] software. It may contain incorrect words, spelling, [...] your Primary Care Provider. Call [facility] ([phone]) or report to the closest Emergency Room. Call 911 if necessary. 10/07/174 <Electronically signed by Ky Herrera DO> Date Ky Herrera DO Cosigner Signature (If Indicated): Date CC: Kwabena Bach Jr., MD AMMONIA Collected: 10/07/2017 Status: F Source: [place] 7:37 PM [facility] REPOSITORY TYPE CODE TESTS RESULT OUT OF REFERENCE UNITS RANGE LAB L503.5510 11-32 umol/L High AMMONIA 96.0 Performed By: #### L503.5510 #### [facility] [address] [place], [place], [address] CBC W/DIFF, AUTOMATED Collected: 10/07/2017 Status: F Source: [place] 7:25 PM [facility] REPOSITORY TYPE CODE TESTS RESULT OUT OF [...] Lymph 1.03 Performed By: #### L100.0100 #### [facility] [address] [place], [address] COMPREHENSIVE METABOLIC Collected: 10/07/2017 Status: F Source: [facility] 7:25 PM [facility] REPOSITORY TYPE CODE TESTS RESULT OUT OF [...] 7 GAP Performed By: #### L500.4050 #### [facility] [address] [place], [address] AMMONIA Collected: 10/07/2017 Status: F Source: [place] 1:44 PM [facility] REPOSITORY TYPE CODE TESTS RESULT OUT OF REFERENCE UNITS RANGE LAB L503.5510 11-32 umol/L High AMMONIA 143.0 Performed By: #### L503.5510 #### [facility] [address] [place], [address] EMERGENCY DEPARTMENT Observed: 08/20/2017 Status: F Source: [place] SUMMARY 8:27 AM [facility] REPOSITORY [facility] Medical Records Department [address] [place] [address] Emergency Department Summary 08/18/17 1227 MR#: [id number] Acct: [id number] Name: ANISHA SCHULTZ Rep #: [id number] : 1955 62 From: Ziggy Eng DO [...] Hepatic encephalopathy This note was generated with [employer] dictation software. It may contain incorrect words, spelling, and punctuation that were not noted in review of the chart prior to signing ED Disposition - Plan for ED Patient: Disposition: Acute Care Hospital [facility] Chief Complaint: Abn Labs What to do if you have Problems For any increased pain, shortness of breath, bleeding, nausea or vomiting, chest pain, or any unexpected problems, contact your Primary Care Provider. Call [facility] ([phone]) or report to the closest Emergency Room. Call 911 if necessary. 08/20/17 0827 <Electronically signed by Ziggy Eng DO> Date Ziggy Eng DO Cosigner Signature (If Indicated): Date CC: Kwabena Bach Jr., MD DISCHARGE SUMMARY Observed: 08/19/2017 Status: F Source: [place] 7:52 PM [facility] REPOSITORY [facility] Medical Records Department [address] [place] [address] Discharge Summary 08/19/171945 MR#: [id number] Acct: [id number] Name: ANISHA SCHULTZ Rep #: [id number] : 1955 62 From: Roc Curtis DO PCP: Kwabena Bach Jr., MD Status: DIS IN Y Location: [facility] [id number] Discharge Date and Diagnosis Date of Admission: [...] F seen in the emergency room at [facility] with a history of increased frequent [...] or white cells. Patient was admitted to [facility] 2, placed on lactulose, her home medications [...] applicable Code Visit Inpatient E AND M: 91221 Disch Hosp 08/19/171951 <Electronically signed by Roc Curtis DO> Date Roc Curtis DO Cosigner Signature (if applicable): Date CC: Kwabena Bach Jr., MD; Roc Curtis DO Signed DISCHARGE INSTRUCTION Observed: 08/19/2017 Status: F Source: [place] 10:56 AM [facility] REPOSITORY [facility] Medical Records Department [address] [place] [address] Instructions for Home/Discharge Instructions 08/19/17 1054 MR#: [id number] Acct: [id number] Name: ANISHA SCHULTZ Rep #: [id number] : 1955 62 From: Roc Curtis DO [...] 08/19/2017 Status: F Source: [place] 5:35 AM [facility] REPOSITORY TYPE CODE TESTS RESULT OUT OF [...] Lymph 0.73 Performed By: #### L100.0100 #### [facility] [address] [facility] [place], [address] AMMONIA Collected: 08/19/2017 Status: F Source: [place] 5:35 AM [facility] REPOSITORY TYPE CODE TESTS RESULT OUT OF REFERENCE UNITS RANGE LAB L503.5510 11-32 umol/L High AMMONIA 85.0 Performed By: #### L503.5510 #### [facility] [address] [facility] [place], [address] COMPREHENSIVE METABOLIC Collected: 08/19/2017 Status: F Source: [facility] 5:35 AM [facility] REPOSITORY TYPE CODE TESTS RESULT OUT OF [...] GAP 8 Performed By: #### L500.4050 #### [facility] [address] [place], [address] BEDSIDE GLUCOSE Collected: 08/18/2017 Status: F Source: [place] 5:00 PM [facility] REPOSITORY TYPE CODE TESTS RESULT OUT OF RANGE REFERENCE UNITS LAB L501.080 70-110 mg/dL Normal BEDSIDE GLU 102 Result Comment: MANAGEMENT OF PATIENT CARE PER NURSING PROTOCOL Performed By: #### L501.080 #### [facility] Point of Care [address] [place] [address] HISTORY AND PHYSICAL Observed: 08/18/2017 Status: F Source: [place] EXAM 2:59 PM [facility] REPOSITORY [facility] Medical Records Department [address] [place] [address] History and Physical 08/18/17 1421 MR#: [id number] Acct: [id number] Name: ANISHA SCHULTZ Rep #: [id number] : 1955 62 From: Amira Kapadia PCP: Kwabena Bach Jr., MD Status: ADM IN Y Location: [place] [address] Problem List (1) Cirrhosis Status: Chronic Qualifiers: [...] Artery/Lesion type: unspecified vessel or lesion type [place] vs. 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 Psychiatric History: Anxiety, Depression MARINA PORTER History: No pertinent MARINA PORTER history Lives: Spouse/ Significant Other Smoking Status: [...] a 62 y/o F w/ PMHx: Hx AL, Chronic Pain Syndrome on chronic narcotic therapy, Anxiety and Depression, Hepatitis C w/ Cirrhosis, Chronic Thrombocytopenia, Tobacco use who presents to the [facility] ED on with history of increased more [...] appropriate. Code Visit Inpatient E AND M: 75431 Init Hosp L3 08/18/17 1459 <Electronically signed by Amira Kapadia > Date Amira Kapadia Cosigner Signature: Date (if applicable) CC: Kwabena Bach Jr., MD; Amira Kapadia Signed CBC W/DIFF, AUTOMATED Collected: 08/18/2017 Status: F Source: [place] 12:50 PM [facility] REPOSITORY TYPE CODE TESTS RESULT OUT OF [...] Lymph 1.07 Performed By: #### L100.0100 #### [facility] [address] [facility] [place], [place], [address] PROTHROMBIN TIME W/INR Collected: 08/18/2017 Status: F Source: [place] 12:50 PM [facility] REPOSITORY TYPE CODE TESTS RESULT OUT OF RANGE REFERENCE UNITS LAB L300.4150 11.7-14.9 SECONDS High PROTIME 16.4 LAB L300.4200 Normal INR 1.3 Performed By: #### L300.3900, L300.4310 #### [facility] [address] [place], [place], [address] PARTIAL THROMBOPLAST Collected: 08/18/2017 Status: F Source: LORETTO TIME 12:50 PM [facility] REPOSITORY TYPE CODE TESTS RESULT OUT OF RANGE REFERENCE UNITS LAB L300.4310 24.1-36.2 Seconds Normal PTT 34.3 Performed By: #### L300.3900, L300.4310 #### [facility] [address] [place], [place], [address] COMPREHENSIVE METABOLIC Collected: 08/18/2017 Status: F Source: LORETTO PROFIL 12:50 PM [facility] REPOSITORY TYPE CODE TESTS RESULT OUT OF [...] 6 Performed By: #### L500.4050, L501.2450 #### [facility] [address] [place], [address] LIPASE Collected: 08/18/2017 Status: F Source: BEBA 12:50 PM [facility] REPOSITORY TYPE CODE TESTS RESULT OUT OF RANGE REFERENCE UNITS LAB L501.2450 73-393 U/L Normal LIPASE 264 Performed By: #### L500.4050, L501.2450 #### [facility] [address] [place], [address] ALCOHOL, BLOOD Collected: 08/18/2017 Status: F Source: BEBA (MEDICAL)-SERUM 12:50 PM [facility] REPOSITORY TYPE CODE TESTS RESULT OUT OF [...] fatal coma Performed By: #### L501.9100 #### [facility] [address] [place], [address] AMMONIA Collected: 08/18/2017 Status: F Source: LORETTO 12:50 PM [facility] REPOSITORY TYPE CODE TESTS RESULT OUT OF REFERENCE UNITS RANGE LAB L503.5510 11-32 umol/L High AMMONIA 155.0 Performed By: #### L503.5510 #### [facility] [address] [place], [place], [address] MAGNESIUM Collected: 08/18/2017 Status: F Source: LORETTO 12:50 PM [facility] REPOSITORY TYPE CODE TESTS RESULT OUT OF RANGE REFERENCE UNITS LAB L501.5200 1.6-2.6 mg/dL Normal MG 1.6 Result Comment: Slight Hemolysis, Result may be falsely increased. Performed By: #### L501.5200 #### [facility] [address] [place], [address] URINE DRUG SCREEN Collected: 08/18/2017 Status: F Source: BEBA (VISTA) 12:30 PM [facility] REPOSITORY TYPE CODE TESTS RESULT OUT OF [...] THC POSITIVE Performed By: #### L505.5000 #### [facility] [address] [place], [address] URINALYSIS, COMPLETE Collected: 08/18/2017 Status: F Source: LORETTO 12:30 PM [facility] REPOSITORY Order Comment: How was Urine Obtained? [...] MUCUS, URINE Performed By: #### L400.0001 #### [facility] [address] [place], [address] BRAIN/HEAD WITHOUT Observed: 08/18/2017 Status: F Source: LORETTO CONTRAST 12:26 PM [facility] REPOSITORY [facility] Imaging Services [address] [place] [address] Brain/Head without Contrast MR#: [id number] Acct: [id number] Name: ANISHA SCHULTZ Rep #: [id number] : 1955 F 62 From: Delgado Garcia MD PCP: Kwabena Bach Jr., MD Status: REG ER Study: Brain/Head without Contrast Date of Exam: 08/18/17 Exam# [id number] Ordering Dr: Ziggy Eng DO STUDY: CT [...] Delgado Garcia MD at 13:27 EDT Tel [phone], Service support , CC: Kwabena Bach Jr., MD; Ziggy Eng DO Border Patrol Agent: Signed CBC-COMPLETE BLOOD CNT Collected: 08/15/2017 Status: F Source: BEBA NO DIFF 9:03 AM [facility] REPOSITORY TYPE CODE TESTS RESULT OUT OF [...] MPV 11.9 Performed By: #### L100.0500 #### [facility] [place], [address] COMPREHENSIVE METABOLIC Collected: 08/15/2017 Status: F Source: BEBA PROFIL 9:03 AM [facility] REPOSITORY TYPE CODE TESTS RESULT OUT OF [...] GAP 8 Performed By: #### L500.4050 #### [facility] [address] [place], [address] AMMONIA Collected: 08/15/2017 Status: F Source: LORETTO 9:03 AM [facility] REPOSITORY TYPE CODE TESTS RESULT OUT OF REFERENCE UNITS RANGE LAB L503.5510 11-32 umol/L High AMMONIA 122.0 Performed By: #### L503.5510 #### [facility] [address] [place], [address] CNPN Observed: 06/05/2017 Status: COMPLETED Source: VANDANA 12:00 AM [facility] REPOSITORY Telephone (GASTTW) HAYLIENICKYCATALINAANISHA ([id number]) 1955 F Date Time Provider Department 06/05/17 SANCHO CARNEY During your visit today, we recorded the following information about you: Sara Estevez RN, RN 06/05/2017 9:14 AM Signed PA for Xifaxan initiated via Cover My Meds. Awaiting determination. Sara Estevez RN June 05, 2017 9:14 AM Muriel Espino Ma 06/05/2017 1:17 PM Signed Received approval from [facility] for Xifaxan, reference #[id number] effective from 03/29/2017 through 03/30/2018. Pharmacy notified. [...] 04/02/2017 Status: F Source: BEBA 3:36 PM [facility] REPOSITORY [facility] Medical Records Department [address] [place] [address] Discharge Instruction 04/02/17 1535 MR#: [id number] Acct: [id number] Name: ANISHA SCHULTZ Rep #: [id number] : 1955 62 From: Ok Bergeron MD [...] your Primary Care Provider. Call [facility] ([phone]) or report to the closest Emergency Room. Call 911 if necessary. 04/02/17 1536 <Electronically signed by Ok Bergeron MD> Date Ok Bergeron MD Cosigner Signature (If Indicated): Date CC: Kwabena Bach; OUT OF TOWN DOCTOR EMERGENCY DEPARTMENT Observed: 04/02/2017 Status: F Source: BEBA SUMMARY 3:35 PM [facility] REPOSITORY [facility] Medical Records Department [address] [place] [address] Emergency Department Summary 04/02/17 1517 MR#: [id number] Acct: [id number] Name: ANISHA SCHULTZ Rep #: [id number] : 1955 62 From: Ok Bergeron MD [...] nasal fracture This note was generated with [employer] dictation software. It may contain incorrect words, [...] your Primary Care Provider. Call [facility] ([phone]) or report to the closest Emergency Room. Call 911 if necessary. 04/02/17 9163 <Electronically signed by Ok Bergeron MD> Date Ok Bergeron MD Cosigner Signature (If Indicated): Date CC: Kwabena Bach; OUT OF TOWN DOCTOR ALCOHOL, BLOOD Collected: 04/02/2017 Status: F Source: LORETTO (MEDICAL)-SERUM 2:45 PM [facility] REPOSITORY TYPE CODE TESTS RESULT OUT OF [...] fatal coma Performed By: #### L501.9100 #### [facility] [address] [place], [address] BRAIN/HEAD WITHOUT Observed: 04/02/2017 Status: F Source: LORETTO CONTRAST 1:59 PM [facility] REPOSITORY [facility] Imaging Services [address] [place] [address] Brain/Head without Contrast MR#: [id number] Acct: [id number] Name: HAYLIEGLOANISHA A Rep #: [id number] : 1955 F 62 From: Delgado Garcia MD PCP: Kwabena Bach Status: PRE ER Study: Brain/Head without Contrast Date of Exam: 04/02/17 Exam# [id number] Ordering Dr: Ok Bergeron MD STUDY: CT [...] nasal fracture with nasal congestion. Electronically Signed: Delgado Garcia MD at 14:40 EST Tel [phone], Service support , CC: Kwabena Bach; Ok Bergeron MD Border Patrol Agent: Signed CHEST PA AND LATERAL Observed: 04/02/2017 Status: F Source: LORETTO 1:59 PM [facility] REPOSITORY [facility] Imaging Services [address] [place] [address] Chest PA and Lateral MR#: [id number] Acct: [id number] Name: HAYLIEGLOANISHA Nazia Rep #: [id number] : 1955 F 62 From: Delgado Garcia MD PCP: Kwabena Bach Status: REG ER Study: Chest PA and Lateral Date of Exam: 04/02/17 Exam# [id number] Ordering Dr: Ok Bergeron MD STUDY: X-RAY [...] Delgado Garcia MD at 15:11 EST Tel [phone], Service support , CC: Kwabena Bach; Ok Bergeron MD Border Patrol Agent: Signed CARDIOLOGY VISIT Observed: 04/02/2017 Status: F Source: LORETTO REPORT 11:20 AM [facility] REPOSITORY [facility] [place] [address] OFFICE VISIT Date of Service: 04/02/17 MR#: [id number] Acct: [id number] Name: ANISHA SCHULTZ Rep #: [id number] : 1955 Provider: Navin Argueta MD Age/Sex: 62/F Location: [facility] Status: Signed HPI S/P, [...] 04/01/17] Ejection fraction %: 60 to 64 [facility] Medical History Abnormal electrocardiogram [ECG] [EKG] (Chronic) [...] arise Plan Detail Follow Up 1 Year ([facility]) 04/02/17 1120 <Electronically signed by Navin Argueta MD> Date Navin Argueta MD Cosigner Signature: Date (if applicable) CC: Kwabena Bach ALLERGIES ALLERGIES DATE TYPE / CODE NAME / CODE REACTION SEVERITY SOURCE 02/24/2018 Drug No Known Unknown [facility] Allergy/4160 Allergies/F00 Hospital [address](SNOMED 4038153(RXNOR Repository CT) M) ENCOUNTERS ENCOUNTERS ADMIT/DISCHARGE ACCOUNT ADMITTING ENCOUNTER LOCATION SOURCE NUMBER CLASS 02/24/2018/ [id number] [place], Inpatient [place] 8 3 Sancho F Encounter [facility] ing:BN3Zlpi: Repository DX398Ron: 1 02/24/2018 [id number] Sumit, Ambulatory BMSBuilding:B [place] 5 Sancho F [facility] Repository 02/24/2018 [id number] Laws, Ambulatory BMSBuilding:B [place] 0 Sancho F MS.[facility] Repository 02/24/2018 [id number] Sumit, Ambulatory BMSBuilding:B [place] 8 Sancho F MS.[facility] Repository 02/23/2018 [id number] Ambulatory [place] 0 [facility] ing:LAB Repository 10/07/2017/ [id number] [facility], Inpatient [place] 8 5 Ghasem Encounter [facility] ing:DL6Ppwq: Repository JA670Qhq: 1 10/07/2017 [id number] [facility], Ambulatory BMSBuilding:B [place] 7 Ghasem MS.[facility] Repository 10/07/2017 [id number] [facility], Ambulatory BMSBuilding:B [place] 2 Ghasem MS.[facility] Repository 10/07/2017 [id number] Ambulatory [place] 9 [facility] ing:LAB.FUTUR Repository E 08/18/2017/ [id number] Amira Kapadia Inpatient [place] 8 6 Encounter [facility] ing:KK9Ghnm: Repository BL579Elk: 1 08/18/2017 [id number] Amira Kapadia Ambulatory BMSBuilding:B [place] 8 [facility] Repository 08/18/2017 [id number] Amira Kapadia Ambulatory BMSBuilding:B [place] 2 [facility] Repository 08/15/2017 [id number] Ambulatory [place] 5 [facility] ing:LAB Repository 04/02/2017/ [id number] Emergency [place] 8 1 [facility] ing:ED Repository 04/02/2017/ [id number] Ambulatory BMSBuilding:B [place] 8 8 [facility] Repository 04/01/2017 [id number] Ambulatory BMSBuilding:B [place] 1 [facility] Repository PAYERS PAYERS ENCOUNTER GUARANTOR PAYER SUBSCRIBER SOURCE 02/24/2018 ANISHA A Primary ANISHA A [place] [id number] Insurance:MEDICARE LETIZIODOB: [facility], PART A [facility] [id number] [address]Xls: Number: Repository [id number] () Date:2018-02-24 02/24/2018 Secondary ANISHA A [place] Insurance:[facility] LETIZIODOB: [facility] [id number] Hospital Number: Repository [id number] Date:[id number] [address]HV: 02/24/2018 Tertiary NOT GIVENUNK [place] Insurance:SELF PAY [facility] Number: Effective Repository Date:2018-02-24 02/24/2018 ANISHA A Primary ANISHA A [place] [id number] Insurance:MEDICARE LETIZIODOB: [facility], PART A [facility] [id number] [id number]: Number: Repository [id number] () Date:2018-02-24 02/24/2018 Secondary ANISHA A [place] Insurance:[facility] LETIZIODOB: [facility] [id number] Hospital Number: Repository [id number] Date:7100-00-70TZ [address] [address]CP: 02/24/2018 Tertiary NOT GIVENUNK [place] Insurance:SELF PAY [facility] Number: Effective Repository Date:2018-02-24 02/24/2018 ANISHA A Primary ANISHA A [place] [id number] Insurance:MEDICARE LETIZIODOB: [facility] [place], PART A [facility] [id number]-Canonc[facility] [address]Olz: Number: Repository [id number] (HP) Date:2018-02-24 02/24/2018 Secondary ANISHA A [place] Insurance:[facility] LETIZIODOB: [facility] [id number] Hospital Number: Repository [id number] Date:3664-90-95UQ [address] [address]VJ: 02/24/2018 Tertiary NOT GIVENUNK [place] Insurance:SELF PAY [facility] Hospital Number: Effective Repository Date:2018-02-24 02/24/2018 ANISHA A Primary ANISHA A [place] [id number] Insurance:MEDICARE LETIZIODOB: [facility] [place], PART A [facility] [id number] [place] [address]Tel: Number: Repository [id number] (HP) Date:2018-02-24 02/24/2018 Secondary ANISHA A [place] Insurance:[facility] LETIZIODOB: [facility] [id number] Hospital Number: Repository [id number] Date:5309-61-96KT [address] [address]AE: 02/24/2018 Tertiary NOT GIVENUNK [place] Insurance:SELF PAY [facility] Number: Effective Repository Date:2018-02-24 02/23/2018 ANISHA A Primary ANISHA A [place] [id number] Insurance:MEDICARE LETIZIODOB: [facility] [place], PART A [facility] [id number] [place] [address]Tel: Number: Repository [id number] (HP) Date:2018-02-23 02/23/2018 Secondary ANISHA A [place] Insurance:[facility] LETIZIODOB: [facility] [id number] Hospital Number: Repository [id number] Date:6282-52-30YN [address] [address]AT: 02/23/2018 Tertiary NOT GIVENUNK [place] Insurance:SELF PAY [facility] Number: Effective Repository Date:2018-02-23 10/07/2017 ANISHA A Primary ANISHA A [place] [id number] Insurance:MEDICARE [facility]IZ[facility]ODOB[facility] [place] PART A [facility] [id number]-Canonc[facility] [address]Bwo: Number: Repository [id number] () Date:2017-10-07 10/07/2017 Secondary ANISHA A [place] Insurance:[facility] LETIZIODOB: [facility] [id number] Hospital Number: Repository [id number] Date:1526-23-18SB [address] [address]YU: 10/07/2017 Tertiary NOT GIVENUNK [place] Insurance:SELF PAY [facility] Number: Effective Repository Date:2017-10-07 10/07/2017 ANISHA A Primary ANISHA A [place] [id number] Insurance:MEDICARE LETIZIODOB: [facility] [place], PART A [facility] [id number]-Canonc[facility] [address]Hmz: Number: Repository [id number] () Date:2017-10-07 10/07/2017 Secondary ANISHA A [place] Insurance:[facility] LETIZIODOB: [facility] [id number] Hospital Number: Repository [id number] Date:4344-66-65GU [address] [address]DA: 10/07/2017 Tertiary NOT GIVENUNK [place] Insurance:SELF PAY [facility] Number: Effective Repository Date:2017-10-07 10/07/2017 ANISHA A Primary ANISHA A [place] [id number] Insurance:MEDICARE LETIZIODOB: [facility] [place], PART A [facility] [id number]-Canonc[facility] [address]Dyc: Number: Repository [id number] (HP) Date:2017-10-07 10/07/2017 Secondary ANISHA A [place] Insurance:[facility] LETIZIODOB: [facility] [id number] Hospital Number: Repository [id number] Date:[id number] [address]RT: 10/07/2017 Tertiary NOT GIVENUNK [place] Insurance:SELF PAY [facility] Number: Effective Repository Date:2017-10-07 10/07/2017 ANISHA A Primary ANISHA A [place] [id number] Insurance:MEDICARE [facility]IZ[facility]ODOB[facility] [id number]-Canon[facility] [address]Amk: Number: Repository [id number] () Date:2017-10-07 10/07/2017 Secondary ANISHA A [place] Insurance:[facility] LETIZIODOB: [facility] [id number] Hospital Number: Repository [id number] Date:[id number] [address]PQ: 10/07/2017 Tertiary NOT GIVENUNK [place] Insurance:SELF PAY [facility] Number: Effective Repository Date:2017-10-07 08/18/2017 ANISHA A Primary ANISHA A [place] [id number] Insurance:MEDICARE LETIZIODOB: [facility] [place], PART A [facility] [id number]-Canon[facility] [address]Hrd: Number: Repository [id number] (HP) Date:2017-08-18 08/18/2017 Secondary ANISHA A [place] Insurance:[facility] LETIZIODOB: [facility] [id number] Hospital Number: Repository [id number] Date:[id number] [address]MS: 08/18/2017 Tertiary NOT GIVENUNK [place] Insurance:SELF PAY [facility] Number: Effective Repository Date:2017-08-18 08/18/2017 ANISHA A Primary ANISHA A [place] [id number] Insurance:MEDICARE LETIZIODOB: [facility] [place], PART A [facility] [id number]-Canoncito-[facility] [address]Mbk: Number: Repository [id number] (HP) Date:2017-08-18 08/18/2017 Secondary ANISHA A [place] Insurance:[facility] LETIZIODOB: [facility] [id number] Hospital Number: Repository [id number] Date:1128-17-56NW [address] [address]EY: 08/18/2017 Tertiary NOT GIVENUNK [place] Insurance:SELF PAY [facility] Number: Effective Repository Date:2017-08-18 08/18/2017 ANISHA A Primary ANISHA A [place] [id number] Insurance:MEDICARE LETIZIODOB: [facility] [place], PART A [facility] [id number] [place] [id number]: Number: Repository [id number] () Date:2017-08-18 08/18/2017 Secondary ANISHA A [place] Insurance:[facility] LETIZIODOB: [facility] [id number] Hospital Number: Repository [id number] Date:3393-05-41MT[address] [address]GE: 08/18/2017 Tertiary NOT GIVENUNK [place] Insurance:SELF PAY [facility] Number: Effective Repository Date:2017-08-18 08/15/2017 ANISHA A Primary ANISHA A [place] [id number] Insurance:MEDICARE LETIZIODOB: [facility] [place], PART A [facility] [id number] [place] [address]Tel: Number: Repository [id number] () Date:2017-08-12 08/15/2017 Secondary ANISHA A [place] Insurance:[facility] LETIZIODOB: [facility] [id number] Hospital Number: Repository [id number] Date:8636-38-89[address] [place] [address]OX: 08/15/2017 Tertiary NOT GIVENUNK [place] Insurance:SELF PAY [facility] Hospital Number: Effective Repository Date:2017-08-12 04/02/2017 ANISHA A Primary ANISHA A [place] [id number] Insurance:PROGRESSIVE LETIZIODOB: [facility] ALEXAOUSMANE, Policy Number: [id number]-Canoncito-Lag[facility] Service [facility] [address]Pzk: [id number] Repository Date:4054-95-96tl box () [place] [address]GL: [phone] OPT 2 04/02/2017 Secondary ANISHA A [place] Insurance:MEDICARE LETIZIODOB: Community PART A [facility] [id number] Hospital Number: Repository [id number] Date:2017-04-02 04/02/2017 Tertiary ANISHA A [place] Insurance:[facility] LETIZIODOB: [facility] [id number] Hospital Number: Repository [id number] Date:6233-05-07[address] [place] [address]ZC: 04/02/2017 Tertiary NOT GIVENUNK [place] Insurance:SELF PAY [facility] Hospital Number: Effective Repository Date:2017-04-02 04/02/2017 ANISHA A Primary ANISHA A [place] [id number] Insurance:MEDICARE LETIZIODOB: [facility] [id number]-Canonc[facility] [address]Qth: Number: Repository [id number] () Date:2017-03-03 04/02/2017 Secondary ANISHA A [place] Insurance:[facility] LETIZIODOB: [facility] [id number] Hospital Number: Repository [id number] Date:6364-12-23WZ [address] [address]YA: 04/02/2017 Tertiary NOT GIVENUNK [place] Insurance:SELF PAY [facility] Hospital Number: Effective Repository Date:2017-03-03 04/01/2017 Anisha A Primary Anisha A [place] [id number] Insurance:MEDICARE LetizioDOB: [facility] [place], PART A [facility] [id number]-Canonc[facility] [address]Qxa: Number: Repository [id number] () Date:2017-04-01 04/01/2017 Secondary Anisha A [place] Insurance:[facility] LetizioDOB: [facility] [id number] Hospital Number: Repository [id number] Date:7808-95-69GP[address] [address]QN: 04/01/2017 Tertiary NOT GIVENUNK [place] Insurance:SELF PAY [facility] Number: Effective Repository Date:2017-04-01
== END 2018-02-26 10:20 | disposition home or self-care (01) | DRG 443 ==
LOC: ED 10:17 → MS3 12:04
PROVIDERS: Admitting Provider Family Medicine; Emergency Provider Emergency Medicine; Family Provider Internal Medicine; PCP Internal Medicine; Visit Provider Family Medicine
DX: K72.00 Acute and subacute hepatic failure without coma (principal); I25.10 Atherosclerotic heart disease of native coronary artery without angina pectoris; E78.5 Hyperlipidemia, unspecified; I10 Essential (primary) hypertension; G89.4 Chronic pain syndrome; F32.9 Major depressive disorder, single episode, unspecified; F41.9 Anxiety disorder, unspecified; Z23 Encounter for immunization; I25.2 Old myocardial infarction; Z79.02 Long term (current) use of antithrombotics/antiplatelets; Z87.891 Personal history of nicotine dependence; Z79.899 Other long term (current) drug therapy; K74.60 Unspecified cirrhosis of liver; Z86.19 Personal history of other infectious and parasitic diseases
CPT/HCPCS: 36415; 80048; 80053; 81001; 82140; 83690; 85025; 85610; 97161; 99282; J7030; 90686; A4216

== ENCOUNTER 2018-06-20 15:26 | Emergency (ER) | payer MEDICARE, MEDICAID, SELFPAY ==
[2018-02-24 12:46] VITALS: BMI 26.1
[2018-06-20 15:26] VITALS: BP 156/82; PULSE 70; RESP 16; TEMP 36.6; O2SAT 95; BMI 23.4
--- NOTE | 2018-06-20 15:56 | ED.VIS.GEN ---
History of Present Illness Chief Complaint: Abn Labs Informant: Patient, Significant Other Onset: Today Context: Sudden Onset Timing: Continuous Quality: I do not feel my normal self, ammonia level high Location: Generalized Current Severity: Mild Maximum Severity: Moderate Worsened by: Noncompliance with lactulose according to significant other Relieved by: Nothing Associated Symptoms: Not normal self Narrative: Patient is a 63-year-old woman with history of cirrhosis secondary to hepatitis C and history of hepatic encephalopathy who has been noncompliant with lactulose. Her speech is slightly slurred. She states this is secondary to lactulose. She states she does not smoke or drink. She is a former smoker. She denies change in color of urine or stool. She denies fever, chills night sweats. She denies headache, visual, ocular auditory symptoms. She does report slurred speech. She denies difficulty swallowing or difficulty breathing. She denies cardiac respiratory symptoms. She denies abdominal pain. She denies vomiting, diarrhea, black or maroon stool. She denies dysuria, frequency, urgency or hematuria. She denies bruising easily. Prior similar symptoms: Yes Recent Illness/Hospitalization: No - Past Medical History (1) Encephalopathy acute Status: Acute (2) Anxiety and depression Status: Chronic (3) Atherosclerosis of [place] coronary artery of [place] heart without angina pectoris Status: Chronic (4) Chronic pain syndrome Status: Chronic (5) Cirrhosis Status: Chronic (6) HLD (hyperlipidemia) Status: Chronic (7) HTN (hypertension) Status: Chronic (8) Hepatitis C Status: Chronic (9) History of non-ST elevation myocardial infarction (NSTEMI) Status: Chronic (10) Tobacco use Status: Chronic Past Medical History - Allergies and Home Meds Allergies/Adverse Reactions: Allergies No Known Allergies Allergy (Verified 06/20/18 15:28) Primary Care Physician: Kwabena Bach Jr., MD [NON-STAFF] - Prior records reviewed: Yes Surgical History: cholecystectomy, hysterectomy, tonsillectomy, - - Cervical neck surgery, oral surgery, tonsillectomy, cholecystectomy, hysterectomy, right salpingectomy secondary to tubal . Lives: Spouse/ Significant Other Smoking Status: Former smoker Alcohol: None Drugs: None - Family History Maternal Family History: Family History (Last Reviewed 04/02/17 @ 11:17 by Navin Argueta MD) Father Heart disease Family History: Reports: Heart Disease, Hypertension Paternal Family History: Family History (Last Reviewed 04/02/17 @ 11:17 by Navin Argueta MD) Father Heart disease Family History: Reports: Heart Disease, Hypertension Review of Systems General: Reports: Malaise. Denies: Chills, Fever, Subjective, Sweats, Weight loss Eyes: Denies: Visual changes - bilaterally, Blurred Vision - bilaterally, Diplopia ENT: Denies: Rhinorrhea, Sore throat Cardiovascular: Denies: Chest pain, Palpitations Respiratory: Denies: Dyspnea, Cough, Dyspnea on exertion Gastrointestinal: Denies: Abdominal pain, Nausea, Vomiting, Diarrhea, Constipation, Melena, Hematochezia Genitourinary: Denies: Dysuria, Hematuria, Frequency Musculoskeletal: Denies: Back pain, Extremity Pain Skin: Denies: Rash, Wounds Neurological: Reports: Weakness. Denies: Headache, Parasthesia, Numbness Psych: Reports: Depression, Anxiety Hematologic: Denies: Easy bruising, Easy bleeding Allergy: Denies: Uticaria Physical Exam Vital Signs/Narrative: Vital Signs Temp Pulse Resp BP Pulse Ox 06/20/18 15:26 98 F 70 16 156/82 H 95 Inital Vital Signs reviewed: Yes General: Well nourished, Well developed, No Acute Distress Head: Normocephalic, Atraumatic Eyes: Perrl, EOMI. Negative for: Scleral icterus ENT: Moist mucous membranes, No rhinorrhea, TM's clear Neck: Supple, Nontender, No lymphadenopathy, No JVD Cardiovascular: Regular rate, Regular rhythm, No murmurs Respiratory: No distress, CTA bilaterally, Chest nontender Abdomen: Soft, Nontender, Nondistended, No masses, Hypoactive bowel sounds. Negative for: Hepatomegaly, Splenomegaly, Mass, Pulsatile mass Back: Nontender, Normal Inspection. Negative for: CVA tenderness Extremities: Nontender, No edema Skin: No rash, Pallor. Negative for: Cyanosis, Jaundice Neurological: Alert, Oriented x3, Cranial nerves II-XII grossly intact, Normal Strength, Normal Sensation, Normal DTR, - - no asterictus Psychological: Depressed, Tearful Diagnostic/Tx/Re-eval Laboratory Results 06/20/18 06/20/18 06/20/18 16:00 16:00 16:00 WBC 3.1 L RBC 4.49 Hgb 13.5 Hct 40.8 MCV 90.9 MCH 30.1 MCHC 33.1 RDW 14.0 RDW Differential 46.5 H Plt Count 75 L MPV 11.5 Immature Gran % (Auto) 0.000 Neut % (Auto) 59.2 Lymph % (Auto) 24.8 [place] % (Auto) 12.1 H Eos % (Auto) 2.9 Baso % (Auto) 1.0 Absolute Neuts (auto) 1.9 L Absolute Lymphs (auto) 0.78 L Total Counted Not Reportable Sodium 141 Potassium 4.0 Chloride 109 H Carbon Dioxide 27.0 Anion Gap 5 BUN 14 Creatinine 0.82 Estim Creat Clear Calc 51.10 Est GFR (MDRD) Af Amer 91 Est GFR (MDRD) Non-Af 75 BUN/Creatinine Ratio 17.1 Glucose 143 H Calcium 8.2 L Total Bilirubin 0.80 AST 47 H ALT 31 Alkaline Phosphatase 93 Ammonia Total Protein 7.0 Albumin 3.0 L Globulin 4.0 Albumin/Globulin Ratio 0.8 L Urine Color Yellow Urine Clarity Sl. Cloudy Urine pH 6.0 Ur Specific [place] 1.020 Urine Protein Negative Urine Glucose (UA) Normal Urine Ketones Negative Urine Occult Blood Negative Urine Nitrite Negative Urine Bilirubin Negative Urine Urobilinogen 1 H Ur Leukocyte Esterase 25 H 06/20/18 16:59 WBC RBC Hgb Hct MCV MCH MCHC RDW RDW Differential Plt Count MPV Immature Gran % (Auto) Neut % (Auto) Lymph % (Auto) [place] % (Auto) Eos % (Auto) Baso % (Auto) Absolute Neuts (auto) Absolute Lymphs (auto) Total Counted Sodium Potassium Chloride Carbon Dioxide Anion Gap BUN Creatinine Estim Creat Clear Calc Est GFR (MDRD) Af Amer Est GFR (MDRD) Non-Af BUN/Creatinine Ratio Glucose Calcium Total Bilirubin AST ALT Alkaline Phosphatase Ammonia 124.0 H Total Protein Albumin Globulin Albumin/Globulin Ratio Urine Color Urine Clarity Urine pH Ur Specific [place] Urine Protein Urine Glucose (UA) Urine Ketones Urine Occult Blood Urine Nitrite Urine Bilirubin Urine Urobilinogen Ur Leukocyte Esterase - Medical Decision Making Will obtain conference of metabolic panel, CBC and ammonia level to assess patient's symptoms as well as urine to rule out infection. Differential includes generalized weakness, anemia, hepatic encephalopathy, UTI. 24. Patient has mild hepatic encephalopathy secondary to noncompliance. She received dose of lactulose. She was given a prescription. Significant other states he would make sure she takes her medicine and she states she would. She understands if she does not she will need to be admitted to the hospital. ED Disposition - Plan for ED Patient: Disposition: Home or Assisted Living Diagnosis: Hepatic encephalopathy Instructions: Lactulose Oral solution [Encephalopathy] Prescriptions: Lactulose 10 gm PO BID #240 solution Referrals: Kwabena Bach Jr., MD [NON-STAFF] -
[2018-06-20 15:59] VITALS: RESP 16; TEMP 36.7; O2SAT 97
[2018-06-20 16:09] LABS: Absolute Lymphocyte Count 0.78 X10^3/ul (0.83-4.51); Absolute Neutrophil Count 1.9 X10^3/uL (2.0-7.7); Basophil# 0.03 X10^3/uL; Eosinophil# 0.09 X10^3/uL; Eosinophils% 2.9 % (0-5); Hematocrit 40.8 % (37-47); Hemoglobin 13.5 g/dl (12.0-15.0); Lymphocyte # 0.78 X10^3/ul (4.0); Lymphocyte % 24.8 % (19-41); Mean Corp Hgb Conc 33.1 g/gl (32-36); Mean Corpuscular Hgb 30.1 pg (27.0-32.0); Mean Corpuscular Volume 90.9 fL (81-99); Mean Platelet Vol. 11.5 fl (6.2-12.0); Monocyte# 0.38 X10^3/uL; Monocyte% 12.1 % (0-10); Neutrophil # 1.86 X10^3/uL (2.7-7.7); Neutrophil % 59.2 % (47-70); POSITIVE COUNT NO; POSITIVE DIFFERENTIAL NO; POSITIVE MORPHOLOGY NO; Platelet Count 75 K/mm3 (150-450); RBC Distribution Width SD 46.5 fl (35.1-43.9); Red Blood Count 4.49 M/mm3 (4.2-5.4); White Blood Count 3.1 K/mm3 (4.4-11.0)
[2018-06-20 16:13] LABS: Color, Urine Yellow (Yellow); Glucose, Dipstick Normal (Normal); Ketone-Dipstick Negative (Negative); Leukocyte Esterase-Dipstick 25 /ul (Negative); Nitrite-Dipstick Negative (Negative); Occult Blood-Urine Negative /ul (Negative); Protein-Dipstick Negative (Negative); Urine Bilirubin Dipstick Negative (Negative); Urine Clarity Sl. Cloudy (Clear); Urine Urobilinogen 1 mg/dl (Normal)
[2018-06-20 16:40] LABS: ALB/GLOB Ratio 0.8 RATIO (0.9-2.4); AST(SGOT) 47 U/L (15-37); Alanine Aminotransfer ALT/SGPT 31 U/L (13-56); Alkaline Phosphatase 93 U/L (45-117); Anion Gap 5 (5-15); BUN 14 mg/dL (7-18); BUN/Creat Ratio 17.1 RATIO (10-20); Calcium,Total 8.2 mg/dL (8.5-10.1); Chloride 109 mmol/L (98-107); Creatinine, Serum 0.82 mg/dL (0.55-1.02); EST Glomerular Filtration Rate 75 mL/min (>60); Est Glom Filt Rate - Afr Amer 91 mL/min (>60); Glucose 143 mg/dL (74-106); Sodium Level 141 mmol/L (136-145)
[2018-06-20] MEDS: Ibuprofen 600 MG Tablet PO (17:07)
[2018-06-20] MEDS: Lactulose 20 GM/30 ML UDC PO (18:19)
[2018-06-20 18:21] VITALS: PULSE 76; RESP 16; O2SAT 97
== END 2018-06-20 18:21 | disposition home or self-care (01) ==
PROVIDERS: Emergency Provider Emergency Medicine
DX: K72.90 Hepatic failure, unspecified without coma (principal); K74.60 Unspecified cirrhosis of liver; B18.2 Chronic viral hepatitis C; F32.9 Major depressive disorder, single episode, unspecified; F41.9 Anxiety disorder, unspecified; I25.10 Atherosclerotic heart disease of native coronary artery without angina pectoris; I25.2 Old myocardial infarction; I10 Essential (primary) hypertension; E78.5 Hyperlipidemia, unspecified; Z91.14 Patient's other noncompliance with medication regimen; Z79.01 Long term (current) use of anticoagulants; Z79.899 Other long term (current) drug therapy; Z87.891 Personal history of nicotine dependence
CPT/HCPCS: 80053; 81002; 82140; 85025; 99284; A4216

== ENCOUNTER → 2019-02-26 09:22 | Outpatient (CLI) | payer MEDICARE, SELFPAY | DX: R69 Illness, unspecified (principal) ==

== ENCOUNTER 2019-03-17 15:34 | Inpatient (IN) | payer MEDICARE, MEDICAID, SELFPAY ==
[2019-03-17 15:36] VITALS: BP 110/60; PULSE 63; RESP 14; TEMP 37.3; O2SAT 97; BMI 28.0
--- NOTE | 2019-03-17 15:44 | EKG12_ITS ---
Test Reason : Blood Pressure : / mmHG Vent. Rate : 055 BPM Atrial Rate : 055 BPM P-R Int : 132 ms QRS Dur : 096 ms QT Int : 446 ms P-R-T Axes : 035 053 061 degrees QTc Int : 426 ms Sinus bradycardia Minimal voltage criteria for LVH, may be normal variant Borderline ECG Confirmed by LJ MANCINI, SUSY ([id number]), purchasing expeditor CECILY LENZ ([id number]) on 03/22/2019 12:48:57 PM Referred By: WALDO Confirmed By:CONNIE CALHOUN MD
--- NOTE | 2019-03-17 15:44 | CT_ITS ---
STUDY: CT BRAIN WITHOUT CONTRAST REASON FOR EXAM: Female, 64 years old. DIZZY,WEAKNESS,CONFUSION X4 DAYS HX-ELEVATED AMMONIA RADIATION DOSAGE (If Supplied By Facility): CTDIvol = ( 44.99 ) mGy, DLP = ( 728.62 ) mGycm TECHNIQUE: Transaxial CT imaging of the brain was performed without administration of intravenous contrast material. Individualized dose optimization techniques were used for this CT. COMPARISON: CT Brain Aug 18 2017 12:52pm FINDINGS: Normal soft tissue structures. Normal calvarium. Normal size ventricles and extra-axial spaces for the patient''s age. Normal white matter tracts of the cerebral hemispheres. Normal basal ganglia and thalami. Normal brainstem. Normal cerebellum. There is no intracranial hemorrhage. There are no findings of an acute ischemic infarction. Normal visualized paranasal sinuses. CT/Brain/Head without Contrast IMPRESSION: No acute intracranial hemorrhage or mass effect. Electronically Signed: Eder Breen MD (Brooks) at 17:14 EST , Service support ,
--- NOTE | 2019-03-17 15:48 | ED.DCSUM_ITS ---
- ER Visit Summary Date of Service: 03/17/19 Chief Complaint: Dizziness, weakness, confusion History of Present Illness: The patient is a 64 F presenting with dizziness, weakness, confusion. She states the symptoms started 4 days ago and have been progressively worsening. She has unsteady gait which has caused her to fall twice. She denies hitting her head or losing consciousness. She is on Plavix and states she bruises easily. Denies injury with the fall. states she has been confused. She typically gets her ammonia level checked every 6 weeks and has not had it checked for some time. She has not been taking her lactulose. Her states she stopped taking it because she believed she was cured. She admits to occasional marijuana use. She denies fever. She has URI symptoms with rhinorrhea. Denies other complaints. Physical Examination: Vitals are stable. Patient is afebrile. Alert no acute distress. HEENT exam is unremarkable. Neck is supple. No meningismus Lungs are clear and equal bilaterally. Heart is regular rate and rhythm. Abdomen is soft nontender nondistended. Extremities are unremarkable. Skin is warm and dry. No focal neurologic deficit. Remainder of exam is unremarkable. Emergency Department Course and Treatment: Patient was given IV fluids. Chest x-ray is stable, nonacute portable x-ray examination of the chest. CT head shows no acute intracranial hemorrhage or mass effect. CBC shows white count 3.5, platelet 83. BMP unremarkable. Troponin is negative. Ammonia level 105. Will discuss with the hospitalist for admission. Disposition: Admission Impression: Hepatic encephalopathy This note was generated with [employer] dictation software. It may contain incorrect words, spelling, and punctuation that were not noted in review of the chart prior to signing ED Disposition - Plan for ED Patient: Referrals: [facility],Out of [NON-STAFF] -
--- NOTE | 2019-03-17 16:00 | RAD_ITS ---
STUDY: X-RAY CHEST REASON FOR EXAM: Female, 64 years old. SOB, general illness TECHNIQUE: Single AP portable view of the chest. COMPARISON: CR Chest Apr 02 2017 2:28pm FINDINGS: The lungs are clear and expanded. There is no demonstrated pleural abnormality. Normal size heart. Normal mediastinum and tayler. Normal visualized pulmonary arteries. Normal visualized aortic arch and descending thoracic aorta. There is a dextroscoliosis of the thoracic spine. Normal visualized ribs, clavicles, and shoulders. There is no demonstrated abnormality of the visualized soft tissue structures of the upper abdomen. RAD/Chest 1 View (Portable) IMPRESSION: Stable, nonacute portable x-ray examination of the chest. Electronically Signed: Eder Breen MD ([place]) at 16:15 EST , Service support ,
[2019-03-17] MEDS: 0.9% Normal Saline 1,000 ML 1000 ML IV (16:02)
[2019-03-17 16:29] LABS: Absolute Lymphocyte Count 1.01 X10^3/uL (0.83-4.51); Absolute Neutrophil Count 1.9 X10^3/uL (2.0-7.7); Basophil# 0.04 X10^3/uL; Basophil% 1.1 % (0-1); Eosinophil# 0.14 X10^3/uL; Hematocrit 38.1 % (37-47); Hemoglobin 12.1 g/dL (12.0-15.0); Lymphocyte # 1.01 X10^3/ul (4.0); Lymphocyte % 28.8 % (19-41); Mean Corp Hgb Conc 31.8 g/dL (32-36); Mean Corpuscular Hgb 30.3 pg (27.0-32.0); Mean Corpuscular Volume 95.5 fL (81-99); Mean Platelet Vol. 12.4 fl (6.2-12.0); Monocyte# 0.45 X10^3/uL; Monocyte% 12.8 % (0-10); NRBC Flagged by Analyzer 0 % (0-5); Neutrophil # 1.86 X10^3/uL (2.7-7.7); POSITIVE COUNT YES; POSITIVE MORPHOLOGY YES; Platelet Count 83 K/mm3 (150-450); RBC Distribution Width CV 14.3 % (11.6-14.6); RBC Distribution Width SD 49.6 fl (35.1-43.9); Red Blood Count 3.99 M/mm3 (4.2-5.4); White Blood Count 3.5 K/mm3 (4.4-11.0)
[2019-03-17 16:47] LABS: Differential Indicated SCAN CRITERIA MET
[2019-03-17 16:50] LABS: Mucous, Urine 0 SEEN /hpf (<or=2+); Red Blood Cells-Urine 0 SEEN /hpf (0-5)
[2019-03-17 16:58] LABS: Color, Urine Yellow (Yellow); Glucose, Dipstick Normal (Normal); Ketone-Dipstick 5 mg/dl (Negative); Leukocyte Esterase-Dipstick 500 /ul (Negative); Nitrite-Dipstick Negative (Negative); Occult Blood-Urine Negative /ul (Negative); Protein-Dipstick 15 mg/dl (Negative); Specific Gravity, Urine 1.015 (1.002-1.030); Urine Bilirubin Dipstick Negative (Negative); Urine Clarity Sl. Cloudy (Clear); Urine Urobilinogen 4 mg/dl (Normal)
[2019-03-17 17:01] LABS: Platelet Estimate MOD DEC (ADEQ); Red Cell Morphology NORM C+C NORMAL (NORM C&C)
[2019-03-17 17:21] LABS: Squamous Epithelial Cells - UA 0-5 SEEN /hpf (5-10); Transitional Epithelial - Ur 0-5 SEEN /hpf (0-5); White Blood Cells 5-10 SEEN /hpf (0-5)
[2019-03-17 17:22] LABS: Bacteria 3+ /hpf (None Seen)
[2019-03-17 17:47] VITALS: BP 108/61; PULSE 57; RESP 14; O2SAT 96
[2019-03-17 17:47] LABS: ALB/GLOB Ratio 0.8 RATIO (0.9-2.4); AST(SGOT) 31 U/L (15-37); Alanine Aminotransfer ALT/SGPT 23 U/L (13-56); Alkaline Phosphatase 92 U/L (45-117); Anion Gap 4 (5-15); BUN 15 mg/dL (7-18); BUN/Creat Ratio 14.9 RATIO (10-20); Calcium,Total 7.9 mg/dL (8.5-10.1); Chloride 107 mmol/L (98-107); Creatinine, Serum 1.01 mg/dL (0.55-1.02); EST Glomerular Filtration Rate 59 mL/min (>60); Est Glom Filt Rate - Afr Amer 71 mL/min (>60); Estimated Creatinine Clearance 56.79 ml/min; Globulin 3.7 g/dL (2.2-4.2); Glucose 104 mg/dL (74-106); Potassium 3.8 mmol/L (3.5-5.1); Protein, Total 6.7 g/dL (6.4-8.2); Sodium Level 140 mmol/L (136-145)
[2019-03-17 18:02] VITALS: BP 111/79; PULSE 57; RESP 14; O2SAT 97
--- NOTE | 2019-03-17 18:23 | PCM.HP.STD ---
Problem List (1) Atherosclerosis of [place] coronary artery of [place] heart without angina pectoris Status: Chronic (2) Cirrhosis Status: Chronic Qualifiers: (3) Hepatitis C Status: Chronic Qualifiers: (4) History of non-ST elevation myocardial infarction (NSTEMI) Status: Chronic (5) HTN (hypertension) Status: Chronic Qualifiers: (6) HLD (hyperlipidemia) Status: Chronic Qualifiers: (7) Tobacco use Status: Chronic (8) Chronic pain syndrome Status: Chronic (9) Anxiety and depression Status: Chronic (10) Hyperammonemia Status: Acute (11) Abnormal electrocardiogram [ECG] [EKG] Status: Chronic (12) Non-ST elevation (NSTEMI) myocardial infarction Status: Chronic (13) Hepatic encephalopathy Status: Acute History of Present Illness Date of Admission: 03/17/19 Chief Complaint: Confusion for about 4 days The patient is a 64 year old F with history of hepatitis C decompensated cirrhosis with hepatic encephalopathy, thrombocytopenia came to ER with confusion, disorientation and somnolence for about 4 days. Patient also had fall 2 times recently last one was yesterday she hurt her left arm and has bruising upper arm. Patient is hardly able to keep her eyes open and her speech is slurred. She denies any fever, chills, lower urinary tract symptoms, headache or abdominal pain. Patient recently had EGD about 2 weeks ago and was told he has hiatus hernia and a small esophageal varices no documentation available. Patient denies history of ascites or required paracentesis. Patient was last admitted in 01/2018 for hepatic encephalopathy. Patient with right upper quadrant ultrasound in December 2016 reported as heterogenous echogenicity of liver status post cholecystectomy. No demonstrated mass lesion. Direction of portal flow hepatopetal. No recent abdominal imaging. [] Past Medical History Past Medical History (Chronic Problems): Chronic Problems (Last Updated 04/02/18 @ 08:48 by STEFFEN DelacruzC) Atherosclerosis of [place] coronary artery of [place] heart without angina pectoris (Chronic) Cirrhosis (Chronic) Hepatitis C (Chronic) History of non-ST elevation myocardial infarction (NSTEMI) (Chronic) HTN (hypertension) (Chronic) HLD (hyperlipidemia) (Chronic) Tobacco use (Chronic) Chronic pain syndrome (Chronic) Anxiety and depression (Chronic) Abnormal electrocardiogram [ECG] [EKG] (Chronic) Non-ST elevation (NSTEMI) myocardial infarction (Chronic ~01/27/17) Medical History: Medical History (Last Updated 04/02/18 @ 08:48 by Andriy Cullen NP-C) Atherosclerosis of [place] coronary artery of [place] heart without angina pectoris (Chronic) I25.10 Cirrhosis (Chronic) K74.60 Hepatitis C (Chronic) B19.20 History of non-ST elevation myocardial infarction (NSTEMI) (Chronic) I25.2 HTN (hypertension) (Chronic) I10 HLD (hyperlipidemia) (Chronic) E78.5 Tobacco use (Chronic) Z72.0 Chronic pain syndrome (Chronic) G89.4 Anxiety and depression (Chronic) F41.9, F32.9 Hyperammonemia (Acute) E72.20 Encephalopathy acute (Acute) G93.40 Abnormal electrocardiogram [ECG] [EKG] (Chronic) R94.31 Non-ST elevation (NSTEMI) myocardial infarction (Chronic) Onset Date: ~01/27/17 I21.4 Cervical neck surgery Chronic back pain M54.9, G89.29 Chronic narcotic use F11.90 Depression F32.9 Toxic encephalopathy Onset Date: ~01/27/17 G92 Allergies No Known Allergies Allergy (Verified 03/17/19 15:39) Home Medications: Ambulatory Orders Medication Instructions Recorded Aripiprazole [Abilify] 5 mg PO DAILY 02/05/13 Rifaximin [Xifaxan] 550 mg PO BID 01/24/17 Atorvastatin Calcium [Lipitor] 20 mg PO QHS 08/18/17 Fluoxetine [Prozac] 40 mg PO DAILY 08/18/17 Topiramate [Topamax] 25 mg PO DAILY 08/18/17 ALPRAZolam [Xanax] 0.5 mg PO BID PRN PRN 03/17/19 Ibuprofen 400 mg PO DAILY 03/17/19 Vitamin E 400 unit PO QHS 03/17/19 Surgical History: Surgical History (Last Reviewed 04/02/17 @ 11:17 by Navin Argueta MD) History of left heart catheterization Z98.890 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 [employer] SUPERINTENDENT history Smoking Status: Current every day smoker Tobacco Use: Cigarettes - *Family History Maternal Family History: Family History (Last Reviewed 04/02/17 @ 11:17 by Navin Argueta MD) Father Heart disease History Items: Heart Disease, Hypertension Paternal Family History: Family History (Last Reviewed 04/02/17 @ 11:17 by Navin Argueta MD) Father Heart disease History Items: Heart Disease, Hypertension Review of Systems Constitutional: Denies: Chills, Fever, Weight Change HEENT: Denies: Head Aches, Sinus Congestion, Sinus Drainage Cardiovascular: Denies: Chest Pain, Palpitations Respiratory: Denies: Cough, Shortness of breath at rest, Sputum production Gastrointestinal: Denies: Abdominal Pain, Nausea, Vomiting Genitourinary: Denies: Dysuria Musculoskeletal: Denies: Joint Pain, Joint Tenderness Skin: Denies: Rash, Wounds Neurological: Reports: Balance problems, Slurred speech, Confusion, Incoordination. Denies: Focal weakness, Numbness, Tingling Psychiatric: Denies: Anxiety, Depression, Homicidal Ideations, Suicidal Ideations Hematologic/ Lymphatic: Denies: Easy Bruising, Easy Bleeding VTE Information - Inpt Only VTE Present on Admission: No VTE Mechan Device Prophylaxis: SCD's VTE Pharm Prophylaxis ordered?: No Reason prophylaxis not ordered:: Medical Contraindication - Coagulopathy and thrombocytopenia Patient Problems: Active and Suspected Problems (Last Updated 04/02/18 @ 08:48 by Andriy Cullen OFFICE AIDE-C) Hepatic encephalopathy (Acute) - Physical Exam Vitals/I&O's: Vital Signs Temp Pulse Resp BP Pulse Ox 99.1 F 57 L 14 108/61 96 03/17/19 15:36 03/17/19 17:47 03/17/19 17:47 03/17/19 17:47 03/17/19 17:47 Oxygen Delivery Method Room Air Weight: 139 lb 1.787 oz Body Mass Index (BMI) 28.0 Finger Stick Blood Glucose 123 Intake and Output for Last 24 Hours 03/15/19 03/16/19 03/17/19 23:59 23:59 23:59 Intake Total 1000 / 1000 Balance 1000 / 1000 General: Confused, Disoriented, Lethargic HEENT: Atraumatic, PERRLA, EOMI, Normocephalic Oral: No Gingival or Mucosal Lesions/ Ulcerations, Dry Mucosa Neck: Supple, No JVD, Negative Carotid Bruits Lungs: Clear to auscultation, No rhonchi, No wheeze, No rales, Diminished - Air entry diminished in bilateral lung bases. Cardiovascular: Regular rate, Regular Rhythm, Normal S1, Normal S2, No murmurs Abdomen: Bowel Sounds Present, Soft, Non Tender, Non-Distended, - - No clinically palpable ascites/fluid thrill present Extremities: No edema, Capillary Refill Less than 3 Seconds Skin: No rashes, No breakdown Musculoskeletal: No Tenderness to Palpation of Joints or Extremities, Arthritic Changes Neurological: Cranial nerves II-XII grossly intact, Unsteady Gait Laboratory Results 03/17/19 16:03: Sodium 140, Potassium 3.8, Chloride 107, Carbon Dioxide 29.0, Anion Gap 4 L, BUN 15, Creatinine 1.01, Estim Creat Clear Calc 56.79, Est GFR (MDRD) Af Amer 71, Est GFR (MDRD) Non-Af 59 L, BUN/Creatinine Ratio 14.9, Glucose 104, Calcium 7.9 L, Total Bilirubin 0.40, AST 31, ALT 23, Alkaline Phosphatase 92, Troponin I < 0.015, Total Protein 6.7, Albumin 3.0 L, Globulin 3.7, Albumin/Globulin Ratio 0.8 L 03/17/19 16:03: Ammonia 105.0 H 03/17/19 16:15: WBC 3.5 L, RBC 3.99 L, Hgb 12.1, Hct 38.1, MCV 95.5, MCH 30.3, MCHC 31.8 L, RDW Std Deviation 49.6 H, RDW Coeff of [place] 14.3, Plt Count 83 L, MPV 12.4 H, Immature Gran % (Auto) 0.300, Neut % (Auto) 53.0, Lymph % (Auto) 28.8, [place] % (Auto) 12.8 H, Eos % (Auto) 4.0, Baso % (Auto) 1.1 H, Absolute Neuts (auto) 1.9 L, Absolute Lymphs (auto) 1.01, Nucleated RBC % 0, Platelet Estimate MOD DEC, RBC Morphology NORM C+C 03/17/19 16:45: Urine Color Yellow, Urine Clarity Sl. Cloudy, Urine pH 6.0, Ur Specific [place] 1.015, Urine Protein 15 H, Urine Glucose (UA) Normal, Urine Ketones 5 H, Urine Occult Blood Negative, Urine Nitrite Negative, Urine Bilirubin Negative, Urine Urobilinogen 4 H, Ur Leukocyte Esterase 500 H, Urine RBC 0 SEEN, Urine WBC 5-10 SEEN, Ur Squamous Epith Cells 0-5 SEEN, Ur Transition Epith Cell 0-5 SEEN, Urine Bacteria 3+, Urine Mucus 0 SEEN Assessment/Plan All Active Problems (Last Updated 04/02/18 @ 08:48 by Andriy Cullen, CALEB-C) Hepatic encephalopathy (Acute) Hyperammonemia (Acute) The patient is a 64 year old F with history of hepatitis C decompensated cirrhosis with hepatic encephalopathy, thrombocytopenia came to ER with confusion, disorientation and somnolence for about 4 days. Patient also had fall 2 times recently last one was yesterday she hurt her left arm and has bruising upper arm. Patient is hardly able to keep her eyes open and her speech is slurred. She denies any fever, chills, lower urinary tract symptoms, headache or abdominal pain. She has not been taking lactulose for 2 to 3 weeks as she thought her cirrhosis is cured. Patient recently had EGD about 2 weeks ago and was told he has hiatus hernia and a small esophageal varices no documentation available. Patient denies history of ascites or required paracentesis. Patient was last admitted in 01/2018 for hepatic encephalopathy. Patient with right upper quadrant ultrasound in December 2016 reported as heterogenous echogenicity of liver status post cholecystectomy. No demonstrated mass lesion. Direction of portal flow hepatopetal. No recent abdominal imaging. [] 1. Acute encephalopathy mainly hepatic encephalopathy/metabolic with history of chronic hepatitis C cirrhosis: Patient is being admitted on PCU. On IV fluid Ringer lactate. As per the patient she was treated with Harvoni about 3 to 4 years ago, total 12 weeks. As per patient, she has undetectable HCVRNA but positive HCV antibody. She denies liver mass. Started on lactulose and rifaximin. UA positive of LE 500, WBC 5-10 cells, urine protein 15 but nitrite negative, bacteria 3+. Urine culture ordered. Denies lower urinary tract symptoms. Right upper quadrant sonogram ordered. Patient had not been evaluated for liver transplant. Advised to the , Mr. Askew to follow-up with liver transplant center after she is stable and discharged. 2. Coronary artery disease: On medical management. As per the patient's , she was told she has mild coronary artery disease and did not require PCI. 3. Hypertension, dyslipidemia, chronic nicotine use: Patient still smokes cigarette less than a pack per day. Advised to quit smoking. On Chantix. 4. Other comorbidities include anxiety and depression: Patient is on Xanax, Abilify and Prozac. Currently is hold until her encephalopathy gets better. DVT prophylaxis: Pharmacological prophylaxis complicated secondary to coagulopathy and thrombocytopenia. INR ordered. Bilateral SCDs Laboratory Results 03/17/19 16:03: Sodium 140, Potassium 3.8, Chloride 107, Carbon Dioxide 29.0, Anion Gap 4 L, BUN 15, Creatinine 1.01, Estim Creat Clear Calc 56.79, Est GFR (MDRD) Af Amer 71, Est GFR (MDRD) Non-Af 59 L, BUN/Creatinine Ratio 14.9, Glucose 104, Calcium 7.9 L, Total Bilirubin 0.40, AST 31, ALT 23, Alkaline Phosphatase 92, Troponin I < 0.015, Total Protein 6.7, Albumin 3.0 L, Globulin 3.7, Albumin/Globulin Ratio 0.8 L 03/17/19 16:03: Ammonia 105.0 H 03/17/19 16:15: WBC 3.5 L, RBC 3.99 L, Hgb 12.1, Hct 38.1, MCV 95.5, MCH 30.3, MCHC 31.8 L, RDW Std Deviation 49.6 H, RDW Coeff of [place] 14.3, Plt Count 83 L, MPV 12.4 H, Immature Gran % (Auto) 0.300, Neut % (Auto) 53.0, Lymph % (Auto) 28.8, [place] % (Auto) 12.8 H, Eos % (Auto) 4.0, Baso % (Auto) 1.1 H, Absolute Neuts (auto) 1.9 L, Absolute Lymphs (auto) 1.01, Nucleated RBC % 0, Platelet Estimate MOD DEC, RBC Morphology NORM C+C 03/17/19 16:45: Urine Color Yellow, Urine Clarity Sl. Cloudy, Urine pH 6.0, Ur Specific [place] 1.015, Urine Protein 15 H, Urine Glucose (UA) Normal, Urine Ketones 5 H, Urine Occult Blood Negative, Urine Nitrite Negative, Urine Bilirubin Negative, Urine Urobilinogen 4 H, Ur Leukocyte Esterase 500 H, Urine RBC 0 SEEN, Urine WBC 5-10 SEEN, Ur Squamous Epith Cells 0-5 SEEN, Ur Transition Epith Cell 0-5 SEEN, Urine Bacteria 3+, Urine Mucus 0 SEEN Code Visit Inpatient E&M: 48325 Init Hosp L3
[2019-03-17 18:38] VITALS: BMI 28.1
[2019-03-17 18:48] VITALS: BMI 27.6; BMI 28.1
[2019-03-17 18:59] VITALS: BP 117/66; PULSE 56; RESP 14; TEMP 36.8; O2SAT 98
[2019-03-17 19:08] VITALS: PULSE 57
[2019-03-17 20:19] VITALS: BP 102/55; PULSE 57; RESP 16; TEMP 36.7; O2SAT 94
[2019-03-17] MEDS: Lactated Ringers 1,000 ML 100 ML IV (20:32)
[2019-03-17 21:02] LABS: International Normalized Ratio 1.4; Prothrombin Time (Protime)PT. 16.9 SECONDS (11.7-14.9)
[2019-03-17] MEDS: Vitamin E 400 UNITS Capsule PO (23:00)
[2019-03-17] MEDS: Atorvastatin Calcium 20 MG Tablet PO (23:00)
[2019-03-17] MEDS: rifAXIMin 550 MG Tablet PO (23:00)
[2019-03-17] MEDS: Lactulose 20 GM/30 ML UDC 10 GM PO (23:01)
[2019-03-18] VITALS (11 sets, daily range): BP systolic 112–143; BP diastolic 54–68; PULSE 57–75; RESP 16–18; TEMP 36.5–36.9; O2SAT 95–98
[2019-03-18] MEDS: Lactulose 20 GM/30 ML UDC 10 GM PO ×3 (05:06→17:09)
--- NOTE | 2019-03-18 05:55 | US_ITS ---
STUDY: ABDOMINAL ULTRASOUND - RIGHT UPPER QUADRANT REASON FOR VISIT: Female, 64 years old cirrhosis. TECHNIQUE: Ultrasound evaluation of the right upper quadrant was performed with real-time and static dumont-scale imaging. TECHNICAL QUALITY: Adequate. COMPARISON: None. FINDINGS: Trace amount of fluid is seen in the right upper quadrant. Liver: The liver measures 15.4 cm. There is a heterogeneous echogenicity of the liver. The bile ducts are within normal limits. There is hepatic color flow. The direction of portal flow is hepatopetal. There is no demonstrated mass lesion. Gallbladder: The patient is status post cholecystectomy. Common Bile Duct (C.B.D.): The common bile duct measures 1.3 mm. Pancreas: Normal size of the head, body and tail of the pancreas. There is normal echogenicity of the pancreas. There is no demonstrated pancreatic mass or cyst. The pancreatic duct measures 5 mm. Right Kidney: Normal size of the right kidney. The right kidney measures 9.5 cm x 4.65 x 3.4 cm. There is increased echotexture of the renal cortex. The right cortex measures 1.4 cm. There is no demonstrated renal mass or cyst. There is no right hydronephrosis. US/Abdomen Limited IMPRESSION: Heterogeneous appearance of the liver. Status post cholecystectomy. Mild dilatation of the pancreatic duct. Electronically Signed: Delgado Garcia, at 15:33 EST , Service support ,
[2019-03-18] MEDS: Lactated Ringers 1,000 ML 100 ML IV (06:12)
[2019-03-18 06:47] LABS: Absolute Lymphocyte Count 0.97 X10^3/uL (0.83-4.51); Absolute Neutrophil Count 1.4 X10^3/uL (2.0-7.7); Basophil# 0.04 X10^3/uL; Basophil% 1.4 % (0-1); Eosinophil# 0.13 X10^3/uL; Eosinophils% 4.4 % (0-5); Hematocrit 35.9 % (37-47); Hemoglobin 11.5 g/dL (12.0-15.0); Lymphocyte # 0.97 X10^3/ul (4.0); Lymphocyte % 32.8 % (19-41); Mean Corpuscular Hgb 30.7 pg (27.0-32.0); Mean Corpuscular Volume 95.7 fL (81-99); Mean Platelet Vol. 11.7 fl (6.2-12.0); Monocyte# 0.42 X10^3/uL; Monocyte% 14.2 % (0-10); NRBC Flagged by Analyzer 0 % (0-5); Neutrophil # 1.39 X10^3/uL (2.7-7.7); Neutrophil % 46.9 % (47-70); POSITIVE COUNT YES; POSITIVE MORPHOLOGY YES; Platelet Count 68 K/mm3 (150-450); RBC Distribution Width CV 14.3 % (11.6-14.6); RBC Distribution Width SD 50.2 fl (35.1-43.9); Red Blood Count 3.75 M/mm3 (4.2-5.4)
[2019-03-18 06:53] LABS: Differential Indicated SCAN CRITERIA MET
[2019-03-18 06:57] LABS: International Normalized Ratio 1.5; Prothrombin Time (Protime)PT. 17.5 SECONDS (11.7-14.9)
[2019-03-18 07:16] LABS: AST(SGOT) 34 U/L (15-37); Alanine Aminotransfer ALT/SGPT 19 U/L (13-56); Albumin, Serum 2.6 g/dL (3.2-5.0); Alkaline Phosphatase 71 U/L (45-117); Anion Gap 3 (5-15); BUN 9 mg/dL (7-18); BUN/Creat Ratio 12.2 RATIO (10-20); Bilirubin, Direct 0.14 mg/dL (0.00-0.30); Calcium,Total 7.8 mg/dL (8.5-10.1); Chloride 114 mmol/L (98-107); Creatinine, Serum 0.74 mg/dL (0.55-1.02); EST Glomerular Filtration Rate 84 mL/min (>60); Est Glom Filt Rate - Afr Amer 102 mL/min (>60); Estimated Creatinine Clearance 76.41 ml/min; Globulin 3.3 g/dL (2.2-4.2); Glucose 97 mg/dL (74-106); Potassium 3.9 mmol/L (3.5-5.1); Protein, Total 5.9 g/dL (6.4-8.2); Sodium Level 144 mmol/L (136-145); Thyroid Stim Hormone (TSH) 1.69 uIU/mL (0.358-3.74)
[2019-03-18 07:24] LABS: Differential Comment SCANNED; Reactive Lymphocyte 1+
[2019-03-18] MEDS: Topiramate 25 MG Tablet PO (08:51)
[2019-03-18] MEDS: rifAXIMin 550 MG Tablet PO ×2 (08:51→22:14)
--- NOTE | 2019-03-18 11:49 | CASEMGMT ---
RN CM CREATIVE RECRUITER CM to room to meet with patient for initial transition planning/care coordination assessment. LUX CLAY introduced self and role at [facility]. Pt voices understanding and consents to assessment at this time. Pt resting in bed in no distress at this time. Pt is A/O at this time and answers all questions appropriately. Care providers, pharmacy, and demographics verified at this time. PCP: Dr Sunday Ibrahim Specialists: Dr Brooks-GI specialist in [place], [place] Preferred Pharmacy: Insurance: [facility] MCR Dual, [facility] Community Plan PINKY. Prescription Benefit: Yes Living Will/HPOA: Pt does not currently have LW/HCPOA and declines info at this time. Pt made aware that she can contact SW as an out-pt and make appt in the future if she decides she would like to talk with someone about this or would like to utilize [facility] social work for advanced directive completion. Given Sales Account Leader Rac card with information and contact number. Pt expresses understanding. LNOK: Has 4 adult children. Significant other/BF, Perry. Living Arrangements: Lives with Perry--Significant other/BF. is independent @ home w/all ADL's and Perry and her share home mgmt tasks. She states she helps to take care of her brother who is paraplegic and lives nearby. She helps do his shopping and home mgmt tasks. Transportation: Pt states drives self and states no transportation concerns at this time. has utilized [facility] transportation for appts in the past. DME: Denies using any DME and denies needs. HHC/SNF: No history of either and denies needs. Noted pt has had unsteady gain and 2 falls recently. Discussed this with pt and made aware PT/OT evals are pending. Pt states she normally does not have issues w/ambulation or falls, but states, I get like that when my ammonia gets too high. Pt states she does not feel she needs OP therapy even if it is recommended by therapy. Pt wishes to return home and states has no concerns with going home at time of discharge. CM to follow for any discharge planning/needs. Pt voices no further concerns/needs at this time. Advised pt to ask for CM if any further questions/concerns/needs arise. Voices understanding. Pt Discharge Plan: Home Plan: Home Iris AUSTIN RN, CM
--- NOTE | 2019-03-18 12:55 | PN_ITS ---
Patient Problems: Active and Suspected Problems (Last Updated 04/02/18 @ 08:48 by Andriy Cullen BUILDING ENERGY RETROFIT TECHNICIAN- C) Hepatic encephalopathy (Acute) Subjective: Patient seen and examined. She was admitted with a complaint of confusion for about 4 days prior to admission. She does have a history of hepatitis C and cirrhosis was with hepatic encephalopathy and thrombocytopenia. She had been confused, disoriented and somnolent for about 4 days prior to admission and had had 2 mechanical falls prior to admission. She had an EGD about 2 weeks ago and had small esophageal varices and hiatal hernia. She is never required paracentesis for ascites. She was admitted has been managed for acute metabolic encephalopathy likely due to hepatic encephalopathy. Patient seen and examined. She is alert and oriented today and able to answer questions. She states she feels much better than before she came in. He denies any nausea vomiting, fever chills, abdominal pain or urinary symptoms. Review of symptoms otherwise negative. Labs and vitals reviewed. She is currently on lactulose though she states she hasnt yet started having bowel movements yet. Vitals/I&O's: Vital Signs Temp Pulse Resp BP Pulse Ox 98.0 F 61 16 118/56 L 98 03/18/19 08:45 03/18/19 08:58 03/18/19 08:45 03/18/19 08:45 03/18/19 11:04 Oxygen Delivery Method Room Air Weight: 137 lb 2.04 oz Body Mass Index (BMI) 27.6 Finger Stick Blood Glucose 123 Intake and Output for Last 24 Hours 03/16/19 03/17/19 03/18/19 23:59 23:59 23:59 Intake Total 1000 / 1000 1630.00 / 1630.00 Output Total 600 / 600 Balance 1000 / 1000 1030.00 / 1030.00 General: Alert, Oriented x3, Cooperative, No apparent distress HEENT: Atraumatic, PERRLA, EOMI, Normocephalic Oral: Moist Mucosa Neck: Supple, No JVD, Negative Carotid Bruits Lungs: Clear to auscultation, Normal air movement, No rhonchi, No wheeze, No rales Cardiovascular: Regular rate, Regular Rhythm, Normal S1, Normal S2, No murmurs Abdomen: Bowel Sounds Present, Soft, Non Tender, Non-Distended, No Hepato- splenomegaly Extremities: No clubbing, No cyanosis, No edema, Capillary Refill Less than 3 Seconds Skin: No rashes, No breakdown Musculoskeletal: No Tenderness to Palpation of Joints or Extremities Lymphatic: No Cervical, Supraclavicular, or Inguinal Adenopathy Neurological: Cranial nerves II-XII grossly intact, Neuro grossly intact, Motor Exam 5/5 strength throughout Psych/Mental Status: Normal Affect, Appropriate, Alert and oriented to time, place, person, mood and affect Laboratory Results 03/17/19 16:03: Sodium 140, Potassium 3.8, Chloride 107, Carbon Dioxide 29.0, Anion Gap 4 L, BUN 15, Creatinine 1.01, Estim Creat Clear Calc 56.79, Est GFR (MDRD) Af Amer 71, Est GFR (MDRD) Non-Af 59 L, BUN/Creatinine Ratio 14.9, Glucose 104, Calcium 7.9 L, Total Bilirubin 0.40, AST 31, ALT 23, Alkaline Phosphatase 92, Troponin I < 0.015, Total Protein 6.7, Albumin 3.0 L, Globulin 3.7, Albumin/Globulin Ratio 0.8 L 03/17/19 16:03: Ammonia 105.0 H 03/17/19 16:03: Magnesium 2.0 03/17/19 16:15: WBC 3.5 L, RBC 3.99 L, Hgb 12.1, Hct 38.1, MCV 95.5, MCH 30.3, MCHC 31.8 L, RDW Std Deviation 49.6 H, RDW Coeff of Christopher 14.3, Plt Count 83 L, MPV 12.4 H, Immature Gran % (Auto) 0.300, Neut % (Auto) 53.0, Lymph % (Auto) 2 8.8, King % (Auto) 12.8 H, Eos % (Auto) 4.0, Baso % (Auto) 1.1 H, Absolute Neuts (auto) 1.9 L, Absolute Lymphs (auto) 1.01, Nucleated RBC % 0, Platelet Estimate MOD DEC, RBC Morphology NORM C+C 03/17/19 16:45: Urine Color Yellow, Urine Clarity Sl. Cloudy, Urine pH 6.0, Ur Specific Ringling 1.015, Urine Protein 15 H, Urine Glucose (UA) Normal, Urine Ketones 5 H, Urine Occult Blood Negative, Urine Nitrite Negative, Urine Bilirubin Negative, Urine Urobilinogen 4 H, Ur Leukocyte Esterase 500 H, Urine RBC 0 SEEN, Urine WBC 5-10 SEEN, Ur Squamous Epith Cells 0-5 SEEN, Ur Transition Epith Cell 0-5 SEEN, Urine Bacteria 3+, Urine Mucus 0 SEEN 03/17/19 20:15: PT 16.9 H, INR 1.4 03/18/19 06:34: PT 17.5 H, INR 1.5 03/18/19 06:34: Sodium 144, Potassium 3.9, Chloride 114 H, Carbon Dioxide 27.0, Anion Gap 3 L, BUN 9, Creatinine 0.74, Estim Creat Clear Calc 76.41, Est GFR (MDRD) Af Amer 102, Est GFR (MDRD) Non-Af 84, BUN/Creatinine Ratio 12.2, Glucose 97, Calcium 7.8 L, Phosphorus 2.0 L, Total Bilirubin 0.50, Direct Bilirubin 0.14, AST 34, ALT 19, Alkaline Phosphatase 71, Total Protein 5.9 L, Albumin 2.6 L, Globulin 3.3, TSH 1.69 03/18/19 06:34: WBC 3.0 L, RBC 3.75 L, Hgb 11.5 L, Hct 35.9 L, MCV 95.7, MCH 30.7, MCHC 32.0, RDW Std Deviation 50.2 H, RDW Coeff of Christopher 14.3, Plt Count 68 L , MPV 11.7, Immature Gran % (Auto) 0.300, Neut % (Auto) 46.9 L, Lymph % (Auto) 32.8, King % (Auto) 14.2 H, Eos % (Auto) 4.4, Baso % (Auto) 1.4 H, Absolute Neuts (auto) 1.4 L, Absolute Lymphs (auto) 0.97, Nucleated RBC % 0, Differential Comment SCANNED, Reactive Lymphocytes 1+ Diagnostic Data Brain CT 03/17/19 15:44 IMPRESSION: No acute intracranial hemorrhage or mass effect. Electronically Signed: Eder Breen MD (Brooks) at 17:14 EST , Service support , Chest X-Ray 03/17/19 16:00 IMPRESSION: Stable, nonacute portable x-ray examination of the chest. Electronically Signed: Eder Breen MD (Brooks) at 16:15 EST , Service support , Current Medications Acetaminophen (Tylenol) 650 mg PO Q6H PRN PRN PRN Reason: Pain Score 1-3/Temp > 100.7 F Albuterol Sulfate (Ventolin Aerosols) 2.5 mg INHALATION Q2H PRN PRN PRN Reason: SOB/Wheezing Atorvastatin Calcium (Lipitor) 20 mg PO QHS [facility] Last Admin: 03/17/19 23:00 Dose: 20 mg Documented by: Glucagon () 1 mg IM .X1 PRN PRN Reason: Hypoglycemia Lactated Ringer's () 1,000 mls @ 100 mls/hr IV .Q10H [facility] Stop: 03/18/19 15:07 Last Infusion: 03/18/19 08:48 Dose: 100 mls/hr Documented by: Dextrose (Dextrose 10%-Water) 250 mls @ 999 mls/hr IV .Q16M PRN; Protocol PRN Reason: HYPOGLYCEMIA Ibuprofen (Motrin) 400 mg PO Q8H PRN PRN Reason: Pain Score 4-10/10 Lactulose (Chronulac, Cephulac) 10 gm PO Q6 [facility] Last Admin: 03/18/19 12:20 Dose: 10 gm Documented by: Nutritional Formula (Lactose Free) (Ensure Enlive) 120 ml PO 4X/DAY [facility] Last Admin: 03/18/19 08:50 Dose: 120 ml Documented by: Ondansetron HCl (Zofran) 4 mg IV Q8H PRN PRN PRN Reason: NAUSEA/VOMITING Prochlorperazine Edisylate (Compazine Iv) 5 mg IV Q4H PRN PRN PRN Reason: Breakthrough Nausea/Vomiting Rifaximin (Xifaxan) 550 mg PO BID [facility] Last Admin: 03/18/19 08:51 Dose: 550 mg Documented by: Senna/Docusate Sodium (Senokot-S, Tia-Colace) 2 tablet PO BID PRN PRN PRN Reason: Constipation Sodium Chloride () 10 - 40 ml IV UD PRN PRN Reason: SALINE FLUSH Topiramate (Topamax) 25 mg PO DAILY [facility] Last Admin: 03/18/19 08:51 Dose: 25 mg Documented by: Vitamin E (Vitamin E) 400 units PO QHS [facility] Last Admin: 03/17/19 23:00 Dose: 400 units Documented by: STROKE Vital Signs/Narrative: Vital Signs Pulse Pulse Ox 03/18/19 11:04 98 03/18/19 08:58 61 Medical Necessity - Tobacco Use Smoking Status: Current every day smoker Tobacco Use: Cigarettes Assessment/Plan All Active Problems (Last Updated 04/02/18 @ 08:48 by Andriy Cullen, BUILDING ENERGY RETROFIT TECHNICIAN-C) Hepatic encephalopathy (Acute) Hyperammonemia (Acute) 1. Acute hepatic encephalopathy * has a history of chronic hep C with decompensated liver cirrhosis * likely precipitated by UTI as she has 3+ urine in her UA. urine culture pending * currently being hydrated with IVF Ringers Lactate. Feels much better * on lactulose; aim is for 2-3 loose stools daily * Liver USG pending * on rifaximin. will start antibiotics for UTI- IV ceftriaxone * 2. pancytopenia: * Platelets were 83 on admission and now down to 68. * wbc is down to 3 today, and Hb is 11.5 * likely due to chronic liver disease * will monitor * 3. CAD: stable. 4. Hypertension and hyperlipidemia: On statin. 5. History of hepatitis C: States she has been treated with Harvoni about 4 years ago. States she has undetectable hepatitis C RNA. 6. Anxiety and depression: * On Xanax, Abilify and Prozac. * These are on hold until acute hypoxic encephalopathy resolved. DVT prophylaxis: SCDs. Code Visit Inpatient E&M: 93086 Subs Hosp L3
[2019-03-18] MEDS: Ceftriaxone 1 GM/50 ML BAG IV (14:24)
[2019-03-18] MEDS: Vitamin E 400 UNITS Capsule PO (22:14)
[2019-03-18] MEDS: Atorvastatin Calcium 20 MG Tablet PO (22:14)
[2019-03-19 04:13] VITALS: PULSE 66
[2019-03-19 05:00] VITALS: BP 142/60; PULSE 66; RESP 16; TEMP 36.6; O2SAT 97
[2019-03-19 06:56] LABS: Absolute Lymphocyte Count 0.84 X10^3/uL (0.83-4.51); Absolute Neutrophil Count 1.6 X10^3/uL (2.0-7.7); Basophil# 0.02 X10^3/uL; Basophil% 0.7 % (0-1); Eosinophil# 0.11 X10^3/uL; Eosinophils% 3.7 % (0-5); Hematocrit 37.2 % (37-47); Hemoglobin 11.9 g/dL (12.0-15.0); Lymphocyte # 0.84 X10^3/ul (4.0); Lymphocyte % 28.2 % (19-41); Mean Corpuscular Hgb 30.1 pg (27.0-32.0); Mean Corpuscular Volume 93.9 fL (81-99); Mean Platelet Vol. 12.6 fl (6.2-12.0); Monocyte# 0.39 X10^3/uL; Monocyte% 13.1 % (0-10); NRBC Flagged by Analyzer 0 % (0-5); Neutrophil # 1.62 X10^3/uL (2.7-7.7); Neutrophil % 54.3 % (47-70); POSITIVE COUNT YES; Platelet Count 63 K/mm3 (150-450); RBC Distribution Width CV 14.1 % (11.6-14.6); RBC Distribution Width SD 48.8 fl (35.1-43.9); Red Blood Count 3.96 M/mm3 (4.2-5.4)
[2019-03-19 07:05] LABS: ALB/GLOB Ratio 0.8 RATIO (0.9-2.4); AST(SGOT) 34 U/L (15-37); Alanine Aminotransfer ALT/SGPT 23 U/L (13-56); Albumin, Serum 2.7 g/dL (3.2-5.0); Alkaline Phosphatase 76 U/L (45-117); Anion Gap 6 (5-15); BUN 7 mg/dL (7-18); BUN/Creat Ratio 11.3 RATIO (10-20); Calcium,Total 8.2 mg/dL (8.5-10.1); Chloride 113 mmol/L (98-107); Creatinine, Serum 0.62 mg/dL (0.55-1.02); EST Glomerular Filtration Rate 103 mL/min (>60); Est Glom Filt Rate - Afr Amer 125 mL/min (>60); Globulin 3.6 g/dL (2.2-4.2); Glucose 101 mg/dL (74-106); Potassium 3.4 mmol/L (3.5-5.1); Protein, Total 6.3 g/dL (6.4-8.2); Sodium Level 143 mmol/L (136-145)
[2019-03-19 07:15] VITALS: O2SAT 96
[2019-03-19 07:30] VITALS: PULSE 70
[2019-03-19 09:04] VITALS: BP 132/67; PULSE 66; RESP 18; TEMP 36.9; O2SAT 98
[2019-03-19] MEDS: Ceftriaxone 1 GM/50 ML BAG IV (09:06)
[2019-03-19] MEDS: rifAXIMin 550 MG Tablet PO (09:07)
[2019-03-19] MEDS: 0.9% Saline Lock 10 ML Syringe IV (09:07)
[2019-03-19] MEDS: Topiramate 25 MG Tablet PO (09:12)
--- NOTE | 2019-03-19 10:20 | DCINST_ITS ---
- Discharge Diagnoses Current Active Problems: Current Active and Chronic Problems (Last Updated 04/02/18 @ 08:48 by Andriy Cullen NP-C) Hepatic encephalopathy (Acute) You will use the following diet at home:: Other - low protein diet Your food should be the consistency of: Regular Your liquids should be the consistency of: Regular/Thin Discharge Activity: Return to Normal Activity Weight Bearing Status: Weight bearing as tolerated Call your doctor if you observe: Fever of 101 or Higher, Inability to have a bowel movement, - - worsening confusion Instructions: Lactulose Oral solution [Encephalopathy], Understanding Urinary Tract Infections (UTIs) Allergies/Adverse Reactions: Allergies No Known Allergies Allergy (Verified 03/17/19 15:39) Medications to take at Discharge Aripiprazole [Abilify] 5 mg PO DAILY 02/05/13 Rifaximin [Xifaxan] 550 mg PO BID 01/24/17 Atorvastatin Calcium [Lipitor] 20 mg PO QHS 08/18/17 Fluoxetine [Prozac] 40 mg PO DAILY 08/18/17 Topiramate [Topamax] 25 mg PO DAILY 08/18/17 ALPRAZolam [Xanax] 0.5 mg PO BID PRN PRN 03/17/19 Vitamin E 400 unit PO QHS 03/17/19 Cefdinir 300 mg PO BID #10 cap 03/19/19 Lactulose 30 mls PO TID #1 solution 03/19/19 The following prescriptions were given: Cefdinir 300 mg PO BID #10 cap Transmission Status: Pending to [facility]30 Lactulose 30 mls PO TID #1 solution Transmission Status: Pending to [facility] Primary Care Physician: [facility] Doctor,Out of [NON-STAFF] - Please follow up with your Primary Care Physician in: one week Test Results: Test results from this visit will be discussed in further detail at your follow- up appointment, if applicable. Please Follow Up With: Maxi Chatterjee MD When: 2-3 weeks; call office for appointment (GI) Proposed Discharge Date: 03/19/19
[2019-03-19 12:36] VITALS: BP 158/78; PULSE 75; RESP 16; TEMP 36.6; O2SAT 98
--- NOTE | 2019-03-19 15:18 | DS.PCM_ITS ---
Discharge Date and Diagnosis Date of Admission: 03/17/19 Date of Discharge: 03/19/19 - Primary Discharge Diagnosis acute hepatic encephalopathy due to liver cirrhosis UTI - Secondary Discharge Diagnosis Chronic Problems (Last Updated 04/02/18 @ 08:48 by Andriy Cullen NP-C) Atherosclerosis of [place] coronary artery of [place] heart without angina pectoris (Chronic) Cirrhosis (Chronic) Hepatitis C (Chronic) History of non-ST elevation myocardial infarction (NSTEMI) (Chronic) HTN (hypertension) (Chronic) HLD (hyperlipidemia) (Chronic) Tobacco use (Chronic) Chronic pain syndrome (Chronic) Anxiety and depression (Chronic) Abnormal electrocardiogram [ECG] [EKG] (Chronic) Non-ST elevation (NSTEMI) myocardial infarction (Chronic ~01/27/17) Hospital Course and Treatment Imaging Results: Diagnostic Data Brain CT 03/17/19 15:44 IMPRESSION: No acute intracranial hemorrhage or mass effect. Electronically Signed: Eder Breen MD (Brooks) at 17:14 EST , Service support , Chest X-Ray 03/17/19 16:00 IMPRESSION: Stable, nonacute portable x-ray examination of the chest. Electronically Signed: Eder Breen MD (Brooks) at 16:15 EST , Service support , Abdomen Ultrasound 03/18/19 05:55 IMPRESSION: Heterogeneous appearance of the liver. Status post cholecystectomy. Mild dilatation of the pancreatic duct. Electronically Signed: Delgado Garcia, at 15:33 EST , Service support , none Operations: None Procedures: None Summary of Care Provided: The patient is a 64 year old F with a past medical history of cirrhosis and hepatitis C as well as number cytopenia. She was admitted through the ED on 03/17/2019 with a complaint of confusion, and somnolence. SHe had fallen twice prior to admission due to her symptoms. SHe had an EGD abut 2 weeks prior to admission and was told she had small esophageal varices and hiatal hernia. Ammonia level was >100. She was admitted and managed for acute hepatic encephalopathy. She also had UTI per urinalysis done. SHe was started on lactulose, to aim at 2-3 loose stools daily. SHe was also noted to be throm bocytopenic, which was chronic. She had a liver USG which showed heterogenous liver nad mild dilatation of hte pancreatic duct. Brain CT done was negative. SHe was put on IV ceftriaxone for UTI. SHe remained stable, and mentation improved significantly on lactulose. SHe was discharged home on 03/19/19 with a script for PO lactulose and PO cefdinir for UTI. SHe is to titrate lactulose for 2-3 loose stools daily. She is to follow up with her PCP and insurance claims specialist. Patient seen and examined prior to discharge. SHe had no complaints and wanted to be discharged. REview of systems was otherwise negative. Labs and vitals reviewed. Home medications reviewed and reconciled. o/e: Vital Signs Height 4 ft 11 in Weight: 137 lb 2.04 oz Weight in Pounds 137.1 lbs Pulse Ox 98 Temperature 97.8 F Pulse Rate 75 Respiratory Rate 16 Blood Pressure 158/78 Blood Pressure Position Sitting [] General: Alert, Oriented x3, Cooperative, No apparent distress HEENT: Atraumatic, PERRLA, EOMI, Normocephalic Oral: Moist Mucosa Neck: Supple, No JVD, Negative Carotid Bruits Lungs: Clear to auscultation, Normal air movement, No rhonchi, No wheeze, No ra les Cardiovascular: Regular rate, Regular Rhythm, Normal S1, Normal S2, No murmurs Abdomen: Bowel Sounds Present, Soft, Non Tender, Non-Distended, No Hepato- splenomegaly Extremities: No clubbing, No cyanosis, No edema, Capillary Refill Less than 3 Seconds Skin: No rashes, No breakdown Musculoskeletal: No Tenderness to Palpation of Joints or Extremities Lymphatic: No Cervical, Supraclavicular, or Inguinal Adenopathy Neurological: Cranial nerves II-XII grossly intact, Neuro grossly intact, Motor Exam 5/5 strength throughout Psych/Mental Status: Normal Affect, Appropriate, Alert and oriented to time, place, person, mood and affect Plan as above. - Physical Exam Vitals/I&O's: Vital Signs Temp Pulse Resp BP Pulse Ox 97.8 F 75 16 158/78 H 98 03/19/19 12:36 03/19/19 12:36 03/19/19 12:36 03/19/19 12:36 03/19/19 12:36 Oxygen Delivery Method Room Air Weight: 137 lb 2.04 oz Body Mass Index (BMI) 27.6 Finger Stick Blood Glucose 123 Intake and Output for Last 24 Hours 03/17/19 03/18/19 03/19/19 23:59 23:59 23:59 Intake Total 1000 / 1000 2816.67 / 2816.67 200 / 200 Output Total 600 / 600 Balance 1000 / 1000 2216.67 / 2216.67 200 / 200 Laboratory Results 03/19/19 06:26: WBC 3.0 L, RBC 3.96 L, Hgb 11.9 L, Hct 37.2, MCV 93.9, MCH 30.1, MCHC 32.0, RDW Std Deviation 48.8 H, RDW Coeff of Christopher 14.1, Plt Count 63 L, MPV 12.6 H, Immature Gran % (Auto) 0.000, Neut % (Auto) 54.3, Lymph % (Auto) 28.2, Carson % (Auto) 13.1 H, Eos % (Auto) 3.7, Baso % (Auto) 0.7, Absolute Neuts (auto) 1.6 L, Absolute Lymphs (auto) 0.84, Nucleated RBC % 0 03/19/19 06:26: Sodium 143, Potassium 3.4 L, Chloride 113 H, Carbon Dioxide 24.0, Anion Gap 6, BUN 7, Creatinine 0.62, Estim Creat Clear Calc 91.20, Est GFR (MDRD) Af Amer 125, Est GFR (MDRD) Non-Af 103, BUN/Creatinine Ratio 11.3, Glucose 101, Calcium 8.2 L, Total Bilirubin 0.80, AST 34, ALT 23, Alkaline Phosphatase 76, Total Protein 6.3 L, Albumin 2.7 L, Globulin 3.6, Albumin/ Globulin Ratio 0.8 L Discharge Diet: Low fat/ Low Cholesterol Discharge Activity: Return to Normal Activity Weight Bearing Status: Weight bearing as tolerated Call your doctor if you observe: Fever of 101 or Higher, Inability to have a bowel movement, - - worsening confusion Home Medications: Medications to take at Discharge Aripiprazole [Abilify] 5 mg PO DAILY 02/05/13 Rifaximin [Xifaxan] 550 mg PO BID 01/24/17 Atorvastatin Calcium [Lipitor] 20 mg PO QHS 08/18/17 Fluoxetine [Prozac] 40 mg PO DAILY 08/18/17 Topiramate [Topamax] 25 mg PO DAILY 08/18/17 ALPRAZolam [Xanax] 0.5 mg PO BID PRN PRN 03/17/19 Vitamin E 400 unit PO QHS 03/17/19 Cefdinir 300 mg PO BID #10 cap 03/19/19 Lactulose 30 mls PO TID #1 solution 03/19/19 Following Prescrptions Were Given to Patient: Cefdinir 300 mg PO BID #10 cap Transmission Status: Received by [facility] #30 Lactulose 30 mls PO TID #1 solution Transmission Status: Received by [facility] Primary Care Physician: [facility] Doctor,Out of [NON-STAFF] - Please follow up with your Primary Care Physician in: one week Please Follow Up With: Maxi Chatterjee MD When: 2-3 weeks; call office for appointment (GI) Please Follow Up With: Sunday Ibrahim Patient Instructions: Lactulose Oral solution [Encephalopathy], Understanding Urinary Tract Infections (UTIs) Disposition: Home Minutes spent on discharge:: 40 Patient Condition:: Stable Medical Necessity - Tobacco Use Smoking Status: Current every day smoker Tobacco Use: Cigarettes Meaningful Use Info Meaningful Use Diagnoses (Choose all that apply): None applicable Code Visit Inpatient E&M: 69005 Disch Hosp
--- NOTE | 2019-03-22 09:35 | PCA ---
Dr. Chatterjee office called to tell us pt is out of network. Spoke with patient on the phone in regards to 's office being out of network, scot states that she already has a GI doctor and will follow up with them.
--- NOTE | 2019-03-22 14:57 | CASEMGMT ---
LUX CM Discharge Follow-up Phone Call: TADEO: [place] Strata: 3 Call Date: 03/22/19 Discharge Date: 03/19/19 Time of Call: 1458 Duration: 0 ? Admitting Diagnosis: Hepatic encephalopathy Discharge follow-up call attempted. No answer received but voicemail with patient identifier received. Message left requesting a return call if pt with questions or care coordination questions. Shani Kelly RN
== END 2019-03-19 12:40 | disposition home or self-care (01) | DRG 442 ==
LOC: ED 16:33 → PCU 18:28
PROVIDERS: Admitting Provider Internal Medicine; Emergency Provider Emergency Medicine; Visit Provider Student in an Organized Health Care Education/Training Program
DX: K72.90 Hepatic failure, unspecified without coma (principal); N39.0 Urinary tract infection, site not specified; D61.818 Other pancytopenia; B18.2 Chronic viral hepatitis C; I25.10 Atherosclerotic heart disease of native coronary artery without angina pectoris; I10 Essential (primary) hypertension; E78.5 Hyperlipidemia, unspecified; F17.210 Nicotine dependence, cigarettes, uncomplicated; K74.60 Unspecified cirrhosis of liver; I25.2 Old myocardial infarction; F32.9 Major depressive disorder, single episode, unspecified; F41.9 Anxiety disorder, unspecified; G89.4 Chronic pain syndrome
CPT/HCPCS: 36415; 70450; 71045; 76705; 80048; 80053; 80076; 81001; 82140; 83735; 84100; 84443; 84484; 85025; 85610; 87086; 87088; 93005; 97802; 99285; J7030; J7040; J7120; A4216

== ENCOUNTER → 2019-09-21 11:39 | Outpatient (CLI) | payer MEDICARE, MEDICAID, SELFPAY ==
[2019-03-17 18:48] VITALS: BMI 27.6
[2019-09-21 12:19] LABS: Absolute Lymphocyte Count 1.07 X10^3/uL (0.83-4.51); Basophil# 0.04 X10^3/uL; Basophil% 0.6 % (0-1); Eosinophil# 0.09 X10^3/uL; Eosinophils% 1.3 % (0-5); Hematocrit 43.7 % (37-47); Hemoglobin 14.4 g/dL (12.0-15.0); Lymphocyte # 1.07 X10^3/ul (4.0); Lymphocyte % 15.6 % (19-41); Mean Corpuscular Hgb 30.1 pg (27.0-32.0); Mean Corpuscular Volume 91.4 fL (81-99); Mean Platelet Vol. 12.1 fl (6.2-12.0); Monocyte# 0.69 X10^3/uL; NRBC Flagged by Analyzer 0 % (0-5); Neutrophil # 4.97 X10^3/uL (2.7-7.7); Neutrophil % 72.2 % (47-70); POSITIVE COUNT YES; Platelet Count 75 K/mm3 (150-450); RBC Distribution Width CV 13.4 % (11.6-14.6); RBC Distribution Width SD 45.2 fl (35.1-43.9); Red Blood Count 4.78 M/mm3 (4.2-5.4); White Blood Count 6.9 K/mm3 (4.4-11.0)
[2019-09-21 12:26] LABS: ALB/GLOB Ratio 0.7 RATIO (0.9-2.4); AST(SGOT) 44 U/L (15-37); Alanine Aminotransfer ALT/SGPT 35 U/L (13-56); Albumin, Serum 3.5 g/dL (3.2-5.0); Alkaline Phosphatase 83 U/L (45-117); Anion Gap 11 (5-15); BUN 13 mg/dL (7-18); BUN/Creat Ratio 16.8 RATIO (10-20); Calcium,Total 9.1 mg/dL (8.5-10.1); Chloride 106 mmol/L (98-107); Creatinine, Serum 0.78 mg/dL (0.55-1.02); EST Glomerular Filtration Rate 80 mL/min (>60); Est Glom Filt Rate - Afr Amer 96 mL/min (>60); Globulin 4.7 g/dL (2.2-4.2); Glucose 123 mg/dL (74-106); Potassium 3.7 mmol/L (3.5-5.1); Protein, Total 8.2 g/dL (6.4-8.2); Sodium Level 138 mmol/L (136-145)
== END ==
DX: K74.60 Unspecified cirrhosis of liver (principal); K76.9 Liver disease, unspecified; R53.83 Other fatigue
CPT/HCPCS: 36415; 80053; 82140; 85025

== ENCOUNTER 2019-12-27 16:35 | Emergency (ER) | payer MEDICARE, MEDICAID, SELFPAY ==
[2019-03-17 18:48] VITALS: BMI 27.6
[2019-12-27 16:36] VITALS: BP 153/119; PULSE 90; RESP 16; TEMP 36.2; O2SAT 98; BMI 25.2
--- NOTE | 2019-12-27 18:24 | CT_ITS ---
STUDY: CT BRAIN WITHOUT CONTRAST REASON FOR EXAM: Female, 64 years old. FELL DOWN STAIRS SAT, BRUISING, SWELLING, PAIN. ?? LOC RADIATION DOSAGE (If Supplied By Facility): CTDIvol = ( 44.99 ) mGy, DLP = ( 779.24 ) mGycm TECHNIQUE: Transaxial CT imaging of the brain was performed without administration of intravenous contrast material. Individualized dose optimization techniques were used for this CT. COMPARISON: None. FINDINGS: Mild soft tissue swelling and hematoma formation noted over the superior aspect of the nasal bones without a demonstrated fracture in the underlying nasal bones. Normal calvarium. There is mild cerebral atrophy with widening of the extra-axial spaces and ventricular dilatation. There are areas of decreased attenuation within the white matter tracts of the supratentorial brain, consistent with microvascular disease changes. Normal basal ganglia and thalami. Normal brainstem. Normal cerebellum. There is no intracranial hemorrhage. There are no findings of an acute ischemic infarction. Normal visualized paranasal sinuses. CT/Brain/Head without Contrast IMPRESSION: 1. Chronic involutional changes of the brain. 2. Mild soft tissue swelling and hematoma formation noted over the superior aspect of the nasal bones without a demonstrated fracture in the underlying nasal bones Electronically Signed: Lyle Gómez MD at 19:25 EDT , Service support ,
--- NOTE | 2019-12-27 18:24 | CT_ITS ---
STUDY: CT CERVICAL SPINE WITHOUT CONTRAST REASON FOR EXAM: Female, 64 years old. FELL DOWN STAIRS SAT, BRUISING, SWELLING, PAIN. ?? LOC RADIATION DOSAGE (If Supplied By Facility): CTDIvol = ( 12.60 ) mGy, DLP = ( 239.96 ) mGycm TECHNIQUE: High resolution transaxial imaging was performed without contrast material. Sagittal and coronal images were reconstructed. Individualized dose optimization techniques were used for this CT. COMPARISON: March 17, 2019. FINDINGS: Normal craniovertebral junction. There are degenerative changes of the anterior atlantoaxial articulation. Normal odontoid process. There is reversal of the normal cervical lordosis. No visualized acute fracture or compression deformity. Moderate multilevel degenerative changes are present. Mild central canal stenosis and compression of the cord from a disc osteophyte complex at C5-C6. Unremarkable visualized soft tissue structures. CT/Spine Cervical without Contras IMPRESSION: Multilevel degenerative changes, as described above. Electronically Signed: Lyle Gómez MD at 20:44 EDT , Service support ,
--- NOTE | 2019-12-27 18:25 | CT_ITS ---
STUDY: CT FACIAL BONES WITHOUT CONTRAST REASON FOR EXAM: Female, 64 years old. FELL DOWN STAIRS SAT, BRUISING, SWELLING, PAIN. ?? LOC RADIATION DOSAGE (If Supplied By Facility): CTDIvol = ( 29.38 ) mGy, DLP = ( 650.30 ) mGycm TECHNIQUE: Axial CT images of the facial bones were obtained with multiplanar reconstruction. The protocol utilizes one or more of the following dose reduction techniques: automated exposure control, adjustment of the mA and/or KV according to the patient size, and/or use of iterative reconstruction techniques. Individualized dose optimization techniques were used for this CT. COMPARISON: No relevant priors. FINDINGS: Soft Tissues: Mild soft tissue swelling and hematoma formation noted over the superior aspect of the nasal. A mildly depressed fracture is present at the inferior aspect of the left nasal bone. Facial Bones: A mildly depressed fracture is present at the inferior aspect of the left nasal bone. No additional fractures or destructive process. Mandible/TMJ: Normal. Orbital Contents: Normal globes, extraocular muscles, optic nerves, intraconal and extraconal spaces. Normal lamina papyracea. Visualized Paranasal Sinuses: Normal. Visualized Mastoid Air Cells: Normal. CT/Sinus/Facial Bone IMPRESSION: 1. Mildly depressed fracture is present at the inferior aspect of the left nasal bone. Electronically Signed: Lyle Gómez MD at 19:28 EDT , Service support ,
--- NOTE | 2019-12-27 19:04 | RAD_ITS ---
STUDY: X-RAY - LUMBAR SPINE REASON FOR EXAM: Female, 64 years old. FALL FRIDAY, PAIN AND BRUISING TECHNIQUE: 3 view(s) of the lumbar spine were obtained. COMPARISON: Lumbar spine x-ray dated February 12 2013 FINDINGS: Normal lumbar lordosis. Mild dextroscoliosis is present. No visualized acute fracture. A chronic compression deformity of the T12 vertebral body is reidentified. Mild to moderate disc space narrowing at L5-S1 as well as anterolisthesis of L5 on S1 of 4 to 5 mm. Moderate to severe asymmetric disc space narrowing is present at L2-L3. Surgical clips are present in the right upper quadrant. Multilevel additional degenerative changes are present. There is atherosclerotic calcification of the abdominal aorta without a demonstrated aneurysm. RAD/Lumbar Spine 2 or 3 Views IMPRESSION: Chronic compression deformity of the T12 vertebral body. Electronically Signed: Lyle Gómez MD at 20:59 EDT , Service support ,
--- NOTE | 2019-12-27 19:04 | RAD_ITS ---
STUDY: X-RAY - RIGHT KNEE REASON FOR EXAM: Female, 64 years old. FALL [place], PAIN AND BRUISING TECHNIQUE: 4 view(s) of the knee. COMPARISON: None. FINDINGS: Normal visualized distal femur. Normal visualized proximal tibia and fibula. Normal proximal tibiofibular articulation. There is no demonstrated fracture. There is mild degenerative arthrosis of the medial femorotibial compartment. Normal lateral femorotibial compartment. Normal patellofemoral articulation. There is a soft tissue prominence in the suprapatellar region suggesting a small volume joint effusion. The soft tissue structures are unremarkable. RAD/Knee 4 or More Views IMPRESSION: Degenerative arthrosis and small joint effusion. Electronically Signed: Lyle Gómez MD at 20:42 EDT , Service support ,
[2019-12-27 19:12] LABS: Absolute Neutrophil Count 2.4 X10^3/uL (2.0-7.7); Basophil# 0.02 X10^3/uL; Basophil% 0.5 % (0-1); Eosinophil# 0.11 X10^3/uL; Eosinophils% 2.8 % (0-5); Hematocrit 36.4 % (37-47); Hemoglobin 11.6 g/dL (12.0-15.0); Lymphocyte % 17.9 % (19-41); Mean Corp Hgb Conc 31.9 g/dL (32-36); Mean Corpuscular Hgb 30.3 pg (27.0-32.0); Mean Platelet Vol. 12.5 fl (6.2-12.0); Monocyte# 0.69 X10^3/uL; Monocyte% 17.7 % (0-10); NRBC Flagged by Analyzer 0 % (0-5); Neutrophil # 2.37 X10^3/uL (2.7-7.7); Neutrophil % 60.8 % (47-70); POSITIVE COUNT YES; Platelet Count 67 K/mm3 (150-450); RBC Distribution Width CV 15.2 % (11.6-14.6); RBC Distribution Width SD 52.8 fl (35.1-43.9); Red Blood Count 3.83 M/mm3 (4.2-5.4); White Blood Count 3.9 K/mm3 (4.4-11.0)
[2019-12-27 19:14] LABS: Differential Indicated SCAN CRITERIA MET
[2019-12-27 19:17] LABS: International Normalized Ratio 1.4; Prothrombin Time (Protime)PT. 16.5 SECONDS (11.7-14.9)
[2019-12-27 19:18] LABS: Partial Thromboplast Time 35.1 Seconds (24.1-36.2)
[2019-12-27] MEDS: fentaNYL 100 MCG/2 ML Ampul 50 MCG IV (19:52)
[2019-12-27] MEDS: Ondansetron 4 MG/2 ML Vial IV (19:52)
[2019-12-27 19:59] LABS: ALB/GLOB Ratio 0.9 RATIO (0.9-2.4); AST(SGOT) 54 U/L (15-37); Alanine Aminotransfer ALT/SGPT 31 U/L (13-56); Albumin, Serum 3.3 g/dL (3.2-5.0); Alkaline Phosphatase 60 U/L (45-117); Anion Gap 6 (5-15); BUN 21 mg/dL (7-18); BUN/Creat Ratio 24.7 RATIO (10-20); Chloride 109 mmol/L (98-107); Creatinine, Serum 0.85 mg/dL (0.55-1.02); EST Glomerular Filtration Rate 72 mL/min (>60); Est Glom Filt Rate - Afr Amer 87 mL/min (>60); Estimated Creatinine Clearance 60.64 ml/min; Globulin 3.8 g/dL (2.2-4.2); Glucose 98 mg/dL (74-106); Potassium 3.8 mmol/L (3.5-5.1); Protein, Total 7.1 g/dL (6.4-8.2); Sodium Level 139 mmol/L (136-145)
[2019-12-27 20:05] LABS: Differential Comment SCANNED; Platelet Estimate MOD DEC (ADEQ)
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
[2019-12-27 21:40] VITALS: BP 138/88; PULSE 90; RESP 15; O2SAT 99
== END 2019-12-27 21:41 | disposition home or self-care (01) ==
LOC: ED 18:58
PROVIDERS: Emergency Provider Emergency Medicine
DX: S02.2XXA Fracture of nasal bones, initial encounter for closed fracture (principal); M25.561 Pain in right knee; S00.83XA Contusion of other part of head, initial encounter; D68.4 Acquired coagulation factor deficiency; K74.60 Unspecified cirrhosis of liver; D69.6 Thrombocytopenia, unspecified; W10.9XXA Fall (on) (from) unspecified stairs and steps, initial encounter
CPT/HCPCS: 70450; 70486; 72100; 72125; 73564; 80053; 82140; 85025; 85610; 85730; 96374; 96375; 99283; A4216; J2405

== ENCOUNTER 2020-06-18 14:35 | Emergency (ER) | payer MEDICARE, MEDICAID, SELFPAY ==
[2020-06-18 14:36] VITALS: BP 142/97; PULSE 86; RESP 16; TEMP 36.5; O2SAT 98; BMI 23.4
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
--- NOTE | 2020-06-18 15:18 | ED.DEP ---
ED Disposition - Plan for ED Patient: Disposition: Home or Assisted Living Instructions: ED First- and Second-Degree Stewart ... Prescriptions: Hydrocodone Bitart/Apap 5-325 [[place] 5MG-325MG] 1 - 2 tablet PO Q4H PRN PRN 4 Days #14 tab PRN Reason: Pain Prescription Printed Referrals: Care Physician,No Primary [NON-STAFF] -
[2020-06-18] MEDS: HYDROcodone Bitartrate/Apap 5/325 Tablet PO (15:33)
== END 2020-06-18 15:50 | disposition home or self-care (01) ==
PROVIDERS: Emergency Provider Emergency Medicine
DX: T23.102A Burn of first degree of left hand, unspecified site, initial encounter (principal); T23.101A Burn of first degree of right hand, unspecified site, initial encounter; T23.202A Burn of second degree of left hand, unspecified site, initial encounter; T23.201A Burn of second degree of right hand, unspecified site, initial encounter; I10 Essential (primary) hypertension; F32.9 Major depressive disorder, single episode, unspecified; Y92.9 Unspecified place or not applicable
CPT/HCPCS: 99282

== ENCOUNTER 2020-06-23 16:45 | Emergency (ER) | payer MEDICARE, MEDICAID, SELFPAY ==
[2020-06-23 16:46] VITALS: BP 166/100; PULSE 94; RESP 18; TEMP 36.5; O2SAT 97; BMI 23.4
[2020-06-23 16:48] VITALS: BP 166/100
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
[2020-06-23] MEDS: BACITRACIN 15 GM Tube 1 APPLIC TOPICAL (17:48)
== END 2020-06-23 17:54 | disposition home or self-care (01) ==
PROVIDERS: Emergency Provider Emergency Medicine
DX: T23.201A Burn of second degree of right hand, unspecified site, initial encounter (principal); T23.202A Burn of second degree of left hand, unspecified site, initial encounter; Z87.891 Personal history of nicotine dependence; Y92.9 Unspecified place or not applicable
CPT/HCPCS: 99284

== ENCOUNTER 2022-04-24 12:21 | Emergency (ER) | payer MEDICARE, MEDICAID, SELFPAY ==
[2022-04-24 12:23] VITALS: BP 119/75; PULSE 64; RESP 18; TEMP 36.3; O2SAT 100; BMI 29.2
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
--- NOTE | 2022-04-24 12:57 | CT_ITS ---
INDICATION: abdominal pain. COMPLAINING OF LIVER PAIN. PATIENT WITH HISTORY OF LIVER DISEASE. PATIENT STATES SHE THINKS HER AMMONIA LEVEL IS ELEVATED. PATIENT ALSO HAVING GENERALIZED PAIN ALL OVER. EXAMINATION: CT ABDOMEN AND PELVIS WITHOUT CONTRAST - CT Abdomen And Pelvis W/O Contrast Injection TECHNIQUE: Helically acquired images were obtained of the abdomen and pelvis without oral or IV contrast. A radiation dose optimization technique was used for this scan. IV Contrast dosage and agent: None. Oral contrast: None. COMPARISON: None. FINDINGS: LOWER CHEST: Lung bases are clear. No cardiomegaly or pericardial effusion. The lack of intravenous contrast limits evaluation of solid visceral organs. LIVER: The liver contour is nodular with a cirrhotic morphology. GALLBLADDER AND BILIARY TREE: There are clips within the gallbladder fossa consistent with prior cholecystectomy. There is dilatation of the common bile duct measuring up to 11.2 mm. PANCREAS: There is a 9 mm round low-attenuation focus that appears to be arising from the tail the pancreas (image 29 series 2). SPLEEN: There is splenomegaly. ADRENAL GLANDS: No nodules. KIDNEYS AND URETERS: Normal renal size and position. No hydronephrosis. PERITONEUM: No ascites or free air. No other fluid collection. BOWEL: No evidence of acute appendicitis. No stomach or bowel distension. No focal inflammatory change. LYMPH NODES: No enlarged mesenteric or retroperitoneal lymph nodes. VESSELS: Aorta is non-dilated. There are peripheral calcifications of the abdominal aorta consistent with atherosclerosis. URINARY BLADDER: Unremarkable. REPRODUCTIVE ORGANS: No pelvic masses. ABDOMINAL WALL: No discrete abdominal or pelvic wall hernia. BONES: There is degenerative disc disease throughout the visualized thoracic and lumbar spine. There are Schmorl''s nodes within the superior endplates of T11, T12 and L3. There are degenerative changes of the hips. CT/Abdomen/Pelvis without Cont IMPRESSION: Cirrhotic liver, cannot exclude an underlying nodule, consider MRI with contrast for further characterization. Indeterminate 9 mm round focus that appears to be arising from the pancreatic tail, a CT or MRI with contrast may be useful for further characterization. Splenomegaly. Atherosclerosis. Degenerative changes of the visualized thoracic and lumbar spine. Electronically Signed: Lauren Alfonso MD at 13:46 EST ,
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
[2022-04-24 13:30] LABS: Absolute Lymphocyte Count 1.15 X10^3/uL (0.83-4.51); Absolute Neutrophil Count 4.6 X10^3/uL (2.0-7.7); Basophil# 0.06 X10^3/uL; Basophil% 0.9 % (0-1); Eosinophil# 0.17 X10^3/uL; Eosinophils% 2.5 % (0-5); Hematocrit 44.3 % (37-47); Lymphocyte # 1.15 X10^3/ul (0.83-4.51); Mean Corp Hgb Conc 33.9 g/dL (32-36); Mean Corpuscular Hgb 32.5 pg (27.0-32.0); Mean Corpuscular Volume 95.9 fL (81-99); Mean Platelet Vol. 12.1 fl (6.2-12.0); Monocyte# 0.82 X10^3/uL; Monocyte% 12.1 % (0-10); NRBC Flagged by Analyzer 0 % (0-5); Neutrophil # 4.55 X10^3/uL (2.7-7.7); Neutrophil % 67.1 % (47-70); Platelet Count 120 K/mm3 (150-450); RBC Distribution Width CV 13.4 % (11.6-14.6); RBC Distribution Width SD 47.2 fl (35.1-43.9); Red Blood Count 4.62 M/mm3 (4.2-5.4); White Blood Count 6.8 K/mm3 (4.4-11.0)
[2022-04-24 13:42] LABS: AST(SGOT) 43 U/L (15-37); Alanine Aminotransfer ALT/SGPT 31 U/L (13-56); Albumin, Serum 3.8 g/dL (3.2-5.0); Alkaline Phosphatase 73 U/L (45-117); Anion Gap 7 (5-15); BUN 29 mg/dL (7-18); BUN/Creat Ratio 31.6 RATIO (10-20); Bilirubin, Direct 0.25 mg/dL (0.00-0.30); Calcium,Total 9.2 mg/dL (8.5-10.1); Chloride 110 mmol/L (98-107); Creatinine, Serum 0.92 mg/dL (0.55-1.02); EST Glomerular Filtration Rate 65 mL/min (>60); Est Glom Filt Rate - Afr Amer 79 mL/min (>60); Estimated Creatinine Clearance 43.21 ml/min; Globulin 3.7 g/dL (2.2-4.2); Glucose 121 mg/dL (74-106); Potassium 4.2 mmol/L (3.5-5.1); Protein, Total 7.5 g/dL (6.4-8.2); Sodium Level 143 mmol/L (136-145)
--- NOTE | 2022-04-24 15:46 | CM.ED ---
SW went back into the room and advised patient that she was not being admitted to acute floor. SW encouraged her to make calls and she said that her phone was as you guys only charged it to 12%. SW encouraged patient to call [employer] and patient said I would rather be on the streets and that the [employer] has crack heads and that she is not going there. SW encouraged her to call [facility]. SW advised that besides these resources there was no other options for patient in regards to housing. ASHOK noted that patient could charge her phone in the lobby also. ASHOK was advised by medical payment posterLUX Owusu that patient's brother called and said that patient could return to the house. SW was not advised of any additional needs or concerns regarding patient after patient was advised she could return to her brother's house. Plan: Discharge Home [facility] [id number]
== END 2022-04-24 15:16 | disposition home or self-care (01) ==
PROVIDERS: Emergency Provider Emergency Medicine; Visit Provider Emergency Medicine
DX: R10.9 Unspecified abdominal pain (principal); K74.60 Unspecified cirrhosis of liver; I25.10 Atherosclerotic heart disease of native coronary artery without angina pectoris; I10 Essential (primary) hypertension; I25.2 Old myocardial infarction; F12.90 Cannabis use, unspecified, uncomplicated; F32.A Depression, unspecified; F41.9 Anxiety disorder, unspecified; Z87.891 Personal history of nicotine dependence; Z79.899 Other long term (current) drug therapy
CPT/HCPCS: 74176; 80048; 80076; 82140; 85025; 99284; A4216

== ENCOUNTER 2022-04-28 09:24 | Inpatient (IN) | payer MEDICARE, MEDICAID, SELFPAY ==
[2022-04-28] VITALS (18 sets, daily range): BP systolic 133–186; BP diastolic 65–121; PULSE 61–81; RESP 17–25; TEMP 36.6–38.1; O2SAT 92–99; BMI 29.3; BMI 27.7
--- NOTE | 2022-04-28 09:29 | RAD_ITS ---
INDICATION: Weakness EXAMINATION/TECHNIQUE: X-RAY - XR Chest 1 View COMPARISON: March 17, 2019 FINDINGS: LINES/DEVICES: None. LUNGS: No consolidation, edema or effusion. No pneumothorax. MEDIASTINUM AND CARDIOVASCULAR STRUCTURES: There is stable cardiomegaly. Central airways and mediastinal contour are unremarkable. BONES AND SOFT TISSUES: Unremarkable. RAD/Chest 1 View (Portable) IMPRESSION: Stable cardiomegaly. Electronically Signed: Lauren Alfonso MD at 10:34 EST ,
--- NOTE | 2022-04-28 09:29 | CT_ITS ---
INDICATION: ALOC EXAMINATION: CT BRAIN - CT Head or Brain W/O Contrast Injection TECHNIQUE: Multiple axial images were obtained of the head without intravenous contrast. A radiation dose optimization technique was used for this scan. IV Contrast dosage and agent: None. COMPARISON: December 27, 2019 FINDINGS: There is stable mild to moderate cerebral atrophy with widening of the extra-axial spaces and ventricular dilatation. There are areas of decreased attenuation within the white matter tracts of the supratentorial brain, consistent with microvascular disease changes. Normal basal ganglia and thalami. Normal brainstem. There is stable cerebellar atrophy. There is no intracranial hemorrhage. There are no findings of an acute ischemic infarction. The visualized paranasal sinuses and mastoid air cells are well aerated. CT/Brain/Head without Contrast IMPRESSION: Chronic involutional changes of the brain. Small vessel ischemia. Electronically Signed: Lauren Alfonso MD at 10:33 EST ,
--- NOTE | 2022-04-28 09:29 | EKG12_ITS ---
Test Reason : ALT LOC Blood Pressure : / mmHG Vent. Rate : 069 BPM Atrial Rate : 069 BPM P-R Int : 146 ms QRS Dur : 086 ms QT Int : 422 ms P-R-T Axes : 064 048 068 degrees QTc Int : 452 ms Normal sinus rhythm Normal ECG Confirmed by ULICES MANCINI, MARU ([id number]), subeditor BELLE BRASHER ([id number]) on 04/29/2022 10:06:35 AM Referred By: Confirmed By:MARU ELENA MD
--- NOTE | 2022-04-28 09:32 | EX.ED.DYSGE1 ---
HPI History of Present Illness Chief Complaint: Alt LOC Detail of Chief Complaint: Status change. Informant: patient and EMS Onset/Context/Timing Onset: Yesterday Context: Gradual Onset Timing: Continuous Current Severity: Severe Maximum Severity: Severe Narrative Narrative: 67-year-old female history of cirrhosis and possibly drug use. Reportedly was in the emergency department recently. Giovani was called to her home today by her brother that she lives with. Reportedly decreased mental status and slurring of speech. Recent falls. Per the squad patient's blood sugar was 128. Her vital signs were unremarkable. She had a pulse ox of 96%. They state that home was in disarray and a TV was pushed over. Patient herself is a very limited informant. Prior similar symptoms: No Recent Illness/Hospitalization: No PFSH [facility] Medical History Abnormal electrocardiogram [ECG] [EKG] Anxiety and depression Atherosclerosis of [place] coronary artery of [place] heart without angina pectoris Cervical neck surgery Chronic back pain Chronic narcotic use Chronic pain syndrome Cirrhosis Depression Hepatitis C History of non-ST elevation myocardial infarction (NSTEMI) HLD (hyperlipidemia) HTN (hypertension) Hyperammonemia Non-ST elevation (NSTEMI) myocardial infarction (~01/27/17) Tobacco use Toxic encephalopathy (~01/27/17) Home Medications alprazolam 0.5 mg tablet 0.5 mg PO BID PRN PRN Anxiety 03/17/19 [History Last Taken 03/16/19] escitalopram oxalate 5 mg tablet 10 mg PO DAILY 12/27/19 [History Last Taken Unknown] atenolol 50 mg tablet 50 mg PO DAILY 06/18/20 [History Last Taken Unknown] ibuprofen 400 mg tablet 400 mg PO Q8 04/24/22 [History Last Taken Unknown] lactulose 10 gram/15 mL oral solution 04/24/22 [History Last Taken Unknown] prednisone 50 mg tablet 50 mg PO DAILY 04/24/22 [History Last Taken Unknown] valacyclovir 500 mg tablet 1,000 mg PO DAILY 04/24/22 [History Last Taken Unknown] Allergy/AdvReac Type Severity Reaction Status Date / Time Opioids - Morphine Analogues AdvReac Rash Verified 04/24/22 12:27 Family History Father Heart disease Surgical History History of left heart catheterization Hx of cholecystectomy Social History Smoking Status: Light Smoker (<10/day) alcohol intake: former year quit: 2016 substance use type: marijuana and other details: Smokes marijuana daily ROS ROS ED ROS Narrative Diarrhea. Patient is a limited informant. Possibly encephalopathic. Review of Systems ROS Unobtainable: due to encephalopathy ENT ENT ED: Denies ear pain Cardiovascular Cardiovascular: Denies chest pain Respiratory/Chest Respiratory/Chest: Denies cough Gastrointestinal Gastrointestinal: Reports diarrhea EXAM Physical Exam Narrative Exam Narrative: 67-year-old female. Vital signs are stable and afebrile. Her pulse ox is 97% on room air no hypoxia. Clinically she looks unkept. H EENT exam her eyes are closed but she will open them. Pupils are about 2 mm bilaterally. Reactive to light. No facial trauma. Very dry lips. No signs of trauma to her head or face. Neck nontender no meningismus. No lymphadenopathy. Lungs clear to auscultation. Shallow breaths. Heart regular rhythm rate about 70. Abdomen soft, nondistended, normal bowel sounds no peritoneal signs. Well-healed right upper quadrant surgical scar that looks like a prior cholecystectomy. In a suprapubic scar that could either be from a hysterectomy or . Moving all 4 extremities. Nontender. No edema or deformity. Back nontender. Neurologically she is lethargic. She is arousable. She will open her eyes. Her speech is slurred but she is answering questions. She does not have any lateralizing weakness. She is moving all 4 extremities. She is awake and knows where she is at. Const Vital Signs: 04/28/22 09:27 04/28/22 10:27 Temperature 97.8 F 98.2 F Temperature Source Temporal Core Pulse Rate 69 61 Respiratory Rate 20 H 19 H Blood Pressure 133/96 H 162/76 H Blood Pressure Mean 108 104 Pulse Ox 97 97 Oxygen Delivery Method Room Air Room Air Positive well nourished, well developed and unkempt; Negative for obese, cachectic or contractures General Appearance ED: unkempt and well developed; Negative for cachectic, contractures, cyanotic, diaphoretic, NAD or pallor Nutritional Appearance: Negative for cachectic or obese HEENT Reports dry mucous membranes; Denies moist mucous membranes Negative for trauma or tenderness Mouth ED: Yes dry mucous membranes Mouth: dry mucous membranes Eyes PERRL and EOMs intact bilaterally General Eye ED: Negative for pale conjunctiva or scleral icterus Neck no lymphadenopathy, supple and no JVD General: Negative for tenderness Lymph Lymphatic: Negative for other Chest Wall inspection of chest normal and palpation of chest normal Resp normal respiratory effort Effort and Inspection: Negative for retractions Auscultation: Negative for rales, rhonchi or wheezes Cardio regular rate, regular rhythm, S1 normal heart sound, S2 normal heart sound and no murmurs Rate: Negative for bradycardia Rhythm: Negative for abnormal rhythm GI normal to inspection, nondistended, normoactive bowel sounds, non-tender, non-distended and no masses Inspection: Negative for abdominal distention Auscultation: normoactive bowel sounds Palpation: soft; Negative for tender or guarding Back/Spine no CVA tenderness General Back: Negative for CVA tenderness Cervical Spine: Negative for cervical spine tenderness Thoracic Spine / Upper Back: Negative for thoracic spinal tenderness or paraspinal muscle tenderness Lumbar Spine / Lower Back: Negative for lumbar spinal tenderness Extremity normal to inspection General Extremety ED: Negative for edema or tenderness General Extremity: Negative for edema Neuro No oriented x3 Neuro Narrative: Decreased mental status. Lethargic. Arousable. Generally weak. But not lateralizing. Moves all 4 extremities. Does know she is in the hospital. Slurred speech. Sensorium / Orientation: alert, orientation impaired and lethargic Motor Exam: general weakness; Negative for strength 5/5 throughout Psych mental status grossly normal Appearance: unkempt Attitude: No agitated Mood & Affect: Negative for anxious or tearful Skin no rashes or lesions noted and no wounds General Skin Exam: Negative for jaundice or pallor Lesions: No lesion noted Rashes: No rashes noted Trauma: Negative for abrasion Wounds: Negative for wounds noted MDM MDM MDM Narrative Medical decision making narrative: 67-year-old female decreased mental status this could be from encephalopathy like elevated ammonia, she could be septic could be and looks clinically dehydrated. Could be from infection or even trauma. CAT scan and labs are being obtained. Clinically that she looks dehydrated will be given a liter normal saline. Screening labs including ammonia level, chest x-ray and CAT scan of the brain to be obtained. Patient clinically looks ill. I suspect she will need to be admitted. I have reviewed the patient's old records and old labs. Recent evaluations and old labs and imaging studies. Repeat exam at 10:35 AM no significant change at this time. Patient is received about 500 cc fluid bolus. [address] and she is to get a second liter. [place] catheter is in place and urine is pale yellow. It does not look grossly infected. We are awaiting a urinalysis. Lactic acid is currently pending also. I have the hospitalist on page. Patient will be admitted for acute mental status change, acute renal failure, acute dehydration, acute hyperkalemia and leukocytosis. I do not think she needs any other further studies currently through the emergency department. Blood cultures are pending. As is the CAT scan lactic acid. We will have to see how she progresses with IV fluids and her kidney function improves or not. Also watch closely her hyperkalemia. Her EKG shows no acute changes. Our nurses were going through her numerous medications both [id number] and prescription they noted that one of her medications I believe it was lexapro was filled just several days ago and the entire bottle was empty. This could also be secondary to a drug overdose. I have spoken to the hospitalist the patient will be admitted to the PCU. Lab Data Attestation: I reviewed the patient's lab results. Lab results narrative: CBC shows elevated white count of 16.2. H&H of 15.4 and 46. Platelets are slightly low at 131,000. PT/INR 15 and 1.3. PTT 33. Electrolytes show a potassium of 6.3. Anion gap at 12. A BUN of 101 and a creatinine of 5.6 consistent with acute renal failure and dehydration. Acute kidney injury. Glucose 161. Liver enzymes are unremarkable. Ammonia level is 51 and her alcohol is negative. Rapid COVID and influenza are negative. Lactic acid is 1.2. Compared to her labs from 4 days ago her white count is now elevated. She is now severely dehydrated and has acute kidney failure. Along with associated hyperkalemia. Labs: Laboratory Results - last 24 hr 04/28/22 04/28/22 04/28/22 09:30 09:30 09:30 WBC 16.2 H RBC 4.88 Hgb 15.4 H Hct 46.9 MCV 96.1 MCH 31.6 MCHC 32.8 RDW Std Deviation 46.4 H RDW Coeff of Christopher 13.2 Plt Count 131 L MPV 12.5 H Immature Gran % (Auto) 0.700 Neut % (Auto) 80.0 H Lymph % (Auto) 8.0 L Hartley % (Auto) 10.6 H Eos % (Auto) 0.4 Baso % (Auto) 0.3 Absolute Neuts (auto) 12.9 H Absolute Lymphs (auto) 1.29 Nucleated RBC % 0 Differential Comment SCANNED Diff Path Review May foll PT 15.5 H INR 1.3 APTT 33.3 Sodium 139 Potassium 6.3 H* Chloride 109 H Carbon Dioxide 18.0 L Anion Gap 12 BUN 101 H* Creatinine 5.16 H Estim Creat Clear Calc 7.70 Est GFR (MDRD) Af Amer 11 L Est GFR (MDRD) Non-Af 9 L BUN/Creatinine Ratio 19.6 Glucose 161 H Lactic Acid Calcium 8.7 Total Bilirubin 0.80 AST 39 H ALT 34 Alkaline Phosphatase 72 Ammonia Total Protein 7.7 Albumin 3.4 Globulin 4.3 H Albumin/Globulin Ratio 0.8 L Ethyl Alcohol 04/28/22 04/28/22 04/28/22 09:30 09:30 10:12 WBC RBC Hgb Hct MCV MCH MCHC RDW Std Deviation RDW Coeff of Christopher Plt Count MPV Immature Gran % (Auto) Neut % (Auto) Lymph % (Auto) Hartley % (Auto) Eos % (Auto) Baso % (Auto) Absolute Neuts (auto) Absolute Lymphs (auto) Nucleated RBC % Differential Comment Diff Path Review PT INR APTT Sodium Potassium Chloride Carbon Dioxide Anion Gap BUN Creatinine Estim Creat Clear Calc Est GFR (MDRD) Af Amer Est GFR (MDRD) Non-Af BUN/Creatinine Ratio Glucose Lactic Acid 1.2 Calcium Total Bilirubin AST ALT Alkaline Phosphatase Ammonia 51.0 H Total Protein Albumin Globulin Albumin/Globulin Ratio Ethyl Alcohol < 3.0 Radiography Chest X-Ray - ED: 1 View, Read by ED Physician, Heart, Lungs, Mediastinum, Bony Structures, No Acute Disease and Chronic Changes Diagnostic Testing: Clinical Impression(s) from Imaging Studies Brain CT 04/28/22 09:29 IMPRESSION: Chronic involutional changes of the brain. Small vessel ischemia. Electronically Signed: Lauren Alfonso MD at 10:33 EST , Chest X-Ray 04/28/22 09:29 IMPRESSION: Stable cardiomegaly. Electronically Signed: Lauren Alfonso MD at 10:34 EST , Chest x-ray, portable, single view shows no acute abnormality. Interpreted by myself. CAT scan of the brain shows no acute intracranial bleed. Awaiting radiologist formal interpretation. Rhythm Strip Rhythm Strip: Sinus Rhythm Rate: 69 Ectopy: None EKG Initial EKG: Attestation: I personally reviewed and interpreted this EKG as follows: Interpretation: Sinus Rhythm and No Acute Injury Pattern Comments: Normal sinus rhythm rate of 69 no acute signs of PR nor ischemia. Compared to her prior EKG from February 2019 unchanged. Prior EKG tracings: available for review Prior: Unchanged Critical Care Time Critical Care Time: Yes Critical care time (excluding procedures): 30-74 minutes, Including time spent:, Discussing w/Patient &/or Family/Sas Clinical Programmer, Discussing w/Consultants, Arranging Admission or Transfer, Performing Direct Patient Care at Bedside and - (35 min) Discharge Plan Dx/Rx/DC Orders Clinical Impression: Altered level of consciousness, Acute dehydration, Acute kidney injury, Acute renal failure, Acute hyperkalemia, History of cirrhosis Disposition Disposition: Acute Care [facility]
[2022-04-28 09:48] LABS: Absolute Lymphocyte Count 1.29 X10^3/uL (0.83-4.51); Absolute Neutrophil Count 12.9 X10^3/uL (2.0-7.7); Basophil# 0.05 X10^3/uL; Basophil% 0.3 % (0-1); Eosinophil# 0.06 X10^3/uL; Eosinophils% 0.4 % (0-5); Hematocrit 46.9 % (37-47); Hemoglobin 15.4 g/dL (12.0-15.0); Lymphocyte # 1.29 X10^3/ul (0.83-4.51); Mean Corp Hgb Conc 32.8 g/dL (32-36); Mean Corpuscular Hgb 31.6 pg (27.0-32.0); Mean Corpuscular Volume 96.1 fL (81-99); Mean Platelet Vol. 12.5 fl (6.2-12.0); Monocyte# 1.72 X10^3/uL; Monocyte% 10.6 % (0-10); NRBC Flagged by Analyzer 0 % (0-5); Neutrophil # 12.94 X10^3/uL (2.7-7.7); POSITIVE DIFFERENTIAL YES; Platelet Count 131 K/mm3 (150-450); RBC Distribution Width CV 13.2 % (11.6-14.6); RBC Distribution Width SD 46.4 fl (35.1-43.9); Red Blood Count 4.88 M/mm3 (4.2-5.4); White Blood Count 16.2 K/mm3 (4.4-11.0)
[2022-04-28 09:49] LABS: Differential Indicated SCAN CRITERIA MET
[2022-04-28] MEDS: 0.9% Normal Saline 1,000 ML 1000 ML IV (09:55)
[2022-04-28 10:05] LABS: ALB/GLOB Ratio 0.8 RATIO (0.9-2.4); AST(SGOT) 39 U/L (15-37); Alanine Aminotransfer ALT/SGPT 34 U/L (13-56); Albumin, Serum 3.4 g/dL (3.2-5.0); Alkaline Phosphatase 72 U/L (45-117); Anion Gap 12 (5-15); BUN 101 mg/dL (7-18); BUN/Creat Ratio 19.6 RATIO (10-20); Calcium,Total 8.7 mg/dL (8.5-10.1); Chloride 109 mmol/L (98-107); Creatinine, Serum 5.16 mg/dL (0.55-1.02); EST Glomerular Filtration Rate 9 mL/min (>60); Est Glom Filt Rate - Afr Amer 11 mL/min (>60); Globulin 4.3 g/dL (2.2-4.2); Glucose 161 mg/dL (74-106); Potassium 6.3 mmol/L (3.5-5.1); Protein, Total 7.7 g/dL (6.4-8.2); Sodium Level 139 mmol/L (136-145)
[2022-04-28 10:06] LABS: International Normalized Ratio 1.3; Prothrombin Time (Protime)PT. 15.5 SECONDS (11.7-14.9)
[2022-04-28 10:07] LABS: Partial Thromboplast Time 33.3 Seconds (24.1-36.2)
[2022-04-28 10:12] LABS: Alcohol, Blood (Medical)-Serum < 3.0 mg/dL
[2022-04-28 10:13] LABS: Differential Comment SCANNED
[2022-04-28 10:42] LABS: Bacteria 0 SEEN /hpf (None Seen); Mucous, Urine 0 SEEN /hpf (<or=2+); Squamous Epithelial Cells - UA 0 SEEN /hpf (5-10); White Blood Cells 0 SEEN /hpf (0-5)
[2022-04-28] MEDS: 0.9% Normal Saline 1,000 ML 999 ML IV (10:42)
--- NOTE | 2022-04-28 10:46 | HP.PCM.HOS_ITS ---
HPI - General General Date of Admission: 04/28/22 Date of Service: 04/28/22 Chief Complaint: Found unresponsive, HPI Narrative WHITNEY SCHULTZ, is a 67 F who was brought by EMS in unresponsive state to ED. As per EMS, they were called for a fall victim with history of multiple fall recently and slurred speech started yesterday afternoon. This was progressively getting worse with recurrent fall in the morning. She was found in the bed with bedroom in disarray condition. Patient was responsive to verbal stimuli but was confused and slurring as per EMS. She is able to say her name slowly as Twila to me. Patient has bruises in lower extremities. She was found and disorganized state by EMS. Glucose 128. In ED, patient still in unresponsive state. As per nursing staff, she lives with her brother who also has developmental delay and disability. I called patient's significant others, Mr. Perry aguiar as listed in the chart at another #[phone] seizure but no one picked up the phone and left voicemail to call back. As per nursing staff in ED, she had full bottle of Lexapro which was found empty. She has history of substance use with similar admission unresponsiveness polysubstance use opioid with a diagnosis of acute toxic encephalopathy secondary to polypharmacy.She was then again admitted in September 2017 and January 2018 and February 2019 for acute hepatic encephalopathy with history of hep C cirrhosis. [facility] Medical History Abnormal electrocardiogram [ECG] [EKG] Anxiety and depression Atherosclerosis of [place] coronary artery of [place] heart without angina pectoris Cervical neck surgery Chronic back pain Chronic narcotic use Chronic pain syndrome Cirrhosis Depression Hepatitis C History of non-ST elevation myocardial infarction (NSTEMI) HLD (hyperlipidemia) HTN (hypertension) Hyperammonemia Non-ST elevation (NSTEMI) myocardial infarction (~01/27/17) Tobacco use Toxic encephalopathy (~01/27/17) Home Medications alprazolam 0.5 mg tablet 0.5 mg PO BID PRN PRN Anxiety 03/17/19 [History Last Taken 03/16/19] escitalopram oxalate 5 mg tablet 10 mg PO DAILY 12/27/19 [History Last Taken Unknown] atenolol 50 mg tablet 50 mg PO DAILY 06/18/20 [History Last Taken Unknown] ibuprofen 400 mg tablet 400 mg PO Q8 04/24/22 [History Last Taken Unknown] lactulose 10 gram/15 mL oral solution 04/24/22 [History Last Taken Unknown] prednisone 50 mg tablet 50 mg PO DAILY 04/24/22 [History Last Taken Unknown] valacyclovir 500 mg tablet 1,000 mg PO DAILY 04/24/22 [History Last Taken Unknown] Allergy/AdvReac Type Severity Reaction Status Date / Time Opioids - Morphine Analogues AdvReac Rash Verified 04/24/22 12:27 Family History Father Heart disease Surgical History History of left heart catheterization Hx of cholecystectomy Social History Smoking Status: Light Smoker (<10/day) alcohol intake: former year quit: 2015 substance use type: marijuana and other details: Smokes marijuana daily ROS ROS Narrative 14 ROS unobtainable as patient is unresponsive Rest as mentioned in HPI Review of Systems ROS Unobtainable: due to encephalopathy and due to mental status Vital Signs Vital Signs Vital Signs: 04/28/22 09:27 04/28/22 10:27 Temperature 97.8 F 98.2 F Temperature Source Temporal Core Pulse Rate 69 61 Respiratory Rate 20 H 19 H Blood Pressure 133/96 H 162/76 H Blood Pressure Mean 108 104 Pulse Ox 97 97 Oxygen Delivery Method Room Air Room Air Weight Weight: 150 lb 5.684 oz Body Mass Index (BMI) 29.3 Physical Exam Narrative Physical exam General: Confused, disoriented, hardly states her name slurred way. Not fully awake or responsive HEENT: Atraumatic, PERRLA, EOMI, Normocephalic Oral: Oral mucosa parched with dried secretions at base of tongue. No Gingival or Mucosal Lesions/ Ulcerations Neck: Supple, No JVD, Negative Carotid Bruits Lungs: Air entry diminished in bilateral lung bases. No crepitation/rhonchi. No tachypnea or hypoxia Cardiovascular: Regular rate, Regular Rhythm, Normal S1, Normal S2, No murmurs Abdomen: Bowel Sounds sluggish, Soft, Non Tender, Non-Distended : Orladno catheter, No significant urine output. No renal angle tenderness. No suprapubic tenderness. Extremities: No edema, Capillary Refill Less than 3 Seconds Skin: Superficial bruises over lower extremities knees. Bluish discoloration of right great toe. Musculoskeletal: No Tenderness to Palpation of Joints or Extremities. ROM and muscle strength could not be evaluated as patient is lethargic and semiresponsive Neurological: Not following command, opens eyes for transient time.GCS 10-11. Abnormal involuntary movement for short time does not look like repetitive or seizure Psych/Mental Status: Obtunded, does not follow command Results Lab / Micro Data Result Diagrams: 04/28/22 09:30 04/28/22 09:30 Labs: Laboratory Results - last 24 hr 04/28/22 09:30: WBC 16.2 H, RBC 4.88, Hgb 15.4 H, Hct 46.9, MCV 96.1, MCH 31.6, MCHC 32.8, RDW Std Deviation 46.4 H, RDW Coeff of Christopher 13.2, Plt Count 131 L, MPV 12.5 H, Immature Gran % (Auto) 0.700, Neut % (Auto) 80.0 H, Lymph % (Auto) 8.0 L , [place]lee % (Auto) 10.6 H, Eos % (Auto) 0.4, Baso % (Auto) 0.3, Absolute Neuts (auto) 12.9 H, Absolute Lymphs (auto) 1.29, Nucleated RBC % 0, Differential Comment SCANNED, Diff Path Review July04/28/22 09:30: PT 15.5 H, INR 1.3, APTT 33.3 04/28/22 09:30: Sodium 139, Potassium 6.3 H*, Chloride 109 H, Carbon Dioxide 18.0 L, Anion Gap 12, BUN 101 H*, Creatinine 5.16 H, Estim Creat Clear Calc 7.70, Est GFR (MDRD) Af Amer 11 L, Est GFR (MDRD) Non-Af 9 L, BUN/Creatinine Ra tessy 19.6, Glucose 161 H, Calcium 8.7, Total Bilirubin 0.80, AST 39 H, ALT 34, Alkaline Phosphatase 72, Total Protein 7.7, Albumin 3.4, Globulin 4.3 H, Albumin/Globulin Ratio 0.8 L 04/28/22 09:30: Ethyl Alcohol < 3.0 04/28/22 09:30: Ammonia 51.0 H Micro: Microbiology 04/28/22 09:55 Nasal Secretion SARS-CoV-2 & FLU Antigen (Rapid) - Final Rhythm Strip Rhythm Strip: Sinus Rhythm Rate: 69 Ectopy: None Radiology Impression Brain CT 04/28/22 09:29 IMPRESSION: Chronic involutional changes of the brain. Small vessel ischemia. Electronically Signed: Lauren Alfonso MD at 10:33 EST , Chest X-Ray 04/28/22 09:29 IMPRESSION: Stable cardiomegaly. Electronically Signed: Lauren Alfonso MD at 10:34 EST , Assessment & Plan Assessment/Plan (1) Acute hyperkalemia: (2) Acute kidney injury: (3) Altered level of consciousness: (4) Drug overdose, multiple drugs: PLAN: Plan This is a 67-year-old female with history of frequent admission for encephalopathy unresponsiveness is being admitted for another episode of unresponsiveness, time unknown with recurrent fall and slurred speech, abnormal disorganized behavior with suspected overdose 1. Acute unresponsiveness, exact etiology, toxic encephalopathy unclear possible suspected Lexapro overdose, hepatic encephalopathy with recurrent fall: Patient is being admitted in ICU. Exact history regarding timeline, chronology order of the events unclear. Discussed with the ED does not have to call poison center for Lexapro drug overdose. CT head does not show acute intracranial abnormality. Chest x-ray Nulu shows cardiomegaly with underventilated lungs probably due to decreased respiratory effort. ABG ordered. UA WBC 0, nitrite and LE negative bacteria 0. U tox positive for benzodiazepine, rest negative. Insulation Cupola Operator consult. If she does not wake up will need MRI and EEG. ED nursing staff just called me to inform that his significant other called to ED and left message that she texted me yesterday or today that she is going to take bunch of medications after she had a fight with her brother for couple day s. She took Abilify, Xanax, Lexapro and acyclovir and her Lexapro and acyclovir bottles are empty. Crisis team to evaluate when she is medically stable. Alprazolam 2 mg IV every 4 hourly as needed for seizure. Serum magnesium and phosphorus level normal. Lactic acid normal. She has leukocytosis 16,000 of unclear but her home medications of prednisone. Hematocrit 46.9 probably hemoconcentrated. Her counts were low, pancytopenia in February 2019 admission 2. HECTOR with hyperkalemia: Potassium 6.3, bicarb 18, anion gap 12/devolve hyperkalemic normal anion gap metabolic acidosis. BUN/creatinine 101/5.16 with BUN/creatinine ratio 19. IV fluid normal saline patient on 2 L bolus. After th at, NS 150 mill per hour. I called football pad repairer and we agreed upon emergency cocktail of hyperkalemia with bicarb. Patient is not awake to take Kayexalate. Twelve-lead EKG of EMS and ED individually reviewed. EMS EKG sinus arrhythmia at 69 bpm, in ED normal sinus rhythm 69 with QTC 452 ms. 3. 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 We will continue lactulose and Xifaxan. Serum ammonia 51 elevated. Platelet count is 1 31,000 4.? Coronary artery disease: On medical management.? As per the patient's , she was told she has mild coronary artery disease and did not require PCI. She was found to have non-STEMI in December 2016 when she was admitted for overdose and encephalopathy. Cardiac cath showed dominant RCA with a small thrombus filled vessel in side branch of PDA. And was recommended aspirin and Plavix 5.? Hypertension, dyslipidemia, chronic nicotine use: Patient still smokes c igarette less than a pack per day. Patient was on Chantix in the past. 6. Anxiety and depression history of polysubstance use: Patient had a history of chronic opioid use dependence in the past. Patient on multiple antipsychotic medications Xanax, Abilify and Lexapro. We will hold it as patient is encephalopathic. DVT prophylaxis: Mild thrombocytopenia. Heparin 5000 subcutaneous twice daily bilateral SCDs Total time of the visit including total time spent in counseling or coordination of care, (more than 50% of the total time, spent in obtaining medical information from nurses and other ancillary care providers,explaining to the patient about labs, imaging, diagnosis and management of active complex medical conditions), discussion with clinical education consultant football pad repairer, review of labs and imaging is 70 minutes. Laboratory Results 04/28/22 09:30: WBC 16.2 H, RBC 4.88, Hgb 15.4 H, Hct 46.9, MCV 96.1, MCH 31.6, MCHC 32.8, RDW Std Deviation 46.4 H, RDW Coeff of Christopher 13.2, Plt Count 131 L, MPV 12.5 H, Immature Gran % (Auto) 0.700, Neut % (Auto) 80.0 H, Lymph % (Auto) 8.0 L , [place] % (Auto) 10.6 H, Eos % (Auto) 0.4, Baso % (Auto) 0.3, Absolute Neuts (auto) 12.9 H, Absolute Lymphs (auto) 1.29, Nucleated RBC % 0, Differential Comment SCANNED, Diff Path Review July04/28/22 09:30: PT 15.5 H, INR 1.3, APTT 33.3 04/28/22 09:30: Sodium 139, Potassium 6.3 H*, Chloride 109 H, Carbon Dioxide 18.0 L, Anion Gap 12, BUN 101 H*, Creatinine 5.16 H, Estim Creat Clear Calc 7.70, Est GFR (MDRD) Af Amer 11 L, Est GFR (MDRD) Non-Af 9 L, BUN/Creatinine Ratio 19.6, Glucose 161 H, Calcium 8.7, Total Bilirubin 0.80, AST 39 H, ALT 34, Alkaline Phosphatase 72, Total Protein 7.7, Albumin 3.4, Globulin 4.3 H, Albumin/Globulin Ratio 0.8 L 04/28/22 09:30: Ethyl Alcohol < 3.0 04/28/22 09:30: Ammonia 51.0 H 04/28/22 09:30: Magnesium 2.1 04/28/22 09:30: Phosphorus 3.5 04/28/22 10:12: Lactic Acid 1.2 04/28/22 10:35: Urine Color Yellow, Urine Clarity Clear, Urine pH 7.0, Ur Specific [place] 1.005, Urine Protein 15 H, Urine Glucose (UA) Normal, Urine Ketones Negative, Urine Occult Blood 50 H, Urine Nitrite Negative, Urine Bilirubin Negative, Urine Urobilinogen Normal, Ur Leukocyte Esterase Negative, Urine RBC 0-5 SEEN, Urine WBC 0 SEEN, Ur Squamous Epith Cells 0 SEEN, Urine Bacteria 0 SEEN, Urine Mucus 0 SEEN 04/28/22 10:35: Urine Opiates Screen NEGATIVE, Urine Methadone Screen NEGATIVE, Ur Barbiturates Screen NEGATIVE, Ur Phencyclidine Scrn NEGATIVE, Ur Amphetamines Screen NEGATIVE, MDMA (Ecstasy) Screen NEGATIVE, U Benzodiazepines Scrn POSITIVE H, Urine Cocaine Screen NEGATIVE, U Cannabinoids Screen NEGATIVE, Ur Drug Screen Comment Clinical Impression(s) from Imaging Studies Brain CT 04/28/22 09:29 IMPRESSION: Chronic involutional changes of the brain. Small vessel ischemia. Electronically Signed: Lauren Alfonso MD at 10:33 EST Reading [facility] [place] Tel , Service support , Chest X-Ray 04/28/22 09:29 IMPRESSION: Stable cardiomegaly. Microbiology Past 72 Hours 04/28/22 09:55 Nasal Secretion SARS-CoV-2 & FLU Antigen (Rapid) - Final Clinical Impression(s) from Imaging Studies Brain CT 04/28/22 09:29 IMPRESSION: Chronic involutional changes of the brain. Small vessel ischemia. Electronically Signed: Lauren Alfonso MD at 10:33 EST , Chest X-Ray 04/28/22 09:29 IMPRESSION: Stable cardiomegaly. Charges/Coding Visit Charges Inpatient E&M: 49437 Init Hosp L3 Procedures Hospitalists Procedures: [id number] Critial Care 1st Hr
[2022-04-28 10:48] LABS: Lactic Acid 1.2 mmol/L (0.4-1.9)
[2022-04-28 11:09] LABS: Color, Urine Yellow (Yellow); Glucose, Dipstick Normal (Normal); Ketone-Dipstick Negative (Negative); Leukocyte Esterase-Dipstick Negative /ul (Negative); Nitrite-Dipstick Negative (Negative); Occult Blood-Urine 50 /ul (Negative); Protein-Dipstick 15 mg/dl (Negative); Specific Gravity, Urine 1.005 (1.002-1.030); Urine Bilirubin Dipstick Negative (Negative); Urine Clarity Clear (Clear); Urine Urobilinogen Normal (Normal)
[2022-04-28 11:14] LABS: Phosphorus 3.5 mg/dL (2.5-4.9)
[2022-04-28 11:16] LABS: Red Blood Cells-Urine 0-5 SEEN /hpf (0-5)
[2022-04-28 11:17] LABS: Magnesium 2.1 mg/dL (1.6-2.6)
[2022-04-28 11:23] LABS: Amphetamine Urine VISTA NEGATIVE (<1000 ng/mL); Barbiturate Urine VISTA NEGATIVE (< 200 ng/mL); Benzodiazepine Urine VISTA POSITIVE (< 200 ng/mL); Cocaine Urine VISTA NEGATIVE (< 300 ng/mL); Ecstacy Urine VISTA NEGATIVE (< 500 ng/mL); Methadone Urine VISTA NEGATIVE (< 300 ng/mL); PCP Urine VISTA NEGATIVE (< 25 ng/mL); THC Urine VISTA NEGATIVE (< 50 ng/mL); Vista UDS pH Range 6
--- NOTE | 2022-04-28 11:29 | ED.RN ---
PT BRACELETS REMOVED FROM RIGHT WRIST AND PLACED INTO PERSONAL DUFFEL BAG WITH HER CLOTHES AND MEDICATIONS.
--- NOTE | 2022-04-28 11:42 | ED.RN ---
PATIENT'S SIGNIFICANT OTHER [facility] AU CALLED IN. PER S/O PATIENT TEXT HIM AND TOLD HIM THAT SHE WAS GOING TO TAKE A BUNCH OF PILLS. S/O STATES SHE TOOK ABILIFY, XANAX, LEXAPRO, AND ACYCLOVIR. DR. NORIEGA AND DR. WHALEY NOTIFIED. PATIENT HAS HOME MEDICATION BAG HERE, LEXAPRO AND ACYCLOVIR MEDICATION BOTTLES ARE EMPTY.
[2022-04-28 12:10] LABS: Base Excess -9 mmol/L (-2 to +2); Bicarbonate 16.7 mmol/L (22-26); Blood Gas Specimen Type ART; O2 Delivery Device Room Air; PO2 86 mmHG (75-100); SITE R Radial; SO2 96 % (95-99); Total Carbon Dioxide 18 mmol/L; pCO2 30.9 mmHg (35-45); pH 7.34 (7.35-7.45)
[2022-04-28] MEDS: 0.9% Normal Saline 1,000 ML 150 ML IV (12:29)
[2022-04-28] MEDS: Dextrose 50%-Water 25 GM/50 ML DISP.SYRIN IV (12:31)
[2022-04-28] MEDS: Insulin Lispro 10 UNIT in Syringe 0 ML 6 UNIT IV (12:31)
[2022-04-28] MEDS: Sodium Bicarbonate 8.4% 50 ML Syringe 100 MEQ IV (12:31)
[2022-04-28] MEDS: Calcium Chloride 1 GM/10 ML Syringe IV (12:47)
[2022-04-28 14:39] LABS: ALB/GLOB Ratio 0.8 RATIO (0.9-2.4); AST(SGOT) 35 U/L (15-37); Alanine Aminotransfer ALT/SGPT 25 U/L (13-56); Albumin, Serum 2.8 g/dL (3.2-5.0); Alkaline Phosphatase 57 U/L (45-117); Anion Gap 8 (5-15); BUN 91 mg/dL (7-18); BUN/Creat Ratio 19.2 RATIO (10-20); Calcium,Total 9.3 mg/dL (8.5-10.1); Chloride 116 mmol/L (98-107); Creatinine, Serum 4.75 mg/dL (0.55-1.02); EST Glomerular Filtration Rate 10 mL/min (>60); Est Glom Filt Rate - Afr Amer 12 mL/min (>60); Estimated Creatinine Clearance 8.79 ml/min; Globulin 3.6 g/dL (2.2-4.2); Glucose 139 mg/dL (74-106); Potassium 4.8 mmol/L (3.5-5.1); Protein, Total 6.4 g/dL (6.4-8.2); Sodium Level 147 mmol/L (136-145)
[2022-04-28] MEDS: Dext 5%-0.45% NS 1,000 ML 100 ML IV (15:16)
--- NOTE | 2022-04-28 15:55 | RAD_ITS ---
INDICATION: NG TUBE PLACEMENT EXAMINATION/TECHNIQUE: X-RAY - XR Abdomen 1 View COMPARISON: CT dated April 24, 2022 FINDINGS: BOWEL GAS PATTERN: Non-obstructive. No bowel or stomach distention. There is an enteric tube in place terminating within the gastric fundus. There appears to be a kink within the tube at the level of the fundus. There are surgical clips within the right upper quadrant of the abdomen consistent with prior cholecystectomy. FREE AIR: Not assessed on a single supine view. LOWER CHEST: No acute pathology. BONES AND SOFT TISSUES: There are degenerative changes of the lumbar spine There is a stable T12 mid body compression deformity. RAD/Abdomen Single View (Portable) IMPRESSION: Non-obstructive bowel gas pattern. Nasogastric tube terminating within the gastric fundus with a kink within the tubing at the level of the fundus. Electronically Signed: Lauren Alfonso MD at 16:35 EST ,
--- NOTE | 2022-04-28 16:40 | CPS ---
I.S. & PEP in patient room, patient sleeping at this time
--- NOTE | 2022-04-28 16:50 | CON.PCM.RE_ITS ---
Assessment & Plan Assessment/Plan (1) Acute kidney injury: (2) Acute hyperkalemia: (3) Metabolic acidosis: (4) HTN (hypertension): (5) Cirrhosis: PLAN: Plan Impression/Plan: The patient is a 67-year-old woman with past history of hypertension, hepatitis C, liver cirrhosis, CAD status post IA in 2017, and hyperlipidemia. The patient presented to the hospital on 04/28/2022 with altered mental status. There is a concern of intentional overdose with escitalopram/benzodiazepine. Nephrology is consulted for HECTOR. Acute kidney injury. The patient has normal baseline renal function. Serum creatinine was normal at 0.92 mg/dL as recently as 04/24/2022. The patient presented with serum creatinine of 5.16 mg/dL associated with hyperkalemia and metabolic acidosis. Suspect HECTOR is prerenal due to decreased intake/effective blood volume. There is a possibility that prerenal HECTOR could have progressed to ischemic ATN as well. Prior to admission, the patient had been on NSAIDs as well. Urinalysis is benign. Low suspicion for other causes of HECTOR. Recent CT of the abdomen and pelvis on 04/24/2022 did not show any kidney or urinary tract abnormality. I will hold off on checking renal ultrasound for now. We will reconsider checking ultrasound only if renal function fails to improve with volume expansion. Agree with volume expansion with isotonic crystalloid. I will check urine indices. Recheck renal function again tomorrow to determine trajectory of kidney injury. There is no current need for kidney replacement therapy as potassium and bicarbonate levels have improved, and the patient is not volume overloaded. Current medications are reviewed and are appropriate dose for her renal function. Hyperkalemia. The patient presented with potassium level of 6.3 mmol/L. The patient was treated with temporizing measures including insulin/D50 and sodium bicarbonate. There was no EKG changes of hyperkalemia per my discussion with Dr. Klein. Potassium level is already better at 4.8 mmol/L 5 hours after the initial check. Recheck potassium level again in a.m. No need for dialysis for hyperkalemia at this point. Hypernatremia. The patient is mildly hyponatremic with serum sodium of 147 mmol/L. This is due to decreased fluid intake. Since she is hemodynamically stable, I agree with volume expansion using half- normal saline. Metabolic acidosis. Likely due to HECTOR. There is no significant anion gap or lactic acidosis. The patient was treated for hyperkalemia with 100 mEq of sodium bicarbonate as well. Repeat bicarbonate level at 2:20 PM has improved from 18 mmol/L up to 23 mmol/L. Recheck serum bicarbonate level again tomorrow. Hypertension. BP has been high since admission. However, BP has not been consistently above 180/100. The patient was on atenolol 50 mg once a day prior to admission. No current need to treat current level of hypertension to avoid labile drop in BP. We can use parenteral IV labetalol for SBP above 185 and DBP above 110. Avoid RAAS inhibitor for now. Cirrhosis. There was no signs of ascites on CT of the abdomen and pelvis from 04/24/2022 did not show any ascites. There is no signs of portal hypertension (no ascites, spider angiomata, or caput medusae). Therefore, I have low suspicion for HRS as the cause of HECTOR. Etiology of cirrhosis is to be worked up by GI service. HPI Consult Data Date of Consult: 04/28/22 HPI Narrative Reason for Consultation: HECTOR HPI Narrative: The patient is a 67-year-old woman with past history of hypertension, hepatitis C, liver cirrhosis, CAD status post IA in 2017, and hyperlipidemia. The patient presented to the hospital on 04/28/2022 with altered mental status and multiple fall. Nephrology is asked to see the patient because of HECTOR and hyperkalemia. Unfortunately, history is limited because of the patient's encephalopathy. There is a question of whether she has intentionally taken more than prescribed amount of medications including escitalopram, alprazolam, aripiprazole, and acyclovir. The patient presented to the hospital with serum creatinine of 5.16 mg/dL and potassium level of 6.3 mmol/L. The patient also has metabolic acidosis with serum bicarbonate level of 18 mmol/L. There is no prior history of chronic kidney disease. Serum creatinine as recently as 04/24/2022 was normal at 0.92 mg/dL. The patient did present to ED on 04/24/[address] scan of the abdomen and pelvis at that time showed cirrhosis of the liver, but did not show any hydronephrosis. History is limited to chart review and my discussion with RN. The patient awakens to voice, but she falls asleep quickly. She is unable to answer questions meaningfully. [facility] Medical History Abnormal electrocardiogram [ECG] [EKG] Anxiety and depression Atherosclerosis of the [place] coronary artery of [place] heart without angina pectoris Cervical neck surgery Chronic back pain Chronic narcotic use Chronic pain syndrome Cirrhosis Depression Hepatitis C History of non-ST elevation myocardial infarction (NSTEMI) HLD (hyperlipidemia) HTN (hypertension) Hyperammonemia Non-ST elevation (NSTEMI) myocardial infarction (~01/27/17) Tobacco use Toxic encephalopathy (~01/27/17) Home Medications alprazolam 0.5 mg tablet 0.5 mg PO BID PRN PRN Anxiety 03/17/19 [History Last Taken 03/16/19] escitalopram oxalate 5 mg tablet 10 mg PO DAILY 12/27/19 [History Last Taken Unknown] atenolol 50 mg tablet 50 mg PO DAILY 06/18/20 [History Last Taken Unknown] ibuprofen 400 mg tablet 400 mg PO Q8 04/24/22 [History Last Taken Unknown] lactulose 10 gram/15 mL oral solution 04/24/22 [History Last Taken Unknown] prednisone 50 mg tablet 50 mg PO DAILY 04/24/22 [History Last Taken Unknown] valacyclovir 500 mg tablet 1,000 mg PO DAILY 04/24/22 [History Last Taken Unknown] Allergy/AdvReac Type Severity Reaction Status Date / Time Opioids - Morphine Analogues AdvReac Rash Verified 04/24/22 12:27 Family History Father Heart disease Surgical History History of left heart catheterization Hx of cholecystectomy Social History Smoking Status: Light Smoker (<10/day) alcohol intake: former year quit: 2015 substance use type: marijuana and other details: Smokes marijuana daily ROS ROS Narrative Unable to obtain ROS because of encephalopathy. Physical Exam Narrative General: Encephalopathic, sleepy HEENT: Normocephalic, atraumatic, mucous membrane dry. PERRLA Neck: Supple, trachea is midline. No lymphadenopathy. Cardiovascular: Normal S1, S2. No rubs, murmurs or gallops. Lungs: Clear to auscultation bilaterally. Abdomen: Normal bowel sound, soft, nontender, no guarding or rebound. Extremities: No clubbing, cyanosis or edema. Musculoskeletal: Full passive range of motion, no joint swelling. Neurologic: Lethargic, does not follow command. Skin: Warm and dry, no rash. Lab / Micro Data Result Diagrams: 04/28/22 09:30 04/28/22 14:20 Labs: Laboratory Results - last 24 hr 04/28/22 09:30: WBC 16.2 H, RBC 4.88, Hgb 15.4 H, Hct 46.9, MCV 96.1, MCH 31.6, MCHC 32.8, RDW Std Deviation 46.4 H, RDW Coeff of Christopher 13.2, Plt Count 131 L, MPV 12.5 H, Immature Gran % (Auto) 0.700, Neut % (Auto) 80.0 H, Lymph % (Auto) 8.0 L , [place] % (Auto) 10.6 H, Eos % (Auto) 0.4, Baso % (Auto) 0.3, Absolute Neuts (auto) 12.9 H, Absolute Lymphs (auto) 1.29, Nucleated RBC % 0, Differential Comment SCANNED, Diff Path Review July04/28/22 09:30: PT 15.5 H, INR 1.3, APTT 33.3 04/28/22 09:30: Sodium 139, Potassium 6.3 H*, Chloride 109 H, Carbon Dioxide 18.0 L, Anion Gap 12, BUN 101 H*, Creatinine 5.16 H, Estim Creat Clear Calc 7.70, Est GFR (MDRD) Af Amer 11 L, Est GFR (MDRD) Non-Af 9 L, BUN/Creatinine Ratio 19.6, Glucose 161 H, Calcium 8.7, Total Bilirubin 0.80, AST 39 H, ALT 34, Alkaline Phosphatase 72, Total Protein 7.7, Albumin 3.4, Globulin 4.3 H, Albumin/Globulin Ratio 0.8 L 04/28/22 09:30: Ethyl Alcohol < 3.0 04/28/22 09:30: Ammonia 51.0 H 04/28/22 09:30: Magnesium 2.1 04/28/22 09:30: Phosphorus 3.5 04/28/22 10:12: Lactic Acid 1.2 04/28/22 10:35: Urine Color Yellow, Urine Clarity Clear, Urine pH 7.0, Ur Specific [place] 1.005, Urine Protein 15 H, Urine Glucose (UA) Normal, Urine Ketones Negative, Urine Occult Blood 50 H, Urine Nitrite Negative, Urine Bilirubin Negative, Urine Urobilinogen Normal, Ur Leukocyte Esterase Negative, Urine RBC 0-5 SEEN, Urine WBC 0 SEEN, Ur Squamous Epith Cells 0 SEEN, Urine Bacteria 0 SEEN, Urine Mucus 0 SEEN 04/28/22 10:35: Urine Opiates Screen NEGATIVE, Urine Methadone Screen NEGATIVE, Ur Barbiturates Screen NEGATIVE, Ur Phencyclidine Scrn NEGATIVE, Ur Amphetamines Screen NEGATIVE, MDMA (Ecstasy) Screen NEGATIVE, U Benzodiazepines Scrn POSITIVE H, Urine Cocaine Screen NEGATIVE, U Cannabinoids Screen NEGATIVE, Ur Drug Screen Comment 04/28/22 14:20: Sodium 147 H, Potassium 4.8, Chloride 116 H, Carbon Dioxide 23.0, Anion Gap 8, BUN 91 H, Creatinine 4.75 H, Estim Creat Clear Calc 8.79, Est GFR (MDRD) Af Amer 12 L, Est GFR (MDRD) Non-Af 10 L, BUN/Creatinine Ratio 19.2, Glucose 139 H, Calcium 9.3, Total Bilirubin 0.70, AST 35, ALT 25, Alkaline Phosphatase 57, Total Protein 6.4, Albumin 2.8 L, Globulin 3.6, Albumin/Globulin Ratio 0.8 L Micro: Microbiology 04/28/22 09:55 Nasal Secretion SARS-CoV-2 & FLU Antigen (Rapid) - Final ABG Data ABG results: ABG 04/28/22 12:05 Specimen Type ART Sample Site R Radial pH 7.34 L Bicarbonate Actual 16.7 L Total CO2 18 Base Excess -9 L O2 Saturation 96 ABG pCO2 30.9 L ABG pO2 86 O2 Delivery Device Room Air Rhythm Strip Rhythm Strip: Sinus Rhythm Rate: 69 Ectopy: None Radiology Impression Brain CT 04/28/22 09:29 IMPRESSION: Chronic involutional changes of the brain. Small vessel ischemia. Electronically Signed: Lauren Alfonso MD at 10:33 EST , Chest X-Ray 04/28/22 09:29 IMPRESSION: Stable cardiomegaly. Electronically Signed: Lauren Alfonso MD at 10:34 EST , KUB X-Ray 04/28/22 15:55 IMPRESSION: Non-obstructive bowel gas pattern. Nasogastric tube terminating within the gastric fundus with a kink within the tubing at the level of the fundus. Electronically Signed: Lauren Alfonso MD at 16:35 EST ,
[2022-04-28] MEDS: rifAXIMin 550 MG Tablet NG ×2 (17:05→21:44)
[2022-04-28] MEDS: Lactulose 20 GM/30 ML UDC NG ×2 (17:06→21:44)
--- NOTE | 2022-04-28 17:17 | NURSING ---
Updated patient belonging list in chart, home meds in duffel bag locked in med room.
[2022-04-28] MEDS: hydrALAZINE 20 MG/ML Vial 5 MG IV (17:24)
[2022-04-28 17:49] LABS: Osmolality, Urine 347 mOsm/KG
[2022-04-28 18:04] LABS: Urine Sodium 98 mmol/L (Not Establ.)
--- NOTE | 2022-04-28 21:30 | NURSING ---
Pt woke up and is now alert and oriented to person, place, and time. When asked if she remembers what happened that brought her to the hospital, pt states she fell. At first, pt denies remembering taking any pills and denies attempting to harm herself. Pt states she threw her pills away so that she wouldn't take them all. Then, pt admits she remembers being on the phone with her significant other and taking a bunch of her pills. Pt is tearful and states I will never do it again. Dr. Kapadia notified of conversation, pt placed in suicide precautions with sitter at bedside.
[2022-04-28] MEDS: Heparin Injection (Vial) 5,000 UNIT/ML VIAL 5000 UNIT SC (21:50)
[2022-04-29] VITALS (25 sets, daily range): BP systolic 138–184; BP diastolic 55–94; PULSE 59–71; RESP 12–27; TEMP 36.7–37.7; O2SAT 94–98
[2022-04-29] MEDS: Dext 5%-0.45% NS 1,000 ML 100 ML IV (01:32)
[2022-04-29] MEDS: Lactulose 20 GM/30 ML UDC NG ×4 (03:49→21:26)
[2022-04-29 03:55] LABS: Absolute Lymphocyte Count 1.46 X10^3/uL (0.83-4.51); Absolute Neutrophil Count 7.7 X10^3/uL (2.0-7.7); Basophil# 0.03 X10^3/uL; Basophil% 0.3 % (0-1); Eosinophil# 0.09 X10^3/uL; Eosinophils% 0.8 % (0-5); Hematocrit 39.9 % (37-47); Hemoglobin 13.1 g/dL (12.0-15.0); Lymphocyte # 1.46 X10^3/ul (0.83-4.51); Lymphocyte % 13.6 % (19-41); Mean Corp Hgb Conc 32.8 g/dL (32-36); Mean Corpuscular Hgb 31.4 pg (27.0-32.0); Mean Corpuscular Volume 95.7 fL (81-99); Monocyte# 1.43 X10^3/uL; Monocyte% 13.3 % (0-10); NRBC Flagged by Analyzer 0 % (0-5); Neutrophil # 7.71 X10^3/uL (2.7-7.7); Neutrophil % 71.5 % (47-70); Platelet Count 109 K/mm3 (150-450); RBC Distribution Width CV 13.5 % (11.6-14.6); RBC Distribution Width SD 46.7 fl (35.1-43.9); Red Blood Count 4.17 M/mm3 (4.2-5.4); White Blood Count 10.8 K/mm3 (4.4-11.0)
[2022-04-29 04:22] LABS: Anion Gap 11 (5-15); BUN 89 mg/dL (7-18); BUN/Creat Ratio 20.6 RATIO (10-20); Calcium,Total 8.6 mg/dL (8.5-10.1); Chloride 115 mmol/L (98-107); Creatinine, Serum 4.33 mg/dL (0.55-1.02); EST Glomerular Filtration Rate 11 mL/min (>60); Est Glom Filt Rate - Afr Amer 13 mL/min (>60); Estimated Creatinine Clearance 9.64 ml/min; Glucose 141 mg/dL (74-106); Potassium 3.7 mmol/L (3.5-5.1); Sodium Level 146 mmol/L (136-145); Thyroid Stim Hormone (TSH) 1.93 uIU/mL (0.358-3.74)
[2022-04-29] MEDS: hydrALAZINE 20 MG/ML Vial 5 MG IV (04:22)
[2022-04-29] MEDS: 0.9% Saline Lock 10 ML Syringe IV (04:22)
--- NOTE | 2022-04-29 07:33 | CON.PCM.CC_ITS ---
Assessment & Plan Assessment/Plan (1) Drug overdose, multiple drugs: (2) Hepatic encephalopathy: (3) Cirrhosis: (4) Acute kidney injury: (5) History of cirrhosis: PLAN: Plan RECOMMENDATIONS: 1. Continue rifaximin and lactulose 2. Okay to discontinue NG if patient complies with required p.o. meds 3. Crisis evaluation once medically stable 4. Continue aggressive fluid resuscitation and monitoring renal function 5. Likely will require x-ray of right foot prior to discharge to rule out fracture 6. Okay to reinitiate hypertension meds in a stepwise fashion 7. Transition IV fluids to LR if chloride continues to rise IMPRESSIONS: 1. Acute intentional overdose with toxic and metabolic encephalopathy Patient reportedly took a polypharmacy overdose with the intent of hurting herself. Patient is on suicide precautions at this time. Patient's mentation is improving, so likely not necessary to get an MRI and EEG. Some component of protracted sedation can be expected given renal dysfunction. Patient will need a crisis evaluation when more medically stable. 2. Acute kidney injury with hyperkalemia Patient with normal renal function (creatinine 0.9) at baseline. Patient presented with a creatinine greater than 5. Patient has received fluid resuscitation. We will transition over to LR as patient is developing hyperchloremic metabolic acidosis if worsens tomorrow on D5 half-normal. Nephrology is following. Hyperkalemia is much improved. 3. Hepatic encephalopathy/hepatitis C/thrombocytopenia Patient with a known history of hepatitis C and cirrhosis. Patient has not been compliant with lactulose at home, leading to an elevated ammonia. Patient has been tolerating these medications. If patient can take these by mouth, okay to discontinue NG tube. No indication for transfusion at this time 4. Multiple falls Likely secondary to problem #1 and problem #3. Patient does have some ecchymosis noted of the right foot. This will likely need to be x-rayed before patient can go to crisis to rule out fracture. Patient can be evaluated by PT/OT 5. CAD/hypertension/dyslipidemia/tobacco abuse/anxiety/depression Complicates care, management, recovery and prognosis. Okay to continue on statin. Nicotine patch can be added. Patient likely requires a psychiatrist to help with Xanax/Abilify and Lexapro dosing. Crisis will be consulted. HPI Consult Data Date of Consult: 01/30/23 HPI Narrative HPI Narrative: WHITNEY SCHULTZ is a 67 F, with past medical history listed below, who presents to [facility] on 04/28/2022 secondary to altered mental status. Patient reportedly has a history of cirrhosis and possible drug use. Patient reportedly had the squad called secondary to decreased mental status and slurred speech. Patient also had recently had increased falls. The squad noted a blood sugar of 128 and a pulse ox of 96%. Patient reportedly had significant debris at home. On presentation to the emergency department, patient was saturating well, normotensive and afebrile. Laboratory work-up showed a white blood cell count of 16.2, hemoglobin of 15.4 and platelets of 131. INR was 1.3. Potassium was 6.3 with a BUN of 101 and a creatinine of 5.16. Glucose was slightly elevated at 161. Lactate was 1.2, alcohol level was normal and ammonia was 51. CT of the head showed only chronic involutional changes and chest x-ray showed stable cardiomegaly. Patient was given generous fluids secondary to renal function. Cultures were also obtained. Since being admitted to the hospital, patient has been evaluated by nephrology. Patient noted to have hypernatremia, metabolic acidosis and acute kidney injury. There was some concern for hepatorenal syndrome. However, prerenal etiology was also suspected. Patient was temporized medically for hyperkalemia, but dialysis was not indicated. Further information was also obtained that it appeared the patient had taken multiple medications with the intent of hurting herself. Patient is reporting some pain of her right foot and had reported multiple falls. Patient states that she does not need lactulose anymore. This is not the information that was provided by significant other. Patient is asking for the NG to be removed and states that she will comply with hepatic therapy. Review of systems otherwise negative from a constitutional, HEENT, respiratory, cardiovascular, GI, genitourinary, musculoskeletal, skin, neurologic, psychiatric and hematologic system unless stated above. [facility] Medical History Abnormal electrocardiogram [ECG] [EKG] Anxiety and depression Atherosclerosis of [place] coronary artery of [place] heart without angina pectoris Cervical neck surgery Chronic back pain Chronic narcotic use Chronic pain syndrome Cirrhosis Depression Hepatitis C History of non-ST elevation myocardial infarction (NSTEMI) HLD (hyperlipidemia) HTN (hypertension) Hyperammonemia Non-ST elevation (NSTEMI) myocardial infarction (~01/27/17) Tobacco use Toxic encephalopathy (~01/27/17) Home Medications alprazolam 0.5 mg tablet 0.5 mg PO BID PRN PRN Anxiety 03/17/19 [History Last Taken 03/16/19] escitalopram oxalate 5 mg tablet 10 mg PO DAILY 12/27/19 [History Last Taken Unknown] atenolol 50 mg tablet 50 mg PO DAILY 06/18/20 [History Last Taken Unknown] ibuprofen 400 mg tablet 400 mg PO Q8 04/24/22 [History Last Taken Unknown] lactulose 10 gram/15 mL oral solution 04/24/22 [History Last Taken Unknown] prednisone 50 mg tablet 50 mg PO DAILY 04/24/22 [History Last Taken Unknown] valacyclovir 500 mg tablet 1,000 mg PO DAILY 04/24/22 [History Last Taken Unknown] Allergy/AdvReac Type Severity Reaction Status Date / Time Opioids - Morphine Analogues AdvReac Rash Verified 04/24/22 12:27 Family History Father Heart disease Surgical History History of left heart catheterization Hx of cholecystectomy Social History Smoking Status: Light Smoker (<10/day) alcohol intake: former year quit: 2015 substance use type: marijuana and other details: Smokes marijuana daily ROS ROS Narrative See HPI Physical Exam Const alert, oriented x3 and no apparent distress HEENT normocephalic and head/scalp atraumatic HEENT Narrative: NG in place Eyes PERRL and EOMs intact bilaterally Neck full ROM and no lymphadenopathy Chest inspection of chest normal Resp normal respiratory effort Effort and Inspection: able to speak in complete sentences Auscultation: Negative for rales, rhonchi or wheezes Cardio regular rate, regular rhythm, S1 normal heart sound, S2 normal heart sound, no murmurs, no rub and no gallops GI normal to inspection, nondistended, normoactive bowel sounds Extremity no clubbing, cyanosis or edema Neuro oriented x3, CN's II-XII intact bilaterally and moves all extremities Psych cooperative and affect normal Lab / Micro Data Attestation: I reviewed the patient's lab results. Result Diagrams: 04/29/22 03:45 04/29/22 03:45 Labs: Laboratory Results - last 24 hr 04/28/22 09:30: WBC 16.2 H, RBC 4.88, Hgb 15.4 H, Hct 46.9, MCV 96.1, MCH 31.6, MCHC 32.8, RDW Std Deviation 46.4 H, RDW Coeff of [place] 13.2, Plt Count 131 L, MPV 12.5 H, Immature Gran % (Auto) 0.700, Neut % (Auto) 80.0 H, Lymph % (Auto) 8.0 L , [place] % (Auto) 10.6 H, Eos % (Auto) 0.4, Baso % (Auto) 0.3, Absolute Neuts (auto) 12.9 H, Absolute Lymphs (auto) 1.29, Nucleated RBC % 0, Differential Comment SCANNED, Diff Path Review July04/28/22 09:30: PT 15.5 H, INR 1.3, APTT 33.3 04/28/22 09:30: Sodium 139, Potassium 6.3 H*, Chloride 109 H, Carbon Dioxide 18.0 L, Anion Gap 12, BUN 101 H*, Creatinine 5.16 H, Estim Creat Clear Calc 7.70, Est GFR (MDRD) Af Amer 11 L, Est GFR (MDRD) Non-Af 9 L, BUN/Creatinine Ratio 19.6, Glucose 161 H, Calcium 8.7, Total Bilirubin 0.80, AST 39 H, ALT 34, Alkaline Phosphatase 72, Total Protein 7.7, Albumin 3.4, Globulin 4.3 H, Albumin/Globulin Ratio 0.8 L 04/28/22 09:30: Ethyl Alcohol < 3.0 04/28/22 09:30: Ammonia 51.0 H 04/28/22 09:30: Magnesium 2.1 04/28/22 09:30: Phosphorus 3.5 04/28/22 10:12: Lactic Acid 1.2 04/28/22 10:35: Urine Color Yellow, Urine Clarity Clear, Urine pH 7.0, Ur Specific [place] 1.005, Urine Protein 15 H, Urine Glucose (UA) Normal, Urine Ketones Negative, Urine Occult Blood 50 H, Urine Nitrite Negative, Urine Bilirubin Negative, Urine Urobilinogen Normal, Ur Leukocyte Esterase Negative, Urine RBC 0-5 SEEN, Urine WBC 0 SEEN, Ur Squamous Epith Cells 0 SEEN, Urine Bacteria 0 SEEN, Urine Mucus 0 SEEN 04/28/22 10:35: Urine Opiates Screen NEGATIVE, Urine Methadone Screen NEGATIVE, Ur Barbiturates Screen NEGATIVE, Ur Phencyclidine Scrn NEGATIVE, Ur Amphetamines Screen NEGATIVE, MDMA (Ecstasy) Screen NEGATIVE, U Benzodiazepines Scrn POSITIVE H, Urine Cocaine Screen NEGATIVE, U Cannabinoids Screen NEGATIVE, Ur Drug Screen Comment 04/28/22 10:35: Urine Osmolality 347, Ur Random Sodium 98, Urine Creatinine 24.10 04/28/22 14:20: Sodium 147 H, Potassium 4.8, Chloride 116 H, Carbon Dioxide 23.0, Anion Gap 8, BUN 91 H, Creatinine 4.75 H, Estim Creat Clear Calc 8.79, Est GFR (MDRD) Af Amer 12 L, Est GFR (MDRD) Non-Af 10 L, BUN/Creatinine Ratio 19.2, Glucose 139 H, Calcium 9.3, Total Bilirubin 0.70, AST 35, ALT 25, Alkaline Phosphatase 57, Total Protein 6.4, Albumin 2.8 L, Globulin 3.6, Albumin/Globulin Ratio 0.8 L 04/29/22 03:45: WBC 10.8, RBC 4.17 L, Hgb 13.1, Hct 39.9, MCV 95.7, MCH 31.4, MCHC 32.8, RDW Std Deviation 46.7 H, RDW Coeff of [place] 13.5, Plt Count 109 L, MPV 12.0, Immature Gran % (Auto) 0.500, Neut % (Auto) 71.5 H, Lymph % (Auto) 13.6 L, [place] % (Auto) 13.3 H, Eos % (Auto) 0.8, Baso % (Auto) 0.3, Absolute Neuts (auto) 7.7, Absolute Lymphs (auto) 1.46, Nucleated RBC % 0 04/29/22 03:45: Sodium 146 H, Potassium 3.7, Chloride 115 H, Carbon Dioxide 20.0 L, Anion Gap 11, BUN 89 H, Creatinine 4.33 H, Estim Creat Clear Calc 9.64, Est GFR (MDRD) Af Amer 13 L, Est GFR (MDRD) Non-Af 11 L, BUN/Creatinine Ratio 20.6 H , Glucose 141 H, Calcium 8.6, TSH 1.93 04/29/22 03:45: Ammonia 72.0 H Micro: Microbiology 04/28/22 09:55 Nasal Secretion SARS-CoV-2 & FLU Antigen (Rapid) - Final ABG Data ABG results: ABG 04/28/22 12:05 Specimen Type ART Sample Site R Radial pH 7.34 L Bicarbonate Actual 16.7 L Total CO2 18 Base Excess -9 L O2 Saturation 96 ABG pCO2 30.9 L ABG pO2 86 O2 Delivery Device Room Air Attestation: I personally reviewed and interpreted this ABG as follows: (Acute compensated metabolic acidosis with increased AA gradient ) Rhythm Strip Rhythm Strip: Sinus Rhythm Rate: 69 Ectopy: None Radiology Impression Brain CT 04/28/22 09:29 IMPRESSION: Chronic involutional changes of the brain. Small vessel ischemia. Electronically Signed: Lauren Alfonso MD at 10:33 EST , Chest X-Ray 04/28/22 09:29 IMPRESSION: Stable cardiomegaly. Electronically Signed: Lauren Alfonso MD at 10:34 EST , KUB X-Ray 04/28/22 15:55 IMPRESSION: Non-obstructive bowel gas pattern. Nasogastric tube terminating within the gastric fundus with a kink within the tubing at the level of the fundus. Electronically Signed: Lauren Alfonso MD at 16:35 EST , Charges/Coding Visit Charges Inpatient E&M: 87962 Init Hosp L3
[2022-04-29] MEDS: rifAXIMin 550 MG Tablet NG ×2 (08:40→21:26)
[2022-04-29] MEDS: Heparin Injection (Vial) 5,000 UNIT/ML VIAL 5000 UNIT SC ×2 (08:40→21:26)
--- NOTE | 2022-04-29 12:00 | PN.HOSP_ITS ---
Subjective Subjective Seen and examined. Patient is awake and alert. She complains of mild headache. She admitted that she took a bunch of her medications about 4 of them as suicidal attempt as she did not have place to live. She was living with her brother but brother said to leave home. Objective Data Objective Data Vital Signs: Vital Signs Temp Pulse Resp BP Pulse Ox O2 Del Method 98.1 F 68 23 H 149/60 H 96 Room Air 04/29/22 08:00 04/29/22 11:00 04/29/22 11:00 04/29/22 11:00 04/29/22 11:00 04/29/22 11:43 Oxygen Delivery Method Room Air Weight: 145 lb 8.081 oz Body Mass Index (BMI) 27.7 Intake & Output: Intake and Output for Last 24 Hours 04/27/22 04/28/22 04/29/22 23:59 23:59 23:59 Intake Total 2465 / 2465 1050 / 1050 Output Total 3400 / 3400 1200 / 1200 Balance -935 / -935 -150 / -150 Lab / Micro Data Result Diagrams: 04/29/22 03:45 04/29/22 03:45 Labs: Laboratory Results - last 24 hr 04/28/22 10:35: Urine Osmolality 347, Ur Random Sodium 98, Urine Creatinine 24.10 04/28/22 14:20: Sodium 147 H, Potassium 4.8, Chloride 116 H, Carbon Dioxide 23.0, Anion Gap 8, BUN 91 H, Creatinine 4.75 H, Estim Creat Clear Calc 8.79, Est GFR (MDRD) Af Amer 12 L, Est GFR (MDRD) Non-Af 10 L, BUN/Creatinine Ratio 19.2, Glucose 139 H, Calcium 9.3, Total Bilirubin 0.70, AST 35, ALT 25, Alkaline Phosphatase 57, Total Protein 6.4, Albumin 2.8 L, Globulin 3.6, Albumin/Globulin Ratio 0.8 L 04/29/22 03:45: WBC 10.8, RBC 4.17 L, Hgb 13.1, Hct 39.9, MCV 95.7, MCH 31.4, MCHC 32.8, RDW Std Deviation 46.7 H, RDW Coeff of Christopher 13.5, Plt Count 109 L, MPV 12.0, Immature Gran % (Auto) 0.500, Neut % (Auto) 71.5 H, Lymph % (Auto) 13.6 L, [place] % (Auto) 13.3 H, Eos % (Auto) 0.8, Baso % (Auto) 0.3, Absolute Neuts (auto) 7.7, Absolute Lymphs (auto) 1.46, Nucleated RBC % 0 04/29/22 03:45: Sodium 146 H, Potassium 3.7, Chloride 115 H, Carbon Dioxide 20.0 L, Anion Gap 11, BUN 89 H, Creatinine 4.33 H, Estim Creat Clear Calc 9.64, Est GFR (MDRD) Af Amer 13 L, Est GFR (MDRD) Non-Af 11 L, BUN/Creatinine Ratio 20.6 H , Glucose 141 H, Calcium 8.6, TSH 1.93 04/29/22 03:45: Ammonia 72.0 H Micro: Microbiology 04/28/22 09:55 Nasal Secretion SARS-CoV-2 & FLU Antigen (Rapid) - Final ABG Data ABG results: ABG 04/28/22 12:05 Specimen Type ART Sample Site R Radial pH 7.34 L Bicarbonate Actual 16.7 L Total CO2 18 Base Excess -9 L O2 Saturation 96 ABG pCO2 30.9 L ABG pO2 86 O2 Delivery Device Room Air Radiography Diagnostic Testing: Radiology Impression KUB X-Ray 04/28/22 15:55 IMPRESSION: Non-obstructive bowel gas pattern. Nasogastric tube terminating within the gastric fundus with a kink within the tubing at the level of the fundus. Electronically Signed: Lauren Alfonso MD at 16:35 EST , Rhythm Strip Rhythm Strip: Sinus Rhythm Rate: 69 Ectopy: None Physical Exam Narrative Physical exam General: Awake, oriented x3. Mild lethargy but she answers questions appropriately HEENT: Atraumatic, PERRLA, EOMI, Normocephalic Oral: NG tube, removed. Oral mucosa moist. Dry secretions were cleaned. No Gingival or Mucosal Lesions/ Ulcerations Neck: Supple, No JVD, Negative Carotid Bruits Lungs: Air entry diminished in bilateral lung bases. No crepitation/rhonchi. No tachypnea or hypoxia Cardiovascular: Regular rate, Regular Rhythm, Normal S1, Normal S2, No murmurs Abdomen: Bowel Sounds sluggish, Soft, Non Tender, Non-Distended : [place] catheter,Urine output 5 L, clear urine. No renal angle tenderness. No suprapubic tenderness. Extremities: No edema, Capillary Refill Less than 3 Seconds Skin: Superficial bruises over lower extremities knees. Bluish discoloration of right great toe. Musculoskeletal: Bruise and mild tenderness of right foot/great toe. ROM restricted over small joints of right foot with Neurological: Cranial nerves II to XII intact. Muscle strength 4+/5 at major joints of lower extremities. Psych/Mental Status: Depressed, suicidal attempt, flat affect Assessment & Plan Assessment/Plan (1) Acute hyperkalemia: (2) Acute kidney injury: (3) Altered level of consciousness: (4) Drug overdose, multiple drugs: PLAN: Plan This is a 67-year-old female with history of frequent admission for encephalopathy unresponsiveness is being admitted for another episode of unresponsiveness, time unknown with recurrent fall and slurred speech, abnormal disorganized behavior with suspected overdose 1. Acute unresponsiveness, most probably , toxic encephalopathy unclear possible suspected Lexapro overdose, hepatic encephalopathy with recurrent fall: Patient is being admitted in ICU. Exact history regarding timeline, chronology order of the events unclear. Discussed with the ED does not have to call poison center for Lexapro drug overdose. CT head does not show acute intracranial ab normality. Chest x-ray independently reviewed and shows cardiomegaly with underventilated lungs probably due to decreased respiratory effort. ABG reviewed. UA WBC 0, nitrite and LE negative bacteria 0. U tox positive for benzodiazepine, rest negative. 04/29: Patient is more awake and oriented x3 as compared to yesterday. She took Abilify, Xanax Lexapro and acyclovir and Lexapro and acyclovir bottles are empty. She agreed for taking lactulose and Xifaxan therefore NG tube was removed. Yesterday NG tube was inserted for lactulose and Xifaxan. Hematocrit improved 40%. 2. HECTOR with hyperkalemia: Potassium 6.3, bicarb 18, anion gap 12/devolve hyperkalemic normal anion gap metabolic acidosis. BUN/creatinine 101/5.16 with BUN/creatinine ratio 19. IV fluid normal saline patient on 2 L bolus. After that, NS 150 mill per hour. I called gas scrubber operator and we agreed upon emergency cocktail of hyperkalemia with bicarb. Patient is not awake to take Kayexalate. Twelve-lead EKG of EMS and ED individually reviewed. EMS EKG sinus arrhythmia at 69 bpm, in ED normal sinus rhythm 69 with QTC 452 ms. 04/29: Patient has good urine output about 5 L. Clear urine. HECTOR improving with creatinine 4.33 BUN 89. Normal anion gap acidosis from hyperchloremia. Patient has hypernatremia therefore IV fluid changed to on D5W gas scrubber operator on board. 3. 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 We will continue lactulose and Xifaxan. Serum ammonia 51 elevated. Platelet count is 131,000 04/29: On lactulose and Xifaxan. Mild thrombocytopenia. WBC and hemoglobin normal range. Hemoconcentration resolved with IV fluid. 4.? Coronary artery disease: On medical management.? As per the patient's , she was told she has mild coronary artery disease and did not require PCI. She was found to have non-STEMI in December 2016 when she was admitted for overdose and encephalopathy. Cardiac cath showed dominant RCA with a small thrombus filled vessel in side branch of PDA. And was recommended aspirin and Plavix 5.? Hypertension, dyslipidemia, chronic nicotine use: Patient still smokes cigarette less than a pack per day. Patient was on Chantix in the past. 6. Anxiety and depression history of polysubstance use: Patient had a history of chronic opioid use dependence in the past. Patient on multiple antipsychotic medications Xanax, Abilify and Lexapro. We will hold it as patient is enceph alopathic. 04/29: Patient had suicidal attempt with multiple medications overdose. She is depressed as she does not have a place to live. Patient is seated by side. Crisis management once patient is medically stable. 7. Recurrent fall with bruise of right foot: Right great toe is bruised with bl uish discoloration. X-ray ordered. Patient also has bruises over both knees. PT and OT ordered. DVT prophylaxis: Mild thrombocytopenia. Heparin 5000 subcutaneous twice daily bilateral SCDs Total time of the visit including total time spent in counseling or coordination of care, (more than 50% of the total time, spent in obtaining medical information from nurses and other ancillary care providers,explaining to the patient about labs, imaging, diagnosis and management of active complex medical conditions), discussion with hr consultant gas scrubber operator, review of labs and imaging is 70 minutes. Clinical Impression(s) from Imaging Studies Brain CT 04/28/22 09:29 IMPRESSION: Chronic involutional changes of the brain. Small vessel ischemia. Electronically Signed: Lauren Alfonso MD at 10:33 EST , Chest X-Ray 04/28/22 09:29 IMPRESSION: Stable cardiomegaly. Microbiology Past 72 Hours 04/28/22 09:55 Nasal Secretion SARS-CoV-2 & FLU Antigen (Rapid) - Final Charges/Coding Visit Charges Inpatient E&M: 37555 Subs Hosp L3
[2022-04-29 13:52] LABS: Pathologist Review Reviewed
--- NOTE | 2022-04-29 14:30 | RAD_ITS ---
STUDY: X-RAY - RIGHT FOOT CLINICAL: Female, 67 years old. Bruise and mild tender TECHNIQUE: 2 view(s) of the foot. COMPARISON: Comparison is made with prior study dated 08/02/2013. FINDINGS: Normal talus, calcaneus, and tarsal bones. Normal visualized subtalar, talonavicular, calcaneocuboid, tarsal and tarsometatarsal articulations. Nondisplaced fractures of the distal portion of the third fourth and fifth metatarsals. There is degenerative arthrosis of the metatarsophalangeal joint of the hallux . Normal tibial and fibular sesamoid bones. Normal interphalangeal joint of the great toe. Normal phalanges of the great toe. Normal second through fifth metatarsophalangeal joints. Normal interphalangeal joints and phalanges of the lesser toes. Dorsal soft tissue swelling. RAD/Foot 2 Views IMPRESSION: Nondisplaced fractures of the distal portions of the third fourth and fifth metatarsals. Electronically Signed: Delgado Garcia MD at 15:37 EST ,
--- NOTE | 2022-04-29 14:31 | PCM.PN.REN ---
Subjective Subjective No new complaints. Good urine output. Objective Data Objective Data Vital Signs: Vital Signs Temp Pulse Resp BP Pulse Ox O2 Del Method 98.4 F 67 21 H 143/71 H 96 Room Air 04/29/22 12:00 04/29/22 14:00 04/29/22 14:00 04/29/22 14:00 04/29/22 14:00 04/29/22 14:00 Oxygen Delivery Method Room Air Weight: 66 kg Body Mass Index (BMI) 27.7 Intake & Output: Intake and Output for Last 24 Hours 04/27/22 04/28/22 04/29/22 23:59 23:59 23:59 Intake Total 2465 / 2465 2049 Output Total 3400 / 3400 2024 Balance -935 / -935 Lab / Micro Data Result Diagrams: 04/29/22 03:45 04/29/22 03:45 Labs: Laboratory Results - last 24 hr 04/28/22 09:30: Diff Path Review Reviewed 04/28/22 10:35: Urine Osmolality 347, Ur Random Sodium 98, Urine Creatinine 24.10 04/28/22 14:20: Sodium 147 H, Potassium 4.8, Chloride 116 H, Carbon Dioxide 23.0, Anion Gap 8, BUN 91 H, Creatinine 4.75 H, Estim Creat Clear Calc 8.79, Est GFR (MDRD) Af Amer 12 L, Est GFR (MDRD) Non-Af 10 L, BUN/Creatinine Ratio 19.2, Glucose 139 H, Calcium 9.3, Total Bilirubin 0.70, AST 35, ALT 25, Alkaline Phosphatase 57, Total Protein 6.4, Albumin 2.8 L, Globulin 3.6, Albumin/Globulin Ratio 0.8 L 04/29/22 03:45: WBC 10.8, RBC 4.17 L, Hgb 13.1, Hct 39.9, MCV 95.7, MCH 31.4, MCHC 32.8, RDW Std Deviation 46.7 H, RDW Coeff of Christopher 13.5, Plt Count 109 L, MPV 12.0, Immature Gran % (Auto) 0.500, Neut % (Auto) 71.5 H, Lymph % (Auto) 13.6 L, [place] % (Auto) 13.3 H, Eos % (Auto) 0.8, Baso % (Auto) 0.3, Absolute Neuts (auto) 7.7, Absolute Lymphs (auto) 1.46, Nucleated RBC % 0 04/29/22 03:45: Sodium 146 H, Potassium 3.7, Chloride 115 H, Carbon Dioxide 20.0 L, Anion Gap 11, BUN 89 H, Creatinine 4.33 H, Estim Creat Clear Calc 9.64, Est GFR (MDRD) Af Amer 13 L, Est GFR (MDRD) Non-Af 11 L, BUN/Creatinine Ratio 20.6 H, Glucose 141 H, Calcium 8.6, TSH 1.93 04/29/22 03:45: Ammonia 72.0 H Micro: Microbiology 04/28/22 09:55 Nasal Secretion SARS-CoV-2 & FLU Antigen (Rapid) - Final Radiography Diagnostic Testing: Radiology Impression KUB X-Ray 04/28/22 15:55 IMPRESSION: Non-obstructive bowel gas pattern. Nasogastric tube terminating within the gastric fundus with a kink within the tubing at the level of the fundus. Electronically Signed: Lauren Alfonso MD at 16:35 EST , Rhythm Strip Rhythm Strip: Sinus Rhythm Rate: 69 Ectopy: None Physical Exam Narrative General: Alert, awake. HEENT: Normocephalic, atraumatic, mucous membrane dry. PERRLA Neck: Supple, trachea is midline. No lymphadenopathy. Cardiovascular: Normal S1, S2. No rubs, murmurs or gallops. Lungs: Clear to auscultation bilaterally. Abdomen: Normal bowel sound, soft, nontender, no guarding or rebound. Extremities: No clubbing, cyanosis or edema. Musculoskeletal: Full passive range of motion, no joint swelling. Neurologic: Lethargic, does not follow command. Skin: Warm and dry, no rash. Assessment & Plan Assessment/Plan (1) Acute kidney injury: (2) Acute hyperkalemia: (3) Metabolic acidosis: (4) HTN (hypertension): (5) Cirrhosis: PLAN: Plan Impression/Plan: The patient is a 67-year-old woman with past history of hypertension, hepatitis C, liver cirrhosis, CAD status post GA in 2017, and hyperlipidemia. The patient presented to the hospital on 04/28/2022 with altered mental status. There is a concern of intentional overdose with escitalopram/benzodiazepine. Nephrology is consulted for HECTOR. Acute kidney injury. The patient has normal baseline renal function. Serum creatinine was normal at 0.92 mg/dL as recently as 04/24/2022. Came in with a creatinine of more than 5 within 3 days. Urine analysis is not impressive. CT abdomen 04/24 did not show any hydronephrosis. Massive urine output since [place] placement. I wonder if there is a component of retention. Creatinine is trending down. Electrolytes are stable. Since she had some immobilization prior to admission, will check a CPK level. Suspected drug overdose. Continue IV fluids for now. Mental status is improved overall.
[2022-04-30] VITALS (16 sets, daily range): BP systolic 106–165; BP diastolic 66–107; PULSE 58–70; RESP 16–24; TEMP 36.5–37.1; O2SAT 95–98
[2022-04-30] MEDS: Acetaminophen 500 MG Tablet PO ×3 (00:52→22:26)
[2022-04-30] MEDS: Lactulose 20 GM/30 ML UDC NG ×4 (04:33→20:43)
[2022-04-30 04:40] LABS: Absolute Lymphocyte Count 1.36 X10^3/uL (0.83-4.51); Absolute Neutrophil Count 6.2 X10^3/uL (2.0-7.7); Basophil# 0.03 X10^3/uL; Basophil% 0.3 % (0-1); Eosinophil# 0.26 X10^3/uL; Eosinophils% 2.8 % (0-5); Hematocrit 37.8 % (37-47); Hemoglobin 12.6 g/dL (12.0-15.0); Lymphocyte # 1.36 X10^3/ul (0.83-4.51); Lymphocyte % 14.9 % (19-41); Mean Corp Hgb Conc 33.3 g/dL (32-36); Mean Corpuscular Hgb 31.7 pg (27.0-32.0); Mean Platelet Vol. 12.1 fl (6.2-12.0); Monocyte# 1.21 X10^3/uL; Monocyte% 13.3 % (0-10); NRBC Flagged by Analyzer 0 % (0-5); Neutrophil # 6.22 X10^3/uL (2.7-7.7); Neutrophil % 68.2 % (47-70); POSITIVE COUNT YES; Platelet Count 83 K/mm3 (150-450); RBC Distribution Width CV 13.3 % (11.6-14.6); RBC Distribution Width SD 45.6 fl (35.1-43.9); Red Blood Count 3.98 M/mm3 (4.2-5.4); White Blood Count 9.1 K/mm3 (4.4-11.0)
[2022-04-30 04:54] LABS: Anion Gap 11 (5-15); BUN 77 mg/dL (7-18); BUN/Creat Ratio 26.3 RATIO (10-20); Calcium,Total 8.4 mg/dL (8.5-10.1); Chloride 111 mmol/L (98-107); Creatinine, Serum 2.93 mg/dL (0.55-1.02); EST Glomerular Filtration Rate 17 mL/min (>60); Est Glom Filt Rate - Afr Amer 21 mL/min (>60); Estimated Creatinine Clearance 14.25 ml/min; Glucose 123 mg/dL (74-106); Potassium 3.3 mmol/L (3.5-5.1); Sodium Level 142 mmol/L (136-145)
[2022-04-30 04:57] LABS: CPK Total, Creatine Kinase 45 U/L (26-192)
--- NOTE | 2022-04-30 09:02 | CON.PCM_ITS ---
Assessment & Plan Assessment/Plan (1) Fracture of metatarsal bone of right foot: PLAN: Exam performed Radiographs demonstrated non-displaced fracture of the necks of metatarsals 3, 4, 5 on right No evidence of compartment syndrome clinically This is a conservative issue and does not require surgery recommend DANG therapy Patient should remain predominately non-weightbearing to right foot in cam boot, but can transfer with boot on and weight focused on the heel Will follow up with the patient again this week to ensure adequate pain control and no development of fracture blistering. (2) Foot drop, right: HPI Consult Data Date of Consult: 04/30/22 HPI Narrative Reason for Consultation: right foot fracture HPI Narrative: WHITNEY SCHULTZ, is a 67 F who presents in setting of altered mental status 2/2 to drug overdose vs hepatic encephalopathy. Patient attempted to overdose purposefully and was admitted to the ICU with dehydration, AMS and HECTOR. Patient suffered multiple falls and has a painful, swollen, brusied right foot. Patient unable to recall specific mechanism of injury, but did not a history of dropfoot on the right due to an unspecified reason. Patient notes sensation to right foot and denies intractable pain at current. No other complaints. [facility] Medical History Abnormal electrocardiogram [ECG] [EKG] Anxiety and depression Atherosclerosis of [place] coronary artery of [place] heart without angina pect alethea Cervical neck surgery Chronic back pain Chronic narcotic use Chronic pain syndrome Cirrhosis Depression Hepatitis C History of non-ST elevation myocardial infarction (NSTEMI) HLD (hyperlipidemia) HTN (hypertension) Hyperammonemia Non-ST elevation (NSTEMI) myocardial infarction (~01/27/17) Tobacco use Toxic encephalopathy (~01/27/17) Home Medications alprazolam 0.5 mg tablet 0.5 mg PO BID PRN PRN Anxiety 03/17/19 [History Last Taken 03/16/19] escitalopram oxalate 5 mg tablet 10 mg PO DAILY 12/27/19 [History Last Taken Unknown] atenolol 50 mg tablet 50 mg PO DAILY 06/18/20 [History Last Taken Unknown] ibuprofen 400 mg tablet 400 mg PO Q8 04/24/22 [History Last Taken Unknown] lactulose 10 gram/15 mL oral solution 04/24/22 [History Last Taken Unknown] prednisone 50 mg tablet 50 mg PO DAILY 04/24/22 [History Last Taken Unknown] valacyclovir 500 mg tablet 1,000 mg PO DAILY 04/24/22 [History Last Taken Unknown] Allergy/AdvReac Type Severity Reaction Status Date / Time Opioids - Morphine Analogues AdvReac Rash Verified 04/24/22 12:27 Family History Father Heart disease Surgical History History of left heart catheterization Hx of cholecystectomy Social History Smoking Status: Light Smoker (<10/day) alcohol intake: former year quit: 2015 substance use type: marijuana and other details: Smokes marijuana daily Physical Exam Narrative Dorsalis pedis pulse diminished in volume but remains biphasic on doppler to right foot, posterior tibial artery triphasic. diffuse edema limited to right forefoot. capillary fill time brisk to all digits bilaterally Light touch, protective sensation, two point discrimination intact to bilateral feet No skin breaks, some ecchymosis to dorsal right forefoot Pain limited to right forefoot Radiographs demonstrated non-displaced fracture of the necks of metatarsals 3, 4, 5 on right Const alert, oriented x3 and no apparent distress Lab / Micro Data Result Diagrams: 04/30/22 04:30 04/30/22 04:30 Labs: Laboratory Results - last 24 hr 04/28/22 09:30: Diff Path Review Reviewed 04/30/22 04:30: WBC 9.1, RBC 3.98 L, Hgb 12.6, Hct 37.8, MCV 95.0, MCH 31.7, MCHC 33.3, RDW Std Deviation 45.6 H, RDW Coeff of Christopher 13.3, Plt Count 83 L, MPV 12.1 H, Immature Gran % (Auto) 0.500, Neut % (Auto) 68.2, Lymph % (Auto) 14.9 L, [place] % (Auto) 13.3 H, Eos % (Auto) 2.8, Baso % (Auto) 0.3, Absolute Neuts (auto) 6.2, Absolute Lymphs (auto) 1.36, Nucleated RBC % 0 04/30/22 04:30: Sodium 142, Potassium 3.3 L, Chloride 111 H, Carbon Dioxide 20.0 L, Anion Gap 11, BUN 77 H, Creatinine 2.93 H, Estim Creat Clear Calc 14.25, Est GFR (MDRD) Af Amer 21 L, Est GFR (MDRD) Non-Af 17 L, BUN/Creatinine Ratio 26.3 H , Glucose 123 H, Calcium 8.4 L 04/30/22 04:30: Total Creatine Kinase 45 Micro: Microbiology 04/28/22 10:35 Urine Catheter - Catheter Urine Culture - Final Culture exhibits no growth. Rhythm Strip Rhythm Strip: Sinus Rhythm Rate: 69 Ectopy: None Radiology Impression Foot X-Ray 04/29/22 14:30 IMPRESSION: Nondisplaced fractures of the distal portions of the third fourth and fifth metatarsals. Electronically Signed: Delgado Garcia MD at 15:37 EST ,
[2022-04-30] MEDS: Heparin Injection (Vial) 5,000 UNIT/ML VIAL 5000 UNIT SC ×2 (09:17→20:44)
[2022-04-30] MEDS: rifAXIMin 550 MG Tablet NG ×2 (09:17→20:44)
[2022-04-30] MEDS: Potassium Chloride Oral Tablet 20 MEQ 40 MEQ PO (09:18)
--- NOTE | 2022-04-30 09:19 | PN.CC_ITS ---
Assessment & Plan Assessment/Plan (1) Drug overdose, multiple drugs: (2) Hepatic encephalopathy: (3) Cirrhosis: (4) Acute kidney injury: (5) History of cirrhosis: PLAN: Plan RECOMMENDATIONS: 1. Continue rifaximin and lactulose 2. Appreciate podiatry recommendations for foot fracture 3. Crisis evaluation once medically stable 4. Continue aggressive fluid resuscitation and monitoring renal function 5. Okay to leave the intensive care unit from my perspective 6. Okay to reinitiate hypertension meds in a stepwise fashion 7. Patient hemodynamically stable on room air. Will sign off from a critical care perspective IMPRESSIONS: 1. Acute intentional overdose with toxic and metabolic encephalopathy Patient reportedly took a polypharmacy overdose with the intent of hurting herself. Patient is on suicide precautions at this time. Patient's mentation is improving, so likely not necessary to get an MRI and EEG. Some component of protracted sedation can be expected given renal dysfunction. Patient will need a crisis evaluation when more medically stable. 2. Acute kidney injury with hyperkalemia Improving. Patient with normal renal function (creatinine 0.9) at [facility]. Patient presented with a creatinine greater than 5. Patient has received fluid resuscitation. Okay to continue current fluids. Nephrology is following. Hyperkalemia is much improved. 3. Hepatic encephalopathy/hepatitis C/thrombocytopenia Patient with a known history of hepatitis C and cirrhosis. Patient has not been compliant with lactulose at home, leading to an elevated ammonia. Patient has been tolerating these medications. Patient tolerating NG tube removal. No indication for transfusion at this time 4. Multiple falls leading to a right foot fracture Likely secondary to problem #1 and problem #3. Patient does have some ecchymosis noted of the right foot and subsequently found to have nondisplaced fractures. Podiatry giving recommendations. Patient can be evaluated by PT/OT 5. CAD/hypertension/dyslipidemia/tobacco abuse/anxiety/depression Complicates care, management, recovery and prognosis. Okay to continue on statin. Nicotine patch can be added. Patient likely requires a psychiatrist to help with Xanax/Abilify and Lexapro dosing. Crisis will be consulted when medically stable. Subjective Subjective Patient did okay overnight. Patient is reporting generalized pain leading to decreased sleep overnight. No aggressive behavior has been noted. Blood pressures have been doing well. Patient tolerating room air. Good urine output has been noted by nursing. Objective Data Objective Data Vital Signs: Vital Signs Temp Pulse Resp BP Pulse Ox O2 Del Method 36.6 C 58 L 19 H 142/66 H 98 Room Air 04/30/22 08:00 04/30/22 09:00 04/30/22 09:00 04/30/22 09:00 04/30/22 09:00 04/30/22 09:00 Oxygen Delivery Method Room Air Weight: 66.5 kg Body Mass Index (BMI) 27.7 Intake & Output: Intake and Output for Last 24 Hours 04/28/22 04/29/22 04/30/22 23:59 23:59 23:59 Intake Total 2465 / 2465 2049 / 2049 1000 / 1000 Output Total 3400 / 3400 2024 / 2024 Balance -935 / -935 1000 / 1000 Lab / Micro Data Attestation: I reviewed the patient's lab results. Result Diagrams: 04/30/22 04:30 04/30/22 04:30 Labs: Laboratory Results - last 24 hr 04/28/22 09:30: Diff Path Review Reviewed 04/30/22 04:30: WBC 9.1, RBC 3.98 L, Hgb 12.6, Hct 37.8, MCV 95.0, MCH 31.7, MCHC 33.3, RDW Std Deviation 45.6 H, RDW Coeff of Christopher 13.3, Plt Count 83 L, MPV 12.1 H, Immature Gran % (Auto) 0.500, Neut % (Auto) 68.2, Lymph % (Auto) 14.9 L, [place] % (Auto) 13.3 H, Eos % (Auto) 2.8, Baso % (Auto) 0.3, Absolute Neuts (auto) 6.2, Absolute Lymphs (auto) 1.36, Nucleated RBC % 0 04/30/22 04:30: Sodium 142, Potassium 3.3 L, Chloride 111 H, Carbon Dioxide 20.0 L, Anion Gap 11, BUN 77 H, Creatinine 2.93 H, Estim Creat Clear Calc 14.25, Est GFR (MDRD) Af Amer 21 L, Est GFR (MDRD) Non-Af 17 L, BUN/Creatinine Ratio 26.3 H , Glucose 123 H, Calcium 8.4 L 04/30/22 04:30: Total Creatine Kinase 45 Micro: Microbiology 04/28/22 10:35 Urine Catheter - Catheter Urine Culture - Final Culture exhibits no growth. 04/28/22 09:55 Nasal Secretion SARS-CoV-2 & FLU Antigen (Rapid) - Final Radiography Diagnostic Testing: Radiology Impression Foot X-Ray 04/29/22 14:30 IMPRESSION: Nondisplaced fractures of the distal portions of the third fourth and fifth metatarsals. Electronically Signed: Delgado Garcia MD at 15:37 EST , Rhythm Strip Rhythm Strip: Sinus Rhythm Rate: 66 Ectopy: None Physical Exam Const alert, oriented x3 and no apparent distress HEENT normocephalic and head/scalp atraumatic HEENT Narrative: NG has been removed Eyes PERRL and EOMs intact bilaterally Neck full ROM and no lymphadenopathy Chest inspection of chest normal Resp normal respiratory effort Effort and Inspection: able to speak in complete sentences Auscultation: Negative for rales, rhonchi or wheezes Cardio regular rate, regular rhythm, S1 normal heart sound, S2 normal heart sound, no murmurs, no rub and no gallops GI normal to inspection, nondistended, normoactive bowel sounds Extremity no clubbing, cyanosis or edema Extremity Narrative: Tenderness to the dorsum of the right foot Skin Skin Narrative: Ecchymosis noted on the right foot and left flank Neuro oriented x3, CN's II-XII intact bilaterally and moves all extremities Psych cooperative and affect normal Charges/Coding Visit Charges Inpatient E&M: 03549 Subs Hosp L2
--- NOTE | 2022-04-30 11:57 | PCM.PN.HOSP ---
Subjective Subjective No issues overnight, she did not sleep very well due to pain Objective Data Objective Data Vital Signs: Vital Signs Temp Pulse Resp BP Pulse Ox O2 Del Method 97.9 F 64 23 H 154/73 H 98 Room Air 04/30/22 08:00 04/30/22 11:00 04/30/22 11:00 04/30/22 11:00 04/30/22 11:00 04/30/22 11:00 Oxygen Delivery Method Room Air Weight: 146 lb 9.718 oz Body Mass Index (BMI) 27.7 Intake & Output: Intake and Output for Last 24 Hours 04/29/22 04/30/22 05/01/22 03:59 03:59 03:59 Intake Total 3465 / 3515 2049 Output Total 3400 / 3400 2024 Balance 65 / 115 Lab / Micro Data Result Diagrams: 04/30/22 04:30 04/30/22 04:30 Labs: Laboratory Results - last 24 hr 04/28/22 09:30: Diff Path Review Reviewed 04/30/22 04:30: WBC 9.1, RBC 3.98 L, Hgb 12.6, Hct 37.8, MCV 95.0, MCH 31.7, MCHC 33.3, RDW Std Deviation 45.6 H, RDW Coeff of Christopher 13.3, Plt Count 83 L, MPV 12.1 H, Immature Gran % (Auto) 0.500, Neut % (Auto) 68.2, Lymph % (Auto) 14.9 L, [place] % (Auto) 13.3 H, Eos % (Auto) 2.8, Baso % (Auto) 0.3, Absolute Neuts (auto) 6.2, Absolute Lymphs (auto) 1.36, Nucleated RBC % 0 04/30/22 04:30: Sodium 142, Potassium 3.3 L, Chloride 111 H, Carbon Dioxide 20.0 L, Anion Gap 11, BUN 77 H, Creatinine 2.93 H, Estim Creat Clear Calc 14.25, Est GFR (MDRD) Af Amer 21 L, Est GFR (MDRD) Non-Af 17 L, BUN/Creatinine Ratio 26.3 H, Glucose 123 H, Calcium 8.4 L 04/30/22 04:30: Total Creatine Kinase 45 Micro: Microbiology 04/28/22 09:54 Blood Culture (Wb) - Arm Left Blood Culture - Preliminary No growth in 48 hours. 04/28/22 10:12 Blood Culture (Wb) - Right Wrist Blood Culture - Preliminary No growth in 48 hours. 04/28/22 10:35 Urine Catheter - Catheter Urine Culture - Final Culture exhibits no growth. 04/28/22 09:55 Nasal Secretion SARS-CoV-2 & FLU Antigen (Rapid) - Final Radiography Diagnostic Testing: Radiology Impression Foot X-Ray 04/29/22 14:30 IMPRESSION: Nondisplaced fractures of the distal portions of the third fourth and fifth metatarsals. Electronically Signed: Delgado Garcia MD at 15:37 EST , Rhythm Strip Rhythm Strip: Sinus Rhythm Rate: 66 Ectopy: None Physical Exam Narrative General: Alert, Oriented x3, Cooperative, No apparent distress HEENT: Atraumatic, PERRLA, EOMI, Normocephalic Oral: Moist Mucosa Neck: Supple, No JVD Lungs: Clear to auscultation, Normal air movement, No rhonchi, No wheeze, No rales Cardiovascular: Regular rate, Regular Rhythm, Normal S1, Normal S2, No murmurs Abdomen: Soft, Non Tender, Non-Distended, No Hepato-splenomegaly Extremities: No edema, Capillary Refill Less than 3 Seconds Skin: No rashes, No breakdown Musculoskeletal: No Tenderness to Palpation of Joints or Extremities Neurological: Cranial nerves II-XII grossly intact, Motor Exam 5/5 strength throughout, Sensory exam intact to light touch and pain Psych/Mental Status: Flat affect, Appropriate Assessment & Plan Assessment/Plan (1) Acute hyperkalemia: (2) Acute kidney injury: (3) Altered level of consciousness: (4) Drug overdose, multiple drugs: PLAN: Plan 1. Acute unresponsiveness, most probably , toxic encephalopathy unclear possible suspected Lexapro overdose, hepatic encephalopathy with recurrent fall: Patient is being admitted in ICU. Exact history regarding timeline, chronology order of the events unclear. Discussed with the ED does not have to call poison center for Lexapro drug overdose. CT head does not show acute intracranial abnormality. Chest x-ray independently reviewed and shows cardiomegaly with underventilated lungs probably due to decreased respiratory effort. ABG reviewed. UA WBC 0, nitrite and LE negative bacteria 0. U tox positive for benzodiazepine, rest negative. 04/29: Patient is more awake and oriented x3 as compared to yesterday. She took Abilify, Xanax Lexapro and acyclovir and Lexapro and acyclovir bottles are empty. She agreed for taking lactulose and Xifaxan therefore NG tube was removed. Yesterday NG tube was inserted for lactulose and Xifaxan. Hematocrit improved 40%. 04/30/2022: Alert and oriented hemoglobin is at baseline and confusion has resolved. Her renal function is improving and given the fact that this is likely related to her medication overdose I do anticipate continued improvement therefore I do recommend crisis see her as she has medically cleared since she is able to take p.o. intake 2. HECTOR with hyperkalemia: Potassium 6.3, bicarb 18, anion gap 12/devolve hyperkalemic normal anion gap metabolic acidosis. BUN/creatinine 101/5.16 with BUN/creatinine ratio 19. IV fluid normal saline patient on 2 L bolus. After that, NS 150 mill per hour. I called other sports official and we agreed upon emergency cocktail of hyperkalemia with bicarb. Patient is not awake to take Kayexalate. Twelve-lead EKG of EMS and ED individually reviewed. EMS EKG sinus arrhythmia at 69 bpm, in ED normal sinus rhythm 69 with QTC 452 ms. 04/29: Patient has good urine output about 5 L. Clear urine. HECTOR improving with creatinine 4.33 BUN 89. Normal anion gap acidosis from hyperchloremia. Patient has hypernatremia therefore IV fluid changed to on D5W other sports official on board. 04/30/2022: Creatinine is down to 2.93, would anticipate continued improvement with her p.o. intake and her continued IV fluids, 3. 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 We will continue lactulose and Xifaxan. Serum ammonia 51 elevated. Platelet count is 131,000 04/29: On lactulose and Xifaxan. Mild thrombocytopenia. WBC and hemoglobin normal range. Hemoconcentration resolved with IV fluid. 4.? Coronary artery disease: On medical management.? As per the patient's , she was told she has mild coronary artery disease and did not require PCI. She was found to have non-STEMI in December 2016 when she was admitted for overdose and encephalopathy. Cardiac cath showed dominant RCA with a small thrombus filled vessel in side branch of PDA. And was recommended aspirin and Plavix 5.? Hypertension, dyslipidemia, chronic nicotine use: Patient still smokes cigarette less than a pack per day. Patient was on Chantix in the past. 6. Anxiety and depression history of polysubstance use: Patient had a history of chronic opioid use dependence in the past. Patient on multiple antipsychotic medications Xanax, Abilify and Lexapro. We will hold it as patient is encephalopathic. 04/29: Patient had suicidal attempt with multiple medications overdose. She is depressed as she does not have a place to live. Patient is seated by side. Crisis management once patient is medically stable. 04/30/2022: Would recommend crisis evaluation for placement as she is medically cleared 7. Recurrent fall with bruise of right foot: Right great toe is bruised with bluish discoloration. X-ray ordered. Patient also has bruises over both knees. PT and OT ordered. DVT: SCDs Charges/Coding Visit Charges Inpatient E&M: 00279 Subs Hosp L2
--- NOTE | 2022-04-30 12:45 | CASEMGMT ---
RN CM NOTE: Dr Kline entered order for walking boot. Brianne from [facility] [place], [place] was made aware and has delivered boot to pt's room. Script for boot prepared, along w/printed order by Dr Kline for Brianne, per her request. Iris TODDN RN CM
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
--- NOTE | 2022-04-30 15:03 | PN.RENAL_ITS ---
Subjective Subjective no new complaints. [place] catheter has been removed. As per staff at bedside, she has avoided since then. Objective Data Objective Data Vital Signs: Vital Signs Temp Pulse Resp BP Pulse Ox O2 Del Method 97.8 F 62 24 H 106/75 98 Room Air 04/30/22 12:00 04/30/22 12:00 04/30/22 12:00 04/30/22 12:00 04/30/22 12:21 04/30/22 12:00 Oxygen Delivery Method Room Air Weight: 66.5 kg Body Mass Index (BMI) 27.7 Intake & Output: Intake and Output for Last 24 Hours 04/28/22 04/29/22 04/30/22 23:59 23:59 23:59 Intake Total 2465 / 2465 2049 / 2049 1000 / 1000 Output Total 3400 / 3400 2024 / 2024 Balance -935 / -935 1000 / 1000 Lab / Micro Data Result Diagrams: 04/30/22 04:30 04/30/22 04:30 Labs: Laboratory Results - last 24 hr 04/30/22 04:30: WBC 9.1, RBC 3.98 L, Hgb 12.6, Hct 37.8, MCV 95.0, MCH 31.7, MCHC 33.3, RDW Std Deviation 45.6 H, RDW Coeff of Christopher 13.3, Plt Count 83 L, MPV 12.1 H, Immature Gran % (Auto) 0.500, Neut % (Auto) 68.2, Lymph % (Auto) 14.9 L, [place] % (Auto) 13.3 H, Eos % (Auto) 2.8, Baso % (Auto) 0.3, Absolute Neuts (auto) 6.2, Absolute Lymphs (auto) 1.36, Nucleated RBC % 0 04/30/22 04:30: Sodium 142, Potassium 3.3 L, Chloride 111 H, Carbon Dioxide 20.0 L, Anion Gap 11, BUN 77 H, Creatinine 2.93 H, Estim Creat Clear Calc 14.25, Est GFR (MDRD) Af Amer 21 L, Est GFR (MDRD) Non-Af 17 L, BUN/Creatinine Ratio 26.3 H , Glucose 123 H, Calcium 8.4 L 04/30/22 04:30: Total Creatine Kinase 45 Micro: Microbiology 04/28/22 09:54 Blood Culture (Wb) - Arm Left Blood Culture - Preliminary No growth in 48 hours. 04/28/22 10:12 Blood Culture (Wb) - Right Wrist Blood Culture - Preliminary No growth in 48 hours. 04/28/22 10:35 Urine Catheter - Catheter Urine Culture - Final Culture exhibits no growth. 04/28/22 09:55 Nasal Secretion SARS-CoV-2 & FLU Antigen (Rapid) - Final Radiography Diagnostic Testing: Radiology Impression Foot X-Ray 04/29/22 14:30 IMPRESSION: Nondisplaced fractures of the distal portions of the third fourth and fifth metatarsals. Electronically Signed: Delgado Garcia MD at 15:37 EST , Rhythm Strip Rhythm Strip: Sinus Rhythm Rate: 66 Ectopy: None Physical Exam Narrative General: Alert, awake. HEENT: Normocephalic, atraumatic, mucous membrane dry. PERRLA Neck: Supple, trachea is midline. No lymphadenopathy. Cardiovascular: Normal S1, S2. No rubs, murmurs or gallops. Lungs: Clear to auscultation bilaterally. Abdomen: Normal bowel sound, soft, nontender, no guarding or rebound. Extremities: No clubbing, cyanosis or edema. Musculoskeletal: Full passive range of motion, no joint swelling. Neurologic: Lethargic, does not follow command. Skin: Warm and dry, no rash. Assessment & Plan Assessment/Plan (1) Acute kidney injury: (2) Acute hyperkalemia: (3) Metabolic acidosis: (4) HTN (hypertension): (5) Cirrhosis: PLAN: Plan Impression/Plan: The patient is a 67-year-old woman with past history of hypertension, hepatitis C, liver cirrhosis, CAD status post TX in 2017, and hyperlipidemia. The patient presented to the hospital on 04/28/2022 with altered mental status. There is a concern of intentional overdose with escitalopram/benzodiazepine. Nephrology is consulted for HECTOR. Acute kidney injury. The patient has normal baseline renal function. Serum creatinine was normal at 0.92 mg/dL as recently as 04/24/2022. Came in with a creatinine of more than 5 within 3 days. Urine analysis is not impressive. CT abdomen 04/24 did not show any hydronephrosis. Massive urine output since Orlando placement. I wonder if there is a component of retention. Creatinine is trending down. Electrolytes are stable. creatinine continues to improve. Oral intake is good. Voiding without any issues. No further workup from nephrology standpoint.
[2022-05-01 02:00] VITALS: BP 125/83; PULSE 70; RESP 18; TEMP 36.6; O2SAT 97
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
[2022-05-01] MEDS: Acetaminophen 500 MG Tablet PO (05:45)
[2022-05-01 06:00] LABS: Absolute Lymphocyte Count 1.23 X10^3/uL (0.83-4.51); Absolute Neutrophil Count 6.3 X10^3/uL (2.0-7.7); Basophil# 0.06 X10^3/uL; Basophil% 0.7 % (0-1); Eosinophil# 0.18 X10^3/uL; Hematocrit 36.6 % (37-47); Hemoglobin 12.2 g/dL (12.0-15.0); Lymphocyte # 1.23 X10^3/ul (0.83-4.51); Lymphocyte % 13.7 % (19-41); Mean Corp Hgb Conc 33.3 g/dL (32-36); Mean Corpuscular Hgb 31.6 pg (27.0-32.0); Mean Corpuscular Volume 94.8 fL (81-99); Mean Platelet Vol. 11.7 fl (6.2-12.0); Monocyte% 13.3 % (0-10); NRBC Flagged by Analyzer 0 % (0-5); Neutrophil # 6.28 X10^3/uL (2.7-7.7); Neutrophil % 69.6 % (47-70); POSITIVE COUNT YES; Platelet Count 94 K/mm3 (150-450); RBC Distribution Width CV 13.3 % (11.6-14.6); RBC Distribution Width SD 45.5 fl (35.1-43.9); Red Blood Count 3.86 M/mm3 (4.2-5.4)
[2022-05-01 06:10] LABS: Anion Gap 9 (5-15); BUN 60 mg/dL (7-18); BUN/Creat Ratio 36.8 RATIO (10-20); Calcium,Total 8.5 mg/dL (8.5-10.1); Chloride 114 mmol/L (98-107); Creatinine, Serum 1.63 mg/dL (0.55-1.02); EST Glomerular Filtration Rate 34 mL/min (>60); Est Glom Filt Rate - Afr Amer 41 mL/min (>60); Estimated Creatinine Clearance 25.62 ml/min; Glucose 143 mg/dL (74-106); Potassium 3.6 mmol/L (3.5-5.1); Sodium Level 143 mmol/L (136-145)
--- NOTE | 2022-05-01 07:05 | NURSING ---
Report called to Ozzie at [facility]. Pt's pink-slip faxed to facility ([phone]).
--- NOTE | 2022-05-01 07:27 | NURSING ---
Transport set up with [facility], ETA of 1100 given.
[2022-05-01 08:00] VITALS: BP 128/79; PULSE 66; RESP 18; TEMP 36.6; O2SAT 96
[2022-05-01] MEDS: Heparin Injection (Vial) 5,000 UNIT/ML VIAL 5000 UNIT SC (09:05)
[2022-05-01] MEDS: Lactulose 20 GM/30 ML UDC NG (09:05)
[2022-05-01] MEDS: rifAXIMin 550 MG Tablet NG (09:05)
--- NOTE | 2022-05-01 11:07 | PN.RENAL_ITS ---
Subjective Subjective Follow-up on acute kidney injury secondary to obstructive uropathy. Creatinine is improving rather fast down to 1.63. [place] catheter was improved and she has been able to void normally Objective Data Objective Data Vital Signs: Vital Signs Temp Pulse Resp BP Pulse Ox O2 Del Method 97.9 F 66 18 128/79 H 96 Room Air 05/01/22 08:00 05/01/22 08:00 05/01/22 08:00 05/01/22 08:00 05/01/22 08:00 05/01/22 08:00 Oxygen Delivery Method Room Air Weight: 66.4 kg Body Mass Index (BMI) 27.7 Intake & Output: Intake and Output for Last 24 Hours 04/29/22 04/30/22 05/01/22 23:59 23:59 23:59 Intake Total 2049 / 2049 1000 / 1000 Output Total 2024 / 2024 Balance 1000 / 1000 Lab / Micro Data Attestation: I reviewed the patient's lab results. Result Diagrams: 05/01/22 05:50 05/01/22 05:50 Labs: Laboratory Results - last 24 hr 05/01/22 05:50: WBC 9.0, RBC 3.86 L, Hgb 12.2, Hct 36.6 L, MCV 94.8, MCH 31.6, MCHC 33.3, RDW Std Deviation 45.5 H, RDW Coeff of Christopher 13.3, Plt Count 94 L, MPV 11.7, Immature Gran % (Auto) 0.700, Neut % (Auto) 69.6, Lymph % (Auto) 13.7 L, [place] % (Auto) 13.3 H, Eos % (Auto) 2.0, Baso % (Auto) 0.7, Absolute Neuts (auto) 6.3, Absolute Lymphs (auto) 1.23, Nucleated RBC % 0 05/01/22 05:50: Sodium 143, Potassium 3.6, Chloride 114 H, Carbon Dioxide 20.0 L , Anion Gap 9, BUN 60 H, Creatinine 1.63 H, Estim Creat Clear Calc 25.62, Est GFR (MDRD) Af Amer 41 L, Est GFR (MDRD) Non-Af 34 L, BUN/Creatinine Ratio 36.8 H , Glucose 143 H, Calcium 8.5 Micro: Microbiology 04/28/22 09:54 Blood Culture (Wb) - Arm Left Blood Culture - Preliminary No growth in 48 hours. 04/28/22 10:12 Blood Culture (Wb) - Right Wrist Blood Culture - Preliminary No growth in 48 hours. 04/28/22 10:35 Urine Catheter - Catheter Urine Culture - Final Culture exhibits no growth. 04/28/22 09:55 Nasal Secretion SARS-CoV-2 & FLU Antigen (Rapid) - Final Rhythm Strip Rhythm Strip: Sinus Rhythm Rate: 66 Ectopy: None Physical Exam Const alert, no apparent distress and average body habitus General Appearance: well developed Orientation / Consciousness: oriented to person HEENT normocephalic Head and Scalp: atraumatic Resp clear to auscultation bilaterally Cardio regular rate, no murmurs and no rub GI Auscultation: normoactive bowel sounds Skin no rashes or lesions noted Neuro moves all extremities and no focal motor deficits Assessment & Plan Assessment/Plan (1) Acute kidney injury: PLAN: Peers to me that it was secondary to obstruction, her creatinine is close to baseline, down to 1.63. She has very mild acidosis and does not need supplemental bicarb. Initial Orlando catheter is out, her renal function and urine output needs to be monitored as an outpatient. Reported she is getting discharged today. She is wearing depends due to her fecal incontinence. Please, arrange for BMP to be done next week
[2022-05-01 11:17] VITALS: BP 129/75; PULSE 64; RESP 18
--- NOTE | 2022-05-01 11:19 | NURSING ---
pt pink-slip to [facility], [place] per [facility]
--- NOTE | 2022-05-01 11:39 | PCM.DC.SUM ---
Providers Date of Admission: 04/28/22 Primary Care Physician: SHORTY MCGEE Consultations 04/28/22 12:01 Consult: Credit Control Administrator / Pulmonary Medicine Routine Consulting Provider: [facility] Reason for Consult: AMS/HECTOR/Drug overdose EMERGENT Consult: No Notified: Yes Date Notified: 04/28/22 Time Notified: 12:02 Method of Notification: Text 04/28/22 12:05 Consult: Nephrology Routine Consulting Provider: Rogerio Aguilar Reason for Consult: HECTOR EMERGENT Consult: No Notified: Yes Date Notified: 04/28/22 Time Notified: 10:52 Method of Notification: Verbal 04/29/22 16:53 Consult: Podiatry Routine Consulting Provider: Deniz Kerr Reason for Consult: Non displaced fracture of 3 and 4th MT EMERGENT Consult: No Notified: Yes Date Notified: 04/29/22 Time Notified: 16:54 Method of Notification: Text Reason For Visit: AMS/SUSPECTED DRUG OVERDOSE Diagnosis Discharge Diagnosis (1) Acute kidney injury: Status: Acute Code(s): N17.9 - Acute kidney failure, unspecified Plan 1. Acute unresponsiveness, most probably , toxic encephalopathy unclear possible suspected Lexapro overdose, hepatic encephalopathy with recurrent fall: Patient is being admitted in ICU. Exact history regarding timeline, chronology order of the events unclear. Discussed with the ED does not have to call poison center for Lexapro drug overdose. CT head does not show acute intracranial abnormality. Chest x-ray independently reviewed and shows cardiomegaly with underventilated lungs probably due to decreased respiratory effort. ABG reviewed. UA WBC 0, nitrite and LE negative bacteria 0. U tox positive for benzodiazepine, rest negative. 04/29: Patient is more awake and oriented x3 as compared to yesterday. She took Abilify, Xanax Lexapro and acyclovir and Lexapro and acyclovir bottles are empty. She agreed for taking lactulose and Xifaxan therefore NG tube was removed. Yesterday NG tube was inserted for lactulose and Xifaxan. Hematocrit improved 40%. 04/30/2022: Alert and oriented hemoglobin is at baseline and confusion has resolved. Her renal function is improving and given the fact that this is likely related to her medication overdose I do anticipate continued improvement therefore I do recommend crisis see her as she has medically cleared since she is able to take p.o. intake 2. HECTOR with hyperkalemia: Potassium 6.3, bicarb 18, anion gap 12/devolve hyperkalemic normal anion gap metabolic acidosis. BUN/creatinine 101/5.16 with BUN/creatinine ratio 19. IV fluid normal saline patient on 2 L bolus. After that, NS 150 mill per hour. I called supervisor core drilling and we agreed upon emergency cocktail of hyperkalemia with bicarb. Patient is not awake to take Kayexalate. Twelve-lead EKG of EMS and ED individually reviewed. EMS EKG sinus arrhythmia at 69 bpm, in ED normal sinus rhythm 69 with QTC 452 ms. 04/29: Patient has good urine output about 5 L. Clear urine. HECTOR improving with creatinine 4.33 BUN 89. Normal anion gap acidosis from hyperchloremia. Patient has hypernatremia therefore IV fluid changed to on D5W supervisor core drilling on board. 04/30/2022: Creatinine is down to 2.93, would anticipate continued improvement with her p.o. intake and her continued IV fluids, 3. 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 We will continue lactulose and Xifaxan. Serum ammonia 51 elevated. Platelet count is 131,000 04/29: On lactulose and Xifaxan. Mild thrombocytopenia. WBC and hemoglobin normal range. Hemoconcentration resolved with IV fluid. 4.? Coronary artery disease: On medical management.? As per the patient's , she was told she has mild coronary artery disease and did not require PCI. She was found to have non-STEMI in December 2016 when she was admitted for overdose and encephalopathy. Cardiac cath showed dominant RCA with a small thrombus filled vessel in side branch of PDA. And was recommended aspirin and Plavix 5.? Hypertension, dyslipidemia, chronic nicotine use: Patient still smokes cigarette less than a pack per day. Patient was on Chantix in the past. 6. Anxiety and depression history of polysubstance use: Patient had a history of chronic opioid use dependence in the past. Patient on multiple antipsychotic medications Xanax, Abilify and Lexapro. We will hold it as patient is encephalopathic. 04/29: Patient had suicidal attempt with multiple medications overdose. She is depressed as she does not have a place to live. Patient is seated by side. Crisis management once patient is medically stable. 04/30/2022: Would recommend crisis evaluation for placement as she is medically cleared 7. Recurrent fall with bruise of right foot: Right great toe is bruised with bluish discoloration. X-ray ordered. Patient also has bruises over both knees. PT and OT ordered. DVT: SCDs Medications at Discharge Home Medications alprazolam 0.5 mg tablet 0.5 mg PO BID PRN PRN Anxiety 03/17/19 escitalopram oxalate 5 mg tablet 10 mg PO DAILY 12/27/19 atenolol 50 mg tablet 50 mg PO DAILY 06/18/20 ibuprofen 400 mg tablet 400 mg PO Q8 04/24/22 lactulose 10 gram/15 mL oral solution 04/24/22 prednisone 50 mg tablet 50 mg PO DAILY 04/24/22 valacyclovir 500 mg tablet 1,000 mg PO DAILY 04/24/22 lactulose 20 gram/30 mL oral solution 20 g (30 mL) NG Q6H #0 mL 05/01/22 rifaximin 550 mg tablet (Xifaxan) 550 mg NG BID #0 tabs 05/01/22 Hospital Course Operations None Procedures None Summary of Care Provided Minutes Spent on Discharge: 36 Hospital Course: Per HPI: WHITNEY SCHULTZ, is a 67 F who was brought by EMS in unresponsive state to ED.? As per EMS, they were called for a fall victim with history of multiple fall recently and slurred speech started yesterday afternoon.? This was progressively getting worse with recurrent fall in the morning.? She was found in the bed with bedroom in disarray condition.? Patient was responsive to verbal stimuli but was confused and slurring as per EMS.? She is able to say her name slowly as Twila to me.? Patient has bruises in lower extremities.? She was found and disorganized state by EMS.? Glucose 128. In ED, patient still in unresponsive state.? As per nursing staff, she lives with her brother who also has developmental delay and disability. I called patient's significant others, Mr. Perry aguiar as listed in the chart at another #[phone] seizure but no one picked up the phone and left voicemail to call back. As per nursing staff in ED, she had full bottle of Lexapro which was found empty.? She has history of substance use with similar admission unresponsiveness polysubstance use opioid with a diagnosis of acute toxic encephalopathy secondary to polypharmacy.She was then again admitted in September 2017 and January 2018 and 2018 for acute hepatic encephalopathy with history of hep C cirrhosis.? Hospital Course: 1.? Acute unresponsiveness, most probably , toxic encephalopathy unclear possible suspected Lexapro overdose, hepatic encephalopathy with recurrent fall: Patient is being admitted in ICU.? Exact history regarding timeline, chronology order of the events unclear.? Discussed with the ED does not have to call poison center for Lexapro drug overdose.? CT head does not show acute intracranial abnormality.? Chest x-ray independently reviewed and shows cardiomegaly with underventilated lungs probably due to decreased respiratory effort.? ABG reviewed.? UA WBC 0, nitrite and LE negative bacteria 0.? U tox positive for benzodiazepine, rest negative. 04/29: Patient is more awake and oriented x3 as compared to yesterday.? She took Abilify, Xanax Lexapro and acyclovir and Lexapro and acyclovir bottles are empty.? She agreed for taking lactulose and Xifaxan therefore NG tube was removed.? Yesterday NG tube was inserted for lactulose and Xifaxan.? Hematocrit improved 40%. 04/30/2022: Alert and oriented hemoglobin is at baseline and confusion has resolved.? Her renal function is improving and given the fact that this is likely related to her medication overdose I do anticipate continued improvement therefore I do recommend crisis see her as she has medically cleared since she is able to take p.o. intake 05/01/2022: Alert and oriented creatinine is improved to 1.63, and is rapidly improving back to baseline. She was evaluated by crisis yesterday and accepted to mental health facility for further care. Plan will be for discharge today. 2.? HECTOR with hyperkalemia: Potassium 6.3, bicarb 18, anion gap 12/devolve hyperkalemic normal anion gap metabolic acidosis.? BUN/creatinine 101/5.16 with BUN/creatinine ratio 19.? IV fluid normal saline patient on 2 L bolus.? After that, NS 150 mill per hour.? I called supervisor core drilling and we agreed upon emergency cocktail of hyperkalemia with bicarb.? Patient is not awake to take Kayexalate.? Twelve-lead EKG of EMS and ED individually reviewed.? EMS EKG sinus arrhythmia at 69 bpm, in ED normal sinus rhythm 69 with QTC 452 ms. 04/29: Patient has good urine output about 5 L.? Clear urine.? HECTOR improving with creatinine 4.33 BUN 89.? Normal anion gap acidosis from hyperchloremia.? Patient has hypernatremia therefore IV fluid changed to on D5W supervisor core drilling on board. 04/30/2022: Creatinine is down to 2.93, would anticipate continued improvement with her p.o. intake and her continued IV fluids 05/01/2022: Renal function is quickly returning back to baseline would recommend outpatient monitoring 3. 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 We will continue lactulose and Xifaxan.? Serum ammonia 51 elevated.? Platelet count is 131,000 04/29: On lactulose and Xifaxan.? Mild thrombocytopenia.? WBC and hemoglobin normal range.? Hemoconcentration resolved with IV fluid. 4.? Coronary artery disease: On medical management.? As per the patient's , she was told she has mild coronary artery disease and did not require PCI.? She was found to have non-STEMI in December 2016 when she was admitted for overdose and encephalopathy.? Cardiac cath showed dominant RCA with a small? thrombus filled vessel in side branch of PDA.? And was recommended aspirin and Plavix 5.? Hypertension, dyslipidemia, chronic nicotine use: Patient still smokes cigarette less than a pack per day.? Patient was on Chantix in the past. 6.? Anxiety and depression history of polysubstance use: Patient had a history of chronic opioid use dependence in the past.? Patient on multiple antipsychotic medications Xanax, Abilify and Lexapro.? We will hold it as patient is encephalopathic. 04/29: Patient had suicidal attempt with multiple medications overdose.? She is depressed as she does not have a place to live.? Patient is seated by side.? Crisis management once patient is medically stable. 04/30/2022: Would recommend crisis evaluation for placement as she is medically cleared 7.? Recurrent fall with bruise of right foot: Right great toe is bruised with bluish discoloration.? X-ray ordered.? Patient also has bruises over both knees.? PT and OT ordered. Physical Exam Narrative General: Alert, Oriented x3, Cooperative, No apparent distress HEENT: Atraumatic, PERRLA, EOMI, Normocephalic Oral: Moist Mucosa Neck: Supple, No JVD Lungs: Clear to auscultation, Normal air movement, No rhonchi, No wheeze, No rales Cardiovascular: Regular rate, Regular Rhythm, Normal S1, Normal S2, No murmurs Abdomen: Soft, Non Tender, Non-Distended, No Hepato-splenomegaly Extremities: No edema, Capillary Refill Less than 3 Seconds Skin: No rashes, No breakdown Musculoskeletal: No Tenderness to Palpation of Joints or Extremities Neurological: Cranial nerves II-XII grossly intact, Motor Exam 5/5 strength throughout, Sensory exam intact to light touch and pain Psych/Mental Status: Flat affect, Appropriate Weight / BMI Weight Weight: 146 lb 6.191 oz Body Mass Index (BMI) 27.7 ABG / Lab / Microbiology Data Result Diagrams: 05/01/22 05:50 05/01/22 05:50 Laboratory: Laboratory Results - last 24 hr 05/01/22 05:50: WBC 9.0, RBC 3.86 L, Hgb 12.2, Hct 36.6 L, MCV 94.8, MCH 31.6, MCHC 33.3, RDW Std Deviation 45.5 H, RDW Coeff of Christopher 13.3, Plt Count 94 L, MPV 11.7, Immature Gran % (Auto) 0.700, Neut % (Auto) 69.6, Lymph % (Auto) 13.7 L, [place] % (Auto) 13.3 H, Eos % (Auto) 2.0, Baso % (Auto) 0.7, Absolute Neuts (auto) 6.3, Absolute Lymphs (auto) 1.23, Nucleated RBC % 0 05/01/22 05:50: Sodium 143, Potassium 3.6, Chloride 114 H, Carbon Dioxide 20.0 L, Anion Gap 9, BUN 60 H, Creatinine 1.63 H, Estim Creat Clear Calc 25.62, Est GFR (MDRD) Af Amer 41 L, Est GFR (MDRD) Non-Af 34 L, BUN/Creatinine Ratio 36.8 H, Glucose 143 H, Calcium 8.5 Microbiology: Microbiology 04/28/22 09:54 Blood Culture (Wb) - Arm Left Blood Culture - Preliminary No growth in 48 hours. 04/28/22 10:12 Blood Culture (Wb) - Right Wrist Blood Culture - Preliminary No growth in 48 hours. 04/28/22 10:35 Urine Catheter - Catheter Urine Culture - Final Culture exhibits no growth. 04/28/22 09:55 Nasal Secretion SARS-CoV-2 & FLU Antigen (Rapid) - Final D/C Instructions Discharge Diet: No restrictions Call your doctor if you observe: Fever of 101 or Higher, Shortness of breath, Dizziness, Fainting spells, Swelling in the ankles, Chest pain and Increased palpitations (irregular heartbeat) Meaningful Use Info Meaningful Use Diagnoses (Choose all that apply): None applicable Discharge Plan Admission Admit Date/Time: 04/28/22 10:47 Attending Provider: Sancho Arana Primary Care Provider: SHORTY MCGEE Consulting Providers: Nakul Klein ; Gatito Watters ; Robi Calero ; Jerzy Shanks ; Shiraz Villalta ; Minoo Mahoney NP ; Rogerio Aguilar ; Deniz Kerr Discharge Orders/Prescriptions Prescriptions: New Xifaxan 550 mg Tablet 550 mg NG BID Qty: 0 0RF lactulose 20 gram/30 mL Solution 20 g NG Q6H Qty: 0 0RF Held alprazolam 0.5 MG tablet 0.5 mg PO BID PRN PRN (Reason: Anxiety) Hold Instructions: Resume on 05/04/22. No Action escitalopram oxalate 5 MG tablet 10 mg PO DAILY atenolol 50 MG tablet 50 mg PO DAILY valacyclovir 500 mg tablet 1,000 mg PO DAILY Label Comments: Take 2 tablets by mouth once daily. prednisone 50 mg tablet 50 mg PO DAILY Label Comments: Take 1 tablet by mouth once daily for 5 days. ibuprofen 400 mg tablet 400 mg PO Q8 Label Comments: TAKE 1 TABLET BY MOUTH EVERY 8 HOURS NEEDED FOR PAIN lactulose 10 gram/15 mL solution Referrals / Follow Up: SHORTY MCGEE [Other] SHORTY MCGEE [Other] Disposition Disposition (needs filled in before D/C Order can be placed): [facility]
== END 2022-05-01 11:15 | DRG 917 ==
LOC: ED 10:35 → ICU 11:30
PROVIDERS: Internal Medicine Nephrology; Admitting Provider Internal Medicine; Emergency Provider Emergency Medicine; Visit Provider Family Medicine
DX: T43.222A Poisoning by selective serotonin reuptake inhibitors, intentional self-harm, initial encounter (principal); N17.0 Acute kidney failure with tubular necrosis; G92.9 Unspecified toxic encephalopathy; E87.0 Hyperosmolality and hypernatremia; E87.20 Acidosis, unspecified; K76.82 Hepatic encephalopathy; D69.6 Thrombocytopenia, unspecified; T42.4X2A Poisoning by benzodiazepines, intentional self-harm, initial encounter; K74.60 Unspecified cirrhosis of liver; B18.2 Chronic viral hepatitis C; T37.5X2A Poisoning by antiviral drugs, intentional self-harm, initial encounter; T43.592A Poisoning by other antipsychotics and neuroleptics, intentional self-harm, initial encounter; I10 Essential (primary) hypertension; E87.5 Hyperkalemia; E86.0 Dehydration; I25.10 Atherosclerotic heart disease of native coronary artery without angina pectoris; F17.210 Nicotine dependence, cigarettes, uncomplicated; E78.5 Hyperlipidemia, unspecified; E87.8 Other disorders of electrolyte and fluid balance, not elsewhere classified; F41.9 Anxiety disorder, unspecified; I25.2 Old myocardial infarction; S90.111A Contusion of right great toe without damage to nail, initial encounter; S80.01XA Contusion of right knee, initial encounter; S80.02XA Contusion of left knee, initial encounter; W19.XXXA Unspecified fall, initial encounter; F12.10 Cannabis abuse, uncomplicated; S92.334A Nondisplaced fracture of third metatarsal bone, right foot, initial encounter for closed fracture; S92.344A Nondisplaced fracture of fourth metatarsal bone, right foot, initial encounter for closed fracture; S92.354A Nondisplaced fracture of fifth metatarsal bone, right foot, initial encounter for closed fracture; M21.371 Foot drop, right foot; R40.4 Transient alteration of awareness; F32.A Depression, unspecified; N13.9 Obstructive and reflux uropathy, unspecified; R29.6 Repeated falls; R62.50 Unspecified lack of expected normal physiological development in childhood; Z59.00 Homelessness unspecified; Z79.899 Other long term (current) drug therapy; Z86.59 Personal history of other mental and behavioral disorders
CPT/HCPCS: 36600; 51702; 70450; 71045; 73620; 74018; 80048; 80053; 80307; 81001; 82077; 82140; 82550; 82570; 82803; 83605; 83735; 83935; 84100; 84300; 84443; 85025; 85610; 85730; 87040; 87086; 87428; 93005; 94668; 97162; 97166; 97530; 97535; 97802; 99285; J7030; A4216; J7799

== ENCOUNTER 2022-07-25 21:07 | Inpatient (IN) | payer MEDICARE, MEDICAID, SELFPAY ==
[2022-07-25 21:13] VITALS: BP 160/85; PULSE 81; RESP 18; TEMP 36.1; O2SAT 96; BMI 24.5
--- NOTE | 2022-07-25 21:38 | CT_ITS ---
INDICATION: ams EXAMINATION: CT BRAIN - CT Head or Brain W/O Contrast Injection TECHNIQUE: Multiple axial images were obtained of the head without intravenous contrast. A radiation dose optimization technique was used for this scan. IV Contrast dosage and agent: None. FINDINGS: BRAIN PARENCHYMA: No intra- or extra-axial hemorrhage. No evidence of acute infarct. No intracranial mass or mass effect. Minimal periventricular and subcortical white matter hypodense chronic small vessel white matter ischemic change. There is preservation of the dumont/white matter interface. Posterior fossa structures are unremarkable. CSF SPACES: Cerebral volume appropriate for age. No hydrocephalus. Basal cisterns are patent. CALVARIUM, SKULL BASE, PARANASAL SINUSES AND MASTOID AIR CELLS: No acute osseous finding. [place]al sinuses are clear. Mastoid air cells are clear. ORBITS: Both globes, extraocular muscles, optic nerves and retrobulbar fat appear unremarkable. ASPECTS Score for Acute Strokes: 10 CT/Brain/Head without Contrast IMPRESSION: No CT evidence of intercurrent hemorrhage or injury. Minimal senescent changes compatible with age Electronically Signed: Colin Chow MD at 23:23 EDT ,
--- NOTE | 2022-07-25 21:38 | EKG12_ITS ---
Test Reason : DYSRHYTHMIA Blood Pressure : / mmHG Vent. Rate : 071 BPM Atrial Rate : 071 BPM P-R Int : 146 ms QRS Dur : 088 ms QT Int : 444 ms P-R-T Axes : 065 037 057 degrees QTc Int : 482 ms Normal sinus rhythm Left ventricular hypertrophy with repolarization abnormality Abnormal ECG Confirmed by LJ MANCINI, SUSY ([id number]), order editor BELLE BRASHER ([id number]) on 07/29/2022 11:45:54 AM Referred By: VALERIO Confirmed By:CONNIE CALHOUN MD
--- NOTE | 2022-07-25 21:42 | EX.ED.DYSGE1 ---
HPI History of Present Illness Chief Complaint: Confusion Narrative Narrative: 67-year-old female presenting with altered mental status. Apparently she was found by her brother naked in her home acting strangely. Apparently the patient has a longstanding history of drug abuse. Patient is not able to give any information but she is awake and alert. She states the year is March. She also states the month is March. She knows her name. [facility] Medical History Abnormal electrocardiogram [ECG] [EKG] Anxiety and depression Atherosclerosis of [place] coronary artery of [place] heart without angina pectoris Cervical neck surgery Chronic back pain Chronic narcotic use Chronic pain syndrome Cirrhosis Depression Hepatitis C History of non-ST elevation myocardial infarction (NSTEMI) HLD (hyperlipidemia) HTN (hypertension) Hyperammonemia Non-ST elevation (NSTEMI) myocardial infarction (~01/27/17) Tobacco use Toxic encephalopathy (~01/27/17) Home Medications alprazolam 0.5 mg tablet 0.5 mg PO BID PRN PRN Anxiety 03/17/19 [History Last Taken 03/16/19] escitalopram oxalate 5 mg tablet 10 mg PO DAILY 12/27/19 [History Last Taken Unknown] atenolol 50 mg tablet 50 mg PO DAILY 06/18/20 [History Last Taken Unknown] ibuprofen 400 mg tablet 400 mg PO Q8 04/24/22 [History Last Taken Unknown] lactulose 10 gram/15 mL oral solution 04/24/22 [History Last Taken Unknown] prednisone 50 mg tablet 50 mg PO DAILY 04/24/22 [History Last Taken Unknown] valacyclovir 500 mg tablet 1,000 mg PO DAILY 04/24/22 [History Last Taken Unknown] lactulose 20 gram/30 mL oral solution 20 g (30 mL) NG Q6H #0 mL 05/01/22 [Rx Last Taken Unknown] rifaximin 550 mg tablet (Xifaxan) 550 mg NG BID #0 tabs 05/01/22 [Rx Last Taken Unknown] Allergy/AdvReac Type Severity Reaction Status Date / Time Opioids - Morphine Analogues AdvReac Rash Verified 04/24/22 12:27 Family History Father Heart disease Surgical History History of left heart catheterization Hx of cholecystectomy Social History Smoking Status: Current every day smoker tobacco type: cigarettes alcohol intake: former year quit: 2016 substance use type: marijuana and other details: Smokes marijuana daily ROS ROS ED Review of Systems ROS Unobtainable: due to mental condition and due to mental status EXAM Physical Exam Const Vital Signs: 07/25/22 21:13 07/25/22 22:20 Temperature 97 F L Temperature Source Temporal Pulse Rate 81 70 Respiratory Rate 18 18 Blood Pressure 160/85 H 158/80 H Blood Pressure Mean 110 106 Pulse Ox 96 96 Oxygen Delivery Method Room Air Room Air Positive well nourished General Appearance ED: NAD; Negative for pallor HEENT Reports moist mucous membranes Eyes PERRL and EOMs intact bilaterally Neck no lymphadenopathy and supple Chest Wall inspection of chest normal Resp normal respiratory effort and clear to auscultation bilaterally Auscultation: Negative for rales, rhonchi or wheezes Cardio regular rate and regular rhythm GI normal to inspection, nondistended, normoactive bowel sounds Extremity normal to inspection Neuro CN's II-XII intact bilaterally Sensorium / Orientation: alert and orientation impaired Motor Exam: strength 5/5 throughout Psych Psych Narrative: Confused Skin no rashes or lesions noted General Skin Exam: Negative for jaundice or pallor MDM MDM MDM Narrative Medical decision making narrative: Patient presenting with acute delirium. She not able to give much history. Her answers to day, month, year is all March. Patient was found naked in confused at her home. Patient does have a history of polysubstance abuse. She also has a history of hepatic encephalopathy. History includes drug overdose, had encephalopathy, stroke, intracranial hemorrhage, electrolyte abnormalities, dehydration, UTI, NSTEMI. CBC to assess white blood cell count, platelets, differential. CMP for liver function, renal function, glucose, anion gap. EtOH level be obtained. Drug abuse screen obtained EKG, high-sensitivity troponin to assess for cardiac source. Chest x-ray assess for pneumonia. No new level to be added due to patient's history of hepatic encephalopathy. Clinically patient's vital signs are stable and she is afebrile. CBC shows no leukocytosis. Hemoglobin macular stable. Platelets are normal. Renal function appears to be within normal limits. Potassium slightly low at 3.1. Liver function within normal limits. EKG on my interpretation shows a normal sinus rhythm with a ventricular rate of 71 bpm without sign of ischemic change or ectopy. Chest x-ray my interpretation shows no acute cardiopulmonary process and the radiologist interprets this and agrees. Rapid COVID and rapid influenza were negative CT the brain was negative for acute findings. High-sensitivity troponin came back at 9. Drug screen positive for cannabinoids and benzodiazepines. She is prescribed benzodiazepines for home. At this point I have not found a source of her delirium but she is too confused to send home. Valente with hospitalist for admission. Impression: 1. Acute delirium Lab Data Attestation: I reviewed the patient's lab results. Labs: Laboratory Results - last 24 hr 07/25/22 07/25/22 07/25/22 21:25 21:25 21:25 WBC 5.0 RBC 4.54 Hgb 12.9 Hct 40.5 MCV 89.2 MCH 28.4 MCHC 31.9 L RDW Std Deviation 49.9 H RDW Coeff of Christopher 15.4 H Plt Count 122 L MPV 11.5 Immature Gran % (Auto) 0.400 Neut % (Auto) 64.6 Lymph % (Auto) 17.7 L [place] % (Auto) 14.5 H Eos % (Auto) 2.0 Baso % (Auto) 0.8 Absolute Neuts (auto) 3.2 Absolute Lymphs (auto) 0.88 Nucleated RBC % 0 Sodium 139 Potassium 3.1 L Chloride 106 Carbon Dioxide 26.0 Anion Gap 7 BUN 15 Creatinine 0.71 Estim Creat Clear Calc 41.76 Est GFR (MDRD) Af Amer 106 Est GFR (MDRD) Non-Af 88 BUN/Creatinine Ratio 21.2 H Glucose 125 H Calcium 9.3 Total Bilirubin 1.00 AST 36 ALT 24 Alkaline Phosphatase 82 Ammonia Troponin I High Sens Total Protein 8.3 H Albumin 3.6 Globulin 4.7 H Albumin/Globulin Ratio 0.8 L Urine Color Urine Clarity Urine pH Ur Specific [place] Urine Protein Urine Glucose (UA) Urine Ketones Urine Occult Blood Urine Nitrite Urine Bilirubin Urine Urobilinogen Ur Leukocyte Esterase Urine RBC Urine WBC Ur Squamous Epith Cells Urine Bacteria Urine Mucus Urine Opiates Screen Urine Methadone Screen Ur Barbiturates Screen Ur Phencyclidine Scrn Ur Amphetamines Screen MDMA (Ecstasy) Screen U Benzodiazepines Scrn Urine Cocaine Screen U Cannabinoids Screen Ur Drug Screen Comment Ethyl Alcohol < 3.0 07/25/22 07/25/22 07/26/22 21:25 21:55 00:05 WBC RBC Hgb Hct MCV MCH MCHC RDW Std Deviation RDW Coeff of Christopher Plt Count MPV Immature Gran % (Auto) Neut % (Auto) Lymph % (Auto) [place] % (Auto) Eos % (Auto) Baso % (Auto) Absolute Neuts (auto) Absolute Lymphs (auto) Nucleated RBC % Sodium Potassium Chloride Carbon Dioxide Anion Gap BUN Creatinine Estim Creat Clear Calc Est GFR (MDRD) Af Amer Est GFR (MDRD) Non-Af BUN/Creatinine Ratio Glucose Calcium Total Bilirubin AST ALT Alkaline Phosphatase Ammonia 24.0 Troponin I High Sens 9 Total Protein Albumin Globulin Albumin/Globulin Ratio Urine Color Urine Clarity Urine pH Ur Specific [place] Urine Protein Urine Glucose (UA) Urine Ketones Urine Occult Blood Urine Nitrite Urine Bilirubin Urine Urobilinogen Ur Leukocyte Esterase Urine RBC Urine WBC Ur Squamous Epith Cells Urine Bacteria Urine Mucus Urine Opiates Screen NEGATIVE Urine Methadone Screen NEGATIVE Ur Barbiturates Screen NEGATIVE Ur Phencyclidine Scrn NEGATIVE Ur Amphetamines Screen NEGATIVE MDMA (Ecstasy) Screen NEGATIVE U Benzodiazepines Scrn POSITIVE H Urine Cocaine Screen NEGATIVE U Cannabinoids Screen POSITIVE H Ur Drug Screen Comment Ethyl Alcohol 07/26/22 00:05 WBC RBC Hgb Hct MCV MCH MCHC RDW Std Deviation RDW Coeff of Christopher Plt Count MPV Immature Gran % (Auto) Neut % (Auto) Lymph % (Auto) [place] % (Auto) Eos % (Auto) Baso % (Auto) Absolute Neuts (auto) Absolute Lymphs (auto) Nucleated RBC % Sodium Potassium Chloride Carbon Dioxide Anion Gap BUN Creatinine Estim Creat Clear Calc Est GFR (MDRD) Af Amer Est GFR (MDRD) Non-Af BUN/Creatinine Ratio Glucose Calcium Total Bilirubin AST ALT Alkaline Phosphatase Ammonia Troponin I High Sens Total Protein Albumin Globulin Albumin/Globulin Ratio Urine Color Yellow Urine Clarity Clear Urine pH 6.0 Ur Specific [place] 1.025 Urine Protein 100 H Urine Glucose (UA) Normal Urine Ketones 50 H Urine Occult Blood 10 H Urine Nitrite Negative Urine Bilirubin 3 H Urine Urobilinogen 8 H Ur Leukocyte Esterase 25 H Urine RBC 0 SEEN Urine WBC 0-5 SEEN Ur Squamous Epith Cells 0-5 SEEN Urine Bacteria 1+ Urine Mucus 3+ Urine Opiates Screen Urine Methadone Screen Ur Barbiturates Screen Ur Phencyclidine Scrn Ur Amphetamines Screen MDMA (Ecstasy) Screen U Benzodiazepines Scrn Urine Cocaine Screen U Cannabinoids Screen Ur Drug Screen Comment Ethyl Alcohol Radiography Diagnostic Testing: Clinical Impression(s) from Imaging Studies Brain CT 07/25/22 21:38 IMPRESSION: No CT evidence of intercurrent hemorrhage or injury. Minimal senescent changes compatible with age Electronically Signed: Colin Chow MD at 23:23 EDT , Chest X-Ray 07/25/22 22:00 IMPRESSION: No radiographic evidence of acute cardiopulmonary disease. Electronically Signed: Colin Chow MD at 22:38 EDT , Discharge Plan Triage Chief Complaint: Confusion Other Complaint: Mental Health ED Provider: Otf Infante Dx/Rx/DC Orders Prescriptions: No Action alprazolam 0.5 MG tablet 0.5 mg PO BID PRN PRN (Reason: Anxiety) Hold Instructions: Resume on 05/04/22. escitalopram oxalate 5 MG tablet 10 mg PO DAILY atenolol 50 MG tablet 50 mg PO DAILY valacyclovir 500 mg tablet 1,000 mg PO DAILY Label Comments: Take 2 tablets by mouth once daily. prednisone 50 mg tablet 50 mg PO DAILY Label Comments: Take 1 tablet by mouth once daily for 5 days. ibuprofen 400 mg tablet 400 mg PO Q8 Label Comments: TAKE 1 TABLET BY MOUTH EVERY 8 HOURS NEEDED FOR PAIN lactulose 10 gram/15 mL solution Xifaxan 550 mg Tablet 550 mg NG BID Qty: 0 0RF lactulose 20 gram/30 mL Solution 20 g NG Q6H Qty: 0 0RF Primary Care Provider: SHORTY MCGEE Referrals: SHORTY MCGEE [Other]
[2022-07-25 21:43] LABS: Absolute Lymphocyte Count 0.88 X10^3/uL (0.83-4.51); Absolute Neutrophil Count 3.2 X10^3/uL (2.0-7.7); Basophil# 0.04 X10^3/uL; Basophil% 0.8 % (0-1); Hematocrit 40.5 % (37-47); Hemoglobin 12.9 g/dL (12.0-15.0); Lymphocyte # 0.88 X10^3/ul (0.83-4.51); Lymphocyte % 17.7 % (19-41); Mean Corp Hgb Conc 31.9 g/dL (32-36); Mean Corpuscular Hgb 28.4 pg (27.0-32.0); Mean Corpuscular Volume 89.2 fL (81-99); Mean Platelet Vol. 11.5 fl (6.2-12.0); Monocyte# 0.72 X10^3/uL; Monocyte% 14.5 % (0-10); NRBC Flagged by Analyzer 0 % (0-5); Neutrophil # 3.22 X10^3/uL (2.7-7.7); Neutrophil % 64.6 % (47-70); Platelet Count 122 K/mm3 (150-450); RBC Distribution Width CV 15.4 % (11.6-14.6); RBC Distribution Width SD 49.9 fl (35.1-43.9); Red Blood Count 4.54 M/mm3 (4.2-5.4)
[2022-07-25 21:56] LABS: Alcohol, Blood (Medical)-Serum < 3.0 mg/dL
[2022-07-25 21:58] LABS: ALB/GLOB Ratio 0.8 RATIO (0.9-2.4); AST(SGOT) 36 U/L (15-37); Alanine Aminotransfer ALT/SGPT 24 U/L (13-56); Albumin, Serum 3.6 g/dL (3.2-5.0); Alkaline Phosphatase 82 U/L (45-117); Anion Gap 7 (5-15); BUN 15 mg/dL (7-18); BUN/Creat Ratio 21.2 RATIO (10-20); Calcium,Total 9.3 mg/dL (8.5-10.1); Chloride 106 mmol/L (98-107); Creatinine, Serum 0.71 mg/dL (0.55-1.02); EST Glomerular Filtration Rate 88 mL/min (>60); Est Glom Filt Rate - Afr Amer 106 mL/min (>60); Estimated Creatinine Clearance 41.76 ml/min; Globulin 4.7 g/dL (2.2-4.2); Glucose 125 mg/dL (74-106); Potassium 3.1 mmol/L (3.5-5.1); Protein, Total 8.3 g/dL (6.4-8.2); Sodium Level 139 mmol/L (136-145)
--- NOTE | 2022-07-25 22:00 | RAD_ITS ---
INDICATION: ams EXAMINATION/TECHNIQUE: X-RAY - XR Chest 1 View COMPARISON: 04/28/2022. FINDINGS: LINES/DEVICES: None. LUNGS: No consolidation, edema or effusion. No pneumothorax. MEDIASTINUM AND CARDIOVASCULAR STRUCTURES: Cardiac silhouette not enlarged. Mild aortic atherosclerosis. BONES AND SOFT TISSUES: Unremarkable. RAD/Chest 1 View (Portable) IMPRESSION: No radiographic evidence of acute cardiopulmonary disease. Electronically Signed: Colin Chow MD at 22:38 EDT ,
[2022-07-25 22:01] LABS: Troponin-I HS 9 pg/mL (3.0-54.0)
[2022-07-25 22:20] VITALS: BP 158/80; PULSE 70; RESP 18; O2SAT 96
[2022-07-26 00:08] LABS: Red Blood Cells-Urine 0 SEEN /hpf (0-5)
[2022-07-26 00:12] LABS: Color, Urine Yellow (Yellow); Glucose, Dipstick Normal (Normal); Ketone-Dipstick 50 mg/dl (Negative); Leukocyte Esterase-Dipstick 25 /ul (Negative); Nitrite-Dipstick Negative (Negative); Occult Blood-Urine 10 /ul (Negative); Protein-Dipstick 100 mg/dl (Negative); Specific Gravity, Urine 1.025 (1.002-1.030); Urine Clarity Clear (Clear); Urine Urobilinogen 8 mg/dl (Normal)
[2022-07-26 00:23] LABS: Urine Bilirubin Dipstick 3 mg/dL (Negative)
[2022-07-26 00:25] LABS: Amphetamine Urine VISTA NEGATIVE (<1000 ng/mL); Bacteria 1+ /hpf (None Seen); Barbiturate Urine VISTA NEGATIVE (< 200 ng/mL); Benzodiazepine Urine VISTA POSITIVE (< 200 ng/mL); Cocaine Urine VISTA NEGATIVE (< 300 ng/mL); Ecstacy Urine VISTA NEGATIVE (< 500 ng/mL); Methadone Urine VISTA NEGATIVE (< 300 ng/mL); Mucous, Urine 3+ /hpf (<or=2+); PCP Urine VISTA NEGATIVE (< 25 ng/mL); Squamous Epithelial Cells - UA 0-5 SEEN /hpf (5-10); THC Urine VISTA POSITIVE (< 50 ng/mL); Vista UDS pH Range 6; White Blood Cells 0-5 SEEN /hpf (0-5)
--- NOTE | 2022-07-26 00:40 | HP.PCM.HOS_ITS ---
HPI - General General Date of Admission: 07/26/22 Date of Service: 07/26/22 Chief Complaint: Confusion HPI Narrative WHITNEY SCHULTZ, is a 67 F with a significant history of hepatitis C, cirrhosis and hepatic encephalopathy who presents to the emergency department with confusion. Patient's brother found patient at home naked and she was acting strangely. History was obtained from emergency department doctor as patient could not contribute to history. Reportedly patient stopped taking liver medications about a week ago and was using marijuana. [facility] Medical History Abnormal electrocardiogram [ECG] [EKG] Anxiety and depression Atherosclerosis of [place] coronary artery of [place] heart without angina [place] Cervical neck surgery Chronic back pain Chronic narcotic use Chronic pain syndrome Cirrhosis Depression Hepatitis C History of non-ST elevation myocardial infarction (NSTEMI) HLD (hyperlipidemia) HTN (hypertension) Hyperammonemia Non-ST elevation (NSTEMI) myocardial infarction (~01/27/17) Tobacco use Toxic encephalopathy (~01/27/17) Home Medications alprazolam 0.5 mg tablet 0.5 mg PO BID PRN PRN Anxiety 03/17/19 [History Last Taken 03/16/19] escitalopram oxalate 5 mg tablet 20 mg PO DAILY Check with primary doctor 12/27/19 [History Last Taken Unknown] atenolol 50 mg tablet 100 mg PO DAILY Check with primary doctor 06/18/20 [History Last Taken Unknown] lactulose 10 gram/15 mL oral solution 04/24/22 [History Last Taken Unknown] valacyclovir 500 mg tablet 1,000 mg PO DAILY Check with primary doctor 04/24/22 [History Last Taken Unknown] lactulose 20 gram/30 mL oral solution 20 g (30 mL) NG Q6H #0 mL 05/01/22 [Rx Last Taken Unknown] aripiprazole 2 mg tablet 2 mg PO DAILY Check with primary doctor 07/26/22 [History Last Taken Unknown] lurasidone 40 mg tablet 40 mg PO DAILY Check with primary doctor 07/26/22 [History Last Taken Unknown] rifaximin 550 mg tablet (Xifaxan) 550 mg PO BID Check with primary doctor 07/26/22 [History Last Taken Unknown] Allergy/AdvReac Type Severity Reaction Status Date / Time Opioids - Morphine Analogues AdvReac Rash Verified 04/24/22 12:27 Family History Father Heart disease Surgical History History of left heart catheterization Hx of cholecystectomy Social History Smoking Status: Current every day smoker tobacco type: cigarettes alcohol intake: former year quit: 2015 substance use type: marijuana and other details: Smokes marijuana daily ROS Review of Systems ROS Unobtainable: due to encephalopathy Vital Signs Vital Signs Vital Signs: 07/25/22 21:13 07/25/22 22:20 Temperature 97 F L Temperature Source Temporal Pulse Rate 81 70 Respiratory Rate 18 18 Blood Pressure 160/85 H 158/80 H Blood Pressure Mean 110 106 Pulse Ox 96 96 Oxygen Delivery Method Room Air Room Air Weight Weight: 59 kg Body Mass Index (BMI) 24.5 Physical Exam Narrative Physical exam: General: Well-nourished, well-developed. Head: Normocephalic, atraumatic, no tenderness Eyes: Vision is grossly intact. EOMI ENT, no trauma, moist mucous membranes, no rhinorrhea Neck: Nontender, No thyromegaly. CVS: Regular rate and rhythm. S1-S2 present. No murmur, gallop or rub. Respiratory : clear to auscultation bilaterally, chest wall nontender Abdomen: Soft, nontender, nondistended, normal bowel sounds, no masses : Deferred Back: Nontender, no CVA tenderness. Extremities: Nontender full range of motion, no trauma Skin: Normal color, no trauma, abrasions Neuro: Alert, confused. With repeated movement of tongue and repeating questions rather than answering. Psychiatry: Normal mood. Normal affect. Results Lab / Micro Data Result Diagrams: 07/26/22 04:05 07/25/22 21:25 Labs: Laboratory Results - last 24 hr 07/25/22 21:25: WBC 5.0, RBC 4.54, Hgb 12.9, Hct 40.5, MCV 89.2, MCH 28.4, MCHC 31.9 L, RDW Std Deviation 49.9 H, RDW Coeff of Christopher 15.4 H, Plt Count 122 L, MPV 11.5, Immature Gran % (Auto) 0.400, Neut % (Auto) 64.6, Lymph % (Auto) 17.7 L, [place] % (Auto) 14.5 H, Eos % (Auto) 2.0, Baso % (Auto) 0.8, Absolute Neuts (auto) 3.2, Absolute Lymphs (auto) 0.88, Nucleated RBC % 0 07/25/22 21:25: Sodium 139, Potassium 3.1 L, Chloride 106, Carbon Dioxide 26.0, Anion Gap 7, BUN 15, Creatinine 0.71, Estim Creat Clear Calc 41.76, Est GFR (MDRD) Af Amer 106, Est GFR (MDRD) Non-Af 88, BUN/Creatinine Ratio 21.2 H, Glucose 125 H, Calcium 9.3, Total Bilirubin 1.00, AST 36, ALT 24, Alkaline Phosphatase 82, Total Protein 8.3 H, Albumin 3.6, Globulin 4.7 H, Albumin/Globulin Ratio 0.8 L 07/25/22 21:25: Ethyl Alcohol < 3.0 07/25/22 21:25: Troponin I High Sens 9 07/25/22 21:55: Ammonia 24.0 07/26/22 00:05: Urine Opiates Screen NEGATIVE, Urine Methadone Screen NEGATIVE, Ur Barbiturates Screen NEGATIVE, Ur Phencyclidine Scrn NEGATIVE, Ur Amphetamines Screen NEGATIVE, MDMA (Ecstasy) Screen NEGATIVE, U Benzodiazepines Scrn POSITIVE H, Urine Cocaine Screen NEGATIVE, U Cannabinoids Screen POSITIVE H, Ur Drug Screen Comment 07/26/22 00:05: Urine Color Yellow, Urine Clarity Clear, Urine pH 6.0, Ur Specific [place] 1.025, Urine Protein 100 H, Urine Glucose (UA) Normal, Urine Ketones 50 H, Urine Occult Blood 10 H, Urine Nitrite Negative, Urine Bilirubin 3 H, Urine Urobilinogen 8 H, Ur Leukocyte Esterase 25 H, Urine RBC 0 SEEN, Urine WBC 0-5 SEEN, Ur Squamous Epith Cells 0-5 SEEN, Urine Bacteria 1+, Urine Mucus 3 + Micro: Microbiology 07/25/22 21:55 Nasal Secretion SARS-CoV-2 & FLU Antigen (Rapid) - Final Radiology Impression Brain CT 07/25/22 21:38 IMPRESSION: No CT evidence of intercurrent hemorrhage or injury. Minimal senescent changes compatible with age Electronically Signed: Colin Chow MD at 23:23 EDT , Chest X-Ray 07/25/22 22:00 IMPRESSION: No radiographic evidence of acute cardiopulmonary disease. Electronically Signed: Colin Chow MD at 22:38 EDT , Assessment & Plan Assessment/Plan (1) Acute encephalopathy: PLAN: Plan Acute encephalopathy Etiology unclear From review of records patient was admitted to the hospital on 04/28/2022 for acute unresponsiveness that was attributed to toxic encephalopathy with bunny pected Lexapro overdose, hepatic encephalopathy with recurrent falls. She was subsequently discharged on 05/01/22. On this presentation urinalysis reviewed showed urine leukocyte esterase of 25. Nitrite was negative. Urine WBC normal. Bacteria 1+. Urine culture will be ordered. Lactulose ordered. Rifaximin continued. Ammonia level is normal at 24, trend. Ultrasound of abdomen to evaluate for possible ascites. If ascites present consider evaluation for SBP. Hypokalemia Replacement ordered Trend BMP. DVT prophylaxis SCD Ordered Charges/Coding Visit Charges Inpatient E&M: 45659 Init Hosp L2
[2022-07-26 01:16] VITALS: BP 159/88; PULSE 74; RESP 17; TEMP 36.7; O2SAT 94
[2022-07-26 01:33] VITALS: BMI 27.4
[2022-07-26 01:46] VITALS: BP 140/101; PULSE 75; RESP 16; TEMP 37; O2SAT 97
[2022-07-26 03:34] VITALS: BP 155/92; PULSE 85; RESP 18; TEMP 37; O2SAT 96
[2022-07-26] MEDS: Potassium Chloride Oral Tablet 20 MEQ 40 MEQ PO ×2 (03:39→05:22)
[2022-07-26] MEDS: 0.9% Saline Lock 10 ML Syringe IV (03:45)
[2022-07-26 04:49] LABS: Absolute Lymphocyte Count 1.04 X10^3/uL (0.83-4.51); Absolute Neutrophil Count 3.2 X10^3/uL (2.0-7.7); Basophil# 0.03 X10^3/uL; Basophil% 0.6 % (0-1); Eosinophil# 0.08 X10^3/uL; Eosinophils% 1.6 % (0-5); Hematocrit 40.5 % (37-47); Hemoglobin 12.4 g/dL (12.0-15.0); Lymphocyte # 1.04 X10^3/ul (0.83-4.51); Lymphocyte % 20.4 % (19-41); Mean Corp Hgb Conc 30.6 g/dL (32-36); Mean Corpuscular Hgb 27.7 pg (27.0-32.0); Mean Corpuscular Volume 90.6 fL (81-99); Mean Platelet Vol. 11.7 fl (6.2-12.0); Monocyte# 0.74 X10^3/uL; Monocyte% 14.5 % (0-10); NRBC Flagged by Analyzer 0 % (0-5); Neutrophil % 62.7 % (47-70); Platelet Count 143 K/mm3 (150-450); RBC Distribution Width CV 15.6 % (11.6-14.6); RBC Distribution Width SD 51.3 fl (35.1-43.9); Red Blood Count 4.47 M/mm3 (4.2-5.4); White Blood Count 5.1 K/mm3 (4.4-11.0)
--- NOTE | 2022-07-26 05:47 | US_ITS ---
STUDY: ABDOMINAL ULTRASOUND -ascites survey. REASON FOR VISIT: Female, 67 years old ascites -- 230 SURVEY AND POSSIBLE PARA TECHNIQUE: Ultrasound evaluation of the 4 quadrant was performed with real-time and static dumont-scale imaging. TECHNICAL QUALITY: Adequate. COMPARISON: None. FINDINGS: The 4 quadrants of the abdomen and pelvis were examined with ultrasound. No fluid is seen. . US/Abdomen Limited IMPRESSION: There is no evidence of ascites. Electronically Signed: Delgado Garcia MD at 14:52 EDT ,
[2022-07-26 05:53] LABS: Anion Gap 6 (5-15); BUN 17 mg/dL (7-18); Chloride 107 mmol/L (98-107); Creatinine, Serum 0.57 mg/dL (0.55-1.02); EST Glomerular Filtration Rate 113 mL/min (>60); Est Glom Filt Rate - Afr Amer 137 mL/min (>60); Glucose 118 mg/dL (74-106); Magnesium 1.5 mg/dL (1.6-2.6); Potassium 3.2 mmol/L (3.5-5.1); Sodium Level 138 mmol/L (136-145)
[2022-07-26] MEDS: Lactulose 20 GM/30 ML UDC PO ×3 (06:17→21:42)
[2022-07-26] MEDS: Acetaminophen 325 MG Tablet 650 MG PO (06:47)
[2022-07-26 08:39] VITALS: BP 152/102; PULSE 75; RESP 16; TEMP 36.4; O2SAT 96
[2022-07-26] MEDS: Atenolol 100 MG Tablet PO (09:18)
[2022-07-26] MEDS: Acyclovir 200 MG Capsule 400 MG PO ×2 (09:18→21:43)
[2022-07-26] MEDS: rifAXIMin 550 MG Tablet PO ×2 (09:18→21:42)
--- NOTE | 2022-07-26 14:44 | NURSING ---
pt down to radiology. not enough fluid to drain. report called to kiran gibbons.
[2022-07-26 15:10] VITALS: BP 167/88; PULSE 66; RESP 16; TEMP 36.6; O2SAT 96
--- NOTE | 2022-07-26 16:30 | CASEMGMT ---
RN?CM?RN OUTPATIENT SURGERY?CM?to room to meet with patient for initial transition planning/care coordination?assessment.?RN?CM?introduced self and role at [facility].? Pt sitting up in bed, confused, and could not complete assessment. Calls placed to pt's sister, Darlin, and then pt's brother, Osbaldo, and the following information obtained. Care providers, pharmacy, and demographics verified/updated at this time. PCP: Dr Ibrahim Specialists: Hx of seeing Dr Ayoub (GI specialist in [place], [place]). Siblings are not sure if is still going there. Pt sees a psychiatrist @ [facility] in [place]. They are unsure of her name. Preferred Pharmacy: [id number] [place]. Brother states he just picked up 3 medications for pt a few days ago, per her request, but he states he did not pay attention to what they were. Call placed to [email or web address] who states Atenolol, Valacyclovir, and Latuda were filled a few days ago. Per pharmacy, these were refills and were not new rx's. Insurance: [facility] Dual Prescription Benefit:?Yes Living Will/HPOA:?Per both Darlin and Osbaldo, they do not think pt has completed these, but they think it would be a good idea for her to complete once she is oriented/able to. LNOK: sister, Darlin. Brother, Osbaldo. Pt's sig other, Perry, is currently @ [facility]. Pt has 4 estranged children. One dtr and 3 sons. Dtr, Mayra. Sons: Ramakrishna and Sancho Turner (?sp) who Osbaldo thinks may live in [place], and Gabriela( (lives in [place]). Per August, Mayra is the only one has a phone number for and she states Mayra is fighting a cherry w/cancer. She does not have contact info for pt's sons. Living Arrangements: Since pt's last admission @ [facility] in [place], pt has been living w/her brother, Osbaldo. Per Osbaldo pt indep w/ADL's and IADL's @ her baseline, but hasn't been herself. He reports the past few weeks she has been sleeping a lot. He states she stumbles around a lot and has fallen into stuff. He states she cooks once in awhile, but he has to keep an eye on things, as she forgets stuff in the kitchen. He states she was managing her medications but she recently asked him to help. He states he has been asking her every day if she has been taking them, but he has not been directly overseeing them. Osbaldo or Darlin get pt's groceries. Osbaldo states he is W/C bound, but in good health otherwise. Transportation:?brother and sister. DME: Darlin states she does not think pt uses any DME. This LUX CLAY forgot to ask Osbaldo about DME. SNF/HHC: LUX CLAY to inquire about this at a later time. Osbaldo states as far as he is aware, pt has not been using illicit drugs since her last hospitilazation in [place], stating, I made her cut that stuff out. When she moved in, I told her it had to stop. Pt's sister, Darlin, told this LUX CLAY that pt is going to her home in [place] @ discharge. When LUX CLAY spoke w/brother, Osbaldo, he states she will be going back to live w/him. Osbaldo states, We've had our differences in the past, but I love my sister, and we've been getting along. PLAN:??TBD. PT/OT evals pending. RN DANNA or ASHOK to f/u with pt and her wishes when pt is oriented and medically closer to being discharged. CM to check w/brother, Osbaldo, about any DME use or needs or with pt when she is oriented. If pt able to return home, follow for possible HHC, CCN, or Pt Link Iris AUSTIN?RN?DANNA
--- NOTE | 2022-07-26 17:39 | CASEMGMT ---
Social Work Per Erwin, RNCM, call received from Meka Peña [facility] nurse from [facility] who requested video call between this pt and her significant other Perry who resides at [facility] as he is concerned about pt. Per Meka, Video call to be coordinated with Lawrence Hoyt ([phone]). ASHOK obtained IPAD from ICU which has video call capacity. ASHOK spoke with pt who is agreeable to video call Perry. ASHOK placed call to [facility] and left VM at 1411 informing that SW will assist pt with call. No return call from Clementina. IPAD returned to ICU at this time. ROC [place]
[2022-07-26 21:30] VITALS: BP 148/86; PULSE 76; RESP 18; TEMP 36.6; O2SAT 96
[2022-07-27] MEDS: Lactulose 20 GM/30 ML UDC PO ×2 (05:09→14:06)
[2022-07-27 05:14] VITALS: BP 140/80; PULSE 70; RESP 16; TEMP 36.6; O2SAT 97
[2022-07-27 07:50] LABS: Anion Gap 7 (5-15); BUN 25 mg/dL (7-18); BUN/Creat Ratio 28.1 RATIO (10-20); Calcium,Total 9.7 mg/dL (8.5-10.1); Chloride 109 mmol/L (98-107); Creatinine, Serum 0.89 mg/dL (0.55-1.02); EST Glomerular Filtration Rate 68 mL/min (>60); Est Glom Filt Rate - Afr Amer 82 mL/min (>60); Estimated Creatinine Clearance 60.56 ml/min; Glucose 120 mg/dL (74-106); Magnesium 1.7 mg/dL (1.6-2.6); Potassium 3.3 mmol/L (3.5-5.1); Sodium Level 137 mmol/L (136-145)
[2022-07-27 09:30] VITALS: BP 155/84; PULSE 75; RESP 18; TEMP 36.8; O2SAT 100
--- NOTE | 2022-07-27 10:07 | DCINST_ITS ---
Discharge Instructions Diet Discharge Diet: Low fat / Low cholesterol Activity Discharge Activity: Return to Normal Activity Dressing / Incision Call your doctor if you observe: Fever of 101 or Higher, Shortness of breath, Dizziness, Fainting spells, Swelling in the ankles, Chest pain and Increased palpitations (irregular heartbeat) Follow Up Care Test Results: Test results from this visit will be discussed in further detail at your follow- up appointment, if applicable. Discharge Plan Admission Admit Date/Time: 07/26/22 00:47 Attending Provider: Sancho Arana Primary Care Provider: SHORTY MCGEE Consulting Providers: Perry Jansen Discharge Orders/Prescriptions Prescriptions: Continued alprazolam 0.5 MG tablet 0.5 mg PO BID PRN PRN (Reason: Anxiety) Hold Instructions: Resume on 05/04/22. escitalopram oxalate 5 MG tablet 20 mg PO DAILY atenolol 50 MG tablet 100 mg PO DAILY valacyclovir 500 mg tablet 1,000 mg PO DAILY Label Comments: Take 2 tablets by mouth once daily. aripiprazole 2 mg tablet 2 mg PO DAILY lurasidone 40 mg tablet 40 mg PO DAILY Label Comments: TAKE 1 TABLET BY MOUTH DAILY WITH FOOD Xifaxan 550 mg tablet 550 mg PO BID Changed lactulose 20 gram/30 mL Solution 20 g PO TID Qty: 0 0RF Discontinued lactulose 10 gram/15 mL solution Referrals / Follow Up: SHORTY MCGEE [Other] SHORTY MCGEE [Other] Disposition Disposition (needs filled in before D/C Order can be placed): Home, Self Care
[2022-07-27] MEDS: Acyclovir 200 MG Capsule 400 MG PO (10:32)
[2022-07-27] MEDS: Atenolol 100 MG Tablet PO (10:32)
[2022-07-27] MEDS: rifAXIMin 550 MG Tablet PO (10:32)
[2022-07-27] MEDS: Potassium Chloride Oral Tablet 20 MEQ 40 MEQ PO (10:35)
--- NOTE | 2022-07-27 11:05 | CASEMGMT ---
LUX CLAY Follow-up: LUX CLAY to pt's bedside. Pt alert and awaiting her IV to be replaced by RN and for PT/OT to evaluate. Pt agreeable to discuss dc plan in brief as she is awaiting these other interventions. Pt states she plans to return home to her brother's and is aware of the increase in her lactulose dosing. Pt states she is familiar with this medication and denies any concerns upon going home. Pt declined [facility] services at this time. Pt states she plans to call her brother at 3pm to ask him about transportation home. Will continue to monitor PT/OT evaluations and will assist with any dc needs as identified. Shani Kelly RN CM
[2022-07-27] MEDS: 0.9% Saline Lock 10 ML Syringe IV (11:46)
[2022-07-27] MEDS: Menthol/Lanolin/Calamine/Znox 113 GM Tube 1 APPLIC TOPICAL (11:50)
--- NOTE | 2022-07-27 12:17 | CASEMGMT ---
Social Work SW met w/pt, spoke w/her about completing POA form. Pt agreeable to complete healthcare POA. Pt listed her brother Osbaldo and her significant other as first and then the alternate. SW gave pt the original and a copy, and placed a copy on the chart. ANGELA Khalil
[2022-07-27 14:04] VITALS: BP 159/94; PULSE 62; RESP 18; TEMP 36.7; O2SAT 100
--- NOTE | 2022-07-27 14:34 | DS.PCM_ITS ---
Providers Date of Admission: 07/26/22 Date of Discharge: 07/27/22 Primary Care Physician: SHORTY MCGEE Reason For Visit: ACUTE ENCEPHALOPATHY Diagnosis Discharge Diagnosis (1) Acute encephalopathy: Status: Inactive Code(s): G93.40 - Encephalopathy, unspecified Medications at Discharge Home Medications alprazolam 0.5 mg tablet 0.5 mg PO BID PRN PRN Anxiety 03/17/19 escitalopram oxalate 5 mg tablet 20 mg PO DAILY Check with primary doctor 12/27/19 atenolol 50 mg tablet 100 mg PO DAILY Check with primary doctor 06/18/20 valacyclovir 500 mg tablet 1,000 mg PO DAILY Check with primary doctor 04/24/22 aripiprazole 2 mg tablet 2 mg PO DAILY Check with primary doctor 07/26/22 lurasidone 40 mg tablet 40 mg PO DAILY Check with primary doctor 07/26/22 rifaximin 550 mg tablet (Xifaxan) 550 mg PO BID Check with primary doctor 07/26/22 lactulose 20 gram/30 mL oral solution 20 g (30 mL) PO TID 30 days #2,700 mL 07/28/22 Hospital Course Operations None Procedures None Summary of Care Provided Minutes Spent on Discharge: 32 Hospital Course: Per HPI: WHITNEY SCHULTZ, is a 67 F with a significant history of hepatitis C, cirrhosis and hepatic encephalopathy who presents to the emergency department with confusion. Patient's brother found patient at home naked and she was acting strangely. History was obtained from emergency department doctor as patient could not contribute to history. Reportedly patient stopped taking liver medications about a week ago and was using marijuana. Hospital Course: 1. Acute hepatic/metabolic encephalopathy secondary to noncompliance with lac tulose?67-year-old female with a history of cirrhosis secondary to hepatitis C/drug use presents to the hospital with confusion. She was started on lactulose and had significant improvement. On the day of discharge she stated that she had not filled her lactulose prescription and had not been taking it. I discussed with her the possibility for discharge and she expressed understandi ng of the risk benefits going home and want to go home. She was negative for any type of infectious etiology, and a prescription for lactulose was sent to her pharmacy. No other clear etiology was found for her encephalopathy 2. Hypertension, hyperlipidemia, anxiety, depression, nonocclusive coronary artery disease are chronic medical conditions which complicate care. Her home medications were continued where appropriate Physical Exam Narrative General: Alert, Oriented x3, Cooperative, No apparent distress HEENT: Atraumatic, PERRLA, EOMI, Normocephalic Oral: Moist Mucosa Neck: Supple, No JVD Lungs: Diminished, Normal air movement, No rhonchi, No wheeze, No rales Cardiovascular: Regular rate, Regular Rhythm, Normal S1, Normal S2, No murmurs Abdomen: Soft, Non Tender, Non-Distended, No Hepato-splenomegaly Extremities: No edema, Capillary Refill Less than 3 Seconds Skin: No rashes, No breakdown Musculoskeletal: No Tenderness to Palpation of Joints or Extremities Neurological: Motor Exam 5/5 strength throughout, Sensory exam intact to light touch and pain Psych/Mental Status: Normal Affect, Appropriate Weight / BMI Weight Weight: 136 lb 0.403 oz Body Mass Index (BMI) 27.4 ABG / Lab / Microbiology Data Result Diagrams: 07/26/22 04:05 07/27/22 05:35 Laboratory: Laboratory Results - last 24 hr 07/27/22 05:35: Ammonia 17.0 07/27/22 05:35: Sodium 137, Potassium 3.3 L, Chloride 109 H, Carbon Dioxide 21.0, Anion Gap 7, BUN 25 H, Creatinine 0.89, Estim Creat Clear Calc 60.56, Est GFR (MDRD) Af Amer 82, Est GFR (MDRD) Non-Af 68, BUN/Creatinine Ratio 28.1 H, Glucose 120 H, Calcium 9.7, Phosphorus 3.0, Magnesium 1.7 Microbiology: Microbiology 07/26/22 00:05 Urine, Catheterized Urine Culture - Preliminary Culture exhibits no growth. 07/25/22 21:55 Nasal Secretion SARS-CoV-2 & FLU Antigen (Rapid) - Final Radiography Diagnostic Testing: Radiology Impression Abdomen Ultrasound 07/26/22 05:47 IMPRESSION: There is no evidence of ascites. Electronically Signed: Delgado Garcia MD at 14:52 EDT , D/C Instructions Discharge Diet: Low fat / Low cholesterol Call your doctor if you observe: Fever of 101 or Higher, Shortness of breath, Dizziness, Fainting spells, Swelling in the ankles, Chest pain and Increased palpitations (irregular heartbeat) Meaningful Use Info Meaningful Use Diagnoses (Choose all that apply): None applicable Discharge Plan Admission Admit Date/Time: 07/26/22 00:47 Attending Provider: Sancho Arana Primary Care Provider: SHORTY MCGEE Consulting Providers: Perry Jansen Discharge Orders/Prescriptions Prescriptions: Continued alprazolam 0.5 MG tablet 0.5 mg PO BID PRN PRN (Reason: Anxiety) Hold Instructions: Resume on 05/04/22. escitalopram oxalate 5 MG tablet 20 mg PO DAILY atenolol 50 MG tablet 100 mg PO DAILY valacyclovir 500 mg tablet 1,000 mg PO DAILY Label Comments: Take 2 tablets by mouth once daily. aripiprazole 2 mg tablet 2 mg PO DAILY lurasidone 40 mg tablet 40 mg PO DAILY Label Comments: TAKE 1 TABLET BY MOUTH DAILY WITH FOOD Xifaxan 550 mg tablet 550 mg PO BID Changed lactulose 20 gram/30 mL Solution 20 g PO TID 30 Days Qty: 2700 0RF Discontinued lactulose 10 gram/15 mL solution Referrals / Follow Up: SHORTY MCGEE [Other] SHORTY MCGEE [Other] Disposition Disposition (needs filled in before D/C Order can be placed): Home, Self Care Charges/Coding Visit Charges Inpatient E&M: 37424 Disch Hosp >30min
== END 2022-07-27 15:18 | disposition home or self-care (01) | DRG 441 ==
LOC: ED 07-26 00:55 → MS3 07-26 01:49
PROVIDERS: Admitting Provider Hospitalist; Emergency Provider Student in an Organized Health Care Education/Training Program; Visit Provider Family Medicine
DX: K76.82 Hepatic encephalopathy (principal); G93.41 Metabolic encephalopathy; K74.60 Unspecified cirrhosis of liver; B19.20 Unspecified viral hepatitis C without hepatic coma; E78.5 Hyperlipidemia, unspecified; I25.10 Atherosclerotic heart disease of native coronary artery without angina pectoris; I10 Essential (primary) hypertension; F17.210 Nicotine dependence, cigarettes, uncomplicated; E87.6 Hypokalemia; F41.9 Anxiety disorder, unspecified; F12.10 Cannabis abuse, uncomplicated; I25.2 Old myocardial infarction; F32.A Depression, unspecified; R29.6 Repeated falls; Z91.148 Patient's other noncompliance with medication regimen for other reason; Z79.899 Other long term (current) drug therapy; Z86.73 Personal history of transient ischemic attack (TIA), and cerebral infarction without residual deficits
CPT/HCPCS: 36415; 70450; 71045; 76705; 80048; 80053; 80307; 81001; 82077; 82140; 83735; 84100; 84484; 85025; 87086; 87428; 93005; 97162; 97166; 99285; J7050; P9612; A4216

== ENCOUNTER 2022-08-21 13:38 | Observation (INO) | payer MEDICARE, MEDICAID, SELFPAY ==
[2022-08-21 13:39] VITALS: BP 143/75; PULSE 98; RESP 16; TEMP 36.6; O2SAT 96
[2022-08-21 13:41] VITALS: BMI 29.0
--- NOTE | 2022-08-21 14:14 | EX.ED.DYSGE1 ---
HPI History of Present Illness Chief Complaint: Weakness Informant: patient Onset/Context/Timing Onset: Days Context: Gradual Onset Narrative Narrative: Patient presents with increasing weakness and falls over the past 2 days. She states her doctor recently switched her from Abilify to Latuda. When she had taken Latuda in the past it made her weak and shaky. She started this medication on Friday and states that on Friday she was weak and fell 3 times. She called her doctor and they agreed to stop the medication. She states she has not taken it since Friday. She presents today to ensure there is no other cause for her weakness. [facility] Medical History Abnormal electrocardiogram [ECG] [EKG] Anxiety and depression Atherosclerosis of [place] coronary artery of [place] heart without angina pectoris Cervical neck surgery Chronic back pain Chronic narcotic use Chronic pain syndrome Cirrhosis Depression Hepatitis C History of non-ST elevation myocardial infarction (NSTEMI) HLD (hyperlipidemia) HTN (hypertension) Hyperammonemia Non-ST elevation (NSTEMI) myocardial infarction (~01/27/17) Tobacco use Toxic encephalopathy (~01/27/17) Home Medications alprazolam 0.5 mg tablet 0.5 mg PO BID PRN PRN Anxiety 03/17/19 [History Last Taken 03/16/19] escitalopram oxalate 5 mg tablet 20 mg PO DAILY Check with primary doctor 12/27/19 [History Last Taken Unknown] atenolol 50 mg tablet 100 mg PO DAILY Check with primary doctor 06/18/20 [History Last Taken Unknown] valacyclovir 500 mg tablet 1,000 mg PO DAILY Check with primary doctor 04/24/22 [History Last Taken Unknown] aripiprazole 2 mg tablet 2 mg PO DAILY Check with primary doctor 07/26/22 [History Last Taken Unknown] lurasidone 40 mg tablet 40 mg PO DAILY Check with primary doctor 07/26/22 [History Last Taken Unknown] rifaximin 550 mg tablet (Xifaxan) 550 mg PO BID Check with primary doctor 07/26/22 [History Last Taken Unknown] lactulose 20 gram/30 mL oral solution 20 g (30 mL) PO TID 30 days #2,700 mL 07/28/22 [Rx Last Taken Unknown] Allergy/AdvReac Type Severity Reaction Status Date / Time Opioids - Morphine Analogues AdvReac Rash Verified 08/21/22 13:42 orange juice AdvReac Diarrhea Verified 08/21/22 13:42 Family History Father Heart disease Surgical History History of left heart catheterization Hx of cholecystectomy Social History Smoking Status: Current every day smoker tobacco type: cigarettes alcohol intake: former year quit: 2015 substance use type: marijuana and other details: Smokes marijuana daily ROS ROS ED Constitutional Constitutional ED: Denies chills or fever(s) Eyes Eyes: Denies change in vision or discharge from eye(s) ENT ENT ED: Denies discharge from eye(s), rhinorrhea or sore throat Cardiovascular Cardiovascular: Denies chest pain or palpitations Respiratory/Chest Respiratory/Chest: Denies cough or dyspnea Gastrointestinal Gastrointestinal: Denies abdominal pain, nausea or vomiting Genitourinary Genitourinary ED: Denies dysuria Musculoskeletal Musculoskeletal: Reports extremity pain and myalgias; Denies back pain Integumentary Denies Abrasions or rash Neurologic Neurologic: Reports paresthesias, weakness and other Details: 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 ; Denies headache(s) Psychiatric Psychiatric: Denies anxiety or depression Allergic/Immunologic Allergic/Immunologic ED: Denies lip swelling or urticaria EXAM Physical Exam Const Vital Signs: 08/21/22 13:39 08/21/22 13:49 Temperature 98 F Temperature Source Temporal Pulse Rate 98 Respiratory Rate 16 Respiratory Effort Normal Non-Labored Respiratory Pattern Normal Blood Pressure 143/75 H Blood Pressure Mean 97 Pulse Ox 96 Oxygen Delivery Method Room Air Positive well nourished and well developed General Appearance ED: well developed HEENT Reports normocephalic, head/scalp atraumatic and dry mucous membranes Mouth ED: Yes dry mucous membranes Mouth: dry mucous membranes Eyes PERRL and EOMs intact bilaterally Neck supple Chest Wall inspection of chest normal and palpation of chest normal Resp normal respiratory effort and clear to auscultation bilaterally Cardio regular rate and regular rhythm GI normal to inspection, nondistended, normoactive bowel sounds Palpation: soft Extremity normal to inspection Extremity Narrative: Patient reports weakness to the bilateral thighs. Is able to lift both legs off the bed but states that she struggles more to do so than normal. Strong distal pulses bilaterally. Chronic dropfoot noted on the right. Neuro oriented x3 Sensorium / Orientation: alert Psych mental status grossly normal Skin no rashes or lesions noted MDM MDM MDM Narrative Medical decision making narrative: Labwork obtained to evaluate for leukocytosis, anemia, and electrolyte derangement. Patient has had problems with elevated ammonia levels in the past and ammonia level is checked along with magnesium and total CK. TSH is also checked. Lab Data Attestation: I reviewed the patient's lab results. Labs: Laboratory Results - last 24 hr 08/21/22 08/21/22 08/21/22 14:34 14:34 14:34 WBC 2.7 L RBC 4.33 Hgb 11.9 L Hct 41.0 MCV 94.7 MCH 27.5 MCHC 29.0 L RDW Std Deviation 57.6 H RDW Coeff of Christopher 16.4 H Plt Count 74 L MPV 12.6 H Immature Gran % (Auto) 0.400 Neut % (Auto) 58.4 Lymph % (Auto) 23.2 [place] % (Auto) 14.3 H Eos % (Auto) 2.6 Baso % (Auto) 1.1 H Absolute Neuts (auto) 1.6 L Absolute Lymphs (auto) 0.63 L Nucleated RBC % 0 Platelet Estimate MOD DEC Sodium 141 Potassium 4.0 Chloride 108 H Carbon Dioxide 27.0 Anion Gap 6 BUN 7 Creatinine 0.96 Est GFR (MDRD) Af Amer 74 Est GFR (MDRD) Non-Af 62 BUN/Creatinine Ratio 7.3 L Glucose 118 H Calcium 9.2 Magnesium 1.9 Ammonia 84.0 H Total Creatine Kinase TSH 1.32 08/21/22 14:34 WBC RBC Hgb Hct MCV MCH MCHC RDW Std Deviation RDW Coeff of Christopher Plt Count MPV Immature Gran % (Auto) Neut % (Auto) Lymph % (Auto) [place] % (Auto) Eos % (Auto) Baso % (Auto) Absolute Neuts (auto) Absolute Lymphs (auto) Nucleated RBC % Platelet Estimate Sodium Potassium Chloride Carbon Dioxide Anion Gap BUN Creatinine Est GFR (MDRD) Af Amer Est GFR (MDRD) Non-Af BUN/Creatinine Ratio Glucose Calcium Magnesium Ammonia Total Creatine Kinase 580 H TSH Treatment and Re-Evaluation :: CBC reveals mild pancytopenia with a white count of 2.7 and hemoglobin 11.9. Platelet count of 74,000. Her platelet count has varied in the past and has been low previously. BMP reveals normal potassium at 4.0 and normal renal function. Glucose is 118. Magnesium is normal at 1.9. Total CK is slightly elevated at 580. TSH is normal at 1.32. Ammonia is again elevated at 84. I spoke with the patient. She states she is still taking her lactulose. In spite of this her ammonia is significantly elevated again. She has generalized weakness with difficulty ambulating. She will be given lactulose here and initiated on IV fluids. I will speak with hospitalist regarding observation overnight for treatment of her hyperammonemia. Discharge Plan Triage Chief Complaint: Weakness ED Provider: Yee Mccann Dx/Rx/DC Orders Clinical Impression: Hyperammonemia, Weakness Prescriptions: No Action alprazolam 0.5 MG tablet 0.5 mg PO BID PRN PRN (Reason: Anxiety) Hold Instructions: Resume on 05/04/22. escitalopram oxalate 5 MG tablet 20 mg PO DAILY atenolol 50 MG tablet 100 mg PO DAILY valacyclovir 500 mg tablet 1,000 mg PO DAILY Label Comments: Take 2 tablets by mouth once daily. aripiprazole 2 mg tablet 2 mg PO DAILY lurasidone 40 mg tablet 40 mg PO DAILY Label Comments: TAKE 1 TABLET BY MOUTH DAILY WITH FOOD Xifaxan 550 mg tablet 550 mg PO BID lactulose 20 gram/30 mL Solution 20 g PO TID 30 Days Qty: 2700 0RF Primary Care Provider: Care Physician,No Primary Referrals: Care Physician,No Primary [Primary Care Provider] - Disposition Disposition: Acute Care Hospital [facility]
[2022-08-21 14:44] LABS: Absolute Lymphocyte Count 0.63 X10^3/uL (0.83-4.51); Absolute Neutrophil Count 1.6 X10^3/uL (2.0-7.7); Basophil# 0.03 X10^3/uL; Basophil% 1.1 % (0-1); Eosinophil# 0.07 X10^3/uL; Eosinophils% 2.6 % (0-5); Hemoglobin 11.9 g/dL (12.0-15.0); Lymphocyte # 0.63 X10^3/ul (0.83-4.51); Lymphocyte % 23.2 % (19-41); Mean Corpuscular Hgb 27.5 pg (27.0-32.0); Mean Corpuscular Volume 94.7 fL (81-99); Mean Platelet Vol. 12.6 fl (6.2-12.0); Monocyte# 0.39 X10^3/uL; Monocyte% 14.3 % (0-10); NRBC Flagged by Analyzer 0 % (0-5); Neutrophil # 1.59 X10^3/uL (2.7-7.7); Neutrophil % 58.4 % (47-70); POSITIVE COUNT YES; Platelet Count 74 K/mm3 (150-450); RBC Distribution Width CV 16.4 % (11.6-14.6); RBC Distribution Width SD 57.6 fl (35.1-43.9); Red Blood Count 4.33 M/mm3 (4.2-5.4); White Blood Count 2.7 K/mm3 (4.4-11.0)
[2022-08-21 14:46] LABS: Differential Indicated SCAN CRITERIA MET
[2022-08-21 15:03] LABS: CPK Total, Creatine Kinase 580 U/L (26-192)
[2022-08-21 15:09] LABS: Platelet Estimate MOD DEC (ADEQ)
[2022-08-21 15:16] LABS: Anion Gap 6 (5-15); BUN 7 mg/dL (7-18); BUN/Creat Ratio 7.3 RATIO (10-20); Calcium,Total 9.2 mg/dL (8.5-10.1); Chloride 108 mmol/L (98-107); Creatinine, Serum 0.96 mg/dL (0.55-1.02); EST Glomerular Filtration Rate 62 mL/min (>60); Est Glom Filt Rate - Afr Amer 74 mL/min (>60); Glucose 118 mg/dL (74-106); Magnesium 1.9 mg/dL (1.6-2.6); Sodium Level 141 mmol/L (136-145); Thyroid Stim Hormone (TSH) 1.32 uIU/mL (0.358-3.74)
[2022-08-21 15:39] VITALS: RESP 16
--- NOTE | 2022-08-21 15:44 | PCM.HP.STD ---
HPI - General General Date of Admission: 08/21/22 Date of Service: 08/21/22 Chief Complaint: Feeling very weak shaky, could not get up without support from Friday. HPI Narrative WHITNEY SCHULTZ, is a 67 F with history of hep C cirrhosis came to ED for weakness and shakiness for last 2 days. She stated her psychiatrist Dr. Boston increased her dose of Latuda from 20 to 40 mg on /Friday and on Friday she felt very weak shaky, could not get up from sitting position without support and weakness and walking. She has chronic right foot drop. No fever. She stated that she has been taking lactulose 3 times daily and gets 1 big BM every day. She does not seem acutely confused but more forgetful than usual. She is more somnolent than usual, sleeps all day but awake at night. Takes Xanax before going to bed. She knows her name, , place, president's name, month and day. Patient fell 3 times yesterday and therefore called her doctor who stopped the medication for now. In ED vitals are normal range. Labs reviewed and discussed in assessment plan. FOR[facility], LATER [facility] Medical History Abnormal electrocardiogram [ECG] [EKG] Anxiety and depression Atherosclerosis of [place] coronary artery of [place] heart without angina pectoris Cervical neck surgery Chronic back pain Chronic narcotic use Chronic pain syndrome Cirrhosis Depression Hepatitis C History of non-ST elevation myocardial infarction (NSTEMI) HLD (hyperlipidemia) HTN (hypertension) Hyperammonemia Non-ST elevation (NSTEMI) myocardial infarction (~01/27/17) Tobacco use Toxic encephalopathy (~01/27/17) Home Medications alprazolam 0.5 mg tablet 0.5 mg PO BID PRN PRN Anxiety 03/17/19 [History Last Taken 08/20/22] valacyclovir 500 mg tablet 1,000 mg PO DAILY PRN Cold Sores 04/24/22 [History Last Taken 08/20/22] lurasidone 40 mg tablet 40 mg PO DAILY BIPOLAR 07/26/22 [History Last Taken 08/19/22] rifaximin 550 mg tablet (Xifaxan) 550 mg PO BID LIVER 07/26/22 [History Last Taken 08/21/22] lactulose 20 gram/30 mL oral solution 20 g (30 mL) PO TID 30 days #2,700 mL 07/28/22 [Rx Last Taken 08/21/22] atenolol 100 mg tablet 100 mg PO DAILY HEART 08/21/22 [History Last Taken 08/21/22] omeprazole magnesium 20 mg tablet,delayed release (Prilosec OTC) 20 mg PO DAILY PRN PRN GERD 08/21/22 [History Last Taken 08/18/22] Allergy/AdvReac Type Severity Reaction Status Date / Time Opioids - Morphine Analogues AdvReac Rash Verified 08/21/22 13:42 orange juice AdvReac Diarrhea Verified 08/21/22 13:42 Family History Father Heart disease Surgical History History of left heart catheterization Hx of cholecystectomy Social History Smoking Status: Current every day smoker tobacco type: cigarettes alcohol intake: former year quit: 2015 substance use type: marijuana and other details: Smokes marijuana daily ROS ROS Narrative Constitutional: Reports fatigue and weakness. No fever. HEENT: Reports systems reviewed and no addt'l complaints, except as documented Respiratory/Chest: No acute shortness of breath or respiratory distress or wheezing. CVS: No chest pain or tightness. Gastrointestinal: Denies coffee ground emesis, hematemesis or vomiting Genitourinary: Denies burning urination or new urinary tract symptoms Musculoskeletal: Denies acute joint pain or limited range of motion. No acute injury Neurologic: Denies seizure-like symptoms. No acute strokelike symptoms. Psychiatric: Anxiety and depression. On antidepressant/antipsychotic medications skin: No ulcer. No rash Endocrinology: Reports systems reviewed and no addt'l complaints, except as documented Hematologic/Lymphatic: Reports systems reviewed and no addt'l complaints, except as documented Rest 14 ROS are negative except as mentioned in HPI Vital Signs Vital Signs Vital Signs: 08/21/22 13:39 08/21/22 13:49 Temperature 98 F Temperature Source Temporal Pulse Rate 98 Respiratory Rate 16 Respiratory Effort Normal Non-Labored Respiratory Pattern Normal Blood Pressure 143/75 H Blood Pressure Mean 97 Pulse Ox 96 Oxygen Delivery Method Room Air Physical Exam Narrative General: Awake, mild lethargy. Oriented x3, Cooperative HEENT: Atraumatic, PERRLA, EOMI, Normocephalic Oral: Oral mucosa moist. No Gingival or Mucosal Lesions/ Ulcerations Neck: Supple, No JVD, Negative Carotid Bruits Lungs: Air entry diminished in bilateral lung bases. No crepitation/rhonchi Cardiovascular: Regular rate, Regular Rhythm, Normal S1, Normal S2, systolic murmur right second ICS. Abdomen: Bowel Sounds Present, Soft, Non Tender, no significant palpable ascites. : No renal angle tenderness. No suprapubic tenderness. Extremities: Mild 1+ edema, Capillary Refill Less than 3 Seconds Skin: No rashes, No breakdown Musculoskeletal: No Tenderness to Palpation of Joints or Extremities, chronic right foot. Muscle strength 4/5 of left proximal thigh and knee, 4+/5 of right thigh and knee joints. Neurological: Cranial nerves II-XII grossly intact, DTR 2/4 and Symmetrical, no acute neurodeficit Psych/Mental Status: Flat affect. History of anxiety and depression Results Lab / Micro Data Result Diagrams: 08/21/22 14:34 08/21/22 14:34 Labs: Laboratory Results - last 24 hr 08/21/22 14:34: WBC 2.7 L, RBC 4.33, Hgb 11.9 L, Hct 41.0, MCV 94.7, MCH 27.5, MCHC 29.0 L, RDW Std Deviation 57.6 H, RDW Coeff of Christopher 16.4 H, Plt Count 74 L, MPV 12.6 H, Immature Gran % (Auto) 0.400, Neut % (Auto) 58.4, Lymph % (Auto) 23.2, [place] % (Auto) 14.3 H, Eos % (Auto) 2.6, Baso % (Auto) 1.1 H, Absolute Neuts (auto) 1.6 L, Absolute Lymphs (auto) 0.63 L, Nucleated RBC % 0, Platelet Estimate MOD DEC 08/21/22 14:34: Sodium 141, Potassium 4.0, Chloride 108 H, Carbon Dioxide 27.0, Anion Gap 6, BUN 7, Creatinine 0.96, Est GFR (MDRD) Af Amer 74, Est GFR (MDRD) Non-Af 62, BUN/Creatinine Ratio 7.3 L, Glucose 118 H, Calcium 9.2, Magnesium 1.9, TSH 1.32 08/21/22 14:34: Ammonia 84.0 H 08/21/22 14:34: Total Creatine Kinase 580 H Assessment & Plan Assessment/Plan (1) Fall: (2) Acute hepatic encephalopathy: PLAN: Plan This 67-year-old female being admitted for increased weakness, recurrent fall after increase the dose of Latuda with lethargy and increased somnolence. 1. Multiple recurrent falls, history of fall in past, lower extremity weakness after increase of dose Latuda with mild hyper CKemia: [facility] Hold Latuda. CK is 580. Patient is a started on IV fluid normal saline in ED. Continue normal saline +20 mEq KCl at 125 mill per hour. PT OT and case management. 12 leadk EKG ordered Hypophosphatemia, phosphorus 2.7. TSH normal. Potassium 4.0. Serum magnesium normal. IV potassium phosphate ordered. 2. Chronic hep C cirrhosis with acute encephalopathy due hepatic encephalopathy: Patient taking prescribed dose of lactulose where she is having 1 week bowel movement. She has mild drowsiness and increased somnolence. Lactulose dose increased to every 6 hourly. Xifaxan 550 mg twice daily. Patient does not have fever. Will hydrate the patient. Monitor intake and output.Serum ammonia 84, elevated of unclear significance regarding hepatic encephalopathy. Liver chemistry shows low albumin 3.0, AST 54 otherwise in normal range.. Patient has chronic pancytopenia with thrombocytopenia, leukopenia and mild normocytic normochromic anemia from decompensated hep C cirrhosis 3. Coronary artery disease: Patient on atenolol but not on aspirin Plavix on her home medication probably stopped due to thrombocytopenia. History of mild coronary artery disease and did not require PCI.? She was found to have non-STEMI in December 2016 when she was admitted for overdose and encephalopathy.? Cardiac cath showed dominant RCA with a small? thrombus filled vessel in side branch of PDA.? At that time aspirin and Plavix were recommended. 4.? Hypertension, dyslipidemia, chronic nicotine use: Patient still smokes cigarette less than a pack per day.? Patient was on Chantix in the past. 6.? Anxiety and depression history of polysubstance use: Patient had a history of chronic opioid use dependence in the past.? Patient on multiple antipsychotic medications Xanax, Abilify and Lexapro. She was on Latuda 20 mg daily and was increased to 40 mg on /Friday and probably that might increase her weakness. History of multiple medications overdose in the past and suicidal attempt in the past. Patient denies suicidal ideation or risk at this time. Living will/advanced directive/end of life care: Patient does have living will or advanced directive. She states her brother Mr. Igor Banuelos is power of civil attorney for health. She is oriented x3, coherent and understands and made decision for DNR CC arrest with no intubation. After discussion of benefits/risks procedures involved with full code, DNR CC arrest and DNR CC, the patient opted for DNR CC arrest with no intubation Patient doesn't want artificial life support including intubation, tube feed, ventilator and/chest compression, central venous catheter, vasopressor and DC shock if needed Total time spent in [id number] encounter in discussion of advanced directive 17 minutes. Laboratory Results 08/21/22 14:34: WBC 2.7 L, RBC 4.33, Hgb 11.9 L, Hct 41.0, MCV 94.7, MCH 27.5, MCHC 29.0 L, RDW Std Deviation 57.6 H, RDW Coeff of Christopher 16.4 H, Plt Count 74 L, MPV 12.6 H, Immature Gran % (Auto) 0.400, Neut % (Auto) 58.4, Lymph % (Auto) 23.2, [place] % (Auto) 14.3 H, Eos % (Auto) 2.6, Baso % (Auto) 1.1 H, Absolute Neuts (auto) 1.6 L, Absolute Lymphs (auto) 0.63 L, Nucleated RBC % 0, Platelet Estimate MOD 08/21/22 14:34: Sodium 141, Potassium 4.0, Chloride 108 H, Carbon Dioxide 27.0, Anion Gap 6, BUN 7, Creatinine 0.96, Est GFR (MDRD) Af Amer 74, Est GFR (MDRD) Non-Af 62, BUN/Creatinine Ratio 7.3 L, Glucose 118 H, Calcium 9.2, Magnesium 1.9, TSH 1.32 08/21/22 14:34: Ammonia 84.0 H 08/21/22 14:34: Total Creatine Kinase 580 H 08/21/22 14:34: Total Bilirubin 0.40, Direct Bilirubin 0.09, AST 54 H, ALT 23, Alkaline Phosphatase 75, Total Protein 7.0, Albumin 3.0 L, Globulin 4.0 08/21/22 14:34: Phosphorus 1.8 L, Magnesium 1.8 Charges/Coding Visit Charges Inpatient E&M: 35866 Init Hosp L3 Procedures Hospitalists Procedures: 79593 Advncd Care Plan 30 Min
--- NOTE | 2022-08-21 15:44 | NURSING ---
DR WHALEY FOR DR CRAFT
[2022-08-21 15:49] VITALS: BP 142/77; PULSE 84; RESP 16; TEMP 36.8; O2SAT 94
[2022-08-21] MEDS: Lactulose 20 GM/30 ML UDC PO ×3 (15:49→21:02)
--- NOTE | 2022-08-21 15:52 | NURSING ---
MED SURG JOVANA HYPERAMMONEMIA, WEAKNESS
[2022-08-21 16:07] LABS: AST(SGOT) 54 U/L (15-37); Alanine Aminotransfer ALT/SGPT 23 U/L (13-56); Alkaline Phosphatase 75 U/L (45-117); Bilirubin, Direct 0.09 mg/dL (0.00-0.30)
[2022-08-21] MEDS: 0.9% Normal Saline 1,000 ML 150 ML IV (16:16)
[2022-08-21 16:18] LABS: Magnesium 1.8 mg/dL (1.6-2.6); Phosphorus 1.8 mg/dL (2.5-4.9)
--- NOTE | 2022-08-21 16:33 | EKG12_ITS ---
Test Reason : WEAKNESS Blood Pressure : / mmHG Vent. Rate : 065 BPM Atrial Rate : 065 BPM P-R Int : 152 ms QRS Dur : 092 ms QT Int : 422 ms P-R-T Axes : 060 043 061 degrees QTc Int : 438 ms Normal sinus rhythm Nonspecific ST abnormality Abnormal ECG When compared with ECG of 25-JUL-2022 21:46, QT has shortened Confirmed by ULICES MANCINI, MARU ([id number]), supervising film or videotape editor BELLE BRASHER ([id number]) on 08/23/2022 9:29:22 AM Referred By: JOVANA Confirmed By:MARU ELENA MD
[2022-08-21 16:53] VITALS: O2SAT 98; BMI 28.8
[2022-08-21 18:00] VITALS: BP 158/80; PULSE 68; RESP 16; TEMP 37; O2SAT 98
[2022-08-21] MEDS: 0.9% Normal Saline 1,000 ML 125 ML IV (18:00)
[2022-08-21] MEDS: rifAXIMin 550 MG Tablet PO (18:30)
[2022-08-21] MEDS: Acyclovir 200 MG Capsule 400 MG PO (21:00)
[2022-08-22] MEDS: 0.9% Normal Saline 1,000 ML 125 ML IV (00:59)
[2022-08-22 04:39] LABS: Absolute Lymphocyte Count 0.75 X10^3/uL (0.83-4.51); Absolute Neutrophil Count 1.2 X10^3/uL (2.0-7.7); Basophil# 0.02 X10^3/uL; Basophil% 0.8 % (0-1); Eosinophil# 0.09 X10^3/uL; Eosinophils% 3.5 % (0-5); Hematocrit 38.1 % (37-47); Hemoglobin 11.5 g/dL (12.0-15.0); Lymphocyte # 0.75 X10^3/ul (0.83-4.51); Lymphocyte % 29.1 % (19-41); Mean Corp Hgb Conc 30.2 g/dL (32-36); Mean Corpuscular Volume 92.9 fL (81-99); Mean Platelet Vol. 13.3 fl (6.2-12.0); Monocyte# 0.47 X10^3/uL; Monocyte% 18.2 % (0-10); NRBC Flagged by Analyzer 0 % (0-5); Neutrophil # 1.24 X10^3/uL (2.7-7.7); POSITIVE COUNT YES; Platelet Count 73 K/mm3 (150-450); RBC Distribution Width CV 16.2 % (11.6-14.6); RBC Distribution Width SD 55.2 fl (35.1-43.9); White Blood Count 2.6 K/mm3 (4.4-11.0)
[2022-08-22 04:45] VITALS: BP 145/73; PULSE 68; RESP 16; TEMP 36.7; O2SAT 95
[2022-08-22 05:35] LABS: ALB/GLOB Ratio 0.8 RATIO (0.9-2.4); AST(SGOT) 45 U/L (15-37); Alanine Aminotransfer ALT/SGPT 21 U/L (13-56); Albumin, Serum 2.7 g/dL (3.2-5.0); Alkaline Phosphatase 67 U/L (45-117); Anion Gap 5 (5-15); BUN 6 mg/dL (7-18); BUN/Creat Ratio 8.8 RATIO (10-20); Calcium,Total 7.8 mg/dL (8.5-10.1); Chloride 112 mmol/L (98-107); Creatinine, Serum 0.68 mg/dL (0.55-1.02); EST Glomerular Filtration Rate 92 mL/min (>60); Est Glom Filt Rate - Afr Amer 112 mL/min (>60); Estimated Creatinine Clearance 39.75 ml/min; Globulin 3.6 g/dL (2.2-4.2); Glucose 96 mg/dL (74-106); Potassium 3.9 mmol/L (3.5-5.1); Protein, Total 6.3 g/dL (6.4-8.2); Sodium Level 143 mmol/L (136-145); Thyroid Stim Hormone (TSH) 1.67 uIU/mL (0.358-3.74)
[2022-08-22] MEDS: Lactulose 20 GM/30 ML UDC PO ×2 (05:37→14:05)
[2022-08-22 05:58] VITALS: BMI 28.9
[2022-08-22 09:05] VITALS: BP 159/79; PULSE 81; RESP 16; TEMP 36.6; O2SAT 94
[2022-08-22] MEDS: rifAXIMin 550 MG Tablet PO (09:14)
[2022-08-22] MEDS: Acyclovir 200 MG Capsule 400 MG PO (09:15)
[2022-08-22] MEDS: Atenolol 100 MG Tablet PO (09:15)
[2022-08-22] MEDS: Pantoprazole Sodium 20 MG Tablet PO (09:15)
[2022-08-22 12:03] VITALS: O2SAT 94
[2022-08-22 13:54] VITALS: BP 142/78; PULSE 63; RESP 16; TEMP 36.8; O2SAT 95
--- NOTE | 2022-08-22 15:22 | DCINST_ITS ---
Discharge Instructions Diet Discharge Diet: No restrictions Activity Discharge Activity: Return to Normal Activity Weight Bearing Status: Full weight bearing Follow Up Care Test Results: Test results from this visit will be discussed in further detail at your follow- up appointment, if applicable. Discharge Plan Admission Admit Date/Time: 08/21/22 15:44 Primary Reason for Your Visit: weakness, hepatic encephalopathy Attending Provider: Roc Curtis Primary Care Provider: Care Physician,No Primary Consulting Providers: Nakul Klein Instructions Additional Instructions / Restrictions: Contact your psychiatrist as soon as possible to update your psychiatric medications, do not take Latuda Discharge Orders/Prescriptions Prescriptions: Continued alprazolam 0.5 MG tablet 0.5 mg PO BID PRN PRN (Reason: Anxiety) Hold Instructions: Resume on 05/04/22. valacyclovir 500 mg tablet 1,000 mg PO DAILY PRN (Reason: Cold Sores) Label Comments: Take 2 tablets by mouth once daily. Xifaxan 550 mg tablet 550 mg PO BID lactulose 20 gram/30 mL Solution 20 g PO TID 30 Days Qty: 2700 0RF atenolol 100 mg tablet 100 mg PO DAILY Label Comments: Take 1 tablet by mouth every morning. omeprazole magnesium [Prilosec OTC] 20 mg Tablet,Delayed Release (Dr/Ec) 20 mg PO DAILY PRN PRN (Reason: GERD) Discontinued lurasidone 40 mg tablet 40 mg PO DAILY Label Comments: TAKE 1 TABLET BY MOUTH DAILY WITH FOOD Referrals / Follow Up: Care Physician,No Primary [Primary Care Provider] - Disposition Disposition (needs filled in before D/C Order can be placed): Home, Self Care
[2022-08-22 15:28] LABS: Bacteria 0 SEEN /hpf (None Seen); Mucous, Urine 0 SEEN /hpf (<or=2+); Red Blood Cells-Urine 0 SEEN /hpf (0-5)
[2022-08-22 15:30] LABS: Color, Urine Straw (Yellow); Glucose, Dipstick Normal (Normal); Ketone-Dipstick Negative (Negative); Leukocyte Esterase-Dipstick Negative /ul (Negative); Nitrite-Dipstick Negative (Negative); Occult Blood-Urine Negative /ul (Negative); Protein-Dipstick Negative (Negative); Specific Gravity, Urine 1.005 (1.002-1.030); Urine Bilirubin Dipstick Negative (Negative); Urine Clarity Clear (Clear); Urine Urobilinogen Normal (Normal)
[2022-08-22 15:38] LABS: Squamous Epithelial Cells - UA 0-5 SEEN /hpf (5-10); White Blood Cells 0-5 SEEN /hpf (0-5)
--- NOTE | 2022-08-22 15:52 | PCM.DC.SUM ---
Providers Date of Admission: 08/21/22 Date of Discharge: 08/22/22 Primary Care Physician: No Primary Care Phys Reason For Visit: WEAKNESS Diagnosis Discharge Diagnosis (1) Fall: Status: Acute Code(s): W19.XXXA - Unspecified fall, initial encounter (2) Acute hepatic encephalopathy: Status: Acute Code(s): K76.82 - Hepatic encephalopathy (3) Weakness: Status: Acute Code(s): R53.1 - Weakness (4) Cirrhosis: Status: Chronic Code(s): K74.60 - Unspecified cirrhosis of liver (5) Bipolar 1 disorder: Status: Chronic Code(s): F31.9 - Bipolar disorder, unspecified Medications at Discharge Home Medications alprazolam 0.5 mg tablet 0.5 mg PO BID PRN PRN Anxiety 03/17/19 valacyclovir 500 mg tablet 1,000 mg PO DAILY PRN Cold Sores 04/24/22 rifaximin 550 mg tablet (Xifaxan) 550 mg PO BID LIVER 07/26/22 lactulose 20 gram/30 mL oral solution 20 g (30 mL) PO TID 30 days #2,700 mL 07/28/22 atenolol 100 mg tablet 100 mg PO DAILY HEART 08/21/22 omeprazole magnesium 20 mg tablet,delayed release (Prilosec OTC) 20 mg PO DAILY PRN PRN GERD 08/21/22 Hospital Course Operations None Procedures None Summary of Care Provided Minutes Spent on Discharge: 30 Hospital Course: SubjectThis is 87-year-old white female was seen in the emergency room at [facility] for lysed weakness and nervousness x2 days. Patient saw her psychiatrist and he increased her dose of Latuda last week, on Friday of this week she felt very shaky and could not get up from a seated position without support. Patient also has a history of cirrhosis and takes lactulose to prevent hepatic encephalopathy. Lab work obtained in the emergency room revealed her ammonia level to be 84, patient's white blood cell count was 2.6, hemoglobin was 11.5, and platelet count was 73,000. Patient appeared mildly somnolent in the ER. Patient was placed in observation status on MedSurg 3, following morning I examined her and she appeared alert and appropriate, she was seen by physical therapy and Occupational Therapy and she ambulated without difficulty. On 08/22/2022, patient was seen and examined: On examination she appeared in good health and spirits, she does not appear to be in any distress. Vital signs as documented. Skin warm and dry and without overt rashes. Neck without JVD, thyroid appears normal, trachea is midline, neck is supple. Lungs clear, normal air movement was noted. Heart exam notable for regular rhythm, normal sounds and absence of murmurs, rubs or gallops. Abdomen unremarkable and without evidence of organomegaly, masses, or abdominal aortic enlargement, bowel sounds are present in all 4 quadrants, no abdominal tenderness was noted. Extremities nonedematous, no cyanosis was noted, no clubbing was noted. Neuro: Cranial nerves II through XII are grossly intact, no focal motor deficits were noted, sensation to light touch and pinprick is intact, motor exam 5/5 throughout. Psych: Patient is alert and oriented x3, she does not appear anxious or depressed, she does not appear agitated. Patient was discharged home in stable condition on 08/22/2022, I talked to her significant other by phone-I told him that I would advise her to contact her psychiatrist and get her medications updated, she is not to take Latuda until she talks with her psychiatrist. Weight / BMI Weight Weight: 66.9 kg Body Mass Index (BMI) 28.9 ABG / Lab / Microbiology Data Result Diagrams: 08/22/22 03:40 08/22/22 03:40 Laboratory: Laboratory Results - last 24 hr 08/21/22 14:34: Total Bilirubin 0.40, Direct Bilirubin 0.09, AST 54 H, ALT 23, Alkaline Phosphatase 75, Total Protein 7.0, Albumin 3.0 L, Globulin 4.0 08/21/22 14:34: Phosphorus 1.8 L, Magnesium 1.8 08/22/22 03:40: WBC 2.6 L, RBC 4.10 L, Hgb 11.5 L, Hct 38.1, MCV 92.9, MCH 28.0, MCHC 30.2 L, RDW Std Deviation 55.2 H, RDW Coeff of Christopher 16.2 H, Plt Count 73 L, MPV 13.3 H, Immature Gran % (Auto) 0.400, Neut % (Auto) 48.0, Lymph % (Auto) 29.1, [place] % (Auto) 18.2 H, Eos % (Auto) 3.5, Baso % (Auto) 0.8, Absolute Neuts (auto) 1.2 L, Absolute Lymphs (auto) 0.75 L, Nucleated RBC % 0 08/22/22 03:40: Sodium 143, Potassium 3.9, Chloride 112 H, Carbon Dioxide 26.0, Anion Gap 5, BUN 6 L, Creatinine 0.68, Estim Creat Clear Calc 39.75, Est GFR (MDRD) Af Amer 112, Est GFR (MDRD) Non-Af 92, BUN/Creatinine Ratio 8.8 L, Glucose 96, Calcium 7.8 L, Total Bilirubin 0.50, AST 45 H, ALT 21, Alkaline Phosphatase 67, Total Protein 6.3 L, Albumin 2.7 L, Globulin 3.6, Albumin/Globulin Ratio 0.8 L, TSH 1.67 08/22/22 15:00: Urine Color Straw, Urine Clarity Clear, Urine pH 7.0, Ur Specific [place] 1.005, Urine Protein Negative, Urine Glucose (UA) Normal, Urine Ketones Negative, Urine Occult Blood Negative, Urine Nitrite Negative, Urine Bilirubin Negative, Urine Urobilinogen Normal, Ur Leukocyte Esterase Negative, Urine RBC 0 SEEN, Urine WBC 0-5 SEEN, Ur Squamous Epith Cells 0-5 SEEN, Urine Bacteria 0 SEEN, Urine Mucus 0 SEEN D/C Instructions Discharge Diet: No restrictions Weight Bearing Status: Full weight bearing Meaningful Use Info Meaningful Use Diagnoses (Choose all that apply): None applicable Discharge Plan Admission Admit Date/Time: 08/21/22 15:44 Primary Reason for Your Visit: weakness, hepatic encephalopathy Attending Provider: Roc Curtis Primary Care Provider: Care Physician,No Primary Consulting Providers: Nakul Klein Instructions Additional Instructions / Restrictions: Contact your psychiatrist as soon as possible to update your psychiatric medications, do not take Latuda Discharge Orders/Prescriptions Prescriptions: Continued alprazolam 0.5 MG tablet 0.5 mg PO BID PRN PRN (Reason: Anxiety) Hold Instructions: Resume on 05/04/22. valacyclovir 500 mg tablet 1,000 mg PO DAILY PRN (Reason: Cold Sores) Label Comments: Take 2 tablets by mouth once daily. Xifaxan 550 mg tablet 550 mg PO BID lactulose 20 gram/30 mL Solution 20 g PO TID 30 Days Qty: 2700 0RF atenolol 100 mg tablet 100 mg PO DAILY Label Comments: Take 1 tablet by mouth every morning. omeprazole magnesium [Prilosec OTC] 20 mg Tablet,Delayed Release (Dr/Ec) 20 mg PO DAILY PRN PRN (Reason: GERD) Discontinued lurasidone 40 mg tablet 40 mg PO DAILY Label Comments: TAKE 1 TABLET BY MOUTH DAILY WITH FOOD Referrals / Follow Up: Care Physician,No Primary [Primary Care Provider] - Disposition Disposition (needs filled in before D/C Order can be placed): Home, Self Care Charges/Coding Visit Charges Inpatient E&M: 92096 Disch Hosp
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
== END 2022-08-22 17:36 | disposition home or self-care (01) ==
LOC: ED 15:40 → MS3 16:14
PROVIDERS: Admitting Provider Internal Medicine; Emergency Provider Emergency Medicine; Visit Provider Internal Medicine
DX: R53.1 Weakness (principal); K76.82 Hepatic encephalopathy; D61.818 Other pancytopenia; K74.60 Unspecified cirrhosis of liver; F31.9 Bipolar disorder, unspecified; B18.2 Chronic viral hepatitis C; I25.10 Atherosclerotic heart disease of native coronary artery without angina pectoris; I10 Essential (primary) hypertension; E78.5 Hyperlipidemia, unspecified; F17.210 Nicotine dependence, cigarettes, uncomplicated; Z79.899 Other long term (current) drug therapy; I25.2 Old myocardial infarction; F41.9 Anxiety disorder, unspecified; M21.371 Foot drop, right foot; R29.6 Repeated falls
CPT/HCPCS: 36415; 80048; 80053; 80076; 81001; 82140; 82550; 83735; 84100; 84443; 85025; 93005; 94668; 96361; 96365; 96366; 97162; 97165; 99221; 99283; J7030; J7050; A4216; G0378

== ENCOUNTER 2025-01-17 12:32 | Emergency (ER) | payer MEDICAID, MEDICARE, SELFPAY ==
[2025-01-17 12:33] VITALS: BP 161/78; PULSE 80; RESP 18; TEMP 36.1; O2SAT 96; BMI 26.5
--- NOTE | 2025-01-17 12:55 | EX.ED.UPPERE ---
HPI History of Present Illness Chief Complaint: Upper Extremity Injury Informant: patient Narrative Narrative: Patient is a 69-year-old female presenting with severe left upper arm/shoulder pain and numbness. - Pain began in September 2023 and has progressively worsened, described as excruciating and debilitating. - Pain originates in the left shoulder and radiates down the arm, described as a arpan of pain inside the arm. - Pain is constant and worsens with movement, particularly bending at the waist. - Associated with numbness in the hand and a burning sensation extending to the fingertips when bending over. - Reports severe neck pain on the left side. - Pain has significantly impacted daily activities, including difficulty with personal hygiene, cooking, and walking the dog. - Has seen multiple healthcare providers, including Dr. Sunday Hauser, Dr. Yee Downey, Dr. Tammie Parisi, and Dr. Brenna Newman at the [facility]. - Scheduled for a follow-up at the pain clinic on the . - Has had imaging of the shoulder but not the neck. - Currently on gabapentin, prescribed 3 months ago. - History of neck surgery in 1990, with disc removal at C4, C5, and C6; no fusion performed. - Previously underwent radiofrequency ablation for neck pain, which provided relief for 10 years. [facility] Medical History Arthritis Atherosclerosis of [place] coronary artery of [place] heart without angina pectoris Hyperammonemia Anxiety and depression Chronic pain syndrome Tobacco use HLD (hyperlipidemia) HTN (hypertension) History of non-ST elevation myocardial infarction (NSTEMI) Hepatitis C Cirrhosis Abnormal electrocardiogram [ECG] [EKG] Cervical neck surgery Depression Chronic narcotic use Chronic back pain Non-ST elevation (NSTEMI) myocardial infarction (~01/27/17) Toxic encephalopathy (~01/27/17) Home Medications ?Medication ?Instructions ?Recorded ?Last Taken ?Type alprazolam 0.5 mg tablet 0.5 mg PO BID PRN PRN Anxiety 03/17/19 08/20/22 History valacyclovir 500 mg tablet 1,000 mg PO DAILY PRN Cold Sores 04/24/22 08/20/22 History rifaximin 550 mg tablet (Xifaxan) 550 mg PO BID LIVER 07/26/22 08/21/22 History lactulose 20 gram/30 mL oral 20 g (30 mL) PO TID 30 days #2,700 07/28/22 08/21/22 Rx solution mL atenolol 100 mg tablet 100 mg PO DAILY HEART 08/21/22 08/21/22 History omeprazole magnesium 20 mg 20 mg PO DAILY PRN PRN GERD 08/21/22 08/18/22 History tablet,delayed release (Prilosec OTC) hydrocodone-acetaminophen 5-325mg 1 tab PO Q6H PRN PRN Pain 3 days 01/17/25 Unknown Rx 5mg-325mg #12 TABLETS Allergy/AdvReac Type Severity Reaction Status Date / Time Opioids - Morphine Analogues AdvReac Rash Verified 01/17/25 12:33 orange juice AdvReac Diarrhea Verified 01/17/25 12:33 Family History Father Heart disease Surgical History Hx of cholecystectomy History of left heart catheterization Social History Smoking Status: Current every day smoker tobacco type: cigarettes alcohol intake: former year quit: 2015 substance use type: marijuana and other details: Smokes marijuana daily ROS ROS ED Constitutional Constitutional ED: Denies chills or fever(s) Eyes Eyes: Denies change in vision ENT ENT ED: Denies ear pain, rhinorrhea or sore throat Cardiovascular Cardiovascular: Denies chest pain or palpitations Respiratory/Chest Respiratory/Chest: Denies dyspnea Gastrointestinal Gastrointestinal: Denies abdominal pain Musculoskeletal Musculoskeletal: Reports extremity pain and neck pain Integumentary Denies Abrasions, rash or wounds Neurologic Neurologic: Reports paresthesias LUE; Denies weakness Psychiatric Psychiatric: Reports anxiety EXAM Physical Exam Const Vital Signs: 01/17/25 12:33 Temperature 97 F L Temperature Source Temporal Pulse Rate 80 Respiratory Rate 18 Blood Pressure 161/78 H Blood Pressure Mean 105 Pulse Ox 96 Oxygen Delivery Method Room Air Positive well nourished and well developed General Appearance ED: well developed and NAD Eyes PERRL and EOMs intact bilaterally Neck full ROM and supple Chest Wall inspection of chest normal and palpation of chest normal Resp normal respiratory effort Back/Spine normal ROM and normal to inspection Extremity Extremity Narrative: Range of motion of left shoulder without significant limitation. No significant shoulder girdle tenderness no deformities. Neurovascularly intact distally. No specific midline neck tenderness or limited range of motion. No lymphadenopathy in the posterior neck. Neuro oriented x3, no focal motor deficits and no sensory deficits noted Sensorium / Orientation: alert Psych mental status grossly normal and thought process normal Skin no wounds Rashes: no rashes MDM MDM MDM Narrative Medical decision making narrative: My suspicion is that the patient is having radicular pain in her left upper extremity rather than actual shoulder joint pain. I obtained a 5U x-ray of the cervical spine, which on my interpretation shows significant degenerative changes. Radiology?s interpretation indicates left neuroforaminal stenosis, which could explain the radicular pain and her symptoms. She is already on gabapentin and has been taking it for 3 months. I am happy to prescribe a short course of analgesics, but as I discussed with her, she does not meet any criteria for an immersion of her eye. She needs to follow up, and she is comfortable with that plan. She understands that we do not have a fix for this here in the ER. Radiography Diagnostic Testing: Clinical Impression(s) from Imaging Studies Cervical Spine X-Ray 01/17/25 13:05 IMPRESSION: MODERATE CERVICAL DEGENERATIVE CHANGES. Findings suggestive of left neural foraminal stenosis. Disclaimer: Reading Location: [facility]- Discharge Plan Triage Chief Complaint: Upper Extremity Injury ED Provider: Meliton Swain Dx/Rx/DC Orders Clinical Impression: Cervical radiculopathy, Pain in left upper arm Instructions: ED Radiculopathy, Cervical Prescriptions: New hydrocodone-acetaminophen 5-325 mg tablet 1 tab PO Q6H PRN PRN (Reason: Pain) 3 Days Qty: 12 0RF No Action alprazolam 0.5 MG tablet 0.5 mg PO BID PRN PRN (Reason: Anxiety) valacyclovir 500 mg tablet 1,000 mg PO DAILY PRN (Reason: Cold Sores) Patient Comments: Take 2 tablets by mouth once daily. Xifaxan 550 mg tablet 550 mg PO BID lactulose 20 gram/30 mL Solution 20 g PO TID 30 Days Qty: 2700 0RF atenolol 100 mg tablet 100 mg PO DAILY Patient Comments: Take 1 tablet by mouth every morning. omeprazole magnesium [Prilosec OTC] 20 mg Tablet,Delayed Release (Dr/Ec) 20 mg PO DAILY PRN PRN (Reason: GERD) Primary Care Provider: Yee Rawls Referrals: Doctor,Your [Non-Staff, None] - As soon as possible Print Language: Greenlandic Disposition Disposition: Home, Self Care
--- NOTE | 2025-01-17 13:05 | RAD_ITS ---
PROCEDURE: CERV SPINE 4 OR 5 VIEWS 01/17/2025 REASON FOR EXAM: PAIN W/ LUE RADIC SX, C5-6 MAINLY TECHNIQUE: Procedure Code: [facility] Modality: DX Procedure: CERV SPINE 4 OR 5 VIEWS COMPARISON: None FINDINGS: Vertebrae: No evidence of vertebral compression fracture. disc spaces: Multilevel disc space narrowing and spondylosis. Alignment: Minimal anterior listhesis of C2 on C3 most likely secondary to the facet joint osteoarthritis. soft tissues: No prevertebral soft tissue swelling. Other: Findings suggestive of left neural foraminal stenosis. RAD/Cerv Spine 4 or 5 Views IMPRESSION: MODERATE CERVICAL DEGENERATIVE CHANGES. Findings suggestive of left neural foraminal stenosis. Disclaimer: Reading Location: [facility]
[2025-01-17 13:51] VITALS: BP 134/78; PULSE 64; RESP 18; TEMP 36.6; O2SAT 99
== END 2025-01-17 13:53 | disposition home or self-care (01) ==
PROVIDERS: Emergency Provider Emergency Medicine; PCP Family Medicine; Visit Provider Emergency Medicine
DX: M54.12 Radiculopathy, cervical region (principal); I25.10 Atherosclerotic heart disease of native coronary artery without angina pectoris; M25.512 Pain in left shoulder; I25.2 Old myocardial infarction; F17.210 Nicotine dependence, cigarettes, uncomplicated
CPT/HCPCS: 72050; 99282

== ENCOUNTER → 2025-02-14 | Outpatient (CLI) | payer MEDICARE, MEDICAID, SELFPAY ==
--- NOTE | 2025-02-14 12:51 | MRI_ITS ---
PROCEDURE: SPINE CERVICAL (ROUTINE) 02/14/2025 REASON FOR EXAM: RADICULOPATHY TECHNIQUE: [facility] [place] Procedure: SPINE CERVICAL (ROUTINE) Multiplanar and multisequence images were obtained without IV contrast administration. COMPARISON: Cervical spine x-ray 12/2024 FINDINGS: Vertebrae: Cervical vertebral body heights are preserved. Bone marrow signal is unremarkable. Alignment: Anterolisthesis C2 on C3 by 2 mm and C3 on C4 by 2 mm. Spinal Cord: Cervical spinal cord is of normal size and signal intensities. Structures at the foramen magnum are unremarkable. C2-3: Facet joints arthropathy. Uncovertebral hypertrophy. Moderate bilateral foramina stenosis. Moderate canal stenosis. C3-4: Disc osteophyte complex. Uncovertebral hypertrophy. Facet joints arthropathy. Severe bilateral foramina stenosis. Mild canal stenosis. C4-5: Disc desiccation. Left uncovertebral hypertrophy. Facet joints arthropathy. Disc osteophyte complex. Severe left foramina stenosis. Mild canal stenosis. No significant right foramina stenosis. C5-6: Disc desiccation. Disc osteophyte complex. Uncovertebral hypertrophy. Severe right and moderate left foramina stenosis. Severe canal stenosis. C6-7: Disc desiccation. Disc osteophyte complex. Uncovertebral hypertrophy. Moderate bilateral foramina stenosis. Moderate canal stenosis. C7-T1: No significant foraminal or canal stenosis. MRI/Spine Cervical (Routine) IMPRESSION: Degenerate changes predominantly for severe canal stenosis and severe right for gilberto stenosis along with moderate left foramina stenosis at C5-C6. Severe bilateral foramina stenosis at C3-C4. Moderate canal stenosis and moder ate bilateral foramina stenosis at C6-C7. Reading Location: [facility]
== END | disposition home or self-care (01) ==
LOC: MRI 12:48
PROVIDERS: PCP Family Medicine; Referring Provider Anesthesiology Pain Medicine; Visit Provider Anesthesiology Pain Medicine
DX: M54.12 Radiculopathy, cervical region (principal)
CPT/HCPCS: 72141